=== PATIENT | male | born 1940 | race Caucasian/White ===

== ENCOUNTER 2023-02-26 09:29 | Emergency (ER) | payer MEDICARE, OTHER, SELFPAY ==
[2023-02-26 09:30] VITALS: BP 158/69; PULSE 60; RESP 18; TEMP 36.2; O2SAT 95; BMI 31.5
--- NOTE | 2023-02-26 09:41 | EKG12_ITS ---
Test Reason : RECHECK Blood Pressure : / mmHG Vent. Rate : 079 BPM Atrial Rate : 110 BPM P-R Int : 000 ms QRS Dur : 112 ms QT Int : 432 ms P-R-T Axes : 000 003 099 degrees QTc Int : 495 ms Atrial flutter Incomplete left bundle branch block Nonspecific ST and T wave abnormality Abnormal ECG Confirmed by GA DALTON, JASIEL ([id number]), newspaper editor KIRILL ROMAN ([id number]) on 03/01/2023 9:20:03 AM Referred By: BB Confirmed By:JASIEL KOROMA MD
--- NOTE | 2023-02-26 09:42 | RAD_ITS ---
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 COMPARISON: None. FINDINGS: EKG electrodes are seen. There is elevation of the right hemidiaphragm. Increased markings at both lung bases worse on the left side. Bibasilar infiltrates should be ruled out. Blunting of the left costophrenic angle. There is mild cardiac enlargement. Normal mediastinum and marce. There is prominence of the pulmonary hilar arteries without peripheral pulmonary vascular congestion, suggesting pulmonary hypertension. There is atherosclerotic calcification of the aortic arch with tortuosity. There are diffuse degenerative changes of the visualized thoracic spine. Normal visualized ribs, clavicles, and shoulders. There is no demonstrated abnormality of the visualized soft tissue structures of the upper abdomen. RAD/Chest PA and Lateral IMPRESSION: Increased markings at the lung bases suggest bibasilar infiltrates worse on the left side with blunting of the left costophrenic angle. Electronically Signed: Jay Arroyo MD at 10:13 EDT ,
--- NOTE | 2023-02-26 09:43 | EX.ED.DYSGE1 ---
HPI History of Present Illness Chief Complaint: Shortness of Breath Informant: patient Narrative Narrative: Patient started having a cough 2 days ago. It is nonproductive and without any congestion, earache, sinus pressure, sore throat, fevers, or chills. Yesterday started having coughing fits where he felt a little short of breath only while coughing. He states with walking, he has no dyspnea, even when walking up hills such as on his way into the ER here. He states he went to urgent care this morning, they did an EKG that appeared to show atrial fibrillation which she does not have a history of, so he was referred here to the ER. This is all according to the patient. He states he has had no chest discomfort, palpitations, near-syncope or syncope. He has chronic edema of both legs worse on the right no worse than usual, he has had no recent travel out of the area or contact with anyone else with any illness that he knows of. He has no known cardiac history. [facility] Medical History Hypertension Home Medications amlodipine 10 mg tablet 10 mg PO DAILY 02/26/23 [History Last Taken Unknown] amoxicillin 875 mg-potassium clavulanate 125 mg tablet 875 mg PO Q12H #20 TABLETS 02/26/23 [Rx Last Taken Unknown] apixaban 5 mg tablet (Eliquis) 5 mg PO BID #60 tabs 02/26/23 [Rx Last Taken Unknown] furosemide 40 mg tablet (Lasix) 40 mg PO DAILY #30 tabs 02/26/23 [Rx Last Taken Unknown] lisinopril 40 mg tablet 40 mg PO DAILY 02/26/23 [History Last Taken Unknown] Social History Smoking Status: Never smoker [facility] ED Constitutional Constitutional ED: Denies chills or fever(s) Eyes Eyes: Denies change in vision or diplopia ENT ENT ED: Denies ear pain, rhinorrhea or sore throat Cardiovascular Cardiovascular: Reports as per HPI and leg edema; Denies chest pain, palpitations or racing heartbeat Respiratory/Chest Respiratory/Chest: Reports as per HPI, cough, dry cough and dyspnea; Denies chest congestion, chest tightness, difficulty clearing secretions, dyspnea on exertion, excessive phlegm production or hemoptysis Gastrointestinal Gastrointestinal: Denies abdominal pain, diarrhea, nausea or vomiting Genitourinary Genitourinary ED: Denies dysuria or hematuria Musculoskeletal Musculoskeletal: Denies back pain or neck pain Integumentary Denies abscess or rash Neurologic Neurologic: Denies headache(s), paresthesias or weakness Psychiatric Psychiatric: Denies anxiety or suicidal thoughts EXAM Physical Exam Const Vital Signs: 02/26/23 09:30 02/26/23 09:44 02/26/23 09:45 Temperature 97.2 F L Temperature Source Temporal Pulse Rate 60 66 Respiratory Rate 18 30 H Respiratory Effort Normal Non-Labored Short of Breath Respiratory Pattern Tachypnea Blood Pressure 158/69 H 161/61 H Blood Pressure Mean 98 94 Pulse Ox 95 94 Oxygen Delivery Method Room Air Room Air Room Air 02/26/23 10:56 Temperature Temperature Source Pulse Rate 55 L Respiratory Rate 18 Respiratory Effort Respiratory Pattern Blood Pressure 157/69 H Blood Pressure Mean 98 Pulse Ox 92 Oxygen Delivery Method Room Air Positive well nourished and well developed Constitutional Narrative: well-appearing, speaking in full sentences General Appearance ED: well developed and NAD HEENT Reports moist mucous membranes normocephalic and atraumatic Eyes PERRL and EOMs intact bilaterally Neck full ROM, no lymphadenopathy, supple and no JVD Resp normal respiratory effort and clear to auscultation bilaterally Cardio no murmurs Rate: Negative for bradycardia or tachycardic Rhythm: abnormal rhythm irregularly irregular GI non-tender and non-distended Auscultation: normoactive bowel sounds Palpation: soft Back/Spine no CVA tenderness General Back: other FROM Extremity normal to inspection General Extremety ED: Yes edema; Negative for pulses abnormal or tenderness General Extremity: edema bilateral (no calf tenderness) lower extremity (trace edema LLE, 1+ RLE); Negative for pulses abnormal Neuro oriented x3, CN's II-XII intact bilaterally and no sensory deficits noted Sensorium / Orientation: awake and alert Motor Exam: strength 5/5 throughout Psych mental status grossly normal Skin no rashes or lesions noted and no wounds MDM MDM MDM Narrative Medical decision making narrative: I did review outside records: Urgent care discharge papers and 2 EKGs that they performed, 1 of which appeared to be sinus rhythm and the other of which appeared to be irregular, possibly sinus rhythm with PACs, possibly A-fib, but both limited due to significant baseline artifact. Therefore we repeated an EKG here. It too is difficult to interpret due to baseline artifact/tremor, but I favor A-fib. Labs are reviewed. 2 view chest x-ray shows some chronic changes in the bases on my interpretation, radiology in agreement discussed and the possibility of infiltrates. Therefore I added a BNP it is elevated 815. [id number] score is 3 for age, hypertension. Discussed with cardiology, who agrees given the patient's condition clinically is very well and he is not hypoxic can be discharged home to follow-up as an outpatient. He has not been having any symptoms of angina. Recommends Lasix 40 mg instead of the HCTZ and starting on Eliquis, I am also going to place him on antibiotics given his clinical symptoms, in case the infiltrates represent infection since he does also have a leukocytosis. Lab Data Attestation: I reviewed the patient's lab results. Labs: Laboratory Results - last 24 hr 02/26/23 02/26/23 02/26/23 09:50 09:50 09:50 WBC 14.1 H RBC 5.01 Hgb 14.8 Hct 46.9 MCV 93.6 MCH 29.5 MCHC 31.6 L RDW Std Deviation 43.2 RDW Coeff of Ben 12.7 Plt Count 233 MPV 10.3 Immature Gran % (Auto) 0.300 Neut % (Auto) 82.4 H Lymph % (Auto) 6.8 L [place] % (Auto) 10.2 H Eos % (Auto) 0.1 Baso % (Auto) 0.2 Absolute Neuts (auto) 11.6 H Absolute Lymphs (auto) 0.95 Nucleated RBC % 0 Sodium 136 Potassium 3.6 Chloride 106 Carbon Dioxide 27.0 Anion Gap 3 L BUN 14 Creatinine 0.95 Estim Creat Clear Calc 58.00 Est GFR (MDRD) Af Amer 98 Est GFR (MDRD) Non-Af 81 BUN/Creatinine Ratio 14.8 Glucose 126 H Calcium 9.6 Troponin I High Sens 82 H B-Natriuretic Peptide 814.8 H Radiography Diagnostic Testing: Clinical Impression(s) from Imaging Studies Chest X-Ray 02/26/23 09:42 IMPRESSION: Increased markings at the lung bases suggest bibasilar infiltrates worse on the left side with blunting of the left costophrenic angle. Electronically Signed: Jay Arroyo MD at 10:13 EDT , Rhythm Strip Rhythm Strip: Sinus w/ freq PAC vs Afib Rate: 60 Ectopy: PAC(s) (possibly; see above) EKG Initial EKG: Attestation: I personally reviewed and interpreted this EKG as follows: Interpretation: No Acute Injury Pattern, Atrial Fibrillation and LBBB (Incomplete) Prior: No Prior Management Discussion w/another healthcare provider: Marine Pipefitter Helper (Dr. Avelar) Discharge Plan Triage Chief Complaint: Shortness of Breath ED Provider: Mike Schneider Dx/Rx/DC Orders Clinical Impression: New onset a-fib, Acute cough Instructions: AFib Dc Prescriptions: New furosemide [Lasix] 40 mg tablet 40 mg PO DAILY Qty: 30 0RF amoxicillin-pot clavulanate [amoxicillin-pot clavulanate] 875-125 mg tablet 875 mg PO Q12H Qty: 20 0RF Eliquis 5 mg tablet 5 mg PO BID Qty: 60 0RF Continued amlodipine 10 mg tablet 10 mg PO DAILY Label Comments: TAKE 1 TABLET BY MOUTH EVERY DAY lisinopril 40 mg tablet 40 mg PO DAILY Label Comments: TAKE 1 TABLET BY MOUTH EVERY DAY Discontinued hydrochlorothiazide 25 mg tablet 25 mg PO DAILY Label Comments: TAKE 1 TABLET BY MOUTH EVERY DAY Primary Care Provider: NOT,DEFINED Referrals: Eric Avelar MD [Med Staff - Active Staff] - As soon as possible (call office for appt day/time) NOT,DEFINED [Primary Care Provider] - Activity Restrictions/Additional Instructions: The data is not definitive regarding whether you have early pneumonia, congestive heart failure, or both, in addition to atrial fibrillation but all of this is possible. Therefore we are treating you for all of this, and you need to follow-up with cardiology for more testing and evaluation. If you get significantly worse prior to this, such as significant trouble breathing, then return to the emergency room. Disposition Disposition: Home, Self Care
[2023-02-26 09:44] VITALS: BP 161/61; PULSE 66; RESP 30; O2SAT 94
[2023-02-26 09:45] VITALS: O2SAT 95
[2023-02-26 09:58] LABS: Absolute Lymphocyte Count 0.95 X10^3/uL (0.83-4.51); Absolute Neutrophil Count 11.6 X10^3/uL (2.0-7.7); Basophil# 0.03 X10^3/uL; Basophil% 0.2 % (0-1); Eosinophil# 0.01 X10^3/uL; Eosinophils% 0.1 % (0-5); Hematocrit 46.9 % (40-54); Hemoglobin 14.8 g/dL (13.0-16.5); Lymphocyte # 0.95 X10^3/ul (0.83-4.51); Lymphocyte % 6.8 % (19-41); Mean Corp Hgb Conc 31.6 g/dL (32-36); Mean Corpuscular Hgb 29.5 pg (27.0-32.0); Mean Corpuscular Volume 93.6 fL (80-94); Mean Platelet Vol. 10.3 fl (6.2-12.0); Monocyte# 1.44 X10^3/uL; Monocyte% 10.2 % (0-10); NRBC Flagged by Analyzer 0 % (0-5); Neutrophil # 11.58 X10^3/uL (2.7-7.7); Neutrophil % 82.4 % (47-70); Platelet Count 233 K/mm3 (150-450); RBC Distribution Width CV 12.7 % (11.6-14.6); RBC Distribution Width SD 43.2 fl (35.1-43.9); Red Blood Count 5.01 M/mm3 (4.6-6.2); White Blood Count 14.1 K/mm3 (4.4-11.0)
[2023-02-26 10:13] LABS: Anion Gap 3 (5-15); BUN 14 mg/dL (7-18); BUN/Creat Ratio 14.8 RATIO (10-20); Calcium,Total 9.6 mg/dL (8.5-10.1); Chloride 106 mmol/L (98-107); Creatinine, Serum 0.95 mg/dL (0.70-1.30); EST Glomerular Filtration Rate 81 mL/min (>60); Est Glom Filt Rate - Afr Amer 98 mL/min (>60); Glucose 126 mg/dL (74-106); Potassium 3.6 mmol/L (3.5-5.1); Sodium Level 136 mmol/L (136-145); Troponin-I HS 82 pg/mL (3.0-78.0)
[2023-02-26 10:56] VITALS: BP 157/69; PULSE 55; RESP 18; O2SAT 92
[2023-02-26 11:14] LABS: BNP,B-Type NATRIURETIC PEPTIDE 814.8 pg/mL (0-100)
[2023-02-26 12:38] VITALS: BP 171/71; PULSE 55; RESP 17; O2SAT 97
== END 2023-02-26 12:40 | disposition home or self-care (01) ==
PROVIDERS: Emergency Provider Emergency Medicine; Visit Provider Emergency Medicine
DX: I48.91 Unspecified atrial fibrillation (principal); R05.1 Acute cough; I10 Essential (primary) hypertension; Z79.899 Other long term (current) drug therapy; Z79.01 Long term (current) use of anticoagulants
CPT/HCPCS: 71046; 80048; 83880; 84484; 85025; 87428; 93005; 99284; A4216

== ENCOUNTER → 2023-03-22 | Outpatient (CLI) | payer MEDICARE, OTHER, SELFPAY ==
--- NOTE | 2023-03-22 06:25 | ECHOD_ITS ---
Reason For Study: AFIB Procedure This was a 2D Doppler, Color Flow transthoracic echocardiogram. Exam performed in department. Left Ventricle Normal LV size. Left ventricular systolic function is lower limits of normal. The estimated ejection fraction is 50 %. There is borderline global hypokinesis of the left ventricle. Right Ventricle Normal RV size. Normal systolic function. Atria The left atrium is moderately enlarged. Normal right atrium. Mitral Valve Normal mitral valve. Mild (1+) eccentric mitral valve insufficiency. Tricuspid Valve Normal tricuspid valve. Moderate (2+) tricuspid valve insufficiency. Pulmonary artery systolic pressure is 63 mmHg. Moderate pulmonary hypertension. Aortic Valve Trisinus/trileaflet aortic valve. Mild focal aortic valve calcification. Pulmonic Valve Normal pulmonic valve. Great Vessels Normal aortic root. The pulmonary artery is normal size. Normal inferior vena cava. Pericardium/Pleural No pericardial effusion. MMode/2D Measurements & Calculations LVIDd: 4.6 cm IVSd: 1.1 cm Ao root diam: 4.1 cm LVIDs: 3.7 cm LVPWd: 1.1 cm RVDd: 4.1 cm FS: 18.5 % LAV(MOD-bp): 101.4 ml LVAd ap4: 36.7 cm2 SV(MOD-sp4): 50.3 ml LAV(MOD-bp) Indexed: 48.2 ml/m2 LVLd ap4: 8.7 cm LAV(MOD-sp2): 96.9 ml EDV(MOD-sp4): 123.8 ml LAV(MOD-sp4): 107.8 ml EDV(sp4-el): 131.6 ml LVAs ap4: 25.4 cm2 LVLs ap4: 7.5 cm ESV(MOD-sp4): 73.5 ml ESV(sp4-el): 73.3 ml EF(MOD-sp4): 40.6 % EF(sp4-el): 44.3 % SV(sp4-el): 58.4 ml LA A4 area: 30.6 cm2 LA dimension(2D): 4.5 cm RA A4 area: 16.3 cm2 Time Measurements MV dec time: 0.14 sec Doppler Measurements & Calculations MV E max rodolfo: 117.0 cm/sec MV V2 max: 120.6 cm/sec MV dec slope: 845.6 cm/sec2 MV max P.8 mmHg MV V2 mean: 58.7 cm/sec MV mean P.8 mmHg MV V2 VTI: 30.2 cm Ao V2 max: 155.6 cm/sec LV V1 max: 146.8 cm/sec TR max rodolfo: 384.5 cm/sec Ao max P.8 mmHg LV V1 max P.6 mmHg TR max P.1 mmHg Ao V2 mean: 113.5 cm/sec LV V1 mean P.8 mmHg Ao mean P.8 mmHg LV V1 mean: 103.2 cm/sec Ao V2 VTI: 39.4 cm LV V1 VTI: 31.0 cm AV (velocity ratio): 0.79 ECHO/Echo Complete Interpretation Summary Normal LV size. Left ventricular systolic function is lower limits of normal. The estimated ejection fraction is 50 %. There is borderline global hypokinesis of the left ventricle. Pulmonary artery systolic pressure is 63 mmHg. Moderate pulmonary hypertension. Ordering Physician: Sidra Hardin Referring Physician: Sidra Hardin Performed By: Ariana Clarke RCS
--- NOTE | 2023-03-22 13:59 | STRESSREP ---
Stress Test Report Exercise stress test. 63-year-old lady with a history of supraventricular tachyarrhythmia Stress protocol: Resting EKG demonstrates normal sinus rhythm with a rate of 62 bpm resting blood pressure is 112/78 mmHg. The patient exercised according to the regular Davis protocol for a total duration of 8 minutes attaining a maximum heart rate of 139 bpm which was 88% of maximum predicted heart rate; the maximum workload was 10.1 metabolic equivalents. At rest there were no ST or T wave changes noted to suggest ischemia and at peak exercise upsloping ST changes only were noted which did not meet the criteria for ischemia. No clinical angina was noted the test was terminated due to the target heart rate being achieved/fatigue. The peak blood pressure was 152/84 mmHg. Rate-pressure product was 20,500. No arrhythmias were noted. Conclusion: Exercise stress test with no EKG criteria for ischemia at a high workload and no arrhythmias noted.
--- NOTE | 2023-03-22 14:35 | STRESSREP ---
Stress Test Report Pharmacologic myocardial perfusion stress test. 82-year-old man with a history of atrial fibrillation Resting EKG demonstrates atrial fibrillation with a rate of 65 bpm. Resting blood pressure is 148/78 mmHg. 0.4 mg of regadenoson was infused per usual protocol followed by rapid intravenous saline flush injection. Continuous EKG monitoring was performed. The maximum heart rate was 93 bpm which was 67% of max impacted heart rate the maximum workload was 1 metabolic equivalent. At rest there were no ST or T wave changes noted to suggest ischemia and at peak infusion nonspecific ST changes were noted which did not meet the criteria for ischemia. No clinical angina is noted. The final blood pressure was 150/70 mmHg. Myocardial perfusion protocol. 14.5 mCi of technetium 99m sestamibi was injected at rest. 0.4 mg of regadenoson was infused per usual protocol. At peak infusion 44.6 mCi of technetium 99m sestamibi was injected stress images were obtained stress and rest images were reconstructed and compared in the short axis vertical long and horizontal long axis. Gated images were also obtained. Perfusion SPECT analysis: Review of the stress images demonstrate normal uptake of tracer noted in all areas of the myocardium except for the apex with mild reduction of perfusion. The resting images similar demonstrated normal uptake of tracer noted in all areas of the myocardium with mild apical reduction of perfusion.. No areas of reversibility are noted to suggest ischemia and no previous infarct is noted. Gated SPECT analysis: The gated ejection fraction is 49%. Conclusion: Normal pharmacologic myocardial perfusion stress test. Mildly reduced ejection fraction. Cannot exclude apical infarct
== END | disposition home or self-care (01) ==
LOC: CVS 06:18
PROVIDERS: PCP Nurse Practitioner Primary Care; Referring Provider Physician Assistant Medical; Visit Provider Physician Assistant Medical
DX: R06.09 Other forms of dyspnea (principal); I48.91 Unspecified atrial fibrillation; I10 Essential (primary) hypertension
CPT/HCPCS: 78452; 93017; 93306; A9500; A4216; J2785

== ENCOUNTER → 2023-06-12 | Outpatient (CLI) | payer MEDICARE, OTHER, SELFPAY ==
[2023-06-12 17:20] LABS: ALB/GLOB Ratio 0.8 RATIO (0.9-2.4); AST(SGOT) 17 U/L (15-37); Alanine Aminotransfer ALT/SGPT 19 U/L (16-61); Albumin, Serum 3.4 g/dL (3.2-5.0); Alkaline Phosphatase 107 U/L (45-117); Anion Gap 5 (5-15); BUN 12 mg/dL (7-18); BUN/Creat Ratio 12.2 RATIO (10-20); Calcium,Total 9.6 mg/dL (8.5-10.1); Chloride 108 mmol/L (98-107); Creatinine, Serum 0.98 mg/dL (0.70-1.30); EST Glomerular Filtration Rate 78 mL/min (>60); Est Glom Filt Rate - Afr Amer 94 mL/min (>60); Globulin 4.2 g/dL (2.2-4.2); Glucose 102 mg/dL (74-106); Potassium 3.6 mmol/L (3.5-5.1); Protein, Total 7.6 g/dL (6.4-8.2); Sodium Level 140 mmol/L (136-145)
== END | disposition home or self-care (01) ==
LOC: LAB 16:21
PROVIDERS: PCP Nurse Practitioner Primary Care; Referring Provider Physician Assistant Medical; Visit Provider Physician Assistant Medical
DX: I48.19 Other persistent atrial fibrillation (principal)
CPT/HCPCS: 36415; 80053

== ENCOUNTER → 2023-06-19 | Outpatient (CLI) | payer MEDICARE, OTHER, SELFPAY | END | disposition home or self-care (01) | LOC: PSN 12:23 | PROVIDERS: PCP Nurse Practitioner Primary Care; Referring Provider Physician Assistant Medical; Visit Provider Physician Assistant Medical | DX: I48.91 Unspecified atrial fibrillation (principal); R00.1 Bradycardia, unspecified | CPT/HCPCS: 93225; 93226 ==

== ENCOUNTER → 2023-07-20 | Outpatient (CLI) | payer MEDICARE, OTHER, SELFPAY ==
[2023-07-20 17:49] LABS: Anion Gap 5 (5-15); BUN 11 mg/dL (7-18); BUN/Creat Ratio 11.4 RATIO (10-20); Calcium,Total 9.3 mg/dL (8.5-10.1); Chloride 108 mmol/L (98-107); Creatinine, Serum 0.97 mg/dL (0.70-1.30); EST Glomerular Filtration Rate 79 mL/min (>60); Est Glom Filt Rate - Afr Amer 95 mL/min (>60); Glucose 97 mg/dL (74-106); Potassium 3.5 mmol/L (3.5-5.1); Sodium Level 139 mmol/L (136-145)
[2023-07-20 17:54] LABS: BNP,B-Type NATRIURETIC PEPTIDE 328.1 pg/mL (0-100)
== END | disposition home or self-care (01) ==
LOC: LAB 16:50
PROVIDERS: PCP Nurse Practitioner Primary Care; Referring Provider Physician Assistant Medical; Visit Provider Physician Assistant Medical
DX: R06.09 Other forms of dyspnea (principal); I48.92 Unspecified atrial flutter
CPT/HCPCS: 36415; 80048; 83880

== ENCOUNTER 2023-07-24 10:23 | Day surgery (SDC) | payer MEDICARE, OTHER, SELFPAY ==
[2023-07-23 08:29] VITALS: BMI 31.0
[2023-07-24] MEDS: APIXABAN 5 MG TABLET PO (11:00)
--- NOTE | 2023-07-24 12:41 | PCM.OP.PRO ---
Procedure Report Date of Procedure: 07/24/23 DC cardio version. 82-year-old man with a history of atrial flutter who has been on anticoagulation uninterrupted. The patient has symptoms of fatigue and shortness of breath and was brought to the cardiac catheterization lab in the postabsorptive nonsedated state. The patient was seen by Dr. Lugo of the critical care division. Informed consent was obtained. Anterior-posterior pads were applied. The patient was then administered 40 mg of intravenous propofol. Synchronized DC cardioversion energy biphasic was applied 200 J with prompt reversal to sinus rhythm. Patient was noted to have first-degree AV block. Patient tolerated procedure well. Conclusion: Successful DC cardioversion from atrial flutter to sinus rhythm. We will consider a 24-hour Holter monitor to monitor rhythm further.(This will be to exclude 2-1 heart block)
--- NOTE | 2023-07-24 12:58 | PCM.OP.PRO ---
Procedure Report Date of Procedure: 07/24/23 CONSCIOUS SEDATION REPORT DATE OF SERVICE: July 24, 2023 BRIEF HISTORY OF PRESENT ILLNESS: The patient is an 82-year-old male who presented to [facility] for elective outpatient cardioversion due to underlying atrial fibrillation. The patient denied any prior anesthetic complications. He denied a history of obstructive sleep apnea. He is a lifelong non-smoker. He denied any prior anesthetic complications. His last surface echocardiogram demonstrated an ejection fraction of 50%. The patient is systemically anticoagulated on Eliquis. PHYSICAL EXAMINATION: VITAL SIGNS: Reviewed and were acceptable. GENERAL: The patient is an obese male, in no apparent distress, speaking in full sentences. HEENT: Normocephalic, atraumatic. Mucous membranes are moist and pink. Good mouth opening noted. Trachea is midline. CHEST: S1, S2 irregularly irregular. No murmurs, rubs or gallops were noted. LUNGS: Clear to auscultation bilaterally without appreciable wheezes, rales or rhonchi. ABDOMEN: Soft, nontender, nondistended. Positive bowel sounds. EXTREMITIES: There is no clubbing or cyanosis. Bilateral lower extremity edema is present. ASA Class: II DESCRIPTION OF PROCEDURE: After confirmation of informed consent, the patient's anesthesia plan was reviewed in detail. Propofol was chosen. Risks and benefits were reviewed and the patient agreed to proceed. At 1207, the patient was given 40 mg of propofol. The patient achieved an appropriate level of sedation and was given a 200 joule synchronized cardioversion by Dr. Avelar at the bedside. This was successful in achieving normal sinus rhythm. The patient was monitored until 1220, at which time he reached his baseline mental status and function. The patient tolerated the procedure well. COMPLICATIONS: None ESTIMATED BLOOD LOSS: None RECOMMENDATIONS: Okay to recover in usual fashion. Procedures Pulmonary 9xxxx: [id number] Con Sedation
== END 2023-07-24 13:30 | disposition home or self-care (01) ==
LOC: CLSP 10:27
PROVIDERS: PCP Nurse Practitioner Primary Care; Referring Provider Internal Medicine Cardiovascular Disease; Visit Provider Internal Medicine Cardiovascular Disease
DX: I48.19 Other persistent atrial fibrillation (principal); I48.92 Unspecified atrial flutter; I10 Essential (primary) hypertension; Z79.899 Other long term (current) drug therapy; Z79.01 Long term (current) use of anticoagulants
CPT/HCPCS: 92960; 93005; 93225; 93226; J7040

== ENCOUNTER 2023-09-04 09:30 | Outpatient (RCR) | payer MEDICARE, OTHER, SELFPAY ==
[2023-08-21 10:34] VITALS: BP 163/84; PULSE 94; RESP 20; TEMP 36.6
[2023-08-21 11:03] VITALS: BMI 29.2
--- NOTE | 2023-08-21 12:22 | HP.PCM_ITS ---
History of Present Illness Date of Service: 08/21/23 [facility] Medical History (Updated 07/18/23 @ 16:49 by Sidra ALCARAZ, PA) Adenocarcinoma of prostate Afib Atrial flutter Hypertension Persistent atrial fibrillation Home Medications furosemide 40 mg tablet (Lasix) 40 mg PO DAILY #30 tabs 02/26/23 [Rx Last Taken Unknown] lisinopril 40 mg tablet 40 mg PO DAILY 02/26/23 [History Last Taken Unknown] apixaban 5 mg tablet (Eliquis) 5 mg PO BID #60 tabs 03/26/23 [Rx Last Taken Unknown] amlodipine 10 mg tablet 5 mg PO DAILY 06/12/23 [History Last Taken Unknown] hydralazine 25 mg tablet mg PO 06/12/23 [History Last Taken Unknown] spironolactone 25 mg tablet 25 mg PO DAILY #90 tabs 06/12/23 [Rx Last Taken Unknown] potassium chloride 20 mEq tablet,extended release 20 meq PO DAILY #5 tabs 07/31/23 [Rx Last Taken Unknown] Allergy/AdvReac Type Severity Reaction Status Date / Time No Known Allergies Allergy Verified 07/11/23 10:48 Surgical History Hx of umbilical hernia repair Social History Smoking Status: Never smoker Vital Signs Vital Signs Vital Signs: 08/21/23 10:34 Temperature 98 F Temperature Source Temporal Pulse Rate 94 Respiratory Rate 20 H Blood Pressure 163/84 H Blood Pressure Mean 110 Blood Pressure Source Monitor Blood Pressure Position Sitting Blood Pressure Location Left Arm Oxygen Delivery Method Room Air Weight Weight: 198 lb Body Mass Index (BMI) 29.2 Debridement Note Debridement Note Post-Debridement Measurements and Additional Note: Post-Debridement Measurements/Treatment MILA - Nurse 1 - General Ulcer Assessment Start: 08/21/23 10:30 Freq: Status: Active Protocol: CHANCE Activity Type Activity Date Activity User E-sign Co-sign Detail Recorded Client Recorded Date Recorded By Document 08/21/23 10:34 MT Desktop 08/21/23 10:56 MT Document 08/21/23 11:03 PL Desktop 08/21/23 11:04 PL 08/21/23 08/21/23 10:34 11:03 WC - Today's Visit Information Type of service Follow-up Visit (Physician/COMMERCIAL ENGINEER ) Arrival Mode Ambulatory Accompanied by Patient Identification Verified (Name & Yes ) Safety Precautions Fall Prevention Height and Weight Height 5 ft 9 in Weight 198 lb Weight in Pounds 198.0 lbs Body Mass Index (BMI) 29.2 BMI Classification Overweight BSA - Gabriela 2.06 Vital Signs Temperature (97.8 F-99.1 F) 98 F Temperature Source Temporal Pulse Rate (60-100) 94 Pulse Location Monitor Respiratory Rate (12-18) 20 H Respiratory rate source Observation Oxygen Delivery Method Room Air Blood Pressure (90/60-120/80) 163/84 H Blood Pressure Mean 110 Source Monitor Position Sitting Blood Pressure Location Left Arm History Since Last Visit- (Skip if this is Patient's initial visit) Left Footwear Regular Shoe Right Footwear Regular Shoe Pain Scale: 0-10 Numeric Is Patient Pain Free? Yes Yes WC - Nurse 1 - General Ulcer Measurement Start: 08/21/23 10:30 Freq: Status: Active Protocol: Activity Type Activity Date Activity User E-sign Co-sign Detail Recorded Client Recorded Date Recorded By Document 08/21/23 10:34 MT Desktop 08/21/23 10:56 MT 08/21/23 10:34 Wound Center Nurse 1 #4 Left Ant Calf -Current Size (cm) - Length 3.5 -Current Size (cm) - Width 3.0 -Current Size (cm) - Depth 0.1 -Total Square Cm 10.50 #3 Left Medial Calf -Current Size (cm) - Length 3.2 -Current Size (cm) - Width 3.1 -Current Size (cm) - Depth 0.1 -Total Square Cm 9.92 #2 Post Calf -Current Size (cm) - Length 8.6 -Current Size (cm) - Width 9.5 -Current Size (cm) - Depth 0.1 -Total Square Cm 81.70 #1 Right Ant Calf -Current Size (cm) - Length 4 -Current Size (cm) - Width 4.8 -Current Size (cm) - Depth 0.1 -Total Square Cm 19.2 Right Calf (cm) 42 Left Calf (cm) 46
--- NOTE | 2023-08-21 12:22 | PCM.WC.HP ---
History of Present Illness Date of Service: 08/21/23 Chief Complaint: Bilateral lower extremity swelling, edema, and venous stasis dermatitis with ulcerations History of Wound: This is an 82-year-old male who presented with severe swelling and edema in both lower extremities, and dermatitic changes in his lower extremities bilaterally, which have been present for several months. Patient has undergone a change in his daily habits within the last several months. He has become inactive, spending large portions of each day in an idle sitting position. 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 Furthermore, he sleeps in a recliner. Within the last several months, he has noted the development of swelling and edema in both legs, as well as severe skin changes and the development of blisters and ulcerations. He denies a history of thrombophlebitis. He has been treated with antibiotic ointment topically. He has been diagnosed with cellulitis in his right lower extremity, for which she has been prescribed prescriptions for both doxycycline and cephalexin. He is just now finishing up his most recent prescription for cephalexin 500 mg p.o. twice daily for 10 days. The patient indicates he is a candidate for pacemaker insertion, but resolution of his lower extremity swelling, edema, ulcerations, and cellulitis are a prerequisite to pacemaker placement. [facility] Medical History Adenocarcinoma of prostate Afib Atrial flutter Chronic anticoagulation Debility Dependent edema History of prostate cancer Hypertension Inactivity Persistent atrial fibrillation Venous stasis dermatitis of both lower extremities Venous stasis ulcer Home Medications furosemide 40 mg tablet (Lasix) 40 mg PO DAILY #30 tabs 02/26/23 [Rx Last Taken Unknown] lisinopril 40 mg tablet 40 mg PO DAILY 02/26/23 [History Last Taken Unknown] apixaban 5 mg tablet (Eliquis) 5 mg PO BID #60 tabs 03/26/23 [Rx Last Taken Unknown] amlodipine 10 mg tablet 5 mg PO DAILY 06/12/23 [History Last Taken Unknown] hydralazine 25 mg tablet mg PO 06/12/23 [History Last Taken Unknown] spironolactone 25 mg tablet 25 mg PO DAILY #90 tabs 06/12/23 [Rx Last Taken Unknown] potassium chloride 20 mEq tablet,extended release 20 meq PO DAILY #5 tabs 07/31/23 [Rx Last Taken Unknown] Allergy/AdvReac Type Severity Reaction Status Date / Time No Known Allergies Allergy Verified 07/11/23 10:48 Surgical History History of umbilical hernia repair Hx of umbilical hernia repair Social History Smoking Status: Never smoker Vital Signs Vital Signs Vital Signs: 08/21/23 10:34 Temperature 98 F Temperature Source Temporal Pulse Rate 94 Respiratory Rate 20 H Blood Pressure 163/84 H Blood Pressure Mean 110 Blood Pressure Source Monitor Blood Pressure Position Sitting Blood Pressure Location Left Arm Oxygen Delivery Method Room Air Weight Weight: 198 lb Body Mass Index (BMI) 29.2 Physical Exam Const alert, oriented x3, no apparent distress, average body habitus and well nourished Constitutional Narrative: The patient's BMI is 29.2. General Appearance: cooperative, comfortable and well developed Orientation / Consciousness: awake, oriented to person, oriented to place and oriented to time HEENT normocephalic and head/scalp atraumatic Head and Scalp: normal to inspection, normocephalic and atraumatic External Ear: external ears normal Eyes PERRL and EOMs intact bilaterally General Eye: normal appearance of both eyes Resp normal respiratory effort, normal air movement, no retractions and no use of accessory muscles Effort and Inspection: able to speak in complete sentences Extremity no calf tenderness General Extremity: Negative for clubbing or cyanosis Skin Wound Narrative: Bilateral lower extremity swelling and edema are noted. Superficial excoriations are noted bilaterally, of various sizes. The excoriations are generally pink and healthy in appearance. One large excoriation/ulceration is noted on the right posterior calf, which demonstrates a significant amount of nonviable and necrotic material. Dimensions are documented elsewhere. There is a rather diffuse inflammatory erythema noted in both lower extremities, particularly on the right. Neuro oriented x3, CN's II-XII intact bilaterally, moves all extremities and no focal motor deficits Sensorium / Orientation: awake, alert, oriented to person, oriented to place and oriented to time Psych Appearance: grossly normal and appropriate Attitude: calm Activity / Motor Behavior: appropriate eye contact Speech: normal speech Mood & Affect: euthymic mood Thought Process: normal thought process Thought Content: normal thought content Attention / Concentration: attention grossly intact Debridement Note Debridement Note Wound debrided: Right posterior calf Laterality: Right Type of Debridement: Excisional debridement Anesthesia Used: 5% Lidocaine Gel Depth: Down to and including healthy tissue and in the subcutaneous layer Percentage of wound debrided: 100 Instrument Used: 5mm curette Tissue Removed: Bioburden, necrotic and nonviable tissue Severity: Fat Layer Exposed Amount of bleeding with debridement: Mild Bleeding Controlled with: Compression and gauze Patient tolerated procedure: Patient tolerated procedure well Post-Debridement Measurements and Additional Note: Post-Debridement Measurements/Treatment - Nurse 1 - General Ulcer Assessment Start: 08/21/23 10:30 Freq: Status: Active Protocol: CHANCE Activity Type Activity Date Activity User E-sign Co-sign Detail Recorded Client Recorded Date Recorded By Document 08/21/23 10:34 MT [employer] 08/21/23 10:56 MT Document 08/21/23 11:03 PL Desktop 08/21/23 11:04 PL 08/21/23 08/21/23 10:34 11:03 - Today's Visit Information Type of service Follow-up Visit (Physician/DIRECTOR NICU ) Arrival Mode Ambulatory Accompanied by Patient Identification Verified (Name & Yes ) Safety Precautions Fall Prevention Height and Weight Height 5 ft 9 in Weight 198 lb Weight in Pounds 198.0 lbs Body Mass Index (BMI) 29.2 BMI Classification Overweight BSA - Gabriela 2.06 Vital Signs Temperature (97.8 F-99.1 F) 98 F Temperature Source Temporal Pulse Rate (60-100) 94 Pulse Location Monitor Respiratory Rate (12-18) 20 H Respiratory rate source Observation Oxygen Delivery Method Room Air Blood Pressure (90/60-120/80) 163/84 H Blood Pressure Mean 110 Source Monitor Position Sitting Blood Pressure Location Left Arm History Since Last Visit- (Skip if this is Patient's initial visit) Left Footwear Regular Shoe Right Footwear Regular Shoe Pain Scale: 0-10 Numeric Is Patient Pain Free? Yes Yes - Nurse 1 - General Ulcer Measurement Start: 08/21/23 10:30 Freq: Status: Active Protocol: Activity Type Activity Date Activity User E-sign Co-sign Detail Recorded Client Recorded Date Recorded By Document 08/21/23 10:34 CAD [employer] 08/21/23 10:56 MT 08/21/23 10:34 Wound Center Nurse 1 #4 Left Ant Calf -Current Size (cm) - Length 3.5 -Current Size (cm) - Width 3.0 -Current Size (cm) - Depth 0.1 -Total Square Cm 10.50 #3 Left Medial Calf -Current Size (cm) - Length 3.2 -Current Size (cm) - Width 3.1 -Current Size (cm) - Depth 0.1 -Total Square Cm 9.92 #2 Post Calf -Current Size (cm) - Length 8.6 -Current Size (cm) - Width 9.5 -Current Size (cm) - Depth 0.1 -Total Square Cm 81.70 #1 Right Ant Calf -Current Size (cm) - Length 4 -Current Size (cm) - Width 4.8 -Current Size (cm) - Depth 0.1 -Total Square Cm 19.2 Right Calf (cm) 42 Left Calf (cm) 46 Assessment/Plan Assessment/Plan (1) Venous stasis ulcer: CODE(S): I83.009 - Varicose veins of unspecified lower extremity with ulcer of unspecified site; L97.909 - Non-pressure chronic ulcer of unspecified part of unspecified lower leg with unspecified severity QUALIFIERS: Venous stasis ulcer site: calf Laterality: right (2) Venous stasis dermatitis of both lower extremities: CODE(S): I87.2 - Venous insufficiency (chronic) (peripheral) (3) Dependent edema: CODE(S): R60.9 - Edema, unspecified (4) Inactivity: CODE(S): Z72.3 - Lack of physical exercise (5) Debility: CODE(S): R53.81 - Other malaise (6) Atrial flutter: CODE(S): I48.92 - Unspecified atrial flutter (7) Persistent atrial fibrillation: CODE(S): I48.19 - Other persistent atrial fibrillation (8) Pulmonary HTN: CODE(S): I27.20 - Pulmonary hypertension, unspecified (9) ROSARIO (dyspnea on exertion): CODE(S): R06.09 - Other forms of dyspnea (10) Hypertension: CODE(S): I10 - Essential (primary) hypertension (11) Afib: CODE(S): I48.91 - Unspecified atrial fibrillation (12) History of prostate cancer: CODE(S): Z85.46 - Personal history of malignant neoplasm of prostate (13) History of umbilical hernia repair: CODE(S): Z98.890 - Other specified postprocedural states; Z87.19 - Personal history of other diseases of the digestive system (14) Chronic anticoagulation: CODE(S): Z79.01 - exterminator (current) use of anticoagulants PLAN: Plan This is an 82-year-old male who presents with swelling, edema, and recent cellulitis in his right lower extremity. He has multiple superficial excoriations and ulcerations in his lower extremities, the worst of which is located on the right posterior calf. It appears as though the patient's presenting manifestations are due to recently acquired habits, which include prolonged idle sitting and lower extremity dependency. Within the last several months, the patient has taken to sleeping in a recliner. Additionally, he spends long hours each day in an idle sitting position. He ambulates in very limited amounts. As result of these habits, the patient has noted worsening swelling and edema in his lower extremities, the development of blisters, which have resulted in open excoriations and ulcerations. He has developed cellulitis in his right lower extremity, which has required treatment with courses of antibiotics. We have discussed the conservative treatment measures appropriate to the management of his lower extremity symptoms and manifestations. He has been discouraged from sleeping in a recliner. He has been encouraged to sleep on a flat mattress, with legs elevated to heart level, or higher. If sleeping in a bed proves to be untenable, the alternative would be to sleep in his recliner, but with legs elevated and head down. The patient's legs are to be elevated to heart level, or higher, as much as possible, during both daytime and nighttime hours. Activity has been encouraged, though the patient is not likely to enhance his activity level to any significant degree. Prolonged idle sitting has been discouraged. The patient's weight is relatively optimal. We are to implement compression to the lower extremities by means of Unna boots, which will be applied today, and changed twice weekly. Unna boots will be applied bilaterally. Promogran is to be applied topically to the ulceration on the right posterior calf. Promogran will be reapplied with each change of the Unna boot wraps. The patient is to return in 1 week for reevaluation. Total time: 52 minutes
[2023-08-24 14:13] VITALS: BP 126/64; PULSE 90; RESP 18; TEMP 36.4; BMI 29.2
[2023-08-28 09:36] VITALS: BP 169/96; PULSE 109; RESP 18; TEMP 36; BMI 29.2
--- NOTE | 2023-08-28 13:34 | PCM.WC.HP ---
History of Present Illness Date of Service: 08/28/23 Chief Complaint: Bilateral lower extremity swelling, edema, and venous stasis dermatitis with ulcerations History of Wound: This is an 82-year-old male who presented with severe swelling and edema in both lower extremities, and dermatitic changes in his lower extremities bilaterally, which had been present for several months. The patient had undergone a change in his daily habits within the last several months. He had become inactive, spending large portions of each day in an idle sitting position. 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 Furthermore, he sleeps in a recliner. Within the last several months, he had noted the development of swelling and edema in both legs, as well as severe skin changes and the development of blisters and ulcerations. He denies a history of thrombophlebitis. He had been treated with antibiotic ointment topically. He had been diagnosed with cellulitis in his right lower extremity, for which he had been prescribed prescriptions for both doxycycline and cephalexin. The patient indicated he is a candidate for pacemaker insertion, but resolution of his lower extremity swelling, edema, ulcerations, and cellulitis are a prerequisite to pacemaker placement. [facility] Medical History (Updated 08/28/23 @ 13:[address] Phil Cain MD) Adenocarcinoma of prostate Afib Atrial flutter Chronic anticoagulation Debility Dependent edema History of prostate cancer Hypertension Inactivity Persistent atrial fibrillation Venous stasis dermatitis of both lower extremities Venous stasis ulcer Venous stasis ulcer of left calf Venous stasis ulcer of right calf Home Medications furosemide 40 mg tablet (Lasix) 40 mg PO DAILY #30 tabs 02/26/23 [Rx Last Taken Unknown] lisinopril 40 mg tablet 40 mg PO DAILY 02/26/23 [History Last Taken Unknown] apixaban 5 mg tablet (Eliquis) 5 mg PO BID #60 tabs 03/26/23 [Rx Last Taken Unknown] amlodipine 10 mg tablet 5 mg PO DAILY 06/12/23 [History Last Taken Unknown] hydralazine 25 mg tablet mg PO 06/12/23 [History Last Taken Unknown] spironolactone 25 mg tablet 25 mg PO DAILY #90 tabs 06/12/23 [Rx Last Taken Unknown] potassium chloride 20 mEq tablet,extended release 20 meq PO DAILY #5 tabs 07/31/23 [Rx Last Taken Unknown] Allergy/AdvReac Type Severity Reaction Status Date / Time No Known Allergies Allergy Verified 07/11/23 10:48 Surgical History History of umbilical hernia repair Hx of umbilical hernia repair Social History Smoking Status: Never smoker Vital Signs Vital Signs Vital Signs: 08/28/23 09:36 Temperature 96.8 F L Temperature Source Temporal Pulse Rate 109 H Respiratory Rate 18 Blood Pressure 169/96 H Blood Pressure Mean 120 Blood Pressure Source Monitor Blood Pressure Position Semi-Fowlers Blood Pressure Location Left Arm Weight Weight: 198 lb Body Mass Index (BMI) 29.2 Physical Exam Const alert, oriented x3, no apparent distress, average body habitus and well nourished Constitutional Narrative: The patient's BMI is 29.2. General Appearance: cooperative, comfortable and well developed Orientation / Consciousness: awake, oriented to person, oriented to place and oriented to time HEENT normocephalic and head/scalp atraumatic Head and Scalp: normal to inspection, normocephalic and atraumatic External Ear: external ears normal Eyes PERRL and EOMs intact bilaterally General Eye: normal appearance of both eyes Resp normal respiratory effort, normal air movement, no retractions and no use of accessory muscles Effort and Inspection: able to speak in complete sentences Extremity no calf tenderness General Extremity: Negative for clubbing or cyanosis Skin Wound Narrative: Bilateral lower extremity swelling and edema are noted. Several ulcerations are noted in the lower extremities bilaterally. 3 sets ulcerations are noted on the right. 2 such ulcerations are noted on the left. These are of significant size, and dimensions are documented elsewhere. Each of the ulcerations demonstrates a moderate amount of bioburden and nonviable/necrotic material. There has been deterioration in the status of these ulcerations since the patient's last visit 1 week ago. There is a rather diffuse inflammatory erythema noted in both lower extremities, particularly on the right. Neuro oriented x3, CN's II-XII intact bilaterally, moves all extremities and no focal motor deficits Sensorium / Orientation: awake, alert, oriented to person, oriented to place and oriented to time Psych Appearance: grossly normal and appropriate Attitude: calm Activity / Motor Behavior: appropriate eye contact Speech: normal speech Mood & Affect: euthymic mood Thought Process: normal thought process Thought Content: normal thought content Attention / Concentration: attention grossly intact Debridement Note Debridement Note Wound debrided: Right calf x 3 Laterality: Right Type of Debridement: Excisional debridement Anesthesia Used: 5% Lidocaine Gel Depth: Down to and including healthy tissue and in the subcutaneous layer Percentage of wound debrided: 100 Instrument Used: 5mm curette Tissue Removed: Bioburden, necrotic and nonviable tissue Severity: Fat Layer Exposed Amount of bleeding with debridement: Mild Bleeding Controlled with: Compression and gauze Patient tolerated procedure: Patient tolerated procedure well Post-Debridement Measurements and Additional Note: Post-Debridement Measurements/Treatment - Nurse 1 - General Ulcer Assessment Start: 08/21/23 10:30 Freq: Status: Active Protocol: CHANCE Activity Type Activity Date Activity User E-sign Co-sign Detail Recorded Client Recorded Date Recorded By Document 08/21/23 10:34 MT Desktop 08/21/23 10:56 MT Document 08/21/23 11:03 PL Desktop 08/21/23 11:04 PL Document 08/24/23 14:13 MW Desktop 08/24/23 14:17 MW Document 08/28/23 09:36 RB Desktop 08/28/23 09:49 RB 08/21/23 08/21/23 08/24/23 10:34 11:03 14:13 - Today's Visit Information Type of service Follow-up Visit Nurse-only (Physician/ENTRY PROCESSOR Visit ) Arrival Mode Ambulatory Ambulatory Transfer Assistance None Accompanied by Patient Identification Verified (Name & Yes Yes ) Patient Requires Transmission-Based No Precautions Safety Precautions Fall Prevention NA Height and Weight Height 5 ft 9 in Weight 198 lb Weight in Pounds 198.0 lbs Body Mass Index (BMI) 29.2 29.2 BMI Classification Overweight Overweight BSA - Gabriela 2.06 Vital Signs Temperature (97.8 F-99.1 F) 98 F 97.6 F L Temperature Source Temporal Temporal Pulse Rate (60-100) 94 90 Pulse Location Monitor Monitor Respiratory Rate (12-18) 20 H 18 Respiratory rate source Observation Observation Oxygen Delivery Method Room Air Room Air Blood Pressure (90/60-120/80) 163/84 H 126/64 H Blood Pressure Mean 110 84 Source Monitor Monitor Position Sitting Sitting Blood Pressure Location Left Arm Left Arm History Since Last Visit- (Skip if this is Patient's initial visit) Have you changed medications since your No last visit? Any new allergies or adverse reactions No Had a fall/change in ADL's that may No increase risk of falls Signs or symptoms of abuse and/or No neglect since last visit Have you been in the hospital since your No last visit? Has dressing in place as prescribed Yes Has compression in place as prescribed Yes Has offloadiing in place as prescribed N/A Experienced any changes in pain level or No management Left Footwear Regular Shoe Regular Shoe Right Footwear Regular Shoe Regular Shoe Pain Scale: 0-10 Numeric Is Patient Pain Free? Yes Yes Yes 08/28/23 09:36 WC - Today's Visit Information Type of service Follow-up Visit (Physician/ENTRY PROCESSOR ) Arrival Mode Ambulatory Transfer Assistance None Accompanied by Patient Identification Verified (Name & Yes ) Patient Requires Transmission-Based No Precautions Safety Precautions Height and Weight Height Weight Weight in Pounds Body Mass Index (BMI) 29.2 BMI Classification Overweight [facility] - Gabriela Vital Signs Temperature (97.8 F-99.1 F) 96.8 F L Temperature Source Temporal Pulse Rate (60-100) 109 H Pulse Location Monitor Respiratory Rate (12-18) 18 Respiratory rate source Observation Oxygen Delivery Method Blood Pressure (90/60-120/80) 169/96 H Blood Pressure Mean 120 Source Monitor Position Semi-Fowlers Blood Pressure Location Left Arm History Since Last Visit- (Skip if this is Patient's initial visit) Have you changed medications since your No last visit? Any new allergies or adverse reactions No Had a fall/change in ADL's that may No increase risk of falls Signs or symptoms of abuse and/or No neglect since last visit Have you been in the hospital since your No last visit? Has dressing in place as prescribed Yes Has compression in place as prescribed Yes Has offloadiing in place as prescribed No Experienced any changes in pain level or No management Left Footwear Right Footwear Pain Scale: 0-10 Numeric Is Patient Pain Free? Yes - Nurse 1 - General Ulcer Measurement Start: 08/21/23 10:30 Freq: Status: Active Protocol: Activity Type Activity Date Activity User E-sign Co-sign Detail Recorded Client Recorded Date Recorded By Document 08/21/23 10:34 MT Desktop 08/21/23 10:56 MT Document 08/24/23 14:13 MW Desktop 08/24/23 14:17 MW Document 08/28/23 09:36 RB Desktop 08/28/23 09:49 RB 08/21/23 08/24/23 08/28/23 10:34 14:13 09:36 Wound Center Nurse 1 #4 Left Ant Calf -Combined with other wound No -Current Size (cm) - Length 3.5 2.9 -Current Size (cm) - Width 3.0 1.9 -Current Size (cm) - Depth 0.1 0.1 -Total Square Cm 10.50 5.51 -Tunneling No -Undermining/Tunneling No -Circular Undermining No -Exudate Amt Medium -Exudate Type Serosanguineous -Wound Margin Distinct, Outline Attached -Granulation Amt Medium (34-66%) -Granulation Quality [place] -Slough/Fibrin Yes -Necrosis Amt Medium (34-66%) -Necrotic Tissue Type Adherent Slough -Structure Exposed N/A -Texture (Zaira-wound Skin Appearance) Assessed, Assessed Localized Edema -Moisture (Zaira-wound Skin Appearance) Assessed Assessed -Color (Zaira-wound Skin Appearance) Assessed,Rubor Hemosiderin Staining -Temperature (Zaira-wound Skin No Abnormality Appearance) (Pt Warm) -Tenderness on Palpation (Zaira-wound No Skin Appearance) -Ulcer Cleansing Soap and Water Wound Cleanser -Foul Odor after Cleansing No -Anesthetic Used 5% Lidocaine Gel #3 Left Medial Calf -Combined with other wound No -Current Size (cm) - Length 3.2 2.9 -Current Size (cm) - Width 3.1 2 -Current Size (cm) - Depth 0.1 0.1 -Total Square Cm 9.92 5.8 -Tunneling No -Undermining/Tunneling No -Circular Undermining No -Exudate Amt Medium -Exudate Type Serosanguineous -Wound Margin Distinct, Outline Attached -Granulation Amt Medium (34-66%) -Granulation Quality [place] -Slough/Fibrin Yes -Necrosis Amt Medium (34-66%) -Necrotic Tissue Type Adherent Slough -Structure Exposed N/A -Texture (Zaira-wound Skin Appearance) Assessed, Assessed Localized Edema -Moisture (Zaira-wound Skin Appearance) Assessed Assessed -Color (Zaira-wound Skin Appearance) Assessed,Rubor Assessed -Temperature (Zaira-wound Skin No Abnormality Appearance) (Pt Warm) -Tenderness on Palpation (Zaira-wound No Skin Appearance) -Ulcer Cleansing Soap and Water Wound Cleanser -Foul Odor after Cleansing No -Anesthetic Used 5% Lidocaine Gel #2 Post Calf -Combined with other wound No -Current Size (cm) - Length 8.6 12 -Current Size (cm) - Width 9.5 8 -Current Size (cm) - Depth 0.1 0.1 -Total Square Cm 81.70 96 -Tunneling No -Undermining/Tunneling No -Circular Undermining No -Exudate Amt Medium -Exudate Type Serosanguineous -Wound Margin Distinct, Outline Attached -Granulation Amt Medium (34-66%) -Granulation Quality [place] -Slough/Fibrin Yes -Necrosis Amt Medium (34-66%) -Necrotic Tissue Type Adherent Slough -Structure Exposed N/A -Texture (Zaira-wound Skin Appearance) Assessed, Assessed Localized Edema -Moisture (Zaira-wound Skin Appearance) Assessed Assessed -Color (Zaira-wound Skin Appearance) Assessed,Rubor Assessed -Temperature (Zaira-wound Skin No Abnormality Appearance) (Pt Warm) -Tenderness on Palpation (Zaira-wound No Skin Appearance) -Ulcer Cleansing Soap and Water Wound Cleanser -Foul Odor after Cleansing No -Anesthetic Used 5% Lidocaine Gel #1 Right Ant Calf -Combined with other wound No -Current Size (cm) - Length 4 3.8 -Current Size (cm) - Width 4.8 4 -Current Size (cm) - Depth 0.1 0.1 -Total Square Cm 19.2 15.2 -Tunneling No -Undermining/Tunneling No -Circular Undermining No -Exudate Amt Medium -Exudate Type Serosanguineous -Wound Margin Distinct, Outline Attached -Granulation Amt Medium (34-66%) -Slough/Fibrin Yes -Necrosis Amt Medium (34-66%) -Necrotic Tissue Type Adherent Slough -Structure Exposed N/A -Texture (Zaira-wound Skin Appearance) Assessed, Assessed Scarring -Moisture (Zaira-wound Skin Appearance) Assessed Assessed -Color (Zaira-wound Skin Appearance) Assessed,Rubor Assessed, Hemosiderin Staining -Temperature (Zaira-wound Skin No Abnormality Appearance) (Pt Warm) -Tenderness on Palpation (Zaira-wound No Skin Appearance) -Ulcer Cleansing Soap and Water Wound Cleanser -Foul Odor after Cleansing No -Anesthetic Used 5% Lidocaine Gel Lower Limb Edema Present Yes Yes Right Calf (cm) 42 38.5 39.2 Right Ankle (cm) 26.5 25.2 Left Calf (cm) 46 37.0 36.5 Left Ankle (cm) 24.5 24 WC - Nurse 2 - General Ulcer CM Notes Start: 08/21/23 10:30 Freq: Status: Active Protocol: Activity Type Activity Date Activity User E-sign Co-sign Detail Recorded Client Recorded Date Recorded By Document 08/21/23 13:47 PL [id number] 08/21/23 13:51 PL Document 08/28/23 13:02 PL [id number] 08/28/23 13:07 PL 08/21/23 08/28/23 13:47 13:02 Wound Center Nurse 2 #4 Left Ant Calf -Time 11:01 09:53 -Correct Patient Yes Yes -Correct Side, Site, Position Yes Yes -Correct Procedure Yes Yes -Procedure Performed Yes Yes -Type of Procedure Debridement Debridement -Clinical Debridement Subcutaneous Subcutaneous -Tissue Removed Subcutaneous Subcutaneous -Post Debridement (cm) - Length 3.5 2.9 -Post Debridement (cm) - Width 3.0 1.9 -Post Debridement (cm) - Depth 0.2 0.1 -Total Square (Post) (cm) 10.50 5.51 -Area of Debridement (cm) - Length 3.5 2.9 -Area of Debridement (cm) - Width 3.0 1.9 -Total Square (Area) (cm) 10.50 5.51 -Tunneling No No -Undermining/Tunneling No No -Circular Undermining No No -Wound/Ulcer Outcome Not Healed Not Healed -Ulcer Cleansing Rinsed/ Rinsed/ Irrigated with Irrigated with Saline Saline -Foul Odor after Cleansing No No -Bioengineered Tissue No No -Bleeding Controlled with Pressure Pressure -Treatment Response Procedure Procedure Tolerated Well Tolerated Well -Debridement - Subq, 1st 20sq cm No No #3 Left Medial Calf -Time 11:01 09:53 -Correct Patient Yes Yes -Correct Side, Site, Position Yes Yes -Correct Procedure Yes Yes -Procedure Performed Yes Yes -Type of Procedure Debridement Debridement -Clinical Debridement Subcutaneous Subcutaneous -Tissue Removed Subcutaneous Subcutaneous -Post Debridement (cm) - Length 3.2 2.9 -Post Debridement (cm) - Width 3.1 2.0 -Post Debridement (cm) - Depth 0.2 0.1 -Total Square (Post) (cm) 9.92 5.80 -Area of Debridement (cm) - Length 3.2 2.9 -Area of Debridement (cm) - Width 3.1 2.0 -Total Square (Area) (cm) 9.92 5.80 -Tunneling No No -Undermining/Tunneling No No -Circular Undermining No No -Wound/Ulcer Outcome Not Healed Not Healed -Ulcer Cleansing Rinsed/ Rinsed/ Irrigated with Irrigated with Saline Saline -Foul Odor after Cleansing No No -Bioengineered Tissue No No -Bleeding Controlled with Pressure Pressure -Treatment Response Procedure Procedure Tolerated Well Tolerated Well -Debridement - Subq, 1st 20sq cm No No #2 Post Calf -Time 11: 09:53 -Correct Patient Yes Yes -Correct Side, Site, Position Yes Yes -Correct Procedure Yes Yes -Procedure Performed Yes -Type of Procedure Debridement -Clinical Debridement Subcutaneous Subcutaneous -Tissue Removed Subcutaneous Subcutaneous -Post Debridement (cm) - Length 8.6 12.0 -Post Debridement (cm) - Width 9.5 8.0 -Post Debridement (cm) - Depth 0.1 0.1 -Total Square (Post) (cm) 81.70 96.00 -Area of Debridement (cm) - Length 8.6 12.0 -Area of Debridement (cm) - Width 9.5 8.0 -Total Square (Area) (cm) 81.70 96.00 -Tunneling No No -Undermining/Tunneling No No -Circular Undermining No No -Wound/Ulcer Outcome Not Healed Not Healed -Ulcer Cleansing Rinsed/ Rinsed/ Irrigated with Irrigated with Saline Saline -Foul Odor after Cleansing No No -Bioengineered Tissue No No -Bleeding Controlled with Pressure Pressure -Treatment Response Procedure Procedure Tolerated Well Tolerated Well -Debridement - Subq, 1st 20sq cm No No #1 Right Ant Calf -Time 11: 09:53 -Correct Patient Yes Yes -Correct Side, Site, Position Yes Yes -Correct Procedure Yes Yes -Procedure Performed Yes Yes -Type of Procedure Debridement Debridement -Clinical Debridement Subcutaneous Subcutaneous -Tissue Removed Subcutaneous Subcutaneous -Post Debridement (cm) - Length 4.0 3.8 -Post Debridement (cm) - Width 4.8 4.0 -Post Debridement (cm) - Depth 0.1 0.1 -Total Square (Post) (cm) 19.20 15.20 -Area of Debridement (cm) - Length 4.0 3.8 -Area of Debridement (cm) - Width 4.8 4.0 -Total Square (Area) (cm) 19.20 15.20 -Tunneling No No -Undermining/Tunneling No No -Circular Undermining No No -Wound/Ulcer Outcome Not Healed Not Healed -Ulcer Cleansing Rinsed/ Rinsed/ Irrigated with Irrigated with Saline Saline -Foul Odor after Cleansing No No -Bioengineered Tissue No No -Bleeding Controlled with Pressure Pressure -Treatment Response Procedure Procedure Tolerated Well Tolerated Well -Debridement - Subq, 1st 20sq cm Yes Yes -Debridement, SubQ, ea addt'l 20sq cm 6 6 or part thereof Pain Scale: 0-10 Numeric Is Patient Pain Free? Yes Yes WC - Nurse 3 - General Ulcer D/C NN Start: 08/21/23 10:30 Freq: Status: Active Protocol: Activity Type Activity Date Activity User E-sign Co-sign Detail Recorded Client Recorded Date Recorded By Document 08/21/23 12:21 RB [id number] 08/21/23 12:22 RB Document 08/24/23 14:17 MW Desktop 08/24/23 14:19 MW Document 08/28/23 10:23 MW Desktop 08/28/23 10:26 MW 08/21/23 08/24/23 08/28/23 12:21 14:17 10:23 Wound Care Center Nurse 3 #4 Left Ant Calf -Ulcer Cleansing Soap and Water Rinsed/ Irrigated with Saline -Foul Odor after Cleansing No No -Negative Pressure Wound Therapy N/A N/A -Primary Dressing Applied Promogran Hysept ($) Hysept ($) -Primary Dressing Covered/Secured with Dry Gauze & Dry Gauze & Roll Gauze, Roll Gauze, Secured with Secured with Tape Tape -Promogran 1 #3 Left Medial Calf -Ulcer Cleansing Soap and Water Rinsed/ Irrigated with Saline -Foul Odor after Cleansing No -Negative Pressure Wound Therapy N/A -Primary Dressing Applied Promogran -Other Dressing Carmen Morales -Primary Dressing Covered/Secured with Dry Gauze & Dry Gauze & Roll Gauze, Roll Gauze, Secured with Secured with Tape Tape -Promogran 1 #2 Post Calf -Ulcer Cleansing Soap and Water Rinsed/ Irrigated with Saline -Foul Odor after Cleansing No -Negative Pressure Wound Therapy N/A -Other Dressing promogran Carmen Morales -Primary Dressing Covered/Secured with Dry Gauze & Dry Gauze & Roll Gauze, Roll Gauze, Secured with Secured with Tape Tape #1 Right Ant Calf -Ulcer Cleansing Soap and Water Rinsed/ Irrigated with Saline -Foul Odor after Cleansing No -Negative Pressure Wound Therapy N/A -Other Dressing promogran Carmen Morales -Primary Dressing Covered/Secured with Dry Gauze & Dry Gauze & Roll Gauze, Roll Gauze, Secured with Secured with Tape Tape Right -Lotion applied to leg before No No compression wrap -Tubular Bandage Single Layer Double Layer -Size of Tubigrip Used Size D Size D -Size D ($) 2 2 Left -Lotion applied to leg before No No compression wrap -Tubular Bandage Single Layer Double Layer -Size of Tubigrip Used Size D Size D -Size D ($) 2 2 bilat -Multi-Layered Wrap Application Unna Boot - Bilateral ($) Treatment Response Procedure Procedure Tolerated Well Tolerated Well Pain Scale: 0-10 Numeric Is Patient Pain Free? Yes Yes Yes Teaching: Wound Center Dressing Your Wound -Person Taught Patient,Family -Teaching Method Discussion, Demonstration -Response to teaching Verbalize understanding Control Swelling with Leg Elevation -Person Taught Patient -Teaching Method Discussion -Response to teaching Verbalize understanding WC - Visit Discharge Discharge Condition Stable Stable Stable Ambulatory Status Ambulatory Ambulatory Ambulatory Transportation Private Auto Private Auto Private Auto Accompanied by Medication Reconcilliation completed & No No No provided to patient/care provider Clinical Summary of Care Provided Yes Yes Yes Additional Wound Wound debrided: Left calf x 2 Laterality: Left Type of Debridement: Excisional debridement Anesthesia Used: 5% Lidocaine Gel Depth: Down to and including healthy tissue and in the subcutaneous layer Percentage of wound debrided: 100 Instrument Used: 5mm curette Tissue Removed: Bioburden, necrotic and nonviable tissue Severity: Fat Layer Exposed Amount of bleeding with debridement: Mild Bleeding Controlled with: Compression and gauze Patient tolerated procedure: Patient tolerated procedure well Lab / Micro Data Micro: Microbiology 08/24/23 14:00 Wound - Leg, Right Gram Stain - Final 08/24/23 14:00 Wound - Leg, Right Wound Culture - Final Pseudomonas aeruginosa Enterococcus faecalis Presumptive C albicans 08/24/23 14:00 Wound - Leg, Right Anaerobic Culture - Final No anaerobic bacteria isolated. Assessment/Plan Assessment/Plan (1) Venous stasis ulcer of right calf: CODE(S): I83.012 - Varicose veins of right lower extremity with ulcer of calf; L97.219 - Non-pressure chronic ulcer of right calf with unspecified severity QUALIFIERS: Varicose vein presence: with varicose veins Non-pressure ulcer stage: with fat layer exposed Qualified Code(s): I83.012 - Varicose veins of right lower extremity with ulcer of calf; L97.212 - Non-pressure chronic ulcer of right calf with fat layer exposed (2) Venous stasis ulcer: CODE(S): I83.009 - Varicose veins of unspecified lower extremity with ulcer of unspecified site; L97.909 - Non-pressure chronic ulcer of unspecified part of unspecified lower leg with unspecified severity QUALIFIERS: Venous stasis ulcer site: calf Laterality: right Non-pressure ulcer stage: with fat layer exposed (3) Venous stasis ulcer of left calf: CODE(S): I83.022 - Varicose veins of left lower extremity with ulcer of calf; L97.229 - Non-pressure chronic ulcer of left calf with unspecified severity QUALIFIERS: Varicose vein presence: with varicose veins Non-pressure ulcer stage: with fat layer exposed Qualified Code(s): I83.022 - Varicose veins of left lower extremity with ulcer of calf; L97.222 - Non-pressure chronic ulcer of left calf with fat layer exposed (4) Venous stasis dermatitis of both lower extremities: CODE(S): I87.2 - Venous insufficiency (chronic) (peripheral) (5) Dependent edema: CODE(S): R60.9 - Edema, unspecified (6) Inactivity: CODE(S): Z72.3 - Lack of physical exercise (7) Debility: CODE(S): R53.81 - Other malaise (8) Atrial flutter: CODE(S): I48.92 - Unspecified atrial flutter (9) Persistent atrial fibrillation: CODE(S): I48.19 - Other persistent atrial fibrillation (10) Pulmonary HTN: CODE(S): I27.20 - Pulmonary hypertension, unspecified (11) ROSARIO (dyspnea on exertion): CODE(S): R06.09 - Other forms of dyspnea (12) Hypertension: CODE(S): I10 - Essential (primary) hypertension (13) Afib: CODE(S): I48.91 - Unspecified atrial fibrillation (14) History of prostate cancer: CODE(S): Z85.46 - Personal history of malignant neoplasm of prostate (15) History of umbilical hernia repair: CODE(S): Z98.890 - Other specified postprocedural states; Z87.19 - Personal history of other diseases of the digestive system (16) Chronic anticoagulation: CODE(S): 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 He has multiple ulcerations in his lower extremities, which have deteriorated within the last week. It appears as though the patient's presenting manifestations are due to recently acquired habits, which include prolonged idle sitting and lower extremity dependency. Within the last several months, the patient has taken to sleeping in a recliner. Additionally, he spends long hours each day in an idle sitting position. He ambulates in very limited amounts. As result of these habits, the patient has noted worsening swelling and edema in his lower extremities, and the development of blisters, which have resulted in open excoriations and ulcerations. He has developed cellulitis in his right lower extremity, which has required treatment with courses of antibiotics. We have discussed the conservative treatment measures appropriate to the management of his lower extremity symptoms and manifestations. He has been discouraged from sleeping in a recliner. He has been encouraged to sleep on a flat mattress, with legs elevated to heart level, or higher. If sleeping in a bed proves to be untenable, the alternative would be to sleep in his recliner, but with legs elevated and head down. The patient's legs are to be elevated to heart level, or higher, as much as possible, during both daytime and nighttime hours. Activity has been encouraged, though the patient is not likely to enhance his activity level to any significant degree. Prolonged idle sitting has been discouraged. The patient's weight is relatively optimal. As of the patient's nurse visit 4 days ago, deterioration in the status of his lower extremity ulcerations have been noted, and cultures were obtained. Cultures were positive for Pseudomonas aeruginosa and Enterococcus faecalis. Based upon sensitivity results, the patient had been prescribed Levaquin 750 mg p.o. daily for a total of 10 days. However, it is now noted that an updated culture and sensitivity result has processed, indicating This is a corrected result. A prior result that was reported as final has been changed. This is an amended result. Therefore, we are to reconsider whether the initial prescription for Levaquin 700 mg daily will be adequate for coverage of the isolated organisms. Changes may prove to be in order. We are to implement compression to the lower extremities by means of double Tubigrip's, which will be donned on a daily basis. We are to implement the use of Dakin's-moistened gauze dressings on a daily basis. The patient has been instructed in the appropriate means of application. The patient is to return in 1 week for reevaluation. Total time: 28 minutes
[2023-09-04 09:23] VITALS: BP 132/75; PULSE 98; RESP 18; TEMP 36; BMI 29.2
--- NOTE | 2023-09-04 11:23 | PCM.WC.HP ---
History of Present Illness Date of Service: 09/04/23 Chief Complaint: Bilateral lower extremity swelling, edema, and venous stasis dermatitis with ulcerations History of Wound: This is an 82-year-old male who presented with severe swelling and edema in both lower extremities, and dermatitic changes in his lower extremities bilaterally, which had been present for several months. The patient had undergone a change in his daily habits within the last several months. He had become inactive, spending large portions of each day in an idle sitting position. 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 Furthermore, he sleeps in a recliner. Within the last several months, he had noted the development of swelling and edema in both legs, as well as severe skin changes and the development of blisters and ulcerations. He denies a history of thrombophlebitis. He had been treated with antibiotic ointment topically. He had been diagnosed with cellulitis in his right lower extremity, for which he had been prescribed prescriptions for both doxycycline and cephalexin. The patient indicated he is a candidate for pacemaker insertion, but resolution of his lower extremity swelling, edema, ulcerations, and cellulitis are a prerequisite to pacemaker placement. [facility] Medical History Adenocarcinoma of prostate Afib Atrial flutter Chronic anticoagulation Debility Dependent edema History of prostate cancer Hypertension Inactivity Persistent atrial fibrillation Venous stasis dermatitis of both lower extremities Venous stasis ulcer Venous stasis ulcer of left calf Venous stasis ulcer of right calf Home Medications furosemide 40 mg tablet (Lasix) 40 mg PO DAILY #30 tabs 02/26/23 [Rx Last Taken Unknown] lisinopril 40 mg tablet 40 mg PO DAILY 02/26/23 [History Last Taken Unknown] apixaban 5 mg tablet (Eliquis) 5 mg PO BID #60 tabs 03/26/23 [Rx Last Taken Unknown] amlodipine 10 mg tablet 5 mg PO DAILY 06/12/23 [History Last Taken Unknown] hydralazine 25 mg tablet mg PO 06/12/23 [History Last Taken Unknown] spironolactone 25 mg tablet 25 mg PO DAILY #90 tabs 06/12/23 [Rx Last Taken Unknown] potassium chloride 20 mEq tablet,extended release 20 meq PO DAILY #5 tabs 07/31/23 [Rx Last Taken Unknown] Allergy/AdvReac Type Severity Reaction Status Date / Time No Known Allergies Allergy Verified 07/11/23 10:48 Surgical History History of umbilical hernia repair Hx of umbilical hernia repair Social History Smoking Status: Never smoker Vital Signs Vital Signs Vital Signs: 09/04/23 09:23 Temperature 96.8 F L Temperature Source Temporal Pulse Rate 98 Respiratory Rate 18 Blood Pressure 132/75 H Blood Pressure Mean 94 Blood Pressure Source Monitor Blood Pressure Position Semi-Fowlers Blood Pressure Location Left Arm Weight Weight: 198 lb Body Mass Index (BMI) 29.2 Physical Exam Const alert, oriented x3, no apparent distress, average body habitus and well nourished Constitutional Narrative: The patient's BMI is 29.2. General Appearance: cooperative, comfortable and well developed Orientation / Consciousness: awake, oriented to person, oriented to place and oriented to time HEENT normocephalic and head/scalp atraumatic Head and Scalp: normal to inspection, normocephalic and atraumatic External Ear: external ears normal Eyes PERRL and EOMs intact bilaterally General Eye: normal appearance of both eyes Resp normal respiratory effort, normal air movement, no retractions and no use of accessory muscles Effort and Inspection: able to speak in complete sentences and symmetric chest movement Extremity no calf tenderness General Extremity: Negative for clubbing or cyanosis Skin Wound Narrative: Mild bilateral lower extremity swelling and edema are noted. Several ulcerations are noted in the lower extremities bilaterally. An ulceration is noted on the right lateral calf, and 2 on the right posterior calf. Ulcerations are also noted on the left medial and lateral calf. These are each full-thickness, and of significant size. Dimensions are documented elsewhere. Each of the ulcerations demonstrates a moderate amount of bioburden. However, the ulcerations are generally pink and healthy in appearance, demonstrating significant improvement over the last week. Zaira-ulcer erythema has diminished significantly. Neuro oriented x3, CN's II-XII intact bilaterally, moves all extremities and no focal motor deficits Sensorium / Orientation: awake, alert, oriented to person, oriented to place and oriented to time Psych Appearance: grossly normal and appropriate Attitude: calm Activity / Motor Behavior: appropriate eye contact Speech: normal speech Mood & Affect: euthymic mood Thought Process: normal thought process Thought Content: normal thought content Attention / Concentration: attention grossly intact Debridement Note Debridement Note Wound debrided: Right calf x 3 Laterality: Right Type of Debridement: Excisional debridement Anesthesia Used: 5% Lidocaine Gel Depth: Down to and including healthy tissue and in the subcutaneous layer Percentage of wound debrided: 100 Instrument Used: 5mm curette Tissue Removed: Bioburden, necrotic and nonviable tissue Severity: Fat Layer Exposed Amount of bleeding with debridement: Mild Bleeding Controlled with: Compression and gauze Patient tolerated procedure: Patient tolerated procedure well Post-Debridement Measurements and Additional Note: Post-Debridement Measurements/Treatment - Nurse 1 - General Ulcer Assessment Start: 08/21/23 10:30 Freq: Status: Active Protocol: CHANCE Activity Type Activity Date Activity User E-sign Co-sign Detail Recorded Client Recorded Date Recorded By Document 08/21/23 10:34 MT Desktop 08/21/23 10:56 MT Document 08/21/23 11:03 PL Desktop 08/21/23 11:04 PL Document 08/24/23 14:13 MW Desktop 08/24/23 14:17 MW Document 08/28/23 09:36 RB Desktop 08/28/23 09:49 RB Document 09/04/23 09:23 RB Desktop 09/04/23 09:42 RB 08/21/23 08/21/23 08/24/23 10:34 11:03 14:13 - Today's Visit Information Type of service Follow-up Visit Nurse-only (Physician/ELECTRONICS ASSEMBLER AND TESTER Visit ) Arrival Mode Ambulatory Ambulatory Transfer Assistance None Accompanied by Patient Identification Verified (Name & Yes Yes ) Patient Requires Transmission-Based No Precautions Safety Precautions Fall Prevention NA Height and Weight Height 5 ft 9 in Weight 198 lb Weight in Pounds 198.0 lbs Body Mass Index (BMI) 29.2 29.2 BMI Classification Overweight Overweight BSA - Gabriela 2.06 Vital Signs Temperature (97.8 F-99.1 F) 98 F 97.6 F L Temperature Source Temporal Temporal Pulse Rate (60-100) 94 90 Pulse Location Monitor Monitor Respiratory Rate (12-18) 20 H 18 Respiratory rate source Observation Observation Oxygen Delivery Method Room Air Room Air Blood Pressure (90/60-120/80) 163/84 H 126/64 H Blood Pressure Mean 110 84 Source Monitor Monitor Position Sitting Sitting Blood Pressure Location Left Arm Left Arm History Since Last Visit- (Skip if this is Patient's initial visit) Have you changed medications since your No last visit? Any new allergies or adverse reactions No Had a fall/change in ADL's that may No increase risk of falls Signs or symptoms of abuse and/or No neglect since last visit Have you been in the hospital since your No last visit? Has dressing in place as prescribed Yes Has compression in place as prescribed Yes Has offloadiing in place as prescribed N/A Experienced any changes in pain level or No management Left Footwear Regular Shoe Regular Shoe Right Footwear Regular Shoe Regular Shoe Pain Scale: 0-10 Numeric Is Patient Pain Free? Yes Yes Yes 08/28/23 09/04/23 09:36 09:23 WC - Today's Visit Information Type of service Follow-up Visit Follow-up Visit (Physician/ELECTRONICS ASSEMBLER AND TESTER (Physician/ELECTRONICS ASSEMBLER AND TESTER ) ) Arrival Mode Ambulatory Ambulatory Transfer Assistance None None Accompanied by Patient Identification Verified (Name & Yes Yes ) Patient Requires Transmission-Based No No Precautions Safety Precautions Height and Weight Height Weight Weight in Pounds Body Mass Index (BMI) 29.2 29.2 BMI Classification Overweight Overweight BSA - Gabriela Vital Signs Temperature (97.8 F-99.1 F) 96.8 F L 96.8 F L Temperature Source Temporal Temporal Pulse Rate (60-100) 109 H 98 Pulse Location Monitor Monitor Respiratory Rate (12-18) 18 18 Respiratory rate source Observation Observation Oxygen Delivery Method Blood Pressure (90/60-120/80) 169/96 H 132/75 H Blood Pressure Mean 120 94 Source Monitor Monitor Position Semi-Fowlers Semi-Fowlers Blood Pressure Location Left Arm Left Arm History Since Last Visit- (Skip if this is Patient's initial visit) Have you changed medications since your No No last visit? Any new allergies or adverse reactions No No Had a fall/change in ADL's that may No No increase risk of falls Signs or symptoms of abuse and/or No No neglect since last visit Have you been in the hospital since your No No last visit? Has dressing in place as prescribed Yes Yes Has compression in place as prescribed Yes Yes Has offloadiing in place as prescribed No No Experienced any changes in pain level or No No management Left Footwear Right Footwear Pain Scale: 0-10 Numeric Is Patient Pain Free? Yes Yes WC - Nurse 1 - General Ulcer Measurement Start: 08/21/23 10:30 Freq: Status: Active Protocol: Activity Type Activity Date Activity User E-sign Co-sign Detail Recorded Client Recorded Date Recorded By Document 08/21/23 10:34 MT Desktop 08/21/23 10:56 MT Document 08/24/23 14:13 MW Desktop 08/24/23 14:17 MW Document 08/28/23 09:36 RB Desktop 08/28/23 09:49 RB Document 09/04/23 09:23 RB Desktop 09/04/23 09:42 RB 08/21/23 08/24/23 08/28/23 10:34 14:13 09:36 Wound Center Nurse 1 #4 Left Ant Calf -Combined with other wound No -Current Size (cm) - Length 3.5 2.9 -Current Size (cm) - Width 3.0 1.9 -Current Size (cm) - Depth 0.1 0.1 -Total Square Cm 10.50 5.51 -Tunneling No -Undermining/Tunneling No -Circular Undermining No -Exudate Amt Medium -Exudate Type Serosanguineous -Wound Margin Distinct, Outline Attached -Granulation Amt Medium (34-66%) -Granulation Quality [place] -Slough/Fibrin Yes -Necrosis Amt Medium (34-66%) -Necrotic Tissue Type Adherent Slough -Structure Exposed N/A -Texture (Zaira-wound Skin Appearance) Assessed, Assessed Localized Edema -Moisture (Zaira-wound Skin Appearance) Assessed Assessed -Color (Zaira-wound Skin Appearance) Assessed,Rubor Hemosiderin Staining -Temperature (Zaira-wound Skin No Abnormality Appearance) (Pt Warm) -Tenderness on Palpation (Zaira-wound No Skin Appearance) -Ulcer Cleansing Soap and Water Wound Cleanser -Foul Odor after Cleansing No -Anesthetic Used 5% Lidocaine Gel #3 Left Medial Calf -Combined with other wound No -Current Size (cm) - Length 3.2 2.9 -Current Size (cm) - Width 3.1 2 -Current Size (cm) - Depth 0.1 0.1 -Total Square Cm 9.92 5.8 -Tunneling No -Undermining/Tunneling No -Circular Undermining No -Exudate Amt Medium -Exudate Type Serosanguineous -Wound Margin Distinct, Outline Attached -Granulation Amt Medium (34-66%) -Granulation Quality [place] -Slough/Fibrin Yes -Necrosis Amt Medium (34-66%) -Necrotic Tissue Type Adherent Slough -Structure Exposed N/A -Texture (Zaira-wound Skin Appearance) Assessed, Assessed Localized Edema -Moisture (Zaira-wound Skin Appearance) Assessed Assessed -Color (Zaira-wound Skin Appearance) Assessed,Rubor Assessed -Temperature (Zaira-wound Skin No Abnormality Appearance) (Pt Warm) -Tenderness on Palpation (Zaira-wound No Skin Appearance) -Ulcer Cleansing Soap and Water Wound Cleanser -Foul Odor after Cleansing No -Anesthetic Used 5% Lidocaine Gel #2 R Post Calf -Combined with other wound No -Current Size (cm) - Length 8.6 12 -Current Size (cm) - Width 9.5 8 -Current Size (cm) - Depth 0.1 0.1 -Total Square Cm 81.70 96 -Tunneling No -Undermining/Tunneling No -Circular Undermining No -Exudate Amt Medium -Exudate Type Serosanguineous -Wound Margin Distinct, Outline Attached -Granulation Amt Medium (34-66%) -Granulation Quality [place] -Slough/Fibrin Yes -Necrosis Amt Medium (34-66%) -Necrotic Tissue Type Adherent Slough -Structure Exposed N/A -Texture (Zaira-wound Skin Appearance) Assessed, Assessed Localized Edema -Moisture (Zaira-wound Skin Appearance) Assessed Assessed -Color (Zaira-wound Skin Appearance) Assessed,Rubor Assessed -Temperature (Zaira-wound Skin No Abnormality Appearance) (Pt Warm) -Tenderness on Palpation (Zaira-wound No Skin Appearance) -Ulcer Cleansing Soap and Water Wound Cleanser -Foul Odor after Cleansing No -Anesthetic Used 5% Lidocaine Gel #1 Right Ant Calf -Combined with other wound No -Current Size (cm) - Length 4 3.8 -Current Size (cm) - Width 4.8 4 -Current Size (cm) - Depth 0.1 0.1 -Total Square Cm 19.2 15.2 -Tunneling No -Undermining/Tunneling No -Circular Undermining No -Exudate Amt Medium -Exudate Type Serosanguineous -Wound Margin Distinct, Outline Attached -Granulation Amt Medium (34-66%) -Granulation Quality -Slough/Fibrin Yes -Necrosis Amt Medium (34-66%) -Necrotic Tissue Type Adherent Slough -Structure Exposed N/A -Texture (Zaira-wound Skin Appearance) Assessed, Assessed Scarring -Moisture (Zaira-wound Skin Appearance) Assessed Assessed -Color (Zaira-wound Skin Appearance) Assessed,Rubor Assessed, Hemosiderin Staining -Temperature (Zaira-wound Skin No Abnormality Appearance) (Pt Warm) -Tenderness on Palpation (Zaira-wound No Skin Appearance) -Ulcer Cleansing Soap and Water Wound Cleanser -Foul Odor after Cleansing No -Anesthetic Used 5% Lidocaine Gel Lower Limb Edema Present Yes Yes Right Calf (cm) 42 38.5 39.2 Right Ankle (cm) 26.5 25.2 Left Calf (cm) 46 37.0 36.5 Left Ankle (cm) 24.5 24 09/04/23 09:23 Wound Center Nurse 1 #4 Left Ant Calf -Combined with other wound No -Current Size (cm) - Length 2.3 -Current Size (cm) - Width 1.5 -Current Size (cm) - Depth 0.1 -Total Square Cm 3.45 -Tunneling No -Undermining/Tunneling No -Circular Undermining No -Exudate Amt Medium -Exudate Type Serosanguineous -Wound Margin Distinct, Outline Attached -Granulation Amt Medium (34-66%) -Granulation Quality [place] -Slough/Fibrin Yes -Necrosis Amt Medium (34-66%) -Necrotic Tissue Type Adherent Slough -Structure Exposed N/A -Texture (Zaira-wound Skin Appearance) Assessed -Moisture (Zaira-wound Skin Appearance) Assessed -Color (Zaira-wound Skin Appearance) Assessed -Temperature (Zaira-wound Skin No Abnormality Appearance) (Pt Warm) -Tenderness on Palpation (Zaira-wound No Skin Appearance) -Ulcer Cleansing Wound Cleanser -Foul Odor after Cleansing No -Anesthetic Used 5% Lidocaine Gel #3 Left Medial Calf -Combined with other wound No -Current Size (cm) - Length 2.4 -Current Size (cm) - Width 1.5 -Current Size (cm) - Depth 0.1 -Total Square Cm 3.60 -Tunneling No -Undermining/Tunneling No -Circular Undermining No -Exudate Amt Medium -Exudate Type Serosanguineous -Wound Margin Distinct, Outline Attached -Granulation Amt Medium (34-66%) -Granulation Quality [place] -Slough/Fibrin Yes -Necrosis Amt Medium (34-66%) -Necrotic Tissue Type Adherent Slough -Structure Exposed N/A -Texture (Zaira-wound Skin Appearance) Assessed -Moisture (Zaira-wound Skin Appearance) Assessed -Color (Zaira-wound Skin Appearance) Assessed -Temperature (Zaira-wound Skin No Abnormality Appearance) (Pt Warm) -Tenderness on Palpation (Zaira-wound No Skin Appearance) -Ulcer Cleansing Wound Cleanser -Foul Odor after Cleansing No -Anesthetic Used 5% Lidocaine Gel #2 R Post Calf -Combined with other wound No -Current Size (cm) - Length 11.5 -Current Size (cm) - Width 6 -Current Size (cm) - Depth 0.1 -Total Square Cm 69.0 -Tunneling No -Undermining/Tunneling No -Circular Undermining No -Exudate Amt Medium -Exudate Type Serosanguineous -Wound Margin Distinct, Outline Attached -Granulation Amt Medium (34-66%) -Granulation Quality [place] -Slough/Fibrin Yes -Necrosis Amt Medium (34-66%) -Necrotic Tissue Type Adherent Slough -Structure Exposed N/A -Texture (Zaira-wound Skin Appearance) Assessed -Moisture (Zaira-wound Skin Appearance) -Color (Zaira-wound Skin Appearance) Assessed -Temperature (Zaira-wound Skin No Abnormality Appearance) (Pt Warm) -Tenderness on Palpation (Zaira-wound No Skin Appearance) -Ulcer Cleansing Wound Cleanser -Foul Odor after Cleansing No -Anesthetic Used 5% Lidocaine Gel #1 Right Ant Calf -Combined with other wound No -Current Size (cm) - Length 3.1 -Current Size (cm) - Width 3.2 -Current Size (cm) - Depth 0.1 -Total Square Cm 9.92 -Tunneling No -Undermining/Tunneling No -Circular Undermining No -Exudate Amt Medium -Exudate Type Serosanguineous -Wound Margin Distinct, Outline Attached -Granulation Amt Medium (34-66%) -Granulation Quality [place] -Slough/Fibrin Yes -Necrosis Amt Medium (34-66%) -Necrotic Tissue Type Adherent Slough -Structure Exposed N/A -Texture (Zaira-wound Skin Appearance) Assessed -Moisture (Zaira-wound Skin Appearance) Assessed -Color (Zaira-wound Skin Appearance) Assessed -Temperature (Zaira-wound Skin No Abnormality Appearance) (Pt Warm) -Tenderness on Palpation (Zaira-wound No Skin Appearance) -Ulcer Cleansing Wound Cleanser -Foul Odor after Cleansing No -Anesthetic Used 5% Lidocaine Gel Lower Limb Edema Present Yes Right Calf (cm) 36.5 Right Ankle (cm) 26.5 Left Calf (cm) 35.5 Left Ankle (cm) 23 WC - Nurse 2 - General Ulcer CM Notes Start: 08/21/23 10:30 Freq: Status: Active Protocol: Activity Type Activity Date Activity User E-sign Co-sign Detail Recorded Client Recorded Date Recorded By Document 08/21/23 13:47 PL [id number] 08/21/23 13:51 PL Document 08/28/23 13:02 PL [id number] 08/28/23 13:07 PL 08/21/23 08/28/23 13:47 13:02 Wound Center Nurse 2 #4 Left Ant Calf -Time 11:01 09:53 -Correct Patient Yes Yes -Correct Side, Site, Position Yes Yes -Correct Procedure Yes Yes -Procedure Performed Yes Yes -Type of Procedure Debridement Debridement -Clinical Debridement Subcutaneous Subcutaneous -Tissue Removed Subcutaneous Subcutaneous -Post Debridement (cm) - Length 3.5 2.9 -Post Debridement (cm) - Width 3.0 1.9 -Post Debridement (cm) - Depth 0.2 0.1 -Total Square (Post) (cm) 10.50 5.51 -Area of Debridement (cm) - Length 3.5 2.9 -Area of Debridement (cm) - Width 3.0 1.9 -Total Square (Area) (cm) 10.50 5.51 -Tunneling No No -Undermining/Tunneling No No -Circular Undermining No No -Wound/Ulcer Outcome Not Healed Not Healed -Ulcer Cleansing Rinsed/ Rinsed/ Irrigated with Irrigated with Saline Saline -Foul Odor after Cleansing No No -Bioengineered Tissue No No -Bleeding Controlled with Pressure Pressure -Treatment Response Procedure Procedure Tolerated Well Tolerated Well -Debridement - Subq, 1st 20sq cm No No #3 Left Medial Calf -Time 11:01 09:53 -Correct Patient Yes Yes -Correct Side, Site, Position Yes Yes -Correct Procedure Yes Yes -Procedure Performed Yes Yes -Type of Procedure Debridement Debridement -Clinical Debridement Subcutaneous Subcutaneous -Tissue Removed Subcutaneous Subcutaneous -Post Debridement (cm) - Length 3.2 2.9 -Post Debridement (cm) - Width 3.1 2.0 -Post Debridement (cm) - Depth 0.2 0.1 -Total Square (Post) (cm) 9.92 5.80 -Area of Debridement (cm) - Length 3.2 2.9 -Area of Debridement (cm) - Width 3.1 2.0 -Total Square (Area) (cm) 9.92 5.80 -Tunneling No No -Undermining/Tunneling No No -Circular Undermining No No -Wound/Ulcer Outcome Not Healed Not Healed -Ulcer Cleansing Rinsed/ Rinsed/ Irrigated with Irrigated with Saline Saline -Foul Odor after Cleansing No No -Bioengineered Tissue No No -Bleeding Controlled with Pressure Pressure -Treatment Response Procedure Procedure Tolerated Well Tolerated Well -Debridement - Subq, 1st 20sq cm No No #2 R Post Calf -Time 11: 09:53 -Correct Patient Yes Yes -Correct Side, Site, Position Yes Yes -Correct Procedure Yes Yes -Procedure Performed Yes -Type of Procedure Debridement -Clinical Debridement Subcutaneous Subcutaneous -Tissue Removed Subcutaneous Subcutaneous -Post Debridement (cm) - Length 8.6 12.0 -Post Debridement (cm) - Width 9.5 8.0 -Post Debridement (cm) - Depth 0.1 0.1 -Total Square (Post) (cm) 81.70 96.00 -Area of Debridement (cm) - Length 8.6 12.0 -Area of Debridement (cm) - Width 9.5 8.0 -Total Square (Area) (cm) 81.70 96.00 -Tunneling No No -Undermining/Tunneling No No -Circular Undermining No No -Wound/Ulcer Outcome Not Healed Not Healed -Ulcer Cleansing Rinsed/ Rinsed/ Irrigated with Irrigated with Saline Saline -Foul Odor after Cleansing No No -Bioengineered Tissue No No -Bleeding Controlled with Pressure Pressure -Treatment Response Procedure Procedure Tolerated Well Tolerated Well -Debridement - Subq, 1st 20sq cm No No #1 Right Ant Calf -Time 11:01 09:53 -Correct Patient Yes Yes -Correct Side, Site, Position Yes Yes -Correct Procedure Yes Yes -Procedure Performed Yes Yes -Type of Procedure Debridement Debridement -Clinical Debridement Subcutaneous Subcutaneous -Tissue Removed Subcutaneous Subcutaneous -Post Debridement (cm) - Length 4.0 3.8 -Post Debridement (cm) - Width 4.8 4.0 -Post Debridement (cm) - Depth 0.1 0.1 -Total Square (Post) (cm) 19.20 15.20 -Area of Debridement (cm) - Length 4.0 3.8 -Area of Debridement (cm) - Width 4.8 4.0 -Total Square (Area) (cm) 19.20 15.20 -Tunneling No No -Undermining/Tunneling No No -Circular Undermining No No -Wound/Ulcer Outcome Not Healed Not Healed -Ulcer Cleansing Rinsed/ Rinsed/ Irrigated with Irrigated with Saline Saline -Foul Odor after Cleansing No No -Bioengineered Tissue No No -Bleeding Controlled with Pressure Pressure -Treatment Response Procedure Procedure Tolerated Well Tolerated Well -Debridement - Subq, 1st 20sq cm Yes Yes -Debridement, SubQ, ea addt'l 20sq cm 6 6 or part thereof Pain Scale: 0-10 Numeric Is Patient Pain Free? Yes Yes WC - Nurse 3 - General Ulcer D/C NN Start: 08/21/23 10:30 Freq: Status: Active Protocol: Activity Type Activity Date Activity User E-sign Co-sign Detail Recorded Client Recorded Date Recorded By Document 08/21/23 12:21 RB [id number] 08/21/23 12:22 RB Document 08/24/23 14:17 MW Desktop 08/24/23 14:19 MW Document 08/28/23 10:23 MW Desktop 08/28/23 10:26 MW Document 09/04/23 10:24 BMF Desktop 09/04/23 10:25 BMF 08/21/23 08/24/23 08/28/23 12:21 14:17 10:23 Wound Care Center Nurse 3 #4 Left Ant Calf -Ulcer Cleansing Soap and Water Rinsed/ Irrigated with Saline -Foul Odor after Cleansing No No -Negative Pressure Wound Therapy N/A N/A -Primary Dressing Applied Promogran Hysept ($) Hysept ($) -Other Dressing -Primary Dressing Covered/Secured with Dry Gauze & Dry Gauze & Roll Gauze, Roll Gauze, Secured with Secured with Tape Tape -Promogran 1 #3 Left Medial Calf -Ulcer Cleansing Soap and Water Rinsed/ Irrigated with Saline -Foul Odor after Cleansing No -Negative Pressure Wound Therapy N/A -Primary Dressing Applied Promogran -Other Dressing Carmen Solpatricio Morales -Primary Dressing Covered/Secured with Dry Gauze & Dry Gauze & Roll Gauze, Roll Gauze, Secured with Secured with Tape Tape -Promogran 1 #2 R Post Calf -Ulcer Cleansing Soap and Water Rinsed/ Irrigated with Saline -Foul Odor after Cleansing No -Negative Pressure Wound Therapy N/A -Other Dressing promogran Brennanins Solpatricio Aminins -Primary Dressing Covered/Secured with Dry Gauze & Dry Gauze & Roll Gauze, Roll Gauze, Secured with Secured with Tape Tape -Other Covering #1 Right Ant Calf -Ulcer Cleansing Soap and Water Rinsed/ Irrigated with Saline -Foul Odor after Cleansing No -Negative Pressure Wound Therapy N/A -Other Dressing promogran Carmen Morales -Primary Dressing Covered/Secured with Dry Gauze & Dry Gauze & Roll Gauze, Roll Gauze, Secured with Secured with Tape Tape Right -Lotion applied to leg before No No compression wrap -Tubular Bandage Single Layer Double Layer -Size of Tubigrip Used Size D Size D -Size D ($) 2 2 Left -Lotion applied to leg before No No compression wrap -Tubular Bandage Single Layer Double Layer -Size of Tubigrip Used Size D Size D -Size D ($) 2 2 bilat -Multi-Layered Wrap Application Unna Boot - Bilateral ($) -Tubular Bandage -Size of Tubigrip Used -Size E ($) Treatment Response Procedure Procedure Tolerated Well Tolerated Well Pain Scale: 0-10 Numeric Is Patient Pain Free? Yes Yes Yes Teaching: Wound Center Dressing Your Wound -Person Taught Patient,Family -Teaching Method Discussion, Demonstration -Response to teaching Verbalize understanding Control Swelling with Leg Elevation -Person Taught Patient -Teaching Method Discussion -Response to teaching Verbalize understanding WC - Visit Discharge Discharge Condition Stable Stable Stable Ambulatory Status Ambulatory Ambulatory Ambulatory Transportation Private Auto Private Auto Private Auto Accompanied by Medication Reconcilliation completed & No No No provided to patient/care provider Clinical Summary of Care Provided Yes Yes Yes 09/04/23 10:24 [facility] Nurse 3 #4 Left Ant Calf -Ulcer Cleansing Rinsed/ Irrigated with Saline -Foul Odor after Cleansing No -Negative Pressure Wound Therapy -Primary Dressing Applied C Hydrogel ($) -Other Dressing abd -Primary Dressing Covered/Secured with Dry Gauze & Roll Gauze, Secured with Tape -Promogran #3 Left Medial Calf -Ulcer Cleansing Rinsed/ Irrigated with Saline -Foul Odor after Cleansing No -Negative Pressure Wound Therapy -Primary Dressing Applied -Other Dressing abd, hydrogel -Primary Dressing Covered/Secured with Dry Gauze & Roll Gauze, Secured with Tape -Promogran #2 R Post Calf -Ulcer Cleansing Rinsed/ Irrigated with Saline -Foul Odor after Cleansing No -Negative Pressure Wound Therapy -Other Dressing hydrogel -Primary Dressing Covered/Secured with Dry Gauze & Roll Gauze, Secured with Tape -Other Covering abd #1 Right Ant Calf -Ulcer Cleansing Rinsed/ Irrigated with Saline -Foul Odor after Cleansing No -Negative Pressure Wound Therapy -Other Dressing abd; hydrogel -Primary Dressing Covered/Secured with Dry Gauze & Roll Gauze, Secured with Tape Right -Lotion applied to leg before compression wrap -Tubular Bandage -Size of Tubigrip Used -Size D ($) Left -Lotion applied to leg before compression wrap -Tubular Bandage -Size of Tubigrip Used -Size D ($) bilat -Multi-Layered Wrap Application -Tubular Bandage Double Layer -Size of Tubigrip Used Size E -Size E ($) 2 Treatment Response Procedure Tolerated Well Pain Scale: 0-10 Numeric Is Patient Pain Free? Yes Teaching: Wound Center Dressing Your Wound -Person Taught -Teaching Method -Response to teaching Control Swelling with Leg Elevation -Person Taught -Teaching Method -Response to teaching WC - Visit Discharge Discharge Condition Stable Ambulatory Status Ambulatory Transportation Private Auto Accompanied by Medication Reconcilliation completed & provided to patient/care provider Clinical Summary of Care Provided Additional Wound Wound debrided: Left calf x 2 Laterality: Left Type of Debridement: Excisional debridement Anesthesia Used: 5% Lidocaine Gel Depth: Down to and including healthy tissue and in the subcutaneous layer Percentage of wound debrided: 100 Instrument Used: 5mm curette Tissue Removed: Bioburden, necrotic and nonviable tissue Severity: Fat Layer Exposed Amount of bleeding with debridement: Mild Bleeding Controlled with: Compression and gauze Patient tolerated procedure: Patient tolerated procedure well Assessment/Plan Assessment/Plan (1) Venous stasis ulcer of right calf: CODE(S): I83.012 - Varicose veins of right lower extremity with ulcer of calf; L97.219 - Non-pressure chronic ulcer of right calf with unspecified severity QUALIFIERS: Varicose vein presence: with varicose veins Non-pressure ulcer stage: with fat layer exposed Qualified Code(s): I83.012 - Varicose veins of right lower extremity with ulcer of calf; L97.212 - Non-pressure chronic ulcer of right calf with fat layer exposed (2) Venous stasis ulcer: CODE(S): I83.009 - Varicose veins of unspecified lower extremity with ulcer of unspecified site; L97.909 - Non-pressure chronic ulcer of unspecified part of unspecified lower leg with unspecified severity QUALIFIERS: Venous stasis ulcer site: calf Laterality: right Non-pressure ulcer stage: with fat layer exposed (3) Venous stasis ulcer of left calf: CODE(S): I83.022 - Varicose veins of left lower extremity with ulcer of calf; L97.229 - Non-pressure chronic ulcer of left calf with unspecified severity QUALIFIERS: Varicose vein presence: with varicose veins Non-pressure ulcer stage: with fat layer exposed Qualified Code(s): I83.022 - Varicose veins of left lower extremity with ulcer of calf; L97.222 - Non-pressure chronic ulcer of left calf with fat layer exposed (4) Venous stasis dermatitis of both lower extremities: CODE(S): I87.2 - Venous insufficiency (chronic) (peripheral) (5) Dependent edema: CODE(S): R60.9 - Edema, unspecified (6) Inactivity: CODE(S): Z72.3 - Lack of physical exercise (7) Debility: CODE(S): R53.81 - Other malaise (8) Atrial flutter: CODE(S): I48.92 - Unspecified atrial flutter (9) Persistent atrial fibrillation: CODE(S): I48.19 - Other persistent atrial fibrillation (10) Pulmonary HTN: CODE(S): I27.20 - Pulmonary hypertension, unspecified (11) ROSARIO (dyspnea on exertion): CODE(S): R06.09 - Other forms of dyspnea (12) Hypertension: CODE(S): I10 - Essential (primary) hypertension (13) Afib: CODE(S): I48.91 - Unspecified atrial fibrillation (14) History of prostate cancer: CODE(S): Z85.46 - Personal history of malignant neoplasm of prostate (15) History of umbilical hernia repair: CODE(S): Z98.890 - Other specified postprocedural states; Z87.19 - Personal history of other diseases of the digestive system (16) Chronic anticoagulation: CODE(S): Z79.01 - [facility] (current) use of anticoagulants PLAN: Plan This is an 82-year-old male who presented with swelling, edema, and recent cellulitis in his right lower extremity. He has multiple ulcerations in his lower extremities. It appears as though the patient's presenting manifestations were due to recently acquired habits, which include prolonged idle sitting and lower extremity dependency. Within the last several months, the patient had taken to sleeping in a recliner. Additionally, he spends long hours each day in an idle sitting position. He ambulates in very limited amounts. As result of these habits, the patient had noted worsening swelling and edema in his lower extremities, and the development of blisters, which resulted in open excoriations and ulcerations. He developed cellulitis in his right lower extremity, which required treatment with courses of antibiotics. We have discussed the conservative treatment measures appropriate to the management of his lower extremity symptoms and manifestations. He has been discouraged from sleeping in a recliner. He has been encouraged to sleep on a flat mattress, with legs elevated to heart level, or higher. If sleeping in a bed proves to be untenable, the alternative would be to sleep in his recliner, but with legs elevated and head down. The patient's legs are to be elevated to heart level, or higher, as much as possible, during both daytime and nighttime hours. Activity has been encouraged, though the patient is not likely to enhance his activity level to any significant degree. Prolonged idle sitting has been discouraged. The patient's weight is relatively optimal. Recent cultures were positive for Pseudomonas aeruginosa and Enterococcus faecalis. Based upon sensitivity results, the patient was prescribed Levaquin 750 mg p.o. daily for a total of 10 days. He remains on Levaquin for several more days. We are to continue compression to the lower extremities by means of double Tubigrip's, which will be donned on a daily basis. We are to transition to the use of collagen hydrogel topically to each of the ulcerations, which will be applied on a daily basis. The patient has been instructed in the appropriate means of application. There has been improvement in recent weeks. The patient is to return in 1 week for reevaluation. Total time: 26 minutes
== END 2023-09-04 23:59 | disposition home or self-care (01) ==
LOC: WC 09:30
PROVIDERS: PCP Nurse Practitioner Primary Care; Referring Provider Nurse Practitioner Primary Care; Visit Provider Surgery
DX: I83.012 Varicose veins of right lower extremity with ulcer of calf (principal); L97.212 Non-pressure chronic ulcer of right calf with fat layer exposed; L97.222 Non-pressure chronic ulcer of left calf with fat layer exposed; I83.022 Varicose veins of left lower extremity with ulcer of calf; I27.20 Pulmonary hypertension, unspecified; I48.92 Unspecified atrial flutter; I48.19 Other persistent atrial fibrillation; R53.81 Other malaise; Z79.01 Long term (current) use of anticoagulants; I10 Essential (primary) hypertension; Z95.0 Presence of cardiac pacemaker; Z79.899 Other long term (current) drug therapy; Z72.3 Lack of physical exercise
CPT/HCPCS: 11042; 11045; 29580; 87070; 87075; 87077; 87186; 87205; 99211; 99213; G0463

== ENCOUNTER 2023-10-02 09:00 | Outpatient (RCR) | payer MEDICARE, OTHER, SELFPAY ==
[2023-09-05 00:53] VITALS: BP 132/75; PULSE 98; RESP 18; TEMP 36; BMI 29.2
[2023-09-11 11:26] VITALS: BP 126/68; PULSE 91; RESP 18; TEMP 35.9; BMI 29.2
--- NOTE | 2023-09-11 15:00 | PCM.WC.HP ---
History of Present Illness Date of Service: 09/11/23 Chief Complaint: Bilateral lower extremity swelling, edema, and venous stasis dermatitis with ulcerations History of Wound: This is an 82-year-old male who presented with severe swelling and edema in both lower extremities, and dermatitic changes in his lower extremities bilaterally, which had been present for several months. The patient had undergone a change in his daily habits within the last several months. He had become inactive, spending large portions of each day in an idle sitting position. 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 Furthermore, he sleeps in a recliner. Within the last several months, he had noted the development of swelling and edema in both legs, as well as severe skin changes and the development of blisters and ulcerations. He denies a history of thrombophlebitis. He had been treated with antibiotic ointment topically. He had been diagnosed with cellulitis in his right lower extremity, for which he had been prescribed prescriptions for both doxycycline and cephalexin. The patient indicated he is a candidate for pacemaker insertion, but resolution of his lower extremity swelling, edema, ulcerations, and cellulitis are a prerequisite to pacemaker placement. [facility] Medical History Adenocarcinoma of prostate Afib Atrial flutter Chronic anticoagulation Debility Dependent edema History of prostate cancer Hypertension Inactivity Persistent atrial fibrillation Venous stasis dermatitis of both lower extremities Venous stasis ulcer Venous stasis ulcer of left calf Venous stasis ulcer of right calf Home Medications furosemide 40 mg tablet (Lasix) 40 mg PO DAILY #30 tabs 02/26/23 [Rx Last Taken Unknown] lisinopril 40 mg tablet 40 mg PO DAILY 02/26/23 [History Last Taken Unknown] apixaban 5 mg tablet (Eliquis) 5 mg PO BID #60 tabs 03/26/23 [Rx Last Taken Unknown] amlodipine 10 mg tablet 5 mg PO DAILY 06/12/23 [History Last Taken Unknown] hydralazine 25 mg tablet mg PO 06/12/23 [History Last Taken Unknown] spironolactone 25 mg tablet 25 mg PO DAILY #90 tabs 06/12/23 [Rx Last Taken Unknown] potassium chloride 20 mEq tablet,extended release 20 meq PO DAILY #5 tabs 07/31/23 [Rx Last Taken Unknown] Allergy/AdvReac Type Severity Reaction Status Date / Time No Known Allergies Allergy Verified 07/11/23 10:48 Surgical History History of umbilical hernia repair Hx of umbilical hernia repair Social History Smoking Status: Never smoker Vital Signs Vital Signs Vital Signs: 09/11/23 11:26 Temperature 96.7 F L Temperature Source Temporal Pulse Rate 91 Respiratory Rate 18 Blood Pressure 126/68 H Blood Pressure Mean 87 Blood Pressure Source Monitor Blood Pressure Position Semi-Fowlers Blood Pressure Location Left Arm Weight Weight: 198 lb Body Mass Index (BMI) 29.2 Physical Exam Const alert, oriented x3, no apparent distress, average body habitus and well nourished Constitutional Narrative: The patient's BMI is 29.2. General Appearance: cooperative, comfortable and well developed Orientation / Consciousness: awake, oriented to person, oriented to place and oriented to time HEENT normocephalic and head/scalp atraumatic Head and Scalp: normal to inspection, normocephalic and atraumatic External Ear: external ears normal Eyes PERRL and EOMs intact bilaterally General Eye: normal appearance of both eyes Resp normal respiratory effort, normal air movement, no retractions and no use of accessory muscles Effort and Inspection: able to speak in complete sentences and symmetric chest movement Extremity no calf tenderness General Extremity: Negative for clubbing or cyanosis Skin Wound Narrative: Mild bilateral lower extremity swelling and edema are noted. Several ulcerations are noted in the lower extremities bilaterally. An ulceration is noted on the right lateral calf, and 2 on the right posterior calf. Ulcerations are also noted on the left medial and lateral calf. These are each full-thickness, and of significant size. Dimensions are documented elsewhere. Each of the ulcerations demonstrates a moderate amount of bioburden. However, the ulcerations are generally pink and healthy in appearance, demonstrating significant improvement over the last week. Zaira-ulcer erythema has diminished significantly. Neuro oriented x3, CN's II-XII intact bilaterally, moves all extremities and no focal motor deficits Sensorium / Orientation: awake, alert, oriented to person, oriented to place and oriented to time Psych Appearance: grossly normal and appropriate Attitude: calm Activity / Motor Behavior: appropriate eye contact Speech: normal speech Mood & Affect: euthymic mood Thought Process: normal thought process Thought Content: normal thought content Attention / Concentration: attention grossly intact Debridement Note Debridement Note Wound debrided: Right calf x 3 Laterality: Right Type of Debridement: Excisional debridement Anesthesia Used: 5% Lidocaine Gel Depth: Down to and including healthy tissue and in the subcutaneous layer Percentage of wound debrided: 100 Instrument Used: 5mm curette Tissue Removed: Bioburden, necrotic and nonviable tissue Severity: Fat Layer Exposed Amount of bleeding with debridement: Mild Bleeding Controlled with: Compression and gauze Patient tolerated procedure: Patient tolerated procedure well Post-Debridement Measurements and Additional Note: Post-Debridement Measurements/Treatment - Nurse 1 - General Ulcer Assessment Start: 09/11/23 11:26 Freq: Status: Active Protocol: CHANCE Activity Type Activity Date Activity User E-sign Co-sign Detail Recorded Client Recorded Date Recorded By Document 09/11/23 11:26 RB Desktop 09/11/23 11:40 RB 09/11/23 11:26 WC - Today's Visit Information Type of service Follow-up Visit (Physician/OPHTHALMIC MEDICAL TECHNOLOGIST ) Arrival Mode Ambulatory Transfer Assistance None Patient Identification Verified (Name & Yes ) Patient Requires Transmission-Based No Precautions Height and Weight Body Mass Index (BMI) 29.2 BMI Classification Overweight Vital Signs Temperature (97.8 F-99.1 F) 96.7 F L Temperature Source Temporal Pulse Rate (60-100) 91 Pulse Location Monitor Respiratory Rate (12-18) 18 Respiratory rate source Observation Blood Pressure (90/60-120/80) 126/68 H Blood Pressure Mean 87 Source Monitor Position Semi-Fowlers Blood Pressure Location Left Arm History Since Last Visit- (Skip if this is Patient's initial visit) Have you changed medications since your No last visit? Any new allergies or adverse reactions No Had a fall/change in ADL's that may No increase risk of falls Signs or symptoms of abuse and/or No neglect since last visit Have you been in the hospital since your No last visit? Has dressing in place as prescribed Yes Has compression in place as prescribed Yes Has offloadiing in place as prescribed No Experienced any changes in pain level or No management Pain Scale: 0-10 Numeric Is Patient Pain Free? Yes - Nurse 1 - General Ulcer Measurement Start: 09/11/23 11:26 Freq: Status: Active Protocol: Activity Type Activity Date Activity User E-sign Co-sign Detail Recorded Client Recorded Date Recorded By Document 09/11/23 11:26 RB Desktop 09/11/23 11:40 RB 09/11/23 11:26 Wound Center Nurse 1 #4 Left lateral Calf -Combined with other wound No -Current Size (cm) - Length 1.5 -Current Size (cm) - Width 1.2 -Current Size (cm) - Depth 0.1 -Total Square Cm 1.80 -Tunneling No -Undermining/Tunneling No -Circular Undermining No -Exudate Amt Medium -Exudate Type Serosanguineous -Wound Margin Distinct, Outline Attached -Granulation Amt Medium (34-66%) -Granulation Quality Wolsey -Slough/Fibrin Yes -Necrosis Amt Medium (34-66%) -Necrotic Tissue Type Adherent Slough -Structure Exposed N/A -Texture (Zaira-wound Skin Appearance) Assessed, Friable -Moisture (Zaira-wound Skin Appearance) Assessed -Color (Zaira-wound Skin Appearance) Assessed -Temperature (Zaira-wound Skin No Abnormality Appearance) (Pt Warm) -Tenderness on Palpation (Zaira-wound No Skin Appearance) -Ulcer Cleansing Wound Cleanser -Foul Odor after Cleansing No -Anesthetic Used 4% Lidocaine Solution #3 Left Medial Calf -Combined with other wound No -Current Size (cm) - Length 1.7 -Current Size (cm) - Width 1.5 -Current Size (cm) - Depth 0.1 -Total Square Cm 2.55 -Tunneling No -Undermining/Tunneling No -Circular Undermining No -Exudate Amt Medium -Exudate Type Serosanguineous -Wound Margin Distinct, Outline Attached -Granulation Amt Medium (34-66%) -Granulation Quality Wolsey -Slough/Fibrin Yes -Necrosis Amt Medium (34-66%) -Necrotic Tissue Type Adherent Slough -Structure Exposed N/A -Texture (Zaira-wound Skin Appearance) Assessed -Moisture (Zaira-wound Skin Appearance) Assessed -Color (Zaira-wound Skin Appearance) Assessed -Temperature (Zaira-wound Skin No Abnormality Appearance) (Pt Warm) -Tenderness on Palpation (Zaira-wound No Skin Appearance) -Ulcer Cleansing Wound Cleanser -Foul Odor after Cleansing No -Anesthetic Used 4% Lidocaine Solution #2 R Post Calf -Combined with other wound No -Current Size (cm) - Length 11.5 -Current Size (cm) - Width 5.5 -Current Size (cm) - Depth 0.1 -Total Square Cm 63.25 -Tunneling No -Undermining/Tunneling No -Circular Undermining No -Exudate Amt Medium -Exudate Type Serosanguineous -Wound Margin Distinct, Outline Attached -Granulation Amt Medium (34-66%) -Granulation Quality Wolsey -Slough/Fibrin Yes -Necrosis Amt Medium (34-66%) -Necrotic Tissue Type Adherent Slough -Structure Exposed N/A -Texture (Zaira-wound Skin Appearance) Assessed -Moisture (Zaira-wound Skin Appearance) Assessed -Color (Zaira-wound Skin Appearance) Assessed -Temperature (Zaira-wound Skin No Abnormality Appearance) (Pt Warm) -Tenderness on Palpation (Zaira-wound No Skin Appearance) -Ulcer Cleansing Wound Cleanser -Foul Odor after Cleansing No -Anesthetic Used 4% Lidocaine Solution #1 Right Ant Calf -Combined with other wound No -Current Size (cm) - Length 8.5 -Current Size (cm) - Width 8 -Current Size (cm) - Depth 0.1 -Total Square Cm 68.0 -Tunneling No -Undermining/Tunneling No -Circular Undermining No -Exudate Amt Medium -Exudate Type Serosanguineous -Wound Margin Distinct, Outline Attached -Granulation Amt Medium (34-66%) -Granulation Quality Wolsey -Slough/Fibrin Yes -Necrosis Amt Medium (34-66%) -Necrotic Tissue Type Adherent Slough -Structure Exposed N/A -Texture (Zaira-wound Skin Appearance) Assessed -Moisture (Zaira-wound Skin Appearance) Assessed -Color (Zaira-wound Skin Appearance) Assessed -Temperature (Zaira-wound Skin No Abnormality Appearance) (Pt Warm) -Tenderness on Palpation (Zaira-wound No Skin Appearance) -Ulcer Cleansing Wound Cleanser -Foul Odor after Cleansing No -Anesthetic Used 4% Lidocaine Solution Lower Limb Edema Present Yes Right Calf (cm) 38.5 Right Ankle (cm) 27 Left Calf (cm) 37 Left Ankle (cm) 27.3 WC - Nurse 2 - General Ulcer CM Notes Start: 09/11/23 11:26 Freq: Status: Active Protocol: Activity Type Activity Date Activity User E-sign Co-sign Detail Recorded Client Recorded Date Recorded By Document 09/11/23 13:48 PL [id number] 09/11/23 13:52 PL 09/11/23 13:48 Wound Center Nurse 2 #4 Left lateral Calf -Time 11:46 -Correct Patient Yes -Correct Side, Site, Position Yes -Correct Procedure Yes -Procedure Performed Yes -Type of Procedure Debridement -Clinical Debridement Subcutaneous -Tissue Removed Subcutaneous -Post Debridement (cm) - Length 1.5 -Post Debridement (cm) - Width 1.2 -Post Debridement (cm) - Depth 0.1 -Total Square (Post) (cm) 1.80 -Area of Debridement (cm) - Length 1.5 -Area of Debridement (cm) - Width 1.2 -Total Square (Area) (cm) 1.80 -Tunneling No -Undermining/Tunneling No -Circular Undermining No -Wound/Ulcer Outcome Not Healed -Ulcer Cleansing Rinsed/ Irrigated with Saline -Foul Odor after Cleansing No -Bioengineered Tissue No -Bleeding Controlled with Pressure -Treatment Response Procedure Tolerated Well -Debridement - Subq, 1st 20sq cm No #3 Left Medial Calf -Time 11:46 -Correct Patient Yes -Correct Side, Site, Position Yes -Correct Procedure Yes -Procedure Performed Yes -Type of Procedure Debridement -Clinical Debridement Subcutaneous -Tissue Removed Subcutaneous -Post Debridement (cm) - Length 1.7 -Post Debridement (cm) - Width 1.5 -Post Debridement (cm) - Depth 0.1 -Total Square (Post) (cm) 2.55 -Area of Debridement (cm) - Length 1.7 -Area of Debridement (cm) - Width 1.5 -Total Square (Area) (cm) 2.55 -Tunneling No -Undermining/Tunneling No -Circular Undermining No -Wound/Ulcer Outcome Not Healed -Ulcer Cleansing Rinsed/ Irrigated with Saline -Foul Odor after Cleansing No -Bioengineered Tissue No -Bleeding Controlled with Pressure -Treatment Response Procedure Tolerated Well -Debridement - Subq, 1st 20sq cm No #2 R Post Calf -Time 11:46 -Correct Patient Yes -Correct Side, Site, Position Yes -Correct Procedure Yes -Procedure Performed Yes -Type of Procedure Debridement -Clinical Debridement Subcutaneous -Tissue Removed Subcutaneous -Post Debridement (cm) - Length 11.5 -Post Debridement (cm) - Width 5.5 -Post Debridement (cm) - Depth 0.1 -Total Square (Post) (cm) 63.25 -Area of Debridement (cm) - Length 11.5 -Area of Debridement (cm) - Width 5.5 -Total Square (Area) (cm) 63.25 -Tunneling No -Undermining/Tunneling No -Circular Undermining No -Wound/Ulcer Outcome Not Healed -Ulcer Cleansing Rinsed/ Irrigated with Saline -Foul Odor after Cleansing No -Bioengineered Tissue No -Bleeding Controlled with Pressure -Treatment Response Procedure Tolerated Well -Debridement - Subq, 1st 20sq cm No #1 Right Ant Calf -Time 11:46 -Correct Patient Yes -Correct Side, Site, Position Yes -Correct Procedure Yes -Procedure Performed Yes -Type of Procedure Debridement -Clinical Debridement Subcutaneous -Tissue Removed Subcutaneous -Post Debridement (cm) - Length 8.5 -Post Debridement (cm) - Width 8.0 -Post Debridement (cm) - Depth 0.1 -Total Square (Post) (cm) 68.00 -Area of Debridement (cm) - Length 8.5 -Area of Debridement (cm) - Width 8.0 -Total Square (Area) (cm) 68.00 -Tunneling No -Undermining/Tunneling No -Circular Undermining No -Wound/Ulcer Outcome Not Healed -Ulcer Cleansing Rinsed/ Irrigated with Saline -Foul Odor after Cleansing No -Bioengineered Tissue No -Bleeding Controlled with Pressure -Treatment Response Procedure Tolerated Well -Debridement - Subq, 1st 20sq cm Yes -Debridement, SubQ, ea addt'l 20sq cm 6 or part thereof Pain Scale: 0-10 Numeric Is Patient Pain Free? Yes - Nurse 3 - General Ulcer D/C NN Start: 09/11/23 11:26 Freq: Status: Active Protocol: Activity Type Activity Date Activity User E-sign Co-sign Detail Recorded Client Recorded Date Recorded By Document 09/11/23 11:58 Desktop 09/11/23 12:11 09/11/23 11:58 Wound Care Center Nurse 3 #4 Left lateral Calf -Ulcer Cleansing Not Cleansed -Foul Odor after Cleansing No -Primary Dressing Applied Promogran -Primary Dressing Covered/Secured with Dry Gauze & Roll Gauze -Promogran 1 #3 Left Medial Calf -Ulcer Cleansing Not Cleansed -Negative Pressure Wound Therapy N/A -Primary Dressing Applied Promogran -Primary Dressing Covered/Secured with Dry Gauze -Promogran 1 #2 R Post Calf -Ulcer Cleansing Not Cleansed -Negative Pressure Wound Therapy N/A -Primary Dressing Applied Promogran -Primary Dressing Covered/Secured with Dry Gauze -Promogran 1 #1 Right Ant Calf -Ulcer Cleansing Not Cleansed -Foul Odor after Cleansing No -Primary Dressing Applied Promogran -Primary Dressing Covered/Secured with Dry Gauze & Roll Gauze, Secured with Tape -Promogran 1 Pain Scale: 0-10 Numeric Is Patient Pain Free? Yes Teaching: Wound Center Dressing Your Wound -Person Taught Patient,Family -Teaching Method Discussion, Demonstration -Response to teaching Verbalize understanding Control Swelling with Leg Elevation -Person Taught Patient,Family -Teaching Method Discussion -Response to teaching Verbalize understanding WC - Visit Discharge Discharge Condition Stable Ambulatory Status Ambulatory Transportation Private Auto Medication Reconcilliation completed & Yes provided to patient/care provider Clinical Summary of Care Provided Yes Additional Wound Wound debrided: Left calf x 2 Laterality: Left Type of Debridement: Excisional debridement Anesthesia Used: 5% Lidocaine Gel Depth: Down to and including healthy tissue and in the subcutaneous layer Percentage of wound debrided: 100 Instrument Used: 5mm curette Tissue Removed: Bioburden, necrotic and nonviable tissue Severity: Fat Layer Exposed Amount of bleeding with debridement: Mild Bleeding Controlled with: Compression and gauze Patient tolerated procedure: Patient tolerated procedure well Assessment/Plan Assessment/Plan (1) Venous stasis ulcer of right calf: CODE(S): I83.012 - Varicose veins of right lower extremity with ulcer of calf; L97.219 - Non-pressure chronic ulcer of right calf with unspecified severity QUALIFIERS: Varicose vein presence: with varicose veins Non-pressure ulcer stage: with fat layer exposed Qualified Code(s): I83.012 - Varicose veins of right lower extremity with ulcer of calf; L97.212 - Non-pressure chronic ulcer of right calf with fat layer exposed (2) Venous stasis ulcer: CODE(S): I83.009 - Varicose veins of unspecified lower extremity with ulcer of unspecified site; L97.909 - Non-pressure chronic ulcer of unspecified part of unspecified lower leg with unspecified severity QUALIFIERS: Venous stasis ulcer site: calf Laterality: right Non-pressure ulcer stage: with fat layer exposed Varicose vein presence: with varicose veins Qualified Code(s): I83.012 - Varicose veins of right lower extremity with ulcer of calf; L97.212 - Non-pressure chronic ulcer of right calf with fat layer exposed (3) Venous stasis ulcer of left calf: CODE(S): I83.022 - Varicose veins of left lower extremity with ulcer of calf; L97.229 - Non-pressure chronic ulcer of left calf with unspecified severity QUALIFIERS: Varicose vein presence: with varicose veins Non-pressure ulcer stage: with fat layer exposed Qualified Code(s): I83.022 - Varicose veins of left lower extremity with ulcer of calf; L97.222 - Non-pressure chronic ulcer of left calf with fat layer exposed (4) Venous stasis dermatitis of both lower extremities: CODE(S): I87.2 - Venous insufficiency (chronic) (peripheral) (5) Dependent edema: CODE(S): R60.9 - Edema, unspecified (6) Inactivity: CODE(S): Z72.3 - Lack of physical exercise (7) Debility: CODE(S): R53.81 - Other malaise (8) Atrial flutter: CODE(S): I48.92 - Unspecified atrial flutter (9) Persistent atrial fibrillation: CODE(S): I48.19 - Other persistent atrial fibrillation (10) Pulmonary HTN: CODE(S): I27.20 - Pulmonary hypertension, unspecified (11) ROSARIO (dyspnea on exertion): CODE(S): R06.09 - Other forms of dyspnea (12) Hypertension: CODE(S): I10 - Essential (primary) hypertension (13) Afib: CODE(S): I48.91 - Unspecified atrial fibrillation (14) History of prostate cancer: CODE(S): Z85.46 - Personal history of malignant neoplasm of prostate (15) History of umbilical hernia repair: CODE(S): Z98.890 - Other specified postprocedural states; Z87.19 - Personal history of other diseases of the digestive system (16) Chronic anticoagulation: CODE(S): 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 He has multiple ulcerations in his lower extremities. It appears as though the patient's presenting manifestations were due to recently acquired habits, which include prolonged idle sitting and lower extremity dependency. Within the last several months, the patient had taken to sleeping in a recliner. Additionally, he spends long hours each day in an idle sitting position. He ambulates in very limited amounts. As result of these habits, the patient had noted worsening swelling and edema in his lower extremities, and the development of blisters, which resulted in open excoriations and ulcerations. He developed cellulitis in his right lower extremity, which required treatment with courses of antibiotics. We have discussed the conservative treatment measures appropriate to the management of his lower extremity symptoms and manifestations. He has been discouraged from sleeping in a recliner. He has been encouraged to sleep on a flat mattress, with legs elevated to heart level, or higher. If sleeping in a bed proves to be untenable, the alternative would be to sleep in his recliner, but with legs elevated and head down. The patient's legs are to be elevated to heart level, or higher, as much as possible, during both daytime and nighttime hours. Activity has been encouraged, though the patient is not likely to enhance his activity level to any significant degree. Prolonged idle sitting has been discouraged. The patient's weight is relatively optimal. Recent cultures were positive for Pseudomonas aeruginosa and Enterococcus faecalis. Based upon sensitivity results, the patient was prescribed Levaquin 750 mg p.o. daily for a total of 10 days. The course of antibiotics has now been completed. We are to continue compression to the lower extremities by means of double Tubigrip's, which will be donned on a daily basis. We are to transition to the use of Promogran topically to each of the ulcerations, which will be applied on a daily basis. The patient has been instructed in the appropriate means of application. There has been slight improvement in recent weeks. The patient is to return in 1 week for reevaluation. Total time: 25 minutes
[2023-09-18 09:05] VITALS: BP 148/73; PULSE 92; RESP 18; TEMP 36; BMI 29.2
--- NOTE | 2023-09-18 10:20 | PCM.WC.HP ---
History of Present Illness Date of Service: 09/18/23 Chief Complaint: Bilateral lower extremity swelling, edema, and venous stasis dermatitis with ulcerations History of Wound: This is an 82-year-old male who presented with severe swelling and edema in both lower extremities, and dermatitic changes in his lower extremities bilaterally, which had been present for several months. The patient had undergone a change in his daily habits within the last several months. He had become inactive, spending large portions of each day in an idle sitting position. 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 Furthermore, he sleeps in a recliner. Within the last several months, he had noted the development of swelling and edema in both legs, as well as severe skin changes and the development of blisters and ulcerations. He denies a history of thrombophlebitis. He had been treated with antibiotic ointment topically. He had been diagnosed with cellulitis in his right lower extremity, for which he had been prescribed prescriptions for both doxycycline and cephalexin. The patient indicated he is a candidate for pacemaker insertion, but resolution of his lower extremity swelling, edema, ulcerations, and cellulitis are a prerequisite to pacemaker placement. [facility] Medical History Adenocarcinoma of prostate Afib Atrial flutter Chronic anticoagulation Debility Dependent edema History of prostate cancer Hypertension Inactivity Persistent atrial fibrillation Venous stasis dermatitis of both lower extremities Venous stasis ulcer Venous stasis ulcer of left calf Venous stasis ulcer of right calf Home Medications furosemide 40 mg tablet (Lasix) 40 mg PO DAILY #30 tabs 02/26/23 [Rx Last Taken Unknown] lisinopril 40 mg tablet 40 mg PO DAILY 02/26/23 [History Last Taken Unknown] apixaban 5 mg tablet (Eliquis) 5 mg PO BID #60 tabs 03/26/23 [Rx Last Taken Unknown] amlodipine 10 mg tablet 5 mg PO DAILY 06/12/23 [History Last Taken Unknown] hydralazine 25 mg tablet mg PO 06/12/23 [History Last Taken Unknown] spironolactone 25 mg tablet 25 mg PO DAILY #90 tabs 06/12/23 [Rx Last Taken Unknown] potassium chloride 20 mEq tablet,extended release 20 meq PO DAILY #5 tabs 07/31/23 [Rx Last Taken Unknown] Allergy/AdvReac Type Severity Reaction Status Date / Time No Known Allergies Allergy Verified 07/11/23 10:48 Surgical History History of umbilical hernia repair Hx of umbilical hernia repair Social History Smoking Status: Never smoker Vital Signs Vital Signs Vital Signs: 09/18/23 09:05 Temperature 96.8 F L Temperature Source Temporal Pulse Rate 92 Respiratory Rate 18 Blood Pressure 148/73 H Blood Pressure Mean 98 Blood Pressure Source Monitor Blood Pressure Position Sitting Blood Pressure Location Right Arm Weight Weight: 198 lb Body Mass Index (BMI) 29.2 Physical Exam Const alert, oriented x3, no apparent distress, average body habitus and well nourished Constitutional Narrative: The patient's BMI is 29.2. General Appearance: cooperative, comfortable and well developed Orientation / Consciousness: awake, oriented to person, oriented to place and oriented to time HEENT normocephalic and head/scalp atraumatic Head and Scalp: normal to inspection, normocephalic and atraumatic External Ear: external ears normal Eyes PERRL and EOMs intact bilaterally General Eye: normal appearance of both eyes Resp normal respiratory effort, normal air movement, no retractions and no use of accessory muscles Effort and Inspection: able to speak in complete sentences and symmetric chest movement Extremity no calf tenderness General Extremity: Negative for clubbing or cyanosis Skin Wound Narrative: Mild bilateral lower extremity swelling and edema are noted. Rather diffuse inflammatory erythema is noted bilaterally. Several ulcerations are noted in the lower extremities bilaterally. An ulceration is noted on the right lateral calf, and 2 on the right posterior calf. Ulcerations are also noted on the left medial and lateral calf. These are each full-thickness, and of significant size. Dimensions are documented elsewhere. Each of the ulcerations demonstrates a moderate amount of bioburden. However, the ulcerations are generally pink and healthy in appearance, demonstrating significant improvement in recent weeks. Zaira-ulcer erythema has diminished significantly. The erythema does not appear to represent cellulitis. Neuro oriented x3, CN's II-XII intact bilaterally, moves all extremities and no focal motor deficits Sensorium / Orientation: awake, alert, oriented to person, oriented to place and oriented to time Psych Appearance: grossly normal and appropriate Attitude: calm Activity / Motor Behavior: appropriate eye contact Speech: normal speech Mood & Affect: euthymic mood Thought Process: normal thought process Thought Content: normal thought content Attention / Concentration: attention grossly intact Debridement Note Debridement Note Wound debrided: Right calf x 3 Laterality: Right Type of Debridement: Excisional debridement Anesthesia Used: 5% Lidocaine Gel Depth: Down to and including healthy tissue and in the subcutaneous layer Percentage of wound debrided: 100 Instrument Used: 5mm curette Tissue Removed: Bioburden, necrotic and nonviable tissue Severity: Fat Layer Exposed Amount of bleeding with debridement: Mild Bleeding Controlled with: Compression and gauze Patient tolerated procedure: Patient tolerated procedure well Debridement Free Text: With respect to the largest of the wounds on the patient's right posterior calf following a routine excisional debridement, which was well-tolerated, a 2 cm x 2 cm EpiFix allograft was placed. The allograft was removed from its packaging, and placed in the appropriate orientation topically. Adaptic Touch was then placed, over which gauze was applied. The entire dressing was then anchored in place using Steri-Strips. The patient tolerated the procedure well. The allograft is to remain in place, undisturbed, until the patient's return visit in 1 week. This represents the first such application of an allograft. Post-Debridement Measurements and Additional Note: Post-Debridement Measurements/Treatment WC - Nurse 1 - General Ulcer Assessment Start: 09/11/23 11:26 Freq: Status: Active Protocol: WC.LOWEXT Activity Type Activity Date Activity User E-sign Co-sign Detail Recorded Client Recorded Date Recorded By Document 09/11/23 11:26 RB Desktop 09/11/23 11:40 RB Document 09/18/23 09:05 NR Desktop 09/18/23 09:22 NR 09/11/23 09/18/23 11:26 09:05 - Today's Visit Information Type of service Follow-up Visit Follow-up Visit (Physician/BURGLAR ALARM MECHANIC (Physician/BURGLAR ALARM MECHANIC ) ) Arrival Mode Ambulatory Ambulatory Transfer Assistance None Patient Identification Verified (Name & Yes Yes ) Patient Requires Transmission-Based No Precautions Height and Weight Body Mass Index (BMI) 29.2 29.2 BMI Classification Overweight Overweight Vital Signs Temperature (97.8 F-99.1 F) 96.7 F L 96.8 F L Temperature Source Temporal Temporal Pulse Rate (60-100) 91 92 Pulse Location Monitor Monitor Respiratory Rate (12-18) 18 18 Respiratory rate source Observation Observation Blood Pressure (90/60-120/80) 126/68 H 148/73 H Blood Pressure Mean 87 98 Source Monitor Monitor Position Semi-Fowlers Sitting Blood Pressure Location Left Arm Right Arm History Since Last Visit- (Skip if this is Patient's initial visit) Have you changed medications since your No No last visit? Any new allergies or adverse reactions No No Had a fall/change in ADL's that may No No increase risk of falls Signs or symptoms of abuse and/or No No neglect since last visit Have you been in the hospital since your No No last visit? Has dressing in place as prescribed Yes Yes Has compression in place as prescribed Yes Yes Has offloadiing in place as prescribed No N/A Experienced any changes in pain level or No No management Left Footwear Regular Shoe Right Footwear Regular Shoe Pain Scale: 0-10 Numeric Is Patient Pain Free? Yes Yes WC - Nurse 1 - General Ulcer Measurement Start: 09/11/23 11:26 Freq: Status: Active Protocol: Activity Type Activity Date Activity User E-sign Co-sign Detail Recorded Client Recorded Date Recorded By Document 09/11/23 11:26 RB Desktop 09/11/23 11:40 RB Document 09/18/23 09:05 NRL Desktop 09/18/23 09:22 NRL 09/11/23 09/18/23 11:26 09:05 Wound Center Nurse 1 #4 Left lateral Calf -Combined with other wound No No -Current Size (cm) - Length 1.5 0.3 -Current Size (cm) - Width 1.2 0.3 -Current Size (cm) - Depth 0.1 0.1 -Total Square Cm 1.80 0.09 -Epithelialization Small 1-33% -Tunneling No -Undermining/Tunneling No No -Circular Undermining No No -Exudate Amt Medium Medium -Exudate Type Serosanguineous Serosanguineous -Wound Margin Distinct, Distinct, Outline Outline Attached Attached -Granulation Amt Medium (34-66%) Small (1-33%) -Granulation Quality [place] -Slough/Fibrin Yes Yes -Necrosis Amt Medium (34-66%) Medium (34-66%) -Necrotic Tissue Type Adherent Slough Adherent Slough -Structure Exposed N/A N/A -Texture (Zaira-wound Skin Appearance) Assessed, Assessed, Friable Excoriation -Moisture (Zaira-wound Skin Appearance) Assessed Assessed -Color (Zaira-wound Skin Appearance) Assessed Assessed -Temperature (Zaira-wound Skin No Abnormality No Abnormality Appearance) (Pt Warm) (Pt Warm) -Tenderness on Palpation (Zaira-wound No No Skin Appearance) -Ulcer Cleansing Wound Cleanser Wound Cleanser -Foul Odor after Cleansing No No -Anesthetic Used 4% Lidocaine 5% Lidocaine Solution Gel #3 Left Medial Calf -Combined with other wound No No -Current Size (cm) - Length 1.7 1.5 -Current Size (cm) - Width 1.5 0.9 -Current Size (cm) - Depth 0.1 0.1 -Total Square Cm 2.55 1.35 -Epithelialization Small 1-33% -Tunneling No No -Undermining/Tunneling No No -Circular Undermining No No -Exudate Amt Medium Small -Exudate Type Serosanguineous Serosanguineous -Wound Margin Distinct, Distinct, Outline Outline Attached Attached -Granulation Amt Medium (34-66%) Small (1-33%) -Granulation Quality [place] -Slough/Fibrin Yes Yes -Necrosis Amt Medium (34-66%) Medium (34-66%) -Necrotic Tissue Type Adherent Slough Adherent Slough -Structure Exposed N/A -Texture (Zaira-wound Skin Appearance) Assessed Assessed -Moisture (Zaira-wound Skin Appearance) Assessed Assessed -Color (Zaira-wound Skin Appearance) Assessed Assessed -Temperature (Zaira-wound Skin No Abnormality No Abnormality Appearance) (Pt Warm) (Pt Warm) -Tenderness on Palpation (Zaira-wound No Skin Appearance) -Ulcer Cleansing Wound Cleanser Wound Cleanser -Foul Odor after Cleansing No No -Anesthetic Used 4% Lidocaine 5% Lidocaine Solution Gel #2 R Post Calf -Combined with other wound No No -Current Size (cm) - Length 11.5 11 -Current Size (cm) - Width 5.5 6.0 -Current Size (cm) - Depth 0.1 0.1 -Total Square Cm 63.25 66.0 -Epithelialization Small 1-33% -Tunneling No No -Undermining/Tunneling No No -Circular Undermining No No -Exudate Amt Medium -Exudate Type Serosanguineous Serosanguineous -Wound Margin Distinct, Distinct, Outline Outline Attached Attached -Granulation Amt Medium (34-66%) Small (1-33%) -Granulation Quality [place] -Slough/Fibrin Yes Yes -Necrosis Amt Medium (34-66%) Small (1-33%) -Necrotic Tissue Type Adherent Slough Adherent Slough -Structure Exposed N/A Fat Layer Exposed -Texture (Zaira-wound Skin Appearance) Assessed Assessed, Excoriation -Moisture (Zaira-wound Skin Appearance) Assessed Assessed -Color (Zaira-wound Skin Appearance) Assessed Assessed -Temperature (Zaira-wound Skin No Abnormality No Abnormality Appearance) (Pt Warm) (Pt Warm) -Tenderness on Palpation (Zaira-wound No No Skin Appearance) -Ulcer Cleansing Wound Cleanser Wound Cleanser -Foul Odor after Cleansing No No -Anesthetic Used 4% Lidocaine 5% Lidocaine Solution Gel #1 Right Ant Calf -Combined with other wound No No -Current Size (cm) - Length 8.5 2.3 -Current Size (cm) - Width 8 2.4 -Current Size (cm) - Depth 0.1 0.1 -Total Square Cm 68.0 5.52 -Epithelialization Small 1-33% -Tunneling No No -Undermining/Tunneling No No -Circular Undermining No -Exudate Amt Medium Medium -Exudate Type Serosanguineous Serosanguineous -Wound Margin Distinct, Distinct, Outline Outline Attached Attached -Granulation Amt Medium (34-66%) Small (1-33%) -Granulation Quality [place] -Slough/Fibrin Yes Yes -Necrosis Amt Medium (34-66%) -Necrotic Tissue Type Adherent Slough Adherent Slough -Structure Exposed N/A N/A -Texture (Zaira-wound Skin Appearance) Assessed Assessed, Excoriation -Moisture (Zaira-wound Skin Appearance) Assessed Assessed -Color (Zaira-wound Skin Appearance) Assessed Assessed -Temperature (Zaira-wound Skin No Abnormality No Abnormality Appearance) (Pt Warm) (Pt Warm) -Tenderness on Palpation (Zaira-wound No No Skin Appearance) -Ulcer Cleansing Wound Cleanser Wound Cleanser -Foul Odor after Cleansing No No -Anesthetic Used 4% Lidocaine 5% Lidocaine Solution Gel Lower Limb Edema Present Yes Yes Right Calf (cm) 38.5 39.3 Right Ankle (cm) 27 26.2 Left Calf (cm) 37 36.5 Left Ankle (cm) 27.3 25.0 WC - Nurse 2 - General Ulcer CM Notes Start: 09/11/23 11:26 Freq: Status: Active Protocol: Activity Type Activity Date Activity User E-sign Co-sign Detail Recorded Client Recorded Date Recorded By Document 09/11/23 13:48 PL [id number] 09/11/23 13:52 PL 09/11/23 13:48 Wound Center Nurse 2 #4 Left lateral Calf -Time 11:46 -Correct Patient Yes -Correct Side, Site, Position Yes -Correct Procedure Yes -Procedure Performed Yes -Type of Procedure Debridement -Clinical Debridement Subcutaneous -Tissue Removed Subcutaneous -Post Debridement (cm) - Length 1.5 -Post Debridement (cm) - Width 1.2 -Post Debridement (cm) - Depth 0.1 -Total Square (Post) (cm) 1.80 -Area of Debridement (cm) - Length 1.5 -Area of Debridement (cm) - Width 1.2 -Total Square (Area) (cm) 1.80 -Tunneling No -Undermining/Tunneling No -Circular Undermining No -Wound/Ulcer Outcome Not Healed -Ulcer Cleansing Rinsed/ Irrigated with Saline -Foul Odor after Cleansing No -Bioengineered Tissue No -Bleeding Controlled with Pressure -Treatment Response Procedure Tolerated Well -Debridement - Subq, 1st 20sq cm No #3 Left Medial Calf -Time 11:46 -Correct Patient Yes -Correct Side, Site, Position Yes -Correct Procedure Yes -Procedure Performed Yes -Type of Procedure Debridement -Clinical Debridement Subcutaneous -Tissue Removed Subcutaneous -Post Debridement (cm) - Length 1.7 -Post Debridement (cm) - Width 1.5 -Post Debridement (cm) - Depth 0.1 -Total Square (Post) (cm) 2.55 -Area of Debridement (cm) - Length 1.7 -Area of Debridement (cm) - Width 1.5 -Total Square (Area) (cm) 2.55 -Tunneling No -Undermining/Tunneling No -Circular Undermining No -Wound/Ulcer Outcome Not Healed -Ulcer Cleansing Rinsed/ Irrigated with Saline -Foul Odor after Cleansing No -Bioengineered Tissue No -Bleeding Controlled with Pressure -Treatment Response Procedure Tolerated Well -Debridement - Subq, 1st 20sq cm No #2 R Post Calf -Time 11:46 -Correct Patient Yes -Correct Side, Site, Position Yes -Correct Procedure Yes -Procedure Performed Yes -Type of Procedure Debridement -Clinical Debridement Subcutaneous -Tissue Removed Subcutaneous -Post Debridement (cm) - Length 11.5 -Post Debridement (cm) - Width 5.5 -Post Debridement (cm) - Depth 0.1 -Total Square (Post) (cm) 63.25 -Area of Debridement (cm) - Length 11.5 -Area of Debridement (cm) - Width 5.5 -Total Square (Area) (cm) 63.25 -Tunneling No -Undermining/Tunneling No -Circular Undermining No -Wound/Ulcer Outcome Not Healed -Ulcer Cleansing Rinsed/ Irrigated with Saline -Foul Odor after Cleansing No -Bioengineered Tissue No -Bleeding Controlled with Pressure -Treatment Response Procedure Tolerated Well -Debridement - Subq, 1st 20sq cm No #1 Right Ant Calf -Time 11:46 -Correct Patient Yes -Correct Side, Site, Position Yes -Correct Procedure Yes -Procedure Performed Yes -Type of Procedure Debridement -Clinical Debridement Subcutaneous -Tissue Removed Subcutaneous -Post Debridement (cm) - Length 8.5 -Post Debridement (cm) - Width 8.0 -Post Debridement (cm) - Depth 0.1 -Total Square (Post) (cm) 68.00 -Area of Debridement (cm) - Length 8.5 -Area of Debridement (cm) - Width 8.0 -Total Square (Area) (cm) 68.00 -Tunneling No -Undermining/Tunneling No -Circular Undermining No -Wound/Ulcer Outcome Not Healed -Ulcer Cleansing Rinsed/ Irrigated with Saline -Foul Odor after Cleansing No -Bioengineered Tissue No -Bleeding Controlled with Pressure -Treatment Response Procedure Tolerated Well -Debridement - Subq, 1st 20sq cm Yes -Debridement, SubQ, ea addt'l 20sq cm 6 or part thereof Pain Scale: 0-10 Numeric Is Patient Pain Free? Yes WC - Nurse 3 - General Ulcer D/C NN Start: 09/11/23 11:26 Freq: Status: Active Protocol: Activity Type Activity Date Activity User E-sign Co-sign Detail Recorded Client Recorded Date Recorded By Document 09/11/23 11:58 Desktop 09/11/23 12:11 Document 09/18/23 09:55 NR Desktop 09/18/23 10:03 NR 09/11/23 09/18/23 11:58 09:55 Wound Care Center Nurse 3 #4 Left lateral Calf -Ulcer Cleansing Not Cleansed Rinsed/ Irrigated with Saline -Foul Odor after Cleansing No No -Primary Dressing Applied Promogran Promogran -Other Dressing ABD and Kerlix -Primary Dressing Covered/Secured with Dry Gauze & Roll Gauze -Promogran 1 2 #3 Left Medial Calf -Ulcer Cleansing Not Cleansed Rinsed/ Irrigated with Saline -Negative Pressure Wound Therapy N/A -Primary Dressing Applied Promogran Other -Other Dressing ABD and kerlix promogran -Primary Dressing Covered/Secured with Dry Gauze -Promogran 1 #2 R Post Calf -Ulcer Cleansing Not Cleansed Rinsed/ Irrigated with Saline -Negative Pressure Wound Therapy N/A -Primary Dressing Applied Promogran Mepilex Border -Primary Dressing Covered/Secured with Dry Gauze Dry Gauze & Roll Gauze -Mepilex Border 1 -Promogran 1 #1 Right Ant Calf -Ulcer Cleansing Not Cleansed Rinsed/ Irrigated with Saline -Foul Odor after Cleansing No -Primary Dressing Applied Promogran -Other Dressing Promogran -Primary Dressing Covered/Secured with Dry Gauze & Dry Gauze & Roll Gauze, Roll Gauze Secured with Tape -Promogran 1 Right leg -Tubular Bandage Double Layer -Size of Tubigrip Used Size D -Size D ($) 2 Left leg -Tubular Bandage Double Layer -Size of Tubigrip Used Size D -Size D ($) 2 Pain Scale: 0-10 Numeric Is Patient Pain Free? Yes Yes Teaching: Wound Center Dressing Your Wound -Person Taught Patient,Family -Teaching Method Discussion, Demonstration -Response to teaching Verbalize understanding Control Swelling with Leg Elevation -Person Taught Patient,Family -Teaching Method Discussion -Response to teaching Verbalize understanding WC - Visit Discharge Discharge Condition Stable Stable Ambulatory Status Ambulatory Ambulatory Transportation Private Auto Private Auto Accompanied by Self Medication Reconcilliation completed & Yes No provided to patient/care provider Clinical Summary of Care Provided Yes Yes Additional Wound Wound debrided: Left calf x 2 Laterality: Left Type of Debridement: Excisional debridement Anesthesia Used: 5% Lidocaine Gel Depth: Down to and including healthy tissue and in the subcutaneous layer Percentage of wound debrided: 100 Instrument Used: 5mm curette Tissue Removed: Bioburden, necrotic and nonviable tissue Severity: Fat Layer Exposed Amount of bleeding with debridement: Mild Bleeding Controlled with: Compression and gauze Patient tolerated procedure: Patient tolerated procedure well Additional Wound Tissue Removed: Bioburden Assessment/Plan Assessment/Plan (1) Venous stasis ulcer of right calf: CODE(S): I83.012 - Varicose veins of right lower extremity with ulcer of calf; L97.219 - Non-pressure chronic ulcer of right calf with unspecified severity QUALIFIERS: Varicose vein presence: with varicose veins Non-pressure ulcer stage: with fat layer exposed Qualified Code(s): I83.012 - Varicose veins of right lower extremity with ulcer of calf; L97.212 - Non-pressure chronic ulcer of right calf with fat layer exposed (2) Venous stasis ulcer: CODE(S): I83.009 - Varicose veins of unspecified lower extremity with ulcer of unspecified site; L97.909 - Non-pressure chronic ulcer of unspecified part of unspecified lower leg with unspecified severity QUALIFIERS: Venous stasis ulcer site: calf Varicose vein presence: with varicose veins Laterality: right Non-pressure ulcer stage: with fat layer exposed Qualified Code(s): I83.012 - Varicose veins of right lower extremity with ulcer of calf; L97.212 - Non-pressure chronic ulcer of right calf with fat layer exposed (3) Venous stasis ulcer of left calf: CODE(S): I83.022 - Varicose veins of left lower extremity with ulcer of calf; L97.229 - Non-pressure chronic ulcer of left calf with unspecified severity QUALIFIERS: Varicose vein presence: with varicose veins Non-pressure ulcer stage: with fat layer exposed Qualified Code(s): I83.022 - Varicose veins of left lower extremity with ulcer of calf; L97.222 - Non-pressure chronic ulcer of left calf with fat layer exposed (4) Venous stasis dermatitis of both lower extremities: CODE(S): I87.2 - Venous insufficiency (chronic) (peripheral) (5) Dependent edema: CODE(S): R60.9 - Edema, unspecified (6) Inactivity: CODE(S): Z72.3 - Lack of physical exercise (7) Debility: CODE(S): R53.81 - Other malaise (8) Atrial flutter: CODE(S): I48.92 - Unspecified atrial flutter (9) Persistent atrial fibrillation: CODE(S): I48.19 - Other persistent atrial fibrillation (10) Pulmonary HTN: CODE(S): I27.20 - Pulmonary hypertension, unspecified (11) ROSARIO (dyspnea on exertion): CODE(S): R06.09 - Other forms of dyspnea (12) Hypertension: CODE(S): I10 - Essential (primary) hypertension (13) Afib: CODE(S): I48.91 - Unspecified atrial fibrillation (14) History of prostate cancer: CODE(S): Z85.46 - Personal history of malignant neoplasm of prostate (15) History of umbilical hernia repair: CODE(S): Z98.890 - Other specified postprocedural states; Z87.19 - Personal history of other diseases of the digestive system (16) Chronic anticoagulation: CODE(S): Z79.01 - [facility] (current) use of anticoagulants PLAN: Plan This is an 82-year-old male who presented with swelling, edema, and recent cellulitis in his right lower extremity. He has multiple ulcerations in his lower extremities. It appears as though the patient's presenting manifestations were due to recently acquired habits, which include prolonged idle sitting and lower extremity dependency. Within the last several months, the patient had taken to sleeping in a recliner. Additionally, he spends long hours each day in an idle sitting position. He ambulates in very limited amounts. As result of these habits, the patient had noted worsening swelling and edema in his lower extremities, and the development of blisters, which resulted in open excoriations and ulcerations. He developed cellulitis in his right lower extremity, which required treatment with courses of antibiotics. We have discussed the conservative treatment measures appropriate to the management of his lower extremity symptoms and manifestations. He has been discouraged from sleeping in a recliner. He has been encouraged to sleep on a flat mattress, with legs elevated to heart level, or higher. If sleeping in a bed proves to be untenable, the alternative would be to sleep in his recliner, but with legs elevated and head down. The patient's legs are to be elevated to heart level, or higher, as much as possible, during both daytime and nighttime hours. Activity has been encouraged, though the patient is not likely to enhance his activity level to any significant degree. Prolonged idle sitting has been discouraged. The patient's weight is relatively optimal. Recent cultures were positive for Pseudomonas aeruginosa and Enterococcus faecalis. Based upon sensitivity results, the patient was prescribed Levaquin 750 mg p.o. daily for a total of 10 days. The course of antibiotics has now been completed. We are to continue compression to the lower extremities by means of double Tubigrip's, which will be donned on a daily basis. We are to continue the use of Promogran topically to each of the ulcerations, which will be applied on a daily basis. The EpiFix allograft which was placed topically on the right posterior calf is to remain in place, undisturbed, and to the patient's follow-up visit in 1 week. The patient has been instructed in the appropriate means of care. There has been slight improvement in recent weeks. The patient is to return in 1 week for reevaluation. Total time: 26 minutes
[2023-09-25 09:18] VITALS: BP 145/76; PULSE 98; RESP 18; TEMP 35.8; BMI 29.2
--- NOTE | 2023-09-25 13:44 | PCM.WC.HP ---
History of Present Illness Date of Service: 09/25/23 Chief Complaint: Bilateral lower extremity swelling, edema, and venous stasis dermatitis with ulcerations History of Wound: This is an 82-year-old male who presented with severe swelling and edema in both lower extremities, and dermatitic changes in his lower extremities bilaterally, which had been present for several months. The patient had undergone a change in his daily habits within the last several months. He had become inactive, spending large portions of each day in an idle sitting position. 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 Furthermore, he sleeps in a recliner. Within the last several months, he had noted the development of swelling and edema in both legs, as well as severe skin changes and the development of blisters and ulcerations. He denies a history of thrombophlebitis. He had been treated with antibiotic ointment topically. He had been diagnosed with cellulitis in his right lower extremity, for which he had been prescribed prescriptions for both doxycycline and cephalexin. The patient indicated he is a candidate for pacemaker insertion, but resolution of his lower extremity swelling, edema, ulcerations, and cellulitis are a prerequisite to pacemaker placement. [facility] Medical History Adenocarcinoma of prostate Afib Atrial flutter Chronic anticoagulation Debility Dependent edema History of prostate cancer Hypertension Inactivity Persistent atrial fibrillation Venous stasis dermatitis of both lower extremities Venous stasis ulcer Venous stasis ulcer of left calf Venous stasis ulcer of right calf Home Medications furosemide 40 mg tablet (Lasix) 40 mg PO DAILY #30 tabs 02/26/23 [Rx Last Taken Unknown] lisinopril 40 mg tablet 40 mg PO DAILY 02/26/23 [History Last Taken Unknown] apixaban 5 mg tablet (Eliquis) 5 mg PO BID #60 tabs 03/26/23 [Rx Last Taken Unknown] amlodipine 10 mg tablet 5 mg PO DAILY 06/12/23 [History Last Taken Unknown] hydralazine 25 mg tablet mg PO 06/12/23 [History Last Taken Unknown] spironolactone 25 mg tablet 25 mg PO DAILY #90 tabs 06/12/23 [Rx Last Taken Unknown] potassium chloride 20 mEq tablet,extended release 20 meq PO DAILY #5 tabs 07/31/23 [Rx Last Taken Unknown] Allergy/AdvReac Type Severity Reaction Status Date / Time No Known Allergies Allergy Verified 07/11/23 10:48 Surgical History History of umbilical hernia repair Hx of umbilical hernia repair Social History Smoking Status: Never smoker Vital Signs Vital Signs Vital Signs: 09/25/23 09:18 Temperature 96.4 F L Temperature Source Temporal Pulse Rate 98 Respiratory Rate 18 Blood Pressure 145/76 H Blood Pressure Mean 99 Blood Pressure Source Monitor Blood Pressure Position Semi-Fowlers Blood Pressure Location Left Arm Weight Weight: 198 lb Body Mass Index (BMI) 29.2 Physical Exam Const alert, oriented x3, no apparent distress, average body habitus and well nourished Constitutional Narrative: The patient's BMI is 29.2. General Appearance: cooperative, comfortable and well developed Orientation / Consciousness: awake, oriented to person, oriented to place and oriented to time HEENT normocephalic and head/scalp atraumatic Head and Scalp: normal to inspection, normocephalic and atraumatic External Ear: external ears normal Eyes PERRL and EOMs intact bilaterally General Eye: normal appearance of both eyes Resp normal respiratory effort, normal air movement, no retractions and no use of accessory muscles Effort and Inspection: able to speak in complete sentences and symmetric chest movement Extremity no calf tenderness General Extremity: Negative for clubbing or cyanosis Skin Wound Narrative: Mild bilateral lower extremity swelling and edema are noted. Rather diffuse inflammatory erythema is noted bilaterally. Several ulcerations are noted in the lower extremities bilaterally. An ulceration is noted on the right lateral calf, and 2 on the right posterior calf. An ulceration is also noted on the left medial calf. These are each full-thickness, and of significant size, though decrease in size of these ulcerations has been recently noted. Dimensions are documented elsewhere. Each of the ulcerations demonstrates a moderate amount of bioburden. However, the ulcerations are generally pink and healthy in appearance, demonstrating significant improvement in recent weeks. Zaira-ulcer erythema has abated. Neuro oriented x3, CN's II-XII intact bilaterally, moves all extremities and no focal motor deficits Sensorium / Orientation: awake, alert, oriented to person, oriented to place and oriented to time Psych Appearance: grossly normal and appropriate Attitude: calm Activity / Motor Behavior: appropriate eye contact Speech: normal speech Mood & Affect: euthymic mood Thought Process: normal thought process Thought Content: normal thought content Attention / Concentration: attention grossly intact Debridement Note Debridement Note Wound debrided: Right calf x 3 Laterality: Right Type of Debridement: Excisional debridement Anesthesia Used: 5% Lidocaine Gel Depth: Down to and including healthy tissue and in the subcutaneous layer Percentage of wound debrided: 100 Instrument Used: 5mm curette Tissue Removed: Bioburden, necrotic and nonviable tissue Severity: Fat Layer Exposed Amount of bleeding with debridement: Mild Bleeding Controlled with: Compression and gauze Patient tolerated procedure: Patient tolerated procedure well Debridement Free Text: With respect to the largest of the wounds on the patient's right posterior calf following a routine excisional debridement, which was well-tolerated, a 2 cm x 2 cm EpiFix allograft was placed. The allograft was removed from its packaging, and placed in the appropriate orientation topically. Adaptic Touch was then placed, over which gauze was applied. The entire dressing was then anchored in place using Steri-Strips. The patient tolerated the procedure well. The allograft is to remain in place, undisturbed, until the patient's return visit in 1 week. This represents the 2nd such application of an allograft. Post-Debridement Measurements and Additional Note: Post-Debridement Measurements/Treatment - Nurse 1 - General Ulcer Assessment Start: 09/11/23 11:26 Freq: Status: Active Protocol: WC.LOWEXT Activity Type Activity Date Activity User E-sign Co-sign Detail Recorded Client Recorded Date Recorded By Document 09/11/23 11:26 RB Desktop 09/11/23 11:40 RB Document 09/18/23 09:05 NRL Desktop 09/18/23 09:22 NRL Document 09/25/23 09:18 RB Desktop 09/25/23 09:33 RB 09/11/23 09/18/23 09/25/23 11:26 09:05 09:18 - Today's Visit Information Type of service Follow-up Visit Follow-up Visit Follow-up Visit (Physician/CRIMINAL PSYCHOLOGIST (Physician/CRIMINAL PSYCHOLOGIST (Physician/CRIMINAL PSYCHOLOGIST ) ) ) Arrival Mode Ambulatory Ambulatory Ambulatory Transfer Assistance None None Patient Identification Verified (Name & Yes Yes Yes ) Patient Requires Transmission-Based No No Precautions Height and Weight Body Mass Index (BMI) 29.2 29.2 29.2 BMI Classification Overweight Overweight Overweight Vital Signs Temperature (97.8 F-99.1 F) 96.7 F L 96.8 F L 96.4 F L Temperature Source Temporal Temporal Temporal Pulse Rate (60-100) 91 92 98 Pulse Location Monitor Monitor Monitor Respiratory Rate (12-18) 18 18 18 Respiratory rate source Observation Observation Observation Blood Pressure (90/60-120/80) 126/68 H 148/73 H 145/76 H Blood Pressure Mean 87 98 99 Source Monitor Monitor Monitor Position Semi-Fowlers Sitting Semi-Fowlers Blood Pressure Location Left Arm Right Arm Left Arm History Since Last Visit- (Skip if this is Patient's initial visit) Have you changed medications since your No No No last visit? Any new allergies or adverse reactions No No No Had a fall/change in ADL's that may No No No increase risk of falls Signs or symptoms of abuse and/or No No No neglect since last visit Have you been in the hospital since your No No No last visit? Has dressing in place as prescribed Yes Yes Yes Has compression in place as prescribed Yes Yes Yes Has offloadiing in place as prescribed No N/A No Experienced any changes in pain level or No No No management Left Footwear Regular Shoe Right Footwear Regular Shoe Pain Scale: 0-10 Numeric Is Patient Pain Free? Yes Yes Yes WC - Nurse 1 - General Ulcer Measurement Start: 09/11/23 11:26 Freq: Status: Active Protocol: Activity Type Activity Date Activity User E-sign Co-sign Detail Recorded Client Recorded Date Recorded By Document 09/11/23 11:26 RB Desktop 09/11/23 11:40 RB Document 09/18/23 09:05 NRL Desktop 09/18/23 09:22 NRL Document 09/25/23 09:18 RB Desktop 09/25/23 09:33 RB 09/11/23 09/18/23 09/25/23 11:26 09:05 09:18 Wound Center Nurse 1 #4 Left lateral Calf -Combined with other wound No No -Current Size (cm) - Length 1.5 0.3 0.1 -Current Size (cm) - Width 1.2 0.3 0.1 -Current Size (cm) - Depth 0.1 0.1 0.1 -Total Square Cm 1.80 0.09 0.01 -Photo Taken Yes -Epithelialization Small 1-33% -Tunneling No -Undermining/Tunneling No No No -Circular Undermining No No No -Exudate Amt Medium Medium Medium -Exudate Type Serosanguineous Serosanguineous Serosanguineous -Wound Margin Distinct, Distinct, Distinct, Outline Outline Outline Attached Attached Attached -Granulation Amt Medium (34-66%) Small (1-33%) Medium (34-66%) -Granulation Quality [place] Alt[place] -Slough/Fibrin Yes Yes Yes -Necrosis Amt Medium (34-66%) Medium (34-66%) Medium (34-66%) -Necrotic Tissue Type Adherent Slough Adherent Slough Adherent Slough -Structure Exposed N/A N/A N/A -Texture (Zaira-wound Skin Appearance) Assessed, Assessed, Assessed Friable Excoriation -Moisture (Zaira-wound Skin Appearance) Assessed Assessed Assessed,Dry/ Scaly -Color (Zaira-wound Skin Appearance) Assessed Assessed Assessed -Temperature (Zaira-wound Skin No Abnormality No Abnormality No Abnormality Appearance) (Pt Warm) (Pt Warm) (Pt Warm) -Tenderness on Palpation (Zaira-wound No No No Skin Appearance) -Ulcer Cleansing Wound Cleanser Wound Cleanser Wound Cleanser -Foul Odor after Cleansing No No No -Anesthetic Used 4% Lidocaine 5% Lidocaine 4% Lidocaine Solution Gel Solution #3 Left Medial Calf -Combined with other wound No No No -Current Size (cm) - Length 1.7 1.5 2 -Current Size (cm) - Width 1.5 0.9 0.9 -Current Size (cm) - Depth 0.1 0.1 0.1 -Total Square Cm 2.55 1.35 1.8 -Photo Taken Yes -Epithelialization Small 1-33% -Tunneling No No No -Undermining/Tunneling No No No -Circular Undermining No No No -Exudate Amt Medium Small Medium -Exudate Type Serosanguineous Serosanguineous Serosanguineous -Wound Margin Distinct, Distinct, Distinct, Outline Outline Outline Attached Attached Attached -Granulation Amt Medium (34-66%) Small (1-33%) Medium (34-66%) -Granulation Quality [place] -Slough/Fibrin Yes Yes Yes -Necrosis Amt Medium (34-66%) Medium (34-66%) Medium (34-66%) -Necrotic Tissue Type Adherent Slough Adherent Slough Adherent Slough -Structure Exposed N/A N/A -Texture (Zaira-wound Skin Appearance) Assessed Assessed Not Assessed -Moisture (Zaira-wound Skin Appearance) Assessed Assessed Assessed,Dry/ Scaly -Color (Zaira-wound Skin Appearance) Assessed Assessed Assessed -Temperature (Zaira-wound Skin No Abnormality No Abnormality No Abnormality Appearance) (Pt Warm) (Pt Warm) (Pt Warm) -Tenderness on Palpation (Zaira-wound No Yes Skin Appearance) -Ulcer Cleansing Wound Cleanser Wound Cleanser Wound Cleanser -Foul Odor after Cleansing No No -Anesthetic Used 4% Lidocaine 5% Lidocaine 4% Lidocaine Solution Gel Solution #2 R Post Calf -Combined with other wound No No No -Current Size (cm) - Length 11.5 11 11.5 -Current Size (cm) - Width 5.5 6.0 6.5 -Current Size (cm) - Depth 0.1 0.1 0.1 -Total Square Cm 63.25 66.0 74.75 -Photo Taken Yes -Epithelialization Small 1-33% -Tunneling No No No -Undermining/Tunneling No No No -Circular Undermining No No No -Exudate Amt Medium Medium -Exudate Type Serosanguineous Serosanguineous Serosanguineous -Wound Margin Distinct, Distinct, Distinct, Outline Outline Outline Attached Attached Attached -Granulation Amt Medium (34-66%) Small (1-33%) Medium (34-66%) -Granulation Quality [place] -Slough/Fibrin Yes Yes Yes -Necrosis Amt Medium (34-66%) Small (1-33%) None Present (0 %) -Necrotic Tissue Type Adherent Slough Adherent Slough Adherent Slough -Structure Exposed N/A Fat Layer N/A Exposed -Texture (Zaira-wound Skin Appearance) Assessed Assessed, Assessed Excoriation -Moisture (Zaira-wound Skin Appearance) Assessed Assessed Dry/Scaly -Color (Zaira-wound Skin Appearance) Assessed Assessed Assessed -Temperature (Zaira-wound Skin No Abnormality No Abnormality No Abnormality Appearance) (Pt Warm) (Pt Warm) (Pt Warm) -Tenderness on Palpation (Zaira-wound No No No Skin Appearance) -Ulcer Cleansing Wound Cleanser Wound Cleanser Wound Cleanser -Foul Odor after Cleansing No No No -Anesthetic Used 4% Lidocaine 5% Lidocaine Solution Gel #1 Right Ant Calf -Combined with other wound No No No -Current Size (cm) - Length 8.5 2.3 2.4 -Current Size (cm) - Width 8 2.4 2.7 -Current Size (cm) - Depth 0.1 0.1 0.1 -Total Square Cm 68.0 5.52 6.48 -Photo Taken Yes -Epithelialization Small 1-33% -Tunneling No No No -Undermining/Tunneling No No No -Circular Undermining No No -Exudate Amt Medium Medium Medium -Exudate Type Serosanguineous Serosanguineous Serosanguineous -Wound Margin Distinct, Distinct, Distinct, Outline Outline Outline Attached Attached Attached -Granulation Amt Medium (34-66%) Small (1-33%) Medium (34-66%) -Granulation Quality [place] -Slough/Fibrin Yes Yes Yes -Necrosis Amt Medium (34-66%) Medium (34-66%) -Necrotic Tissue Type Adherent Slough Adherent Slough Adherent Slough -Structure Exposed N/A N/A N/A -Texture (Zaira-wound Skin Appearance) Assessed Assessed, Assessed Excoriation -Moisture (Zaira-wound Skin Appearance) Assessed Assessed Assessed,Dry/ Scaly -Color (Zaira-wound Skin Appearance) Assessed Assessed Assessed -Temperature (Zaira-wound Skin No Abnormality No Abnormality No Abnormality Appearance) (Pt Warm) (Pt Warm) (Pt Warm) -Tenderness on Palpation (Zaira-wound No No No Skin Appearance) -Ulcer Cleansing Wound Cleanser Wound Cleanser Wound Cleanser -Foul Odor after Cleansing No No No -Anesthetic Used 4% Lidocaine 5% Lidocaine 4% Lidocaine Solution Gel Solution Lower Limb Edema Present Yes Yes Right Calf (cm) 38.5 39.3 39.2 Right Ankle (cm) 27 26.2 25.5 Left Calf (cm) 37 36.5 39.3 Left Ankle (cm) 27.3 25.0 25.5 WC - Nurse 2 - General Ulcer CM Notes Start: 09/11/23 11:26 Freq: Status: Active Protocol: Activity Type Activity Date Activity User E-sign Co-sign Detail Recorded Client Recorded Date Recorded By Document 09/11/23 13:48 PL [id number] 09/11/23 13:52 PL Document 09/18/23 11:57 PL [id number] 09/18/23 12:04 PL Document 09/25/23 11:51 PL [id number] 09/25/23 11:56 PL 09/11/23 09/18/23 09/25/23 13:48 11:57 11:51 Wound Center Nurse 2 #4 Left lateral Calf -Time 11:46 09:28 09:40 -Correct Patient Yes Yes Yes -Correct Side, Site, Position Yes Yes Yes -Correct Procedure Yes Yes Yes -Procedure Performed Yes Yes Yes -Type of Procedure Debridement Debridement Debridement -Clinical Debridement Subcutaneous Subcutaneous Subcutaneous -Tissue Removed Subcutaneous Subcutaneous Subcutaneous -Post Debridement (cm) - Length 1.5 0.3 0.1 -Post Debridement (cm) - Width 1.2 0.3 0.1 -Post Debridement (cm) - Depth 0.1 0.1 0.1 -Total Square (Post) (cm) 1.80 0.09 0.01 -Area of Debridement (cm) - Length 1.5 0.3 0.1 -Area of Debridement (cm) - Width 1.2 0.3 0.1 -Total Square (Area) (cm) 1.80 0.09 0.01 -Tunneling No No No -Undermining/Tunneling No No No -Circular Undermining No No No -Wound/Ulcer Outcome Not Healed Not Healed Not Healed -Ulcer Cleansing Rinsed/ Rinsed/ Rinsed/ Irrigated with Irrigated with Irrigated with Saline Saline Saline -Foul Odor after Cleansing No No No -Bioengineered Tissue No No No -Bleeding Controlled with Pressure Pressure Pressure -Treatment Response Procedure Procedure Procedure Tolerated Well Tolerated Well Tolerated Well -Debridement - Subq, 1st 20sq cm No Yes Yes #3 Left Medial Calf -Time 11:46 09:28 09:40 -Correct Patient Yes Yes Yes -Correct Side, Site, Position Yes Yes Yes -Correct Procedure Yes Yes Yes -Procedure Performed Yes Yes Yes -Type of Procedure Debridement Debridement Debridement -Clinical Debridement Subcutaneous Subcutaneous Subcutaneous -Tissue Removed Subcutaneous Subcutaneous Subcutaneous -Post Debridement (cm) - Length 1.7 1.5 2.0 -Post Debridement (cm) - Width 1.5 0.9 0.9 -Post Debridement (cm) - Depth 0.1 0.1 0.1 -Total Square (Post) (cm) 2.55 1.35 1.80 -Area of Debridement (cm) - Length 1.7 1.5 2.0 -Area of Debridement (cm) - Width 1.5 0.9 0.9 -Total Square (Area) (cm) 2.55 1.35 1.80 -Tunneling No No No -Undermining/Tunneling No No No -Circular Undermining No No No -Wound/Ulcer Outcome Not Healed Not Healed Not Healed -Ulcer Cleansing Rinsed/ Rinsed/ Rinsed/ Irrigated with Irrigated with Irrigated with Saline Saline Saline -Foul Odor after Cleansing No No No -Bioengineered Tissue No No No -Bleeding Controlled with Pressure Pressure Pressure -Treatment Response Procedure Procedure Procedure Tolerated Well Tolerated Well Tolerated Well -Debridement - Subq, 1st 20sq cm No No No #2 R Post Calf -Time 11:46 09:28 09:40 -Correct Patient Yes Yes Yes -Correct Side, Site, Position Yes Yes Yes -Correct Procedure Yes Yes Yes -Procedure Performed Yes Yes Yes -Type of Procedure Debridement Debridement Debridement -Clinical Debridement Subcutaneous Subcutaneous Subcutaneous -Tissue Removed Subcutaneous Subcutaneous Subcutaneous -Post Debridement (cm) - Length 11.5 11.0 11.5 -Post Debridement (cm) - Width 5.5 6.0 6.5 -Post Debridement (cm) - Depth 0.1 0.1 0.1 -Total Square (Post) (cm) 63.25 66.00 74.75 -Area of Debridement (cm) - Length 11.5 11.0 11.5 -Area of Debridement (cm) - Width 5.5 6.0 6.5 -Total Square (Area) (cm) 63.25 66.00 74.75 -Tunneling No No No -Undermining/Tunneling No No No -Circular Undermining No No No -Wound/Ulcer Outcome Not Healed Not Healed Not Healed -Ulcer Cleansing Rinsed/ Rinsed/ Rinsed/ Irrigated with Irrigated with Irrigated with Saline Saline Saline -Foul Odor after Cleansing No No No -Bioengineered Tissue No Yes Yes -Type of Bioengineered Tissue Epifix Epifix -Expiration Date 05/05/28 05/05/28 -Product Lot Number [id number] -Percent Used 100 100 -Bleeding Controlled with Pressure Pressure Pressure -Treatment Response Procedure Procedure Procedure Tolerated Well Tolerated Well Tolerated Well -Debridement - Subq, 1st 20sq cm No No No -Apply Skin Sub - 1st 25 sq cm - Legs 1 1 -Epifix (per sq cm) 4 4 #1 Right Ant Calf -Time 11:46 09:28 09:40 -Correct Patient Yes Yes Yes -Correct Side, Site, Position Yes Yes Yes -Correct Procedure Yes Yes Yes -Procedure Performed Yes Yes Yes -Type of Procedure Debridement Debridement Debridement -Clinical Debridement Subcutaneous Subcutaneous Subcutaneous -Tissue Removed Subcutaneous Subcutaneous Subcutaneous -Post Debridement (cm) - Length 8.5 2.3 2.4 -Post Debridement (cm) - Width 8.0 2.1 2.7 -Post Debridement (cm) - Depth 0.1 0.1 0.1 -Total Square (Post) (cm) 68.00 4.83 6.48 -Area of Debridement (cm) - Length 8.5 2.3 2.4 -Area of Debridement (cm) - Width 8.0 2.1 2.7 -Total Square (Area) (cm) 68.00 4.83 6.48 -Tunneling No No No -Undermining/Tunneling No No No -Circular Undermining No No No -Wound/Ulcer Outcome Not Healed Not Healed Not Healed -Ulcer Cleansing Rinsed/ Rinsed/ Rinsed/ Irrigated with Irrigated with Irrigated with Saline Saline Saline -Foul Odor after Cleansing No No No -Bioengineered Tissue No No No -Bleeding Controlled with Pressure Pressure Pressure -Treatment Response Procedure Procedure Procedure Tolerated Well Tolerated Well Tolerated Well -Debridement - Subq, 1st 20sq cm Yes No No -Debridement, SubQ, ea addt'l 20sq cm 6 or part thereof Pain Scale: 0-10 Numeric Is Patient Pain Free? Yes Yes Yes - Nurse 3 - General Ulcer D/C NN Start: 09/11/23 11:26 Freq: Status: Active Protocol: Activity Type Activity Date Activity User E-sign Co-sign Detail Recorded Client Recorded Date Recorded By Document 09/11/23 11:58 Desktop 09/11/23 12:11 Document 09/18/23 09:55 NR Desktop 09/18/23 10:03 NR Document 09/25/23 10:10 NR Desktop 09/25/23 10:14 NR 09/11/23 09/18/23 09/25/23 11:58 09:55 10:10 Wound Care Center Nurse 3 #4 Left lateral Calf -Ulcer Cleansing Not Cleansed Rinsed/ Rinsed/ Irrigated with Irrigated with Saline Saline -Foul Odor after Cleansing No No -Primary Dressing Applied Promogran Promogran Promogran -Other Dressing ABD and Kerlix ABD and kerlix -Primary Dressing Covered/Secured with Dry Gauze & Dry Gauze & Roll Gauze Roll Gauze -Promogran 1 2 1 #3 Left Medial Calf -Ulcer Cleansing Not Cleansed Rinsed/ Wound Cleanser Irrigated with Saline -Negative Pressure Wound Therapy N/A -Primary Dressing Applied Promogran Other -Other Dressing ABD and kerlix Promogran, ABD, promogran Kerlix -Primary Dressing Covered/Secured with Dry Gauze Dry Gauze & Roll Gauze -Promogran 1 #2 R Post Calf -Ulcer Cleansing Not Cleansed Rinsed/ Rinsed/ Irrigated with Irrigated with Saline Saline -Negative Pressure Wound Therapy N/A -Primary Dressing Applied Promogran Mepilex Border -Other Dressing Promogran ABD Kerlix -Primary Dressing Covered/Secured with Dry Gauze Dry Gauze & Dry Gauze & Roll Gauze Roll Gauze -Mepilex Border 1 -Promogran 1 #1 Right Ant Calf -Ulcer Cleansing Not Cleansed Rinsed/ Rinsed/ Irrigated with Irrigated with Saline Saline -Foul Odor after Cleansing No -Primary Dressing Applied Promogran -Other Dressing Promogran -Primary Dressing Covered/Secured with Dry Gauze & Dry Gauze & Dry Gauze & Roll Gauze, Roll Gauze Roll Gauze Secured with Tape -Promogran 1 Right leg -Tubular Bandage Double Layer Double Layer -Size of Tubigrip Used Size D Size D -Size D ($) 2 2 Left leg -Tubular Bandage Double Layer Double Layer -Size of Tubigrip Used Size D Size D -Size D ($) 2 2 Pain Scale: 0-10 Numeric Is Patient Pain Free? Yes Yes Yes Teaching: Wound Center Dressing Your Wound -Person Taught Patient,Family -Teaching Method Discussion, Demonstration -Response to teaching Verbalize understanding Control Swelling with Leg Elevation -Person Taught Patient,Family -Teaching Method Discussion -Response to teaching Verbalize understanding WC - Visit Discharge Discharge Condition Stable Stable Stable Ambulatory Status Ambulatory Ambulatory Ambulatory Transportation Private Auto Private Auto Private Auto Accompanied by Self Medication Reconcilliation completed & Yes No Yes provided to patient/care provider Clinical Summary of Care Provided Yes Yes Yes Additional Wound Wound debrided: Left calf ulceration Laterality: Left Type of Debridement: Excisional debridement Anesthesia Used: 5% Lidocaine Gel Depth: Down to and including healthy tissue and in the subcutaneous layer Percentage of wound debrided: 100 Instrument Used: 5mm curette Tissue Removed: Bioburden, necrotic and nonviable tissue Severity: Fat Layer Exposed Amount of bleeding with debridement: Mild Bleeding Controlled with: Compression and gauze Patient tolerated procedure: Patient tolerated procedure well Additional Wound Tissue Removed: Bioburden Assessment/Plan Assessment/Plan (1) Venous stasis ulcer of right calf: CODE(S): I83.012 - Varicose veins of right lower extremity with ulcer of calf; L97.219 - Non-pressure chronic ulcer of right calf with unspecified severity QUALIFIERS: Varicose vein presence: with varicose veins Non-pressure ulcer stage: with fat layer exposed Qualified Code(s): I83.012 - Varicose veins of right lower extremity with ulcer of calf; L97.212 - Non-pressure chronic ulcer of right calf with fat layer exposed (2) Venous stasis ulcer: CODE(S): I83.009 - Varicose veins of unspecified lower extremity with ulcer of unspecified site; L97.909 - Non-pressure chronic ulcer of unspecified part of unspecified lower leg with unspecified severity QUALIFIERS: Venous stasis ulcer site: calf Varicose vein presence: with varicose veins Laterality: right Non-pressure ulcer stage: with fat layer exposed Qualified Code(s): I83.012 - Varicose veins of right lower extremity with ulcer of calf; L97.212 - Non-pressure chronic ulcer of right calf with fat layer exposed (3) Venous stasis ulcer of left calf: CODE(S): I83.022 - Varicose veins of left lower extremity with ulcer of calf; L97.229 - Non-pressure chronic ulcer of left calf with unspecified severity QUALIFIERS: Varicose vein presence: with varicose veins Non-pressure ulcer stage: with fat layer exposed Qualified Code(s): I83.022 - Varicose veins of left lower extremity with ulcer of calf; L97.222 - Non-pressure chronic ulcer of left calf with fat layer exposed (4) Venous stasis dermatitis of both lower extremities: CODE(S): I87.2 - Venous insufficiency (chronic) (peripheral) (5) Dependent edema: CODE(S): R60.9 - Edema, unspecified (6) Inactivity: CODE(S): Z72.3 - Lack of physical exercise (7) Debility: CODE(S): R53.81 - Other malaise (8) Atrial flutter: CODE(S): I48.92 - Unspecified atrial flutter (9) Persistent atrial fibrillation: CODE(S): I48.19 - Other persistent atrial fibrillation (10) Pulmonary HTN: CODE(S): I27.20 - Pulmonary hypertension, unspecified (11) ROSARIO (dyspnea on exertion): CODE(S): R06.09 - Other forms of dyspnea (12) Hypertension: CODE(S): I10 - Essential (primary) hypertension (13) Afib: CODE(S): I48.91 - Unspecified atrial fibrillation (14) History of prostate cancer: CODE(S): Z85.46 - Personal history of malignant neoplasm of prostate (15) History of umbilical hernia repair: CODE(S): Z98.890 - Other specified postprocedural states; Z87.19 - Personal history of other diseases of the digestive system (16) Chronic anticoagulation: CODE(S): Z79.01 - 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 He had multiple ulcerations in his lower extremities. It appears as though the patient's presenting manifestations were due to recently acquired habits, which include prolonged idle sitting and lower extremity dependency. Within the last several months, the patient had taken to sleeping in a recliner. Additionally, he spends long hours each day in an idle sitting position. He ambulates in very limited amounts. As result of these habits, the patient had noted worsening swelling and edema in his lower extremities, and the development of blisters, which resulted in open excoriations and ulcerations. He developed cellulitis in his right lower extremity, which required treatment with courses of antibiotics. We have discussed the conservative treatment measures appropriate to the management of his lower extremity symptoms and manifestations. He has been discouraged from sleeping in a recliner. He has been encouraged to sleep on a flat mattress, with legs elevated to heart level, or higher. If sleeping in a bed proves to be untenable, the alternative would be to sleep in his recliner, but with legs elevated and head down. The patient's legs are to be elevated to heart level, or higher, as much as possible, during both daytime and nighttime hours. Activity has been encouraged, though the patient is not likely to enhance his activity level to any significant degree. Prolonged idle sitting has been discouraged. The patient's weight is relatively optimal. Recent cultures were positive for Pseudomonas aeruginosa and Enterococcus faecalis. Based upon sensitivity results, the patient was prescribed Levaquin 750 mg p.o. daily for a total of 10 days. The course of antibiotics has now been completed. We are to continue compression to the lower extremities by means of double Tubigrip's, which will be donned on a daily basis. We are to continue the use of Promogran topically to each of the ulcerations, which will be applied on a daily basis. The EpiFix allograft which was placed topically on the right posterior calf, is to remain in place, undisturbed, until the patient's follow-up visit in 1 week. This represents the second such allograft application at the site. The patient has been instructed in the appropriate means of care. There has been slight improvement in recent weeks. The patient is to return in 1 week for reevaluation. Total time: 25 minutes
[2023-10-02 09:20] VITALS: BP 156/65; PULSE 69; RESP 18; TEMP 36.1; BMI 29.2
--- NOTE | 2023-10-02 12:18 | HP.PCM_ITS ---
History of Present Illness Date of Service: 10/02/23 Chief Complaint: Bilateral lower extremity swelling, edema, and venous stasis dermatitis with ulcerations History of Wound: This is an 82-year-old male who presented with severe swelling and edema in both lower extremities, and dermatitic changes in his lower extremities bilaterally, which had been present for several months. The patient had undergone a change in his daily habits within the last several months. He had become inactive, spending large portions of each day in an idle sitting position. 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 Furthermore, he sleeps in a recliner. Within the last several months, he had noted the development of swelling and edema in both legs, as well as severe skin changes and the development of blisters and ulcerations. He denies a history of thrombophlebitis. He had been treated with antibiotic ointment topically. He had been diagnosed with cellulitis in his right lower extremity, for which he had been prescribed prescriptions for both doxycycline and cephalexin. The patient indicated he is a candidate for pacemaker insertion, but resolution of his lower extremity swelling, edema, ulcerations, and cellulitis are a prerequisite to pacemaker placement. [facility] Medical History Adenocarcinoma of prostate Afib Atrial flutter Chronic anticoagulation Debility Dependent edema History of prostate cancer Hypertension Inactivity Persistent atrial fibrillation Venous stasis dermatitis of both lower extremities Venous stasis ulcer Venous stasis ulcer of left calf Venous stasis ulcer of right calf Home Medications furosemide 40 mg tablet (Lasix) 40 mg PO DAILY #30 tabs 02/26/23 [Rx Last Taken Unknown] lisinopril 40 mg tablet 40 mg PO DAILY 02/26/23 [History Last Taken Unknown] apixaban 5 mg tablet (Eliquis) 5 mg PO BID #60 tabs 03/26/23 [Rx Last Taken Unknown] amlodipine 10 mg tablet 5 mg PO DAILY 06/12/23 [History Last Taken Unknown] hydralazine 25 mg tablet mg PO 06/12/23 [History Last Taken Unknown] spironolactone 25 mg tablet 25 mg PO DAILY #90 tabs 06/12/23 [Rx Last Taken Unknown] potassium chloride 20 mEq tablet,extended release 20 meq PO DAILY #5 tabs 07/31/23 [Rx Last Taken Unknown] Allergy/AdvReac Type Severity Reaction Status Date / Time No Known Allergies Allergy Verified 07/11/23 10:48 Surgical History History of umbilical hernia repair Hx of umbilical hernia repair Social History Smoking Status: Never smoker Vital Signs Vital Signs Vital Signs: 10/02/23 09:20 Temperature 97 F L Temperature Source Temporal Pulse Rate 69 Respiratory Rate 18 Blood Pressure 156/65 H Blood Pressure Mean 95 Blood Pressure Source Monitor Blood Pressure Position Sitting Blood Pressure Location Left Arm Oxygen Delivery Method Room Air Weight Weight: 198 lb Body Mass Index (BMI) 29.2 Physical Exam Const alert, oriented x3, no apparent distress, average body habitus and well nourished Constitutional Narrative: The patient's BMI is 29.2. General Appearance: cooperative, comfortable and well developed Orientation / Consciousness: awake, oriented to person, oriented to place and oriented to time HEENT normocephalic and head/scalp atraumatic Head and Scalp: normal to inspection, normocephalic and atraumatic External Ear: external ears normal Eyes PERRL and EOMs intact bilaterally General Eye: normal appearance of both eyes Resp normal respiratory effort, normal air movement, no retractions and no use of accessory muscles Effort and Inspection: able to speak in complete sentences and symmetric chest movement Extremity no calf tenderness General Extremity: Negative for clubbing or cyanosis Skin Wound Narrative: Minimal bilateral lower extremity swelling and edema are noted. Rather diffuse erythema is noted bilaterally. Several ulcerations are noted in the lower ex tremities bilaterally. An ulceration is noted on the right lateral calf, and 2 on the right posterior calf. An ulceration is also noted on the left medial calf. These are each full-thickness. Dimensions are documented elsewhere. They appear to be slightly smaller in size than previously noted. Each of the ulcerations demonstrates a moderate amount of bioburden. The ulcerations are generally pink and healthy in appearance. There is also a new intact blister on the right posterior calf, just proximal to the ankle. Neuro oriented x3, CN's II-XII intact bilaterally, moves all extremities and no focal motor deficits Sensorium / Orientation: awake, alert, oriented to person, oriented to place and oriented to time Psych Appearance: grossly normal and appropriate Attitude: calm Activity / Motor Behavior: appropriate eye contact Speech: normal speech Mood & Affect: euthymic mood Thought Process: normal thought process Thought Content: normal thought content Attention / Concentration: attention grossly intact Debridement Note Debridement Note Wound debrided: Right calf x 3 Laterality: Right Type of Debridement: Excisional debridement Anesthesia Used: 5% Lidocaine Gel Depth: Down to and including healthy tissue and in the subcutaneous layer Percentage of wound debrided: 100 Instrument Used: 5mm curette Tissue Removed: Bioburden, necrotic and nonviable tissue Severity: Fat Layer Exposed Amount of bleeding with debridement: Mild Bleeding Controlled with: Compression and gauze Patient tolerated procedure: Patient tolerated procedure well Debridement Free Text: Post-Debridement Measurements and Additional Note: Post-Debridement Measurements/Treatment - Nurse 1 - General Ulcer Assessment Start: 09/11/23 11:26 Freq: Status: Active Protocol: MILA.YURI Activity Type Activity Date Activity User E-sign Co-sign Detail Recorded Client Recorded Date Recorded By Document 09/11/23 11:26 RB Desktop 09/11/23 11:40 RB Document 09/18/23 09:05 NRL Desktop 09/18/23 09:22 NRL Document 09/25/23 09:18 RB Desktop 09/25/23 09:33 RB Document 10/02/23 09:20 MT Desktop 10/02/23 09:25 MT 09/11/23 09/18/23 09/25/23 11:26 09:05 09:18 - Today's Visit Information Type of service Follow-up Visit Follow-up Visit Follow-up Visit (Physician/DIFFERENTIAL SPECIALIST (Physician/DIFFERENTIAL SPECIALIST (Physician/DIFFERENTIAL SPECIALIST ) ) ) Arrival Mode Ambulatory Ambulatory Ambulatory Transfer Assistance None None Accompanied by Patient Identification Verified (Name & Yes Yes Yes ) Patient Requires Transmission-Based No No Precautions Safety Precautions Height and Weight Body Mass Index (BMI) 29.2 29.2 29.2 BMI Classification Overweight Overweight Overweight Vital Signs Temperature (97.8 F-99.1 F) 96.7 F L 96.8 F L 96.4 F L Temperature Source Temporal Temporal Temporal Pulse Rate (60-100) 91 92 98 Pulse Location Monitor Monitor Monitor Respiratory Rate (12-18) 18 18 18 Respiratory rate source Observation Observation Observation Oxygen Delivery Method Blood Pressure (90/60-120/80) 126/68 H 148/73 H 145/76 H Blood Pressure Mean 87 98 99 Source Monitor Monitor Monitor Position Semi-Fowlers Sitting Semi-Fowlers Blood Pressure Location Left Arm Right Arm Left Arm History Since Last Visit- (Skip if this is Patient's initial visit) Have you changed medications since your No No No last visit? Any new allergies or adverse reactions No No No Had a fall/change in ADL's that may No No No increase risk of falls Signs or symptoms of abuse and/or No No No neglect since last visit Have you been in the hospital since your No No No last visit? Has dressing in place as prescribed Yes Yes Yes Has compression in place as prescribed Yes Yes Yes Has offloadiing in place as prescribed No N/A No Experienced any changes in pain level or No No No management Left Footwear Regular Shoe Right Footwear Regular Shoe Pain Scale: 0-10 Numeric Is Patient Pain Free? Yes Yes Yes 10/02/23 09:20 WC - Today's Visit Information Type of service Arrival Mode Ambulatory Transfer Assistance Accompanied by Patient Identification Verified (Name & Yes ) Patient Requires Transmission-Based Precautions Safety Precautions Fall Prevention Height and Weight Body Mass Index (BMI) 29.2 BMI Classification Overweight Vital Signs Temperature (97.8 F-99.1 F) 97 F L Temperature Source Temporal Pulse Rate (60-100) 69 Pulse Location Monitor Respiratory Rate (12-18) 18 Respiratory rate source Observation Oxygen Delivery Method Room Air Blood Pressure (90/60-120/80) 156/65 H Blood Pressure Mean 95 Source Monitor Position Sitting Blood Pressure Location Left Arm History Since Last Visit- (Skip if this is Patient's initial visit) Have you changed medications since your last visit? Any new allergies or adverse reactions Had a fall/change in ADL's that may increase risk of falls Signs or symptoms of abuse and/or neglect since last visit Have you been in the hospital since your last visit? Has dressing in place as prescribed Yes Has compression in place as prescribed Yes Has offloadiing in place as prescribed N/A Experienced any changes in pain level or No management Left Footwear Regular Shoe Right Footwear Regular Shoe Pain Scale: 0-10 Numeric Is Patient Pain Free? Yes - Nurse 1 - General Ulcer Measurement Start: 09/11/23 11:26 Freq: Status: Active Protocol: Activity Type Activity Date Activity User E-sign Co-sign Detail Recorded Client Recorded Date Recorded By Document 09/11/23 11:26 RB Desktop 09/11/23 11:40 RB Document 09/18/23 09:05 NRL Desktop 09/18/23 09:22 NRL Document 09/25/23 09:18 RB Desktop 09/25/23 09:33 RB Document 10/02/23 09:20 MO Desktop 10/02/23 09:25 MO 09/11/23 09/18/23 09/25/23 11:26 09:05 09:18 Wound Center Nurse 1 #4 Left lateral Calf -Combined with other wound No No -Current Size (cm) - Length 1.5 0.3 0.1 -Current Size (cm) - Width 1.2 0.3 0.1 -Current Size (cm) - Depth 0.1 0.1 0.1 -Total Square Cm 1.80 0.09 0.01 -Photo Taken Yes -Epithelialization Small 1-33% -Tunneling No -Undermining/Tunneling No No No -Circular Undermining No No No -Exudate Amt Medium Medium Medium -Exudate Type Serosanguineous Serosanguineous Serosanguineous -Wound Margin Distinct, Distinct, Distinct, Outline Outline Outline Attached Attached Attached -Granulation Amt Medium (34-66%) Small (1-33%) Medium (34-66%) -Granulation Quality [place] -Slough/Fibrin Yes Yes Yes -Necrosis Amt Medium (34-66%) Medium (34-66%) Medium (34-66%) -Necrotic Tissue Type Adherent Slough Adherent Slough Adherent Slough -Structure Exposed N/A N/A N/A -Texture (Zaira-wound Skin Appearance) Assessed, Assessed, Assessed Friable Excoriation -Moisture (Zaira-wound Skin Appearance) Assessed Assessed Assessed,Dry/ Scaly -Color (Zaira-wound Skin Appearance) Assessed Assessed Assessed -Temperature (Zaira-wound Skin No Abnormality No Abnormality No Abnormality Appearance) (Pt Warm) (Pt Warm) (Pt Warm) -Tenderness on Palpation (Zaira-wound No No No Skin Appearance) -Ulcer Cleansing Wound Cleanser Wound Cleanser Wound Cleanser -Foul Odor after Cleansing No No No -Anesthetic Used 4% Lidocaine 5% Lidocaine 4% Lidocaine Solution Gel Solution #3 Left Medial Calf -Combined with other wound No No No -Current Size (cm) - Length 1.7 1.5 2 -Current Size (cm) - Width 1.5 0.9 0.9 -Current Size (cm) - Depth 0.1 0.1 0.1 -Total Square Cm 2.55 1.35 1.8 -Photo Taken Yes -Epithelialization Small 1-33% -Tunneling No No No -Undermining/Tunneling No No No -Circular Undermining No No No -Exudate Amt Medium Small Medium -Exudate Type Serosanguineous Serosanguineous Serosanguineous -Wound Margin Distinct, Distinct, Distinct, Outline Outline Outline Attached Attached Attached -Granulation Amt Medium (34-66%) Small (1-33%) Medium (34-66%) -Granulation Quality [place] -Slough/Fibrin Yes Yes Yes -Necrosis Amt Medium (34-66%) Medium (34-66%) Medium (34-66%) -Necrotic Tissue Type Adherent Slough Adherent Slough Adherent Slough -Structure Exposed N/A N/A -Texture (Zaira-wound Skin Appearance) Assessed Assessed Not Assessed -Moisture (Zaira-wound Skin Appearance) Assessed Assessed Assessed,Dry/ Scaly -Color (Zaira-wound Skin Appearance) Assessed Assessed Assessed -Temperature (Zaira-wound Skin No Abnormality No Abnormality No Abnormality Appearance) (Pt Warm) (Pt Warm) (Pt Warm) -Tenderness on Palpation (Zaira-wound No Yes Skin Appearance) -Ulcer Cleansing Wound Cleanser Wound Cleanser Wound Cleanser -Foul Odor after Cleansing No No -Anesthetic Used 4% Lidocaine 5% Lidocaine 4% Lidocaine Solution Gel Solution #2 R Post Calf -Combined with other wound No No No -Current Size (cm) - Length 11.5 11 11.5 -Current Size (cm) - Width 5.5 6.0 6.5 -Current Size (cm) - Depth 0.1 0.1 0.1 -Total Square Cm 63.25 66.0 74.75 -Photo Taken Yes -Epithelialization Small 1-33% -Tunneling No No No -Undermining/Tunneling No No No -Circular Undermining No No No -Exudate Amt Medium Medium -Exudate Type Serosanguineous Serosanguineous Serosanguineous -Wound Margin Distinct, Distinct, Distinct, Outline Outline Outline Attached Attached Attached -Granulation Amt Medium (34-66%) Small (1-33%) Medium (34-66%) -Granulation Quality [place] -Slough/Fibrin Yes Yes Yes -Necrosis Amt Medium (34-66%) Small (1-33%) None Present (0 %) -Necrotic Tissue Type Adherent Slough Adherent Slough Adherent Slough -Structure Exposed N/A Fat Layer N/A Exposed -Texture (Zaira-wound Skin Appearance) Assessed Assessed, Assessed Excoriation -Moisture (Zaira-wound Skin Appearance) Assessed Assessed Dry/Scaly -Color (Zaira-wound Skin Appearance) Assessed Assessed Assessed -Temperature (Zaira-wound Skin No Abnormality No Abnormality No Abnormality Appearance) (Pt Warm) (Pt Warm) (Pt Warm) -Tenderness on Palpation (Zaira-wound No No No Skin Appearance) -Ulcer Cleansing Wound Cleanser Wound Cleanser Wound Cleanser -Foul Odor after Cleansing No No No -Anesthetic Used 4% Lidocaine 5% Lidocaine Solution Gel #1 Right Ant Calf -Combined with other wound No No No -Current Size (cm) - Length 8.5 2.3 2.4 -Current Size (cm) - Width 8 2.4 2.7 -Current Size (cm) - Depth 0.1 0.1 0.1 -Total Square Cm 68.0 5.52 6.48 -Photo Taken Yes -Epithelialization Small 1-33% -Tunneling No No No -Undermining/Tunneling No No No -Circular Undermining No No -Exudate Amt Medium Medium Medium -Exudate Type Serosanguineous Serosanguineous Serosanguineous -Wound Margin Distinct, Distinct, Distinct, Outline Outline Outline Attached Attached Attached -Granulation Amt Medium (34-66%) Small (1-33%) Medium (34-66%) -Granulation Quality [place] -Slough/Fibrin Yes Yes Yes -Necrosis Amt Medium (34-66%) Medium (34-66%) -Necrotic Tissue Type Adherent Slough Adherent Slough Adherent Slough -Structure Exposed N/A N/A N/A -Texture (Zaira-wound Skin Appearance) Assessed Assessed, Assessed Excoriation -Moisture (Zaira-wound Skin Appearance) Assessed Assessed Assessed,Dry/ Scaly -Color (Zaira-wound Skin Appearance) Assessed Assessed Assessed -Temperature (Zaira-wound Skin No Abnormality No Abnormality No Abnormality Appearance) (Pt Warm) (Pt Warm) (Pt Warm) -Tenderness on Palpation (Zaira-wound No No No Skin Appearance) -Ulcer Cleansing Wound Cleanser Wound Cleanser Wound Cleanser -Foul Odor after Cleansing No No No -Anesthetic Used 4% Lidocaine 5% Lidocaine 4% Lidocaine Solution Gel Solution Lower Limb Edema Present Yes Yes Right Calf (cm) 38.5 39.3 39.2 Right Ankle (cm) 27 26.2 25.5 Left Calf (cm) 37 36.5 39.3 Left Ankle (cm) 27.3 25.0 25.5 10/02/23 09:20 Wound Center Nurse 1 #4 Left lateral Calf -Combined with other wound -Current Size (cm) - Length -Current Size (cm) - Width -Current Size (cm) - Depth -Total Square Cm -Photo Taken -Epithelialization -Tunneling -Undermining/Tunneling -Circular Undermining -Exudate Amt -Exudate Type -Wound Margin -Granulation Amt -Granulation Quality -Slough/Fibrin -Necrosis Amt -Necrotic Tissue Type -Structure Exposed -Texture (Zaira-wound Skin Appearance) -Moisture (Zaira-wound Skin Appearance) -Color (Zaira-wound Skin Appearance) -Temperature (Zaira-wound Skin Appearance) -Tenderness on Palpation (Zaira-wound Skin Appearance) -Ulcer Cleansing Soap and Water -Foul Odor after Cleansing -Anesthetic Used #3 Left Medial Calf -Combined with other wound -Current Size (cm) - Length -Current Size (cm) - Width -Current Size (cm) - Depth -Total Square Cm -Photo Taken -Epithelialization -Tunneling -Undermining/Tunneling -Circular Undermining -Exudate Amt -Exudate Type -Wound Margin -Granulation Amt -Granulation Quality -Slough/Fibrin -Necrosis Amt -Necrotic Tissue Type -Structure Exposed -Texture (Zaira-wound Skin Appearance) -Moisture (Zaira-wound Skin Appearance) -Color (Zaira-wound Skin Appearance) -Temperature (Zaira-wound Skin Appearance) -Tenderness on Palpation (Zaira-wound Skin Appearance) -Ulcer Cleansing Soap and Water -Foul Odor after Cleansing -Anesthetic Used #2 R Post Calf -Combined with other wound -Current Size (cm) - Length -Current Size (cm) - Width -Current Size (cm) - Depth -Total Square Cm -Photo Taken -Epithelialization -Tunneling -Undermining/Tunneling -Circular Undermining -Exudate Amt -Exudate Type -Wound Margin -Granulation Amt -Granulation Quality -Slough/Fibrin -Necrosis Amt -Necrotic Tissue Type -Structure Exposed -Texture (Zaira-wound Skin Appearance) -Moisture (Zaira-wound Skin Appearance) -Color (Zaira-wound Skin Appearance) -Temperature (Zaira-wound Skin Appearance) -Tenderness on Palpation (Zaira-wound Skin Appearance) -Ulcer Cleansing -Foul Odor after Cleansing -Anesthetic Used #1 Right Ant Calf -Combined with other wound -Current Size (cm) - Length -Current Size (cm) - Width -Current Size (cm) - Depth -Total Square Cm -Photo Taken -Epithelialization -Tunneling -Undermining/Tunneling -Circular Undermining -Exudate Amt -Exudate Type -Wound Margin -Granulation Amt -Granulation Quality -Slough/Fibrin -Necrosis Amt -Necrotic Tissue Type -Structure Exposed -Texture (Zaira-wound Skin Appearance) -Moisture (Zaira-wound Skin Appearance) -Color (Zaira-wound Skin Appearance) -Temperature (Zaira-wound Skin Appearance) -Tenderness on Palpation (Zaira-wound Skin Appearance) -Ulcer Cleansing -Foul Odor after Cleansing -Anesthetic Used Lower Limb Edema Present Right Calf (cm) Right Ankle (cm) Left Calf (cm) Left Ankle (cm) WC - Nurse 2 - General Ulcer CM Notes Start: 09/11/23 11:26 Freq: Status: Active Protocol: Activity Type Activity Date Activity User E-sign Co-sign Detail Recorded Client Recorded Date Recorded By Document 09/11/23 13:48 PL [id number] 09/11/23 13:52 PL Document 09/18/23 11:57 PL [id number] 09/18/23 12:04 PL Document 09/25/23 11:51 PL [id number] 09/25/23 11:56 PL 09/11/23 09/18/23 09/25/23 13:48 11:57 11:51 Wound Center Nurse 2 #4 Left lateral Calf -Time 11:46 09:28 09:40 -Correct Patient Yes Yes Yes -Correct Side, Site, Position Yes Yes Yes -Correct Procedure Yes Yes Yes -Procedure Performed Yes Yes Yes -Type of Procedure Debridement Debridement Debridement -Clinical Debridement Subcutaneous Subcutaneous Subcutaneous -Tissue Removed Subcutaneous Subcutaneous Subcutaneous -Post Debridement (cm) - Length 1.5 0.3 0.1 -Post Debridement (cm) - Width 1.2 0.3 0.1 -Post Debridement (cm) - Depth 0.1 0.1 0.1 -Total Square (Post) (cm) 1.80 0.09 0.01 -Area of Debridement (cm) - Length 1.5 0.3 0.1 -Area of Debridement (cm) - Width 1.2 0.3 0.1 -Total Square (Area) (cm) 1.80 0.09 0.01 -Tunneling No No No -Undermining/Tunneling No No No -Circular Undermining No No No -Wound/Ulcer Outcome Not Healed Not Healed Not Healed -Ulcer Cleansing Rinsed/ Rinsed/ Rinsed/ Irrigated with Irrigated with Irrigated with Saline Saline Saline -Foul Odor after Cleansing No No No -Bioengineered Tissue No No No -Bleeding Controlled with Pressure Pressure Pressure -Treatment Response Procedure Procedure Procedure Tolerated Well Tolerated Well Tolerated Well -Debridement - Subq, 1st 20sq cm No Yes Yes #3 Left Medial Calf -Time 11:46 09:28 09:40 -Correct Patient Yes Yes Yes -Correct Side, Site, Position Yes Yes Yes -Correct Procedure Yes Yes Yes -Procedure Performed Yes Yes Yes -Type of Procedure Debridement Debridement Debridement -Clinical Debridement Subcutaneous Subcutaneous Subcutaneous -Tissue Removed Subcutaneous Subcutaneous Subcutaneous -Post Debridement (cm) - Length 1.7 1.5 2.0 -Post Debridement (cm) - Width 1.5 0.9 0.9 -Post Debridement (cm) - Depth 0.1 0.1 0.1 -Total Square (Post) (cm) 2.55 1.35 1.80 -Area of Debridement (cm) - Length 1.7 1.5 2.0 -Area of Debridement (cm) - Width 1.5 0.9 0.9 -Total Square (Area) (cm) 2.55 1.35 1.80 -Tunneling No No No -Undermining/Tunneling No No No -Circular Undermining No No No -Wound/Ulcer Outcome Not Healed Not Healed Not Healed -Ulcer Cleansing Rinsed/ Rinsed/ Rinsed/ Irrigated with Irrigated with Irrigated with Saline Saline Saline -Foul Odor after Cleansing No No No -Bioengineered Tissue No No No -Bleeding Controlled with Pressure Pressure Pressure -Treatment Response Procedure Procedure Procedure Tolerated Well Tolerated Well Tolerated Well -Debridement - Subq, 1st 20sq cm No No No #2 R Post Calf -Time 11:46 09:28 09:40 -Correct Patient Yes Yes Yes -Correct Side, Site, Position Yes Yes Yes -Correct Procedure Yes Yes Yes -Procedure Performed Yes Yes Yes -Type of Procedure Debridement Debridement Debridement -Clinical Debridement Subcutaneous Subcutaneous Subcutaneous -Tissue Removed Subcutaneous Subcutaneous Subcutaneous -Post Debridement (cm) - Length 11.5 11.0 11.5 -Post Debridement (cm) - Width 5.5 6.0 6.5 -Post Debridement (cm) - Depth 0.1 0.1 0.1 -Total Square (Post) (cm) 63.25 66.00 74.75 -Area of Debridement (cm) - Length 11.5 11.0 11.5 -Area of Debridement (cm) - Width 5.5 6.0 6.5 -Total Square (Area) (cm) 63.25 66.00 74.75 -Tunneling No No No -Undermining/Tunneling No No No -Circular Undermining No No No -Wound/Ulcer Outcome Not Healed Not Healed Not Healed -Ulcer Cleansing Rinsed/ Rinsed/ Rinsed/ Irrigated with Irrigated with Irrigated with Saline Saline Saline -Foul Odor after Cleansing No No No -Bioengineered Tissue No Yes Yes -Type of Bioengineered Tissue Epifix Epifix -Expiration Date 05/05/28 05/05/28 -Product Lot Number [id number] -Percent Used 100 100 -Bleeding Controlled with Pressure Pressure Pressure -Treatment Response Procedure Procedure Procedure Tolerated Well Tolerated Well Tolerated Well -Debridement - Subq, 1st 20sq cm No No No -Apply Skin Sub - 1st 25 sq cm - Legs 1 1 -Epifix (per sq cm) 4 4 #1 Right Ant Calf -Time 11:46 09:28 09:40 -Correct Patient Yes Yes Yes -Correct Side, Site, Position Yes Yes Yes -Correct Procedure Yes Yes Yes -Procedure Performed Yes Yes Yes -Type of Procedure Debridement Debridement Debridement -Clinical Debridement Subcutaneous Subcutaneous Subcutaneous -Tissue Removed Subcutaneous Subcutaneous Subcutaneous -Post Debridement (cm) - Length 8.5 2.3 2.4 -Post Debridement (cm) - Width 8.0 2.1 2.7 -Post Debridement (cm) - Depth 0.1 0.1 0.1 -Total Square (Post) (cm) 68.00 4.83 6.48 -Area of Debridement (cm) - Length 8.5 2.3 2.4 -Area of Debridement (cm) - Width 8.0 2.1 2.7 -Total Square (Area) (cm) 68.00 4.83 6.48 -Tunneling No No No -Undermining/Tunneling No No No -Circular Undermining No No No -Wound/Ulcer Outcome Not Healed Not Healed Not Healed -Ulcer Cleansing Rinsed/ Rinsed/ Rinsed/ Irrigated with Irrigated with Irrigated with Saline Saline Saline -Foul Odor after Cleansing No No No -Bioengineered Tissue No No No -Bleeding Controlled with Pressure Pressure Pressure -Treatment Response Procedure Procedure Procedure Tolerated Well Tolerated Well Tolerated Well -Debridement - Subq, 1st 20sq cm Yes No No -Debridement, SubQ, ea addt'l 20sq cm 6 or part thereof Pain Scale: 0-10 Numeric Is Patient Pain Free? Yes Yes Yes - Nurse 3 - General Ulcer D/C NN Start: 09/11/23 11:26 Freq: Status: Active Protocol: Activity Type Activity Date Activity User E-sign Co-sign Detail Recorded Client Recorded Date Recorded By Document 09/11/23 11:58 Desktop 09/11/23 12:11 Document 09/18/23 09:55 [facility] Desktop 09/18/23 10:03 NR Document 09/25/23 10:10 NR Desktop 09/25/23 10:14 NR Document 10/02/23 09:58 MO Desktop 10/02/23 09:59 MO 09/11/23 09/18/23 09/25/23 11:58 09:55 10:10 Wound Care Center Nurse 3 #4 Left lateral Calf -Ulcer Cleansing Not Cleansed Rinsed/ Rinsed/ Irrigated with Irrigated with Saline Saline -Foul Odor after Cleansing No No -Primary Dressing Applied Promogran Promogran Promogran -Other Dressing ABD and Kerlix ABD and kerlix -Primary Dressing Covered/Secured with Dry Gauze & Dry Gauze & Roll Gauze Roll Gauze -Promogran 1 2 1 #3 Left Medial Calf -Ulcer Cleansing Not Cleansed Rinsed/ Wound Cleanser Irrigated with Saline -Negative Pressure Wound Therapy N/A -Primary Dressing Applied Promogran Other -Other Dressing ABD and kerlix Promogran, ABD, promogran Kerlix -Primary Dressing Covered/Secured with Dry Gauze Dry Gauze & Roll Gauze -Promogran 1 #2 R Post Calf -Ulcer Cleansing Not Cleansed Rinsed/ Rinsed/ Irrigated with Irrigated with Saline Saline -Negative Pressure Wound Therapy N/A -Primary Dressing Applied Promogran Mepilex Border -Other Dressing Promogran ABD Kerlix -Primary Dressing Covered/Secured with Dry Gauze Dry Gauze & Dry Gauze & Roll Gauze Roll Gauze -Mepilex Border 1 -Promogran 1 #1 Right Ant Calf -Ulcer Cleansing Not Cleansed Rinsed/ Rinsed/ Irrigated with Irrigated with Saline Saline -Foul Odor after Cleansing No -Primary Dressing Applied Promogran -Other Dressing Promogran -Primary Dressing Covered/Secured with Dry Gauze & Dry Gauze & Dry Gauze & Roll Gauze, Roll Gauze Roll Gauze Secured with Tape -Promogran 1 Right leg -Tubular Bandage Double Layer Double Layer -Size of Tubigrip Used Size D Size D -Size D ($) 2 2 Left leg -Tubular Bandage Double Layer Double Layer -Size of Tubigrip Used Size D Size D -Size D ($) 2 2 Pain Scale: 0-10 Numeric Is Patient Pain Free? Yes Yes Yes Teaching: Wound Center Dressing Your Wound -Person Taught Patient,Family -Teaching Method Discussion, Demonstration -Response to teaching Verbalize understanding Control Swelling with Leg Elevation -Person Taught Patient,Family -Teaching Method Discussion -Response to teaching Verbalize understanding WC - Visit Discharge Discharge Condition Stable Stable Stable Ambulatory Status Ambulatory Ambulatory Ambulatory Transportation Private Auto Private Auto Private Auto Accompanied by Self Medication Reconcilliation completed & Yes No Yes provided to patient/care provider Clinical Summary of Care Provided Yes Yes Yes Notes: 10/02/23 09:58 Wound Care Center Nurse 3 #4 Left lateral Calf -Ulcer Cleansing Rinsed/ Irrigated with Saline -Foul Odor after Cleansing -Primary Dressing Applied C Hydrogel ($) -Other Dressing -Primary Dressing Covered/Secured with Dry Gauze & Roll Gauze, Secured with Tape -Promogran #3 Left Medial Calf -Ulcer Cleansing -Negative Pressure Wound Therapy -Primary Dressing Applied -Other Dressing -Primary Dressing Covered/Secured with -Promogran #2 R Post Calf -Ulcer Cleansing -Negative Pressure Wound Therapy -Primary Dressing Applied -Other Dressing -Primary Dressing Covered/Secured with -Mepilex Border -Promogran #1 Right Ant Calf -Ulcer Cleansing -Foul Odor after Cleansing -Primary Dressing Applied -Other Dressing -Primary Dressing Covered/Secured with -Promogran Right leg -Tubular Bandage Double Layer -Size of Tubigrip Used Size D -Size D ($) 2 Left leg -Tubular Bandage Double Layer -Size of Tubigrip Used Size D -Size D ($) 2 Pain Scale: 0-10 Numeric Is Patient Pain Free? Yes Teaching: Wound Center Dressing Your Wound -Person Taught -Teaching Method -Response to teaching Control Swelling with Leg Elevation -Person Taught -Teaching Method -Response to teaching WC - Visit Discharge Discharge Condition Stable Ambulatory Status Ambulatory Transportation Private Auto Accompanied by Medication Reconcilliation completed & No provided to patient/care provider Clinical Summary of Care Provided Yes Notes: explained new medication to pt and . verbalized understanding. Additional Wound Wound debrided: Left calf ulceration Laterality: Left Type of Debridement: Excisional debridement Anesthesia Used: 5% Lidocaine Gel Depth: Down to and including healthy tissue and in the subcutaneous layer Percentage of wound debrided: 100 Instrument Used: 5mm curette Tissue Removed: Bioburden, necrotic and nonviable tissue Severity: Fat Layer Exposed Amount of bleeding with debridement: Mild Bleeding Controlled with: Compression and gauze Patient tolerated procedure: Patient tolerated procedure well Additional Wound Tissue Removed: Bioburden Assessment/Plan Assessment/Plan (1) Venous stasis ulcer of right calf: CODE(S): I83.012 - Varicose veins of right lower extremity with ulcer of calf; L97.219 - Non-pressure chronic ulcer of right calf with unspecified severity QUALIFIERS: Varicose vein presence: with varicose veins Non- pressure ulcer stage: with fat layer exposed Qualified Code(s): I83.012 - Varicose veins of right lower extremity with ulcer of calf; L97.212 - Non- pressure chronic ulcer of right calf with fat layer exposed (2) Venous stasis ulcer: CODE(S): I83.009 - Varicose veins of unspecified lower extremity with ulcer of unspecified site; L97.909 - Non-pressure chronic ulcer of unspecified part of unspecified lower leg with unspecified severity QUALIFIERS: Venous stasis ulcer site: calf Varicose vein presence: with varicose veins Laterality: right Non-pressure ulcer stage: with fat layer exposed Qualified Code(s): I83.012 - Varicose veins of right lower extremity with ulcer of calf; L97.212 - Non-pressure chronic ulcer of right calf with fat layer exposed (3) Venous stasis ulcer of left calf: CODE(S): I83.022 - Varicose veins of left lower extremity with ulcer of calf; L97.229 - Non-pressure chronic ulcer of left calf with unspecified severity QUALIFIERS: Varicose vein presence: with varicose veins Non- pressure ulcer stage: with fat layer exposed Qualified Code(s): I83.022 - Varicose veins of left lower extremity with ulcer of calf; L97.222 - Non- pressure chronic ulcer of left calf with fat layer exposed (4) Venous stasis dermatitis of both lower extremities: CODE(S): I87.2 - Venous insufficiency (chronic) (peripheral) (5) Dependent edema: CODE(S): R60.9 - Edema, unspecified (6) Inactivity: CODE(S): Z72.3 - Lack of physical exercise (7) Debility: CODE(S): R53.81 - Other malaise (8) Atrial flutter: CODE(S): I48.92 - Unspecified atrial flutter (9) Persistent atrial fibrillation: CODE(S): I48.19 - Other persistent atrial fibrillation (10) Pulmonary HTN: CODE(S): I27.20 - Pulmonary hypertension, unspecified (11) ROSARIO (dyspnea on exertion): CODE(S): R06.09 - Other forms of dyspnea (12) Hypertension: CODE(S): I10 - Essential (primary) hypertension (13) Afib: CODE(S): I48.91 - Unspecified atrial fibrillation (14) History of prostate cancer: CODE(S): Z85.46 - Personal history of malignant neoplasm of prostate (15) History of umbilical hernia repair: CODE(S): Z98.890 - Other specified postprocedural states; Z87.19 - Personal history of other diseases of the digestive system (16) Chronic anticoagulation: CODE(S): 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 He had multiple ulcerations in his lower extremities. It appears as though the patient's presenting manifestations were due to recently acquired habits, which include prolonged idle sitting and lower extremity dependency. Within the last several months, the patient had taken to sleeping in a recliner. Additionally, he spends long hours each day in an idle sitting position. He ambulates in very limited amounts. As result of these habits, the patient had noted worsening swelling and edema in his lower extremities, and the development of blisters, which resulted in open excoriations and ulcerations. He developed cellulitis in his right lower extremity, which required treatment with courses of antibiotics. We have discussed the conservative treatment measures appropriate to the management of his lower extremity symptoms and manifestations. He has been discouraged from sleeping in a recliner. He has been encouraged to sleep on a flat mattress, with legs elevated to heart level, or higher. If sleeping in a bed proves to be untenable, the alternative would be to sleep in his recliner, but with legs elevated and head down. The patient's legs are to be elevated to heart level, or higher, as much as possible, during both daytime and nighttime hours. Activity has been encouraged, though the patient is not likely to enhance his activity level to any significant degree. Prolonged idle sitting has been discouraged. The patient's weight is relatively optimal. Recent cultures were positive for Pseudomonas aeruginosa and Enterococcus faecalis. Based upon sensitivity results, the patient was prescribed Levaquin 750 mg p.o. daily for a total of 10 days. The course of antibiotics has now been completed. We are to continue compression to the lower extremities by means of double Tubigrip's, which will be donned on a daily basis. We are to transition to the use of collagen hydrogel which will be applied topically on a daily basis to each of the ulcerations in the lower extremities. With respect to the persisting cutaneous erythema, which is suspected to be fungal in nature, a prescription has been provided for Lotrisone topical cream 1%/0.05%, which is to be applied twice daily to the intact erythematous skin. The patient is to return in 1 week for reevaluation. Total time: 26 minutes
== END 2023-10-04 23:59 | disposition home or self-care (01) ==
LOC: WC 09:00
PROVIDERS: PCP Nurse Practitioner Primary Care; Referring Provider Nurse Practitioner Primary Care; Visit Provider Surgery
DX: I83.012 Varicose veins of right lower extremity with ulcer of calf (principal); L97.212 Non-pressure chronic ulcer of right calf with fat layer exposed; L97.222 Non-pressure chronic ulcer of left calf with fat layer exposed; I83.022 Varicose veins of left lower extremity with ulcer of calf; I27.20 Pulmonary hypertension, unspecified; I48.92 Unspecified atrial flutter; I48.19 Other persistent atrial fibrillation; R53.81 Other malaise; Z79.01 Long term (current) use of anticoagulants; I10 Essential (primary) hypertension; Z79.899 Other long term (current) drug therapy
CPT/HCPCS: 11042; 11045; 15271; Q4186

== ENCOUNTER 2023-10-30 09:15 | Outpatient (RCR) | payer MEDICARE, OTHER, SELFPAY ==
[2023-10-05 00:22] VITALS: BP 156/65; PULSE 69; RESP 18; TEMP 36.1; BMI 29.2
[2023-10-09 09:54] VITALS: BP 173/62; PULSE 64; RESP 18; TEMP 36.1; BMI 29.2
--- NOTE | 2023-10-09 14:07 | HP.PCM_ITS ---
History of Present Illness Date of Service: 10/09/23 Chief Complaint: Bilateral lower extremity swelling, edema, and venous stasis dermatitis with ulcerations History of Wound: This is an 82-year-old male who presented with severe swelling and edema in both lower extremities, and dermatitic changes in his lower extremities bilaterally, which had been present for several months. The patient had undergone a change in his daily habits within the last several months. He had become inactive, spending large portions of each day in an idle sitting position. 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 Furthermore, he sleeps in a recliner. Within the last several months, he had noted the development of swelling and edema in both legs, as well as severe skin changes and the development of blisters and ulcerations. He denies a history of thrombophlebitis. He had been treated with antibiotic ointment topically. He had been diagnosed with cellulitis in his right lower extremity, for which he had been prescribed prescriptions for both doxycycline and cephalexin. The patient indicated he is a candidate for pacemaker insertion, but resolution of his lower extremity swelling, edema, ulcerations, and cellulitis are a prerequisite to pacemaker placement. FORMERLY [facility], [facility] Medical History Adenocarcinoma of prostate Afib Atrial flutter Chronic anticoagulation Debility Dependent edema History of prostate cancer Hypertension Inactivity Persistent atrial fibrillation Venous stasis dermatitis of both lower extremities Venous stasis ulcer Venous stasis ulcer of left calf Venous stasis ulcer of right calf Home Medications furosemide 40 mg tablet (Lasix) 40 mg PO DAILY #30 tabs 02/26/23 [Rx Last Taken Unknown] lisinopril 40 mg tablet 40 mg PO DAILY 02/26/23 [History Last Taken Unknown] apixaban 5 mg tablet (Eliquis) 5 mg PO BID #60 tabs 03/26/23 [Rx Last Taken Unknown] amlodipine 10 mg tablet 5 mg PO DAILY 06/12/23 [History Last Taken Unknown] hydralazine 25 mg tablet mg PO 06/12/23 [History Last Taken Unknown] spironolactone 25 mg tablet 25 mg PO DAILY #90 tabs 06/12/23 [Rx Last Taken Unknown] potassium chloride 20 mEq tablet,extended release 20 meq PO DAILY #5 tabs 07/31/23 [Rx Last Taken Unknown] Allergy/AdvReac Type Severity Reaction Status Date / Time No Known Allergies Allergy Verified 07/11/23 10:48 Surgical History History of umbilical hernia repair Hx of umbilical hernia repair Social History Smoking Status: Never smoker Vital Signs Vital Signs Vital Signs: 10/09/23 09:54 Temperature 97 F L Temperature Source Temporal Pulse Rate 64 Respiratory Rate 18 Blood Pressure 173/62 H Blood Pressure Mean 99 Blood Pressure Source Monitor Blood Pressure Position Sitting Blood Pressure Location Left Arm Weight Weight: 198 lb Body Mass Index (BMI) 29.2 Physical Exam Const alert, oriented x3, no apparent distress, average body habitus and well nourished Constitutional Narrative: The patient's BMI is 29.2. General Appearance: cooperative, comfortable and well developed Orientation / Consciousness: awake, oriented to person, oriented to place and oriented to time HEENT normocephalic and head/scalp atraumatic Head and Scalp: normal to inspection, normocephalic and atraumatic External Ear: external ears normal Eyes PERRL and EOMs intact bilaterally General Eye: normal appearance of both eyes Resp normal respiratory effort, normal air movement, no retractions and no use of accessory muscles Effort and Inspection: able to speak in complete sentences and symmetric chest movement Extremity no calf tenderness General Extremity: Negative for clubbing or cyanosis Skin Wound Narrative: Minimal bilateral lower extremity swelling and edema are noted. Rather diffuse erythema is noted bilaterally. Multiple clustered, superficial excoriations are noted in the lower extremities bilaterally. Dimensions are documented elsewhere. They appear to be slightly smaller in size than previously noted. The excoriations are generally pink and healthy in appearance. Neuro oriented x3, CN's II-XII intact bilaterally, moves all extremities and no focal motor deficits Sensorium / Orientation: awake, alert, oriented to person, oriented to place and oriented to time Psych Appearance: grossly normal and appropriate Attitude: calm Activity / Motor Behavior: appropriate eye contact Speech: normal speech Mood & Affect: euthymic mood Thought Process: normal thought process Thought Content: normal thought content Attention / Concentration: attention grossly intact Debridement Note Debridement Note No debridement was completed: No debridement was completed today Post-Debridement Measurements and Additional Note: Post-Debridement Measurements/Treatment WC - Nurse 1 - General Ulcer Assessment Start: 10/09/23 09:54 Freq: Status: Active Protocol: CHANCE Activity Type Activity Date Activity User E-sign Co-sign Detail Recorded Client Recorded Date Recorded By Document 10/09/23 09:54 RB Desktop 10/09/23 10:08 RB 10/09/23 09:54 WC - Today's Visit Information Type of service 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 ) Arrival Mode Ambulatory Transfer Assistance None Patient Identification Verified (Name & Yes ) Patient Requires Transmission-Based No Precautions Height and Weight Body Mass Index (BMI) 29.2 BMI Classification Overweight Vital Signs Temperature (97.8 F-99.1 F) 97 F L Temperature Source Temporal Pulse Rate (60-100) 64 Pulse Location Monitor Respiratory Rate (12-18) 18 Respiratory rate source Observation Blood Pressure (90/60-120/80) 173/62 H Blood Pressure Mean 99 Source Monitor Position Sitting Blood Pressure Location Left Arm History Since Last Visit- (Skip if this is Patient's initial visit) Have you changed medications since your No last visit? Any new allergies or adverse reactions No Had a fall/change in ADL's that may No increase risk of falls Signs or symptoms of abuse and/or No neglect since last visit Have you been in the hospital since your No last visit? Has dressing in place as prescribed Yes Has compression in place as prescribed Yes Has offloadiing in place as prescribed No Experienced any changes in pain level or No management Pain Scale: 0-10 Numeric Is Patient Pain Free? Yes - Nurse 1 - General Ulcer Measurement Start: 10/09/23 09:54 Freq: Status: Active Protocol: Activity Type Activity Date Activity User E-sign Co-sign Detail Recorded Client Recorded Date Recorded By Document 10/09/23 09:54 RB Desktop 10/09/23 10:08 RB 10/09/23 09:54 Wound Center Nurse 1 5. L charles -Combined with other wound No -Current Size (cm) - Length 0.5 -Current Size (cm) - Width 1 -Current Size (cm) - Depth 0.1 -Total Square Cm 0.5 -Tunneling No -Undermining/Tunneling No -Circular Undermining No -Exudate Amt Medium -Exudate Type Serosanguineous -Wound Margin Distinct, Outline Attached -Granulation Amt Medium (34-66%) -Granulation Quality Iona -Slough/Fibrin Yes -Necrosis Amt Medium (34-66%) -Necrotic Tissue Type Adherent Slough -Structure Exposed N/A -Texture (Zaira-wound Skin Appearance) Assessed -Moisture (Zaira-wound Skin Appearance) Assessed -Color (Zaira-wound Skin Appearance) Assessed -Temperature (Zaira-wound Skin No Abnormality Appearance) (Pt Warm) -Tenderness on Palpation (Zaira-wound No Skin Appearance) -Ulcer Cleansing Wound Cleanser -Foul Odor after Cleansing No -Anesthetic Used 5% Lidocaine Gel #3 Left Medial Calf -Combined with other wound No -Current Size (cm) - Length 0.4 -Current Size (cm) - Width 0.3 -Current Size (cm) - Depth 0.1 -Total Square Cm 0.12 -Tunneling No -Undermining/Tunneling No -Circular Undermining No -Exudate Amt Medium -Exudate Type Serosanguineous -Wound Margin Distinct, Outline Attached -Granulation Amt Medium (34-66%) -Granulation Quality Iona -Slough/Fibrin Yes -Necrosis Amt Medium (34-66%) -Necrotic Tissue Type Adherent Slough -Structure Exposed N/A -Texture (Zaira-wound Skin Appearance) Assessed -Moisture (Zaira-wound Skin Appearance) Assessed -Color (Zaira-wound Skin Appearance) Assessed -Temperature (Zaira-wound Skin No Abnormality Appearance) (Pt Warm) -Tenderness on Palpation (Zaira-wound No Skin Appearance) -Foul Odor after Cleansing No -Anesthetic Used 5% Lidocaine Gel #2 R Post Calf -Combined with other wound No -Current Size (cm) - Length 4 -Current Size (cm) - Width 11 -Current Size (cm) - Depth 0.1 -Total Square Cm 44 -Tunneling No -Undermining/Tunneling No -Circular Undermining No -Exudate Amt Medium -Exudate Type Serosanguineous -Wound Margin Distinct, Outline Attached -Granulation Amt Medium (34-66%) -Granulation Quality Iona -Slough/Fibrin Yes -Necrosis Amt Medium (34-66%) -Necrotic Tissue Type Adherent Slough -Structure Exposed N/A -Texture (Zaira-wound Skin Appearance) Assessed -Moisture (Zaira-wound Skin Appearance) Assessed -Color (Zaira-wound Skin Appearance) Assessed -Temperature (Zaira-wound Skin No Abnormality Appearance) (Pt Warm) -Tenderness on Palpation (Zaira-wound No Skin Appearance) -Ulcer Cleansing Wound Cleanser -Foul Odor after Cleansing No -Anesthetic Used 5% Lidocaine Gel #1 Right Ant Calf -Combined with other wound No -Current Size (cm) - Length 1.5 -Current Size (cm) - Width 0.5 -Current Size (cm) - Depth 0.1 -Total Square Cm 0.75 -Tunneling No -Undermining/Tunneling No -Circular Undermining No -Exudate Amt Medium -Exudate Type Serosanguineous -Wound Margin Distinct, Outline Attached -Granulation Amt Medium (34-66%) -Granulation Quality Iona -Slough/Fibrin Yes -Necrosis Amt Medium (34-66%) -Necrotic Tissue Type Adherent Slough -Structure Exposed N/A -Texture (Zaira-wound Skin Appearance) Assessed -Moisture (Zaira-wound Skin Appearance) Assessed -Color (Zaira-wound Skin Appearance) Assessed -Temperature (Zaira-wound Skin No Abnormality Appearance) (Pt Warm) -Tenderness on Palpation (Zaira-wound No Skin Appearance) -Ulcer Cleansing Wound Cleanser -Foul Odor after Cleansing No -Anesthetic Used 5% Lidocaine Gel Lower Limb Edema Present Yes Right Calf (cm) 36.7 Right Ankle (cm) 26.5 Left Calf (cm) 36.2 Left Ankle (cm) 26 WC - Nurse 3 - General Ulcer D/C NN Start: 10/09/23 09:54 Freq: Status: Active Protocol: Activity Type Activity Date Activity User E-sign Co-sign Detail Recorded Client Recorded Date Recorded By Document 10/09/23 10:53 Desktop 10/09/23 10:54 RB 10/09/23 10:53 Wound Care Center Nurse 3 5. L charles -Primary Dressing Applied C Hydrogel ($) -Primary Dressing Covered/Secured with Dry Gauze & Roll Gauze, Secured with Tape #3 Left Medial Calf -Other Dressing hydrogel -Primary Dressing Covered/Secured with Dry Gauze & Roll Gauze, Secured with Tape #2 R Post Calf -Other Dressing hydrogel -Primary Dressing Covered/Secured with Dry Gauze,Dry Gauze & Roll Gauze,Secured with Tape #1 Right Ant Calf -Other Dressing hydrogel -Primary Dressing Covered/Secured with Dry Gauze & Roll Gauze, Secured with Tape Right -Tubular Bandage Double Layer -Size of Tubigrip Used Size D -Size D ($) 2 Left -Tubular Bandage Double Layer -Size of Tubigrip Used Size D -Size D ($) 2 Treatment Response Procedure Tolerated Well Pain Scale: 0-10 Numeric Is Patient Pain Free? Yes Teaching: Wound Center Dressing Your Wound -Person Taught Patient,Family -Teaching Method Discussion, Demonstration -Response to teaching Verbalize understanding WC - Visit Discharge Discharge Condition Stable Ambulatory Status Ambulatory Transportation Private Auto Medication Reconcilliation completed & No provided to patient/care provider Clinical Summary of Care Provided Yes Assessment/Plan Assessment/Plan (1) Venous stasis ulcer of right calf: CODE(S): I83.012 - Varicose veins of right lower extremity with ulcer of calf; L97.219 - Non-pressure chronic ulcer of right calf with unspecified severity QUALIFIERS: Varicose vein presence: with varicose veins Non- pressure ulcer stage: with fat layer exposed Qualified Code(s): I83.012 - Varicose veins of right lower extremity with ulcer of calf; L97.212 - Non- pressure chronic ulcer of right calf with fat layer exposed (2) Venous stasis ulcer: CODE(S): I83.009 - Varicose veins of unspecified lower extremity with ulcer of unspecified site; L97.909 - Non-pressure chronic ulcer of unspecified part of unspecified lower leg with unspecified severity QUALIFIERS: Venous stasis ulcer site: calf Varicose vein presence: with varicose veins Laterality: right Non-pressure ulcer stage: with fat layer exposed Qualified Code(s): I83.012 - Varicose veins of right lower extremity with ulcer of calf; L97.212 - Non-pressure chronic ulcer of right calf with fat layer exposed (3) Venous stasis ulcer of left calf: CODE(S): I83.022 - Varicose veins of left lower extremity with ulcer of calf; L97.229 - Non-pressure chronic ulcer of left calf with unspecified severity QUALIFIERS: Varicose vein presence: with varicose veins Non- pressure ulcer stage: with fat layer exposed Qualified Code(s): I83.022 - Varicose veins of left lower extremity with ulcer of calf; L97.222 - Non- pressure chronic ulcer of left calf with fat layer exposed (4) Venous stasis dermatitis of both lower extremities: CODE(S): I87.2 - Venous insufficiency (chronic) (peripheral) (5) Dependent edema: CODE(S): R60.9 - Edema, unspecified (6) Inactivity: CODE(S): Z72.3 - Lack of physical exercise (7) Debility: CODE(S): R53.81 - Other malaise (8) Atrial flutter: CODE(S): I48.92 - Unspecified atrial flutter (9) Persistent atrial fibrillation: CODE(S): I48.19 - Other persistent atrial fibrillation (10) Pulmonary HTN: CODE(S): I27.20 - Pulmonary hypertension, unspecified (11) ROSARIO (dyspnea on exertion): CODE(S): R06.09 - Other forms of dyspnea (12) Hypertension: CODE(S): I10 - Essential (primary) hypertension (13) Afib: CODE(S): I48.91 - Unspecified atrial fibrillation (14) History of prostate cancer: CODE(S): Z85.46 - Personal history of malignant neoplasm of prostate (15) History of umbilical hernia repair: CODE(S): Z98.890 - Other specified postprocedural states; Z87.19 - Personal history of other diseases of the digestive system (16) Chronic anticoagulation: CODE(S): 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 He had multiple ulcerations in his lower extremities. It appears as though the patient's presenting manifestations were due to recently acquired habits, which include prolonged idle sitting and lower extremity dependency. Within the last several months, the patient had taken to sleeping in a recliner. Additionally, he spends long hours each day in an idle sitting position. He ambulates in very limited amounts. As result of these habits, the patient had noted worsening swelling and edema in his lower extremities, and the development of blisters, which resulted in open excoriations and ulcerations. He developed cellulitis in his right lower extremity, which required treatment with courses of antibiotics. We have discussed the conservative treatment measures appropriate to the management of his lower extremity symptoms and manifestations. He has been discouraged from sleeping in a recliner. He has been encouraged to sleep on a flat mattress, with legs elevated to heart level, or higher. If sleeping in a bed proves to be untenable, the alternative would be to sleep in his recliner, but with legs elevated and head down. The patient's legs are to be elevated to heart level, or higher, as much as possible, during both daytime and nighttime hours. Activity has been encouraged, though the patient is not likely to enhance his activity level to any significant degree. Prolonged idle sitting has been discouraged. The patient's weight is relatively optimal. Recent cultures were positive for Pseudomonas aeruginosa and Enterococcus faecalis. Based upon sensitivity results, the patient was prescribed Levaquin 750 mg p.o. daily for a total of 10 days. The course of antibiotics has now been completed. We are to continue compression to the lower extremities by means of double Tubigrip's, which will be donned on a daily basis. We are to transition to the use of collagen hydrogel which will be applied topically on a daily basis to each of the excoriations in the lower extremities. With respect to the persisting cutaneous erythema, which is suspected to be fungal in nature, a prescription has been provided for Lotrisone topical cream 1%/0.05%, which is to be applied twice daily to the intact erythematous skin. Despite that the prescription was issued last week, the product has not yet been obtained by the patient due to difficulties experienced with his local pharmacy. The patient is to obtain, and implement as soon as possible. The patient is to return in 1 week for reevaluation. Total time: 24 minutes
[2023-10-16 09:02] VITALS: BP 146/65; PULSE 65; RESP 16; TEMP 36.3; BMI 29.2
--- NOTE | 2023-10-16 09:27 | PCM.WC.HP ---
History of Present Illness Date of Service: 10/16/23 Chief Complaint: Bilateral lower extremity swelling, edema, and venous stasis dermatitis with ulcerations History of Wound: This is an 82-year-old male who presented with severe swelling and edema in both lower extremities, and dermatitic changes in his lower extremities bilaterally, which had been present for several months. The patient had undergone a change in his daily habits within the last several months. He had become inactive, spending large portions of each day in an idle sitting position. 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 Furthermore, he sleeps in a recliner. Within the last several months, he had noted the development of swelling and edema in both legs, as well as severe skin changes and the development of blisters and ulcerations. He denies a history of thrombophlebitis. He had been treated with antibiotic ointment topically. He had been diagnosed with cellulitis in his right lower extremity, for which he had been prescribed prescriptions for both doxycycline and cephalexin. The patient indicated he is a candidate for pacemaker insertion, but resolution of his lower extremity swelling, edema, ulcerations, and cellulitis are a prerequisite to pacemaker placement. [facility] Medical History Adenocarcinoma of prostate Afib Atrial flutter Chronic anticoagulation Debility Dependent edema History of prostate cancer Hypertension Inactivity Persistent atrial fibrillation Venous stasis dermatitis of both lower extremities Venous stasis ulcer Venous stasis ulcer of left calf Venous stasis ulcer of right calf Home Medications furosemide 40 mg tablet (Lasix) 40 mg PO DAILY #30 tabs 02/26/23 [Rx Last Taken Unknown] lisinopril 40 mg tablet 40 mg PO DAILY 02/26/23 [History Last Taken Unknown] apixaban 5 mg tablet (Eliquis) 5 mg PO BID #60 tabs 03/26/23 [Rx Last Taken Unknown] amlodipine 10 mg tablet 5 mg PO DAILY 06/12/23 [History Last Taken Unknown] hydralazine 25 mg tablet mg PO 06/12/23 [History Last Taken Unknown] spironolactone 25 mg tablet 25 mg PO DAILY #90 tabs 06/12/23 [Rx Last Taken Unknown] potassium chloride 20 mEq tablet,extended release 20 meq PO DAILY #5 tabs 07/31/23 [Rx Last Taken Unknown] Allergy/AdvReac Type Severity Reaction Status Date / Time No Known Allergies Allergy Verified 07/11/23 10:48 Surgical History History of umbilical hernia repair Hx of umbilical hernia repair Social History Smoking Status: Never smoker Vital Signs Vital Signs Vital Signs: 10/16/23 09:02 Temperature 97.3 F L Temperature Source Temporal Pulse Rate 65 Respiratory Rate 16 Blood Pressure 146/65 H Blood Pressure Mean 92 Blood Pressure Source Monitor Blood Pressure Position Sitting Blood Pressure Location Left Arm Oxygen Delivery Method Room Air Weight Weight: 198 lb Body Mass Index (BMI) 29.2 Physical Exam Const alert, oriented x3, no apparent distress, average body habitus and well nourished Constitutional Narrative: The patient's BMI is 29.2. General Appearance: cooperative, comfortable and well developed Orientation / Consciousness: awake, oriented to person, oriented to place and oriented to time HEENT normocephalic and head/scalp atraumatic Head and Scalp: normal to inspection, normocephalic and atraumatic External Ear: external ears normal Eyes PERRL and EOMs intact bilaterally General Eye: normal appearance of both eyes Resp normal respiratory effort, normal air movement, no retractions and no use of accessory muscles Effort and Inspection: able to speak in complete sentences and symmetric chest movement Extremity no calf tenderness General Extremity: Negative for clubbing or cyanosis Skin Wound Narrative: Minimal bilateral lower extremity swelling and edema are noted. Diffuse erythema which was noted 1 week ago has now diminished significantly. The multiple clustered excoriations have largely healed. Only 1 large ulceration persists on the patient's right posterior calf. It is smaller than noted 1 week ago. There is a moderate amount of bioburden. It is generally pink and healthy in appearance. Dimensions are documented elsewhere. Neuro oriented x3, CN's II-XII intact bilaterally, moves all extremities and no focal motor deficits Sensorium / Orientation: awake, alert, oriented to person, oriented to place and oriented to time Psych Appearance: grossly normal and appropriate Attitude: calm Activity / Motor Behavior: appropriate eye contact Speech: normal speech Mood & Affect: euthymic mood Thought Process: normal thought process Thought Content: normal thought content Attention / Concentration: attention grossly intact Debridement Note Debridement Note Wound debrided: Right posterior calf ulceration Laterality: Right Type of Debridement: Excisional debridement Anesthesia Used: 5% Lidocaine Gel Percentage of wound debrided: 100 Instrument Used: 5mm curette Severity: Fat Layer Exposed Amount of bleeding with debridement: Mild Bleeding Controlled with: Compression and gauze Patient tolerated procedure: Patient tolerated procedure well Post-Debridement Measurements and Additional Note: Post-Debridement Measurements/Treatment - Nurse 1 - General Ulcer Assessment Start: 10/09/23 09:54 Freq: Status: Active Protocol: CHANCE Activity Type Activity Date Activity User E-sign Co-sign Detail Recorded Client Recorded Date Recorded By Document 10/09/23 09:54 RB Desktop 10/09/23 10:08 RB Document 10/16/23 09:02 MT Desktop 10/16/23 09:15 MT 10/09/23 10/16/23 09:54 09:02 - Today's Visit Information Type of service Follow-up Visit Follow-up Visit (Physician/ARCHEOLOGIST CLASSICAL (Physician/ARCHEOLOGIST CLASSICAL ) ) Arrival Mode Ambulatory Ambulatory Transfer Assistance None Accompanied by Patient Identification Verified (Name & Yes Yes ) Patient Requires Transmission-Based No Precautions Safety Precautions Fall Prevention Height and Weight Body Mass Index (BMI) 29.2 29.2 BMI Classification Overweight Overweight Vital Signs Temperature (97.8 F-99.1 F) 97 F L 97.3 F L Temperature Source Temporal Temporal Pulse Rate (60-100) 64 65 Pulse Location Monitor Monitor Respiratory Rate (12-18) 18 16 Respiratory rate source Observation Observation Oxygen Delivery Method Room Air Blood Pressure (90/60-120/80) 173/62 H 146/65 H Blood Pressure Mean 99 92 Source Monitor Monitor Position Sitting Sitting Blood Pressure Location Left Arm Left Arm History Since Last Visit- (Skip if this is Patient's initial visit) Have you changed medications since your No last visit? Any new allergies or adverse reactions No Had a fall/change in ADL's that may No increase risk of falls Signs or symptoms of abuse and/or No neglect since last visit Have you been in the hospital since your No last visit? Has dressing in place as prescribed Yes Yes Has compression in place as prescribed Yes Yes Has offloadiing in place as prescribed No N/A Experienced any changes in pain level or No No management Left Footwear Regular Shoe Right Footwear Regular Shoe Pain Scale: 0-10 Numeric Is Patient Pain Free? Yes Yes WC - Nurse 1 - General Ulcer Measurement Start: 10/09/23 09:54 Freq: Status: Active Protocol: Activity Type Activity Date Activity User E-sign Co-sign Detail Recorded Client Recorded Date Recorded By Document 10/09/23 09:54 RB Desktop 10/09/23 10:08 RB Document 10/16/23 09:02 FL Desktop 10/16/23 09:15 FL 10/09/23 10/16/23 09:54 09:02 Wound Center Nurse 1 5. L charles -Combined with other wound No -Current Size (cm) - Length 0.5 1.0 -Current Size (cm) - Width 1 0.6 -Current Size (cm) - Depth 0.1 0.1 -Total Square Cm 0.5 0.60 -Tunneling No -Undermining/Tunneling No -Circular Undermining No -Exudate Amt Medium -Exudate Type Serosanguineous -Wound Margin Distinct, Flat & Intact Outline Attached -Granulation Amt Medium (34-66%) Large (67-100%) -Granulation Quality [place] Pale,[place] -Slough/Fibrin Yes -Necrosis Amt Medium (34-66%) -Necrotic Tissue Type Adherent Slough -Structure Exposed N/A -Texture (Zaira-wound Skin Appearance) Assessed Assessed -Moisture (Zaira-wound Skin Appearance) Assessed Assessed -Color (Zaira-wound Skin Appearance) Assessed Assessed -Temperature (Zaira-wound Skin No Abnormality No Abnormality Appearance) (Pt Warm) (Pt Warm) -Tenderness on Palpation (Zaira-wound No No Skin Appearance) -Ulcer Cleansing Wound Cleanser Soap and Water -Foul Odor after Cleansing No -Anesthetic Used 5% Lidocaine 4% Lidocaine Gel Solution #3 Left Medial Calf -Combined with other wound No -Current Size (cm) - Length 0.4 0.1 -Current Size (cm) - Width 0.3 0.1 -Current Size (cm) - Depth 0.1 0.1 -Total Square Cm 0.12 0.01 -Tunneling No -Undermining/Tunneling No -Circular Undermining No -Exudate Amt Medium -Exudate Type Serosanguineous -Wound Margin Distinct, Outline Attached -Granulation Amt Medium (34-66%) -Granulation Quality [place] -Slough/Fibrin Yes -Necrosis Amt Medium (34-66%) -Necrotic Tissue Type Adherent Slough -Structure Exposed N/A -Texture (Zaira-wound Skin Appearance) Assessed -Moisture (Zaira-wound Skin Appearance) Assessed -Color (Zaira-wound Skin Appearance) Assessed -Temperature (Zaira-wound Skin No Abnormality Appearance) (Pt Warm) -Tenderness on Palpation (Zaira-wound No Skin Appearance) -Foul Odor after Cleansing No -Anesthetic Used 5% Lidocaine Gel #2 R Post Calf -Combined with other wound No -Current Size (cm) - Length 4 2.9 -Current Size (cm) - Width 11 7.5 -Current Size (cm) - Depth 0.1 0.1 -Total Square Cm 44 21.75 -Tunneling No -Undermining/Tunneling No -Circular Undermining No -Exudate Amt Medium -Exudate Type Serosanguineous -Wound Margin Distinct, Outline Attached -Granulation Amt Medium (34-66%) -Granulation Quality [place] -Slough/Fibrin Yes -Necrosis Amt Medium (34-66%) -Necrotic Tissue Type Adherent Slough -Structure Exposed N/A -Texture (Zaira-wound Skin Appearance) Assessed -Moisture (Zaira-wound Skin Appearance) Assessed -Color (Zaira-wound Skin Appearance) Assessed -Temperature (Zaira-wound Skin No Abnormality Appearance) (Pt Warm) -Tenderness on Palpation (Zaira-wound No Skin Appearance) -Ulcer Cleansing Wound Cleanser -Foul Odor after Cleansing No -Anesthetic Used 5% Lidocaine Gel #1 Right Ant Calf -Combined with other wound No -Current Size (cm) - Length 1.5 0.1 -Current Size (cm) - Width 0.5 0.1 -Current Size (cm) - Depth 0.1 0.1 -Total Square Cm 0.75 0.01 -Photo Taken No -Tunneling No No -Undermining/Tunneling No No -Circular Undermining No No -Exudate Amt Medium None Present -Exudate Type Serosanguineous -Wound Margin Distinct, Flat & Intact Outline Attached -Granulation Amt Medium (34-66%) Large (67-100%) -Granulation Quality [place] Pale,[place] -Slough/Fibrin Yes -Necrosis Amt Medium (34-66%) -Necrotic Tissue Type Adherent Slough -Structure Exposed N/A -Texture (Zaira-wound Skin Appearance) Assessed Assessed -Moisture (Zaira-wound Skin Appearance) Assessed Assessed -Color (Zaira-wound Skin Appearance) Assessed Assessed -Temperature (Zaira-wound Skin No Abnormality No Abnormality Appearance) (Pt Warm) (Pt Warm) -Tenderness on Palpation (Zaira-wound No No Skin Appearance) -Ulcer Cleansing Wound Cleanser Soap and Water -Foul Odor after Cleansing No -Anesthetic Used 5% Lidocaine 4% Lidocaine Gel Solution Lower Limb Edema Present Yes Right Calf (cm) 36.7 Right Ankle (cm) 26.5 Left Calf (cm) 36.2 Left Ankle (cm) 26 - Nurse 3 - General Ulcer D/C NN Start: 10/09/23 09:54 Freq: Status: Active Protocol: Activity Type Activity Date Activity User E-sign Co-sign Detail Recorded Client Recorded Date Recorded By Document 10/09/23 10:53 Desktop 10/09/23 10:54 10/09/23 10:53 Wound Care Center Nurse 3 5. L charles -Primary Dressing Applied C Hydrogel ($) -Primary Dressing Covered/Secured with Dry Gauze & Roll Gauze, Secured with Tape #3 Left Medial Calf -Other Dressing hydrogel -Primary Dressing Covered/Secured with Dry Gauze & Roll Gauze, Secured with Tape #2 R Post Calf -Other Dressing hydrogel -Primary Dressing Covered/Secured with Dry Gauze,Dry Gauze & Roll Gauze,Secured with Tape #1 Right Ant Calf -Other Dressing hydrogel -Primary Dressing Covered/Secured with Dry Gauze & Roll Gauze, Secured with Tape Right -Tubular Bandage Double Layer -Size of Tubigrip Used Size D -Size D ($) 2 Left -Tubular Bandage Double Layer -Size of Tubigrip Used Size D -Size D ($) 2 Treatment Response Procedure Tolerated Well Pain Scale: 0-10 Numeric Is Patient Pain Free? Yes Teaching: Wound Center Dressing Your Wound -Person Taught Patient,Family -Teaching Method Discussion, Demonstration -Response to teaching Verbalize understanding WC - Visit Discharge Discharge Condition Stable Ambulatory Status Ambulatory Transportation Private Auto Medication Reconcilliation completed & No provided to patient/care provider Clinical Summary of Care Provided Yes Assessment/Plan Assessment/Plan (1) Venous stasis ulcer of right calf: CODE(S): I83.012 - Varicose veins of right lower extremity with ulcer of calf; L97.219 - Non-pressure chronic ulcer of right calf with unspecified severity QUALIFIERS: Varicose vein presence: with varicose veins Non-pressure ulcer stage: with fat layer exposed Qualified Code(s): I83.012 - Varicose veins of right lower extremity with ulcer of calf; L97.212 - Non-pressure chronic ulcer of right calf with fat layer exposed (2) Venous stasis ulcer: CODE(S): I83.009 - Varicose veins of unspecified lower extremity with ulcer of unspecified site; L97.909 - Non-pressure chronic ulcer of unspecified part of unspecified lower leg with unspecified severity QUALIFIERS: Venous stasis ulcer site: calf Varicose vein presence: with varicose veins Laterality: right Non-pressure ulcer stage: with fat layer exposed Qualified Code(s): I83.012 - Varicose veins of right lower extremity with ulcer of calf; L97.212 - Non-pressure chronic ulcer of right calf with fat layer exposed (3) Venous stasis ulcer of left calf: CODE(S): I83.022 - Varicose veins of left lower extremity with ulcer of calf; L97.229 - Non-pressure chronic ulcer of left calf with unspecified severity QUALIFIERS: Varicose vein presence: with varicose veins Non-pressure ulcer stage: with fat layer exposed Qualified Code(s): I83.022 - Varicose veins of left lower extremity with ulcer of calf; L97.222 - Non-pressure chronic ulcer of left calf with fat layer exposed (4) Venous stasis dermatitis of both lower extremities: CODE(S): I87.2 - Venous insufficiency (chronic) (peripheral) (5) Dependent edema: CODE(S): R60.9 - Edema, unspecified (6) Inactivity: CODE(S): Z72.3 - Lack of physical exercise (7) Debility: CODE(S): R53.81 - Other malaise (8) Atrial flutter: CODE(S): I48.92 - Unspecified atrial flutter (9) Persistent atrial fibrillation: CODE(S): I48.19 - Other persistent atrial fibrillation (10) Pulmonary HTN: CODE(S): I27.20 - Pulmonary hypertension, unspecified (11) ROSARIO (dyspnea on exertion): CODE(S): R06.09 - Other forms of dyspnea (12) Hypertension: CODE(S): I10 - Essential (primary) hypertension (13) Afib: CODE(S): I48.91 - Unspecified atrial fibrillation (14) History of prostate cancer: CODE(S): Z85.46 - Personal history of malignant neoplasm of prostate (15) History of umbilical hernia repair: CODE(S): Z98.890 - Other specified postprocedural states; Z87.19 - Personal history of other diseases of the digestive system (16) Chronic anticoagulation: CODE(S): 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 He had multiple ulcerations in his lower extremities. It appears as though the patient's presenting manifestations were due to recently acquired habits, which include prolonged idle sitting and lower extremity dependency. Within the last several months, the patient had taken to sleeping in a recliner. Additionally, he spends long hours each day in an idle sitting position. He ambulates in very limited amounts. As result of these habits, the patient had noted worsening swelling and edema in his lower extremities, and the development of blisters, which resulted in open excoriations and ulcerations. He developed cellulitis in his right lower extremity, which required treatment with courses of antibiotics. We have discussed the conservative treatment measures appropriate to the management of his lower extremity symptoms and manifestations. He has been discouraged from sleeping in a recliner. He has been encouraged to sleep on a flat mattress, with legs elevated to heart level, or higher. If sleeping in a bed proves to be untenable, the alternative would be to sleep in his recliner, but with legs elevated and head down. The patient's legs are to be elevated to heart level, or higher, as much as possible, during both daytime and nighttime hours. Activity has been encouraged, though the patient is not likely to enhance his activity level to any significant degree. Prolonged idle sitting has been discouraged. The patient's weight is relatively optimal. Recent cultures were positive for Pseudomonas aeruginosa and Enterococcus faecalis. Based upon sensitivity results, the patient was prescribed Levaquin 750 mg p.o. daily for a total of 10 days. The course of antibiotics has now been completed. We are to continue compression to the lower extremities by means of Tubigrip's, which will be donned on a daily basis. We are to continue the use of collagen hydrogel which will be applied topically on a daily basis to the ulceration on the right posterior calf. With respect to the persisting cutaneous erythema, which is suspected to be fungal in nature, a prescription has been provided for Lotrisone topical cream 1%/0.05%, which is to be applied twice daily to the intact erythematous skin. There has been improvement with regard to the cutaneous erythema within the last week with the use of this preparation. The patient is to return in 1 week for reevaluation. We may consider resumption of the EpiFix allograft applications at the patient's return visit. Total time: 26 minutes
[2023-10-23 09:16] VITALS: BP 167/52; PULSE 51; RESP 18; TEMP 35.5; BMI 29.2
--- NOTE | 2023-10-23 11:19 | PCM.WC.HP ---
History of Present Illness Date of Service: 10/23/23 Chief Complaint: Bilateral lower extremity swelling, edema, and venous stasis dermatitis with ulcerations History of Wound: This is an 82-year-old male who presented with severe swelling and edema in both lower extremities, and dermatitic changes in his lower extremities bilaterally, which had been present for several months. The patient had undergone a change in his daily habits within the last several months. He had become inactive, spending large portions of each day in an idle sitting position. 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 Furthermore, he sleeps in a recliner. Within the last several months, he had noted the development of swelling and edema in both legs, as well as severe skin changes and the development of blisters and ulcerations. He denies a history of thrombophlebitis. He had been treated with antibiotic ointment topically. He had been diagnosed with cellulitis in his right lower extremity, for which he had been prescribed prescriptions for both doxycycline and cephalexin. The patient indicated he is a candidate for pacemaker insertion, but resolution of his lower extremity swelling, edema, ulcerations, and cellulitis are a prerequisite to pacemaker placement. [facility] Medical History Adenocarcinoma of prostate Afib Atrial flutter Chronic anticoagulation Debility Dependent edema History of prostate cancer Hypertension Inactivity Persistent atrial fibrillation Venous stasis dermatitis of both lower extremities Venous stasis ulcer Venous stasis ulcer of left calf Venous stasis ulcer of right calf Home Medications furosemide 40 mg tablet (Lasix) 40 mg PO DAILY #30 tabs 02/26/23 [Rx Last Taken Unknown] lisinopril 40 mg tablet 40 mg PO DAILY 02/26/23 [History Last Taken Unknown] apixaban 5 mg tablet (Eliquis) 5 mg PO BID #60 tabs 03/26/23 [Rx Last Taken Unknown] amlodipine 10 mg tablet 5 mg PO DAILY 06/12/23 [History Last Taken Unknown] hydralazine 25 mg tablet mg PO 06/12/23 [History Last Taken Unknown] spironolactone 25 mg tablet 25 mg PO DAILY #90 tabs 06/12/23 [Rx Last Taken Unknown] potassium chloride 20 mEq tablet,extended release 20 meq PO DAILY #5 tabs 07/31/23 [Rx Last Taken Unknown] Allergy/AdvReac Type Severity Reaction Status Date / Time No Known Allergies Allergy Verified 07/11/23 10:48 Surgical History History of umbilical hernia repair Hx of umbilical hernia repair Social History Smoking Status: Never smoker Vital Signs Vital Signs Vital Signs: 10/23/23 09:16 Temperature 96 F L Temperature Source Temporal Pulse Rate 51 L Respiratory Rate 18 Blood Pressure 167/52 H Blood Pressure Mean 90 Blood Pressure Source Monitor Blood Pressure Position Semi-Fowlers Blood Pressure Location Left Arm Weight Weight: 198 lb Body Mass Index (BMI) 29.2 Physical Exam Const alert, oriented x3, no apparent distress, average body habitus and well nourished Constitutional Narrative: The patient's BMI is 29.2. General Appearance: cooperative, comfortable and well developed Orientation / Consciousness: awake, oriented to person, oriented to place and oriented to time HEENT normocephalic and head/scalp atraumatic Head and Scalp: normal to inspection, normocephalic and atraumatic External Ear: external ears normal Eyes PERRL and EOMs intact bilaterally General Eye: normal appearance of both eyes Resp normal respiratory effort, normal air movement, no retractions and no use of accessory muscles Effort and Inspection: able to speak in complete sentences and symmetric chest movement Extremity no calf tenderness General Extremity: Negative for clubbing or cyanosis Skin Wound Narrative: Minimal bilateral lower extremity swelling and edema are noted. Diffuse erythema which was noted 1 week ago has now diminished significantly. The multiple clustered excoriations continue to heal and show improvement. Two large ulcerations persist on the patient's right posterior calf. They are smaller than noted 1 week ago. There is a small amount of bioburden. They are generally pink and healthy in appearance. Dimensions are documented elsewhere. Neuro oriented x3, CN's II-XII intact bilaterally, moves all extremities and no focal motor deficits Sensorium / Orientation: awake, alert, oriented to person, oriented to place and oriented to time Psych Appearance: grossly normal and appropriate Attitude: calm Activity / Motor Behavior: appropriate eye contact Speech: normal speech Mood & Affect: euthymic mood Thought Process: normal thought process Thought Content: normal thought content Attention / Concentration: attention grossly intact Debridement Note Debridement Note Wound debrided: Right posterior calf ulcerations Laterality: Right Type of Debridement: Excisional debridement Anesthesia Used: 5% Lidocaine Gel Percentage of wound debrided: 100 Instrument Used: 5mm curette Severity: Fat Layer Exposed Amount of bleeding with debridement: Mild Bleeding Controlled with: Compression and gauze Patient tolerated procedure: Patient tolerated procedure well Debridement Free Text: The primary ulceration on the right posterior calf has previously been treated with 2 EpiFix allograft applications. The third such EpiFix allograft application was performed today. Following the routine excisional debridement, which was well-tolerated by the patient, a 2 cm x 2 cm EpiFix allograft was selected for topical placement. The EpiFix allograft was removed from its sterile packaging. It was placed in the appropriate orientation on the surface of the ulceration. Adaptic Touch was then placed, and anchored in place using Steri-Strips. The procedure was well-tolerated by the patient. Post-Debridement Measurements and Additional Note: Post-Debridement Measurements/Treatment - Nurse 1 - General Ulcer Assessment Start: 10/09/23 09:54 Freq: Status: Active Protocol: CHANCE Activity Type Activity Date Activity User E-sign Co-sign Detail Recorded Client Recorded Date Recorded By Document 10/09/23 09:54 RB Desktop 10/09/23 10:08 RB Document 10/16/23 09:02 SC Desktop 10/16/23 09:15 MT Document 10/23/23 09:16 Desktop 10/23/23 09:34 RB 10/09/23 10/16/23 10/23/23 09:54 09:02 09:16 - Today's Visit Information Type of service Follow-up Visit Follow-up Visit Follow-up Visit (Physician/ELECTRIC UTILITY LINEWORKER (Physician/ELECTRIC UTILITY LINEWORKER (Physician/ELECTRIC UTILITY LINEWORKER ) ) ) Arrival Mode Ambulatory Ambulatory Ambulatory Transfer Assistance None None Accompanied by Patient Identification Verified (Name & Yes Yes Yes ) Patient Requires Transmission-Based No No Precautions Safety Precautions Fall Prevention Height and Weight Body Mass Index (BMI) 29.2 29.2 29.2 BMI Classification Overweight Overweight Overweight Vital Signs Temperature (97.8 F-99.1 F) 97 F L 97.3 F L 96 F L Temperature Source Temporal Temporal Temporal Pulse Rate (60-100) 64 65 51 L Pulse Location Monitor Monitor Monitor Respiratory Rate (12-18) 18 16 18 Respiratory rate source Observation Observation Observation Oxygen Delivery Method Room Air Blood Pressure (90/60-120/80) 173/62 H 146/65 H 167/52 H Blood Pressure Mean 99 92 90 Source Monitor Monitor Monitor Position Sitting Sitting Semi-Fowlers Blood Pressure Location Left Arm Left Arm Left Arm History Since Last Visit- (Skip if this is Patient's initial visit) Have you changed medications since your No No last visit? Any new allergies or adverse reactions No No Had a fall/change in ADL's that may No No increase risk of falls Signs or symptoms of abuse and/or No No neglect since last visit Have you been in the hospital since your No No last visit? Has dressing in place as prescribed Yes Yes Yes Has compression in place as prescribed Yes Yes Yes Has offloadiing in place as prescribed No N/A No Experienced any changes in pain level or No No No management Left Footwear Regular Shoe Right Footwear Regular Shoe Pain Scale: 0-10 Numeric Is Patient Pain Free? Yes Yes Yes WC - Nurse 1 - General Ulcer Measurement Start: 10/09/23 09:54 Freq: Status: Active Protocol: Activity Type Activity Date Activity User E-sign Co-sign Detail Recorded Client Recorded Date Recorded By Document 10/09/23 09:54 RB Desktop 10/09/23 10:08 RB Document 10/16/23 09:02 MT Desktop 10/16/23 09:15 MT Document 10/16/23 09:39 MT Desktop 10/16/23 09:40 MT Document 10/23/23 09:16 RB Desktop 10/23/23 09:34 RB 10/09/23 10/16/23 10/16/23 09:54 09:02 09:39 Wound Center Nurse 1 5. L charles -Combined with other wound No -Current Size (cm) - Length 0.5 1.0 -Current Size (cm) - Width 1 0.6 -Current Size (cm) - Depth 0.1 0.1 -Total Square Cm 0.5 0.60 -Tunneling No -Undermining/Tunneling No -Circular Undermining No -Exudate Amt Medium -Exudate Type Serosanguineous -Wound Margin Distinct, Flat & Intact Outline Attached -Granulation Amt Medium (34-66%) Large (67-100%) -Granulation Quality [place] Pale,[place] -Slough/Fibrin Yes -Necrosis Amt Medium (34-66%) -Necrotic Tissue Type Adherent Slough -Structure Exposed N/A -Texture (Zaira-wound Skin Appearance) Assessed Assessed -Moisture (Zaira-wound Skin Appearance) Assessed Assessed -Color (Zaira-wound Skin Appearance) Assessed Assessed -Temperature (Zaira-wound Skin No Abnormality No Abnormality Appearance) (Pt Warm) (Pt Warm) -Tenderness on Palpation (Zaira-wound No No Skin Appearance) -Ulcer Cleansing Wound Cleanser Soap and Water -Foul Odor after Cleansing No -Anesthetic Used 5% Lidocaine 4% Lidocaine Gel Solution #3 Left Medial Calf -Combined with other wound No -Current Size (cm) - Length 0.4 0.1 -Current Size (cm) - Width 0.3 0.1 -Current Size (cm) - Depth 0.1 0.1 -Total Square Cm 0.12 0.01 -Tunneling No -Undermining/Tunneling No -Circular Undermining No -Exudate Amt Medium -Exudate Type Serosanguineous -Wound Margin Distinct, Outline Attached -Granulation Amt Medium (34-66%) -Granulation Quality [place] -Slough/Fibrin Yes -Necrosis Amt Medium (34-66%) -Necrotic Tissue Type Adherent Slough -Structure Exposed N/A -Texture (Zaira-wound Skin Appearance) Assessed -Moisture (Zaira-wound Skin Appearance) Assessed -Color (Zaira-wound Skin Appearance) Assessed -Temperature (Zaira-wound Skin No Abnormality Appearance) (Pt Warm) -Tenderness on Palpation (Zaira-wound No Skin Appearance) -Ulcer Cleansing -Foul Odor after Cleansing No -Anesthetic Used 5% Lidocaine Gel #2 R Post Calf -Combined with other wound No -Current Size (cm) - Length 4 2.9 -Current Size (cm) - Width 11 7.5 -Current Size (cm) - Depth 0.1 0.1 -Total Square Cm 44 21.75 -Tunneling No -Undermining/Tunneling No -Circular Undermining No -Exudate Amt Medium -Exudate Type Serosanguineous -Wound Margin Distinct, Outline Attached -Granulation Amt Medium (34-66%) -Granulation Quality [place] -Slough/Fibrin Yes -Necrosis Amt Medium (34-66%) -Necrotic Tissue Type Adherent Slough -Structure Exposed N/A -Texture (Zaira-wound Skin Appearance) Assessed -Moisture (Zaira-wound Skin Appearance) Assessed -Color (Zaira-wound Skin Appearance) Assessed -Temperature (Zaira-wound Skin No Abnormality Appearance) (Pt Warm) -Tenderness on Palpation (Zaira-wound No Skin Appearance) -Ulcer Cleansing Wound Cleanser -Foul Odor after Cleansing No -Anesthetic Used 5% Lidocaine Gel #1 Right Ant Calf -Combined with other wound No -Current Size (cm) - Length 1.5 0.1 -Current Size (cm) - Width 0.5 0.1 -Current Size (cm) - Depth 0.1 0.1 -Total Square Cm 0.75 0.01 -Photo Taken No -Tunneling No No -Undermining/Tunneling No No -Circular Undermining No No -Exudate Amt Medium None Present -Exudate Type Serosanguineous -Wound Margin Distinct, Flat & Intact Outline Attached -Granulation Amt Medium (34-66%) Large (67-100%) -Granulation Quality [place] Pale,[place] -Slough/Fibrin Yes -Necrosis Amt Medium (34-66%) -Necrotic Tissue Type Adherent Slough -Structure Exposed N/A -Texture (Zaira-wound Skin Appearance) Assessed Assessed -Moisture (Zaira-wound Skin Appearance) Assessed Assessed -Color (Zaira-wound Skin Appearance) Assessed Assessed -Temperature (Zaira-wound Skin No Abnormality No Abnormality Appearance) (Pt Warm) (Pt Warm) -Tenderness on Palpation (Zaira-wound No No Skin Appearance) -Ulcer Cleansing Wound Cleanser Soap and Water -Foul Odor after Cleansing No -Anesthetic Used 5% Lidocaine 4% Lidocaine Gel Solution Lower Limb Edema Present Yes Right Calf (cm) 36.7 36 Right Ankle (cm) 26.5 Left Calf (cm) 36.2 33 Left Ankle (cm) 26 10/23/23 09:16 Wound Center Nurse 1 5. L charles -Combined with other wound No -Current Size (cm) - Length 5 -Current Size (cm) - Width 6.5 -Current Size (cm) - Depth 0.1 -Total Square Cm 32.5 -Tunneling No -Undermining/Tunneling No -Circular Undermining No -Exudate Amt Large -Exudate Type Serosanguineous -Wound Margin Distinct, Outline Attached -Granulation Amt Medium (34-66%) -Granulation Quality [place] -Slough/Fibrin Yes -Necrosis Amt Medium (34-66%) -Necrotic Tissue Type Adherent Slough -Structure Exposed N/A -Texture (Zaira-wound Skin Appearance) Assessed, Excoriation -Moisture (Zaira-wound Skin Appearance) Assessed -Color (Zaira-wound Skin Appearance) Assessed -Temperature (Zaira-wound Skin No Abnormality Appearance) (Pt Warm) -Tenderness on Palpation (Zaira-wound No Skin Appearance) -Ulcer Cleansing Wound Cleanser -Foul Odor after Cleansing No -Anesthetic Used 4% Lidocaine Solution #3 Left Medial Calf -Combined with other wound No -Current Size (cm) - Length 0.1 -Current Size (cm) - Width 0.1 -Current Size (cm) - Depth 0.1 -Total Square Cm 0.01 -Tunneling No -Undermining/Tunneling No -Circular Undermining No -Exudate Amt Small -Exudate Type Serosanguineous -Wound Margin Distinct, Outline Attached -Granulation Amt Medium (34-66%) -Granulation Quality [place] -Slough/Fibrin Yes -Necrosis Amt Medium (34-66%) -Necrotic Tissue Type Adherent Slough -Structure Exposed N/A -Texture (Zaira-wound Skin Appearance) Assessed -Moisture (Zaira-wound Skin Appearance) Assessed -Color (Zaira-wound Skin Appearance) Assessed -Temperature (Zaira-wound Skin No Abnormality Appearance) (Pt Warm) -Tenderness on Palpation (Zaira-wound No Skin Appearance) -Ulcer Cleansing Wound Cleanser -Foul Odor after Cleansing No -Anesthetic Used 4% Lidocaine Solution #2 R Post Calf -Combined with other wound No -Current Size (cm) - Length 12 -Current Size (cm) - Width 12 -Current Size (cm) - Depth 0.1 -Total Square Cm 144 -Tunneling No -Undermining/Tunneling No -Circular Undermining No -Exudate Amt Large -Exudate Type Serosanguineous -Wound Margin Distinct, Outline Attached -Granulation Amt Medium (34-66%) -Granulation Quality [place] -Slough/Fibrin Yes -Necrosis Amt Medium (34-66%) -Necrotic Tissue Type Adherent Slough -Structure Exposed N/A -Texture (Zaira-wound Skin Appearance) Assessed, Excoriation -Moisture (Zaira-wound Skin Appearance) Assessed -Color (Zaira-wound Skin Appearance) Assessed -Temperature (Zaira-wound Skin No Abnormality Appearance) (Pt Warm) -Tenderness on Palpation (Zaira-wound No Skin Appearance) -Ulcer Cleansing Wound Cleanser -Foul Odor after Cleansing -Anesthetic Used 4% Lidocaine Solution, Cetacaine #1 Right Ant Calf -Combined with other wound No -Current Size (cm) - Length 0.1 -Current Size (cm) - Width 0.1 -Current Size (cm) - Depth 0.1 -Total Square Cm 0.01 -Photo Taken -Tunneling No -Undermining/Tunneling No -Circular Undermining No -Exudate Amt Small -Exudate Type Serosanguineous -Wound Margin Distinct, Outline Attached -Granulation Amt Medium (34-66%) -Granulation Quality [place] -Slough/Fibrin Yes -Necrosis Amt Small (1-33%) -Necrotic Tissue Type Adherent Slough -Structure Exposed N/A -Texture (Zaira-wound Skin Appearance) Assessed, Excoriation -Moisture (Zaira-wound Skin Appearance) Assessed -Color (Zaira-wound Skin Appearance) Assessed -Temperature (Zaira-wound Skin No Abnormality Appearance) (Pt Warm) -Tenderness on Palpation (Zaira-wound No Skin Appearance) -Ulcer Cleansing Wound Cleanser -Foul Odor after Cleansing Yes, Due to Product Use -Anesthetic Used 4% Lidocaine Solution Lower Limb Edema Present Yes Right Calf (cm) 37.2 Right Ankle (cm) 25.5 Left Calf (cm) 36 Left Ankle (cm) 24.5 WC - Nurse 3 - General Ulcer D/C NN Start: 10/09/23 09:54 Freq: Status: Active Protocol: Activity Type Activity Date Activity User E-sign Co-sign Detail Recorded Client Recorded Date Recorded By Document 10/09/23 10:53 RB Desktop 10/09/23 10:54 RB Document 10/16/23 09:38 MT Desktop 10/16/23 09:39 MT Document 10/23/23 10:09 DL Desktop 10/23/23 10:12 DL 10/09/23 10/16/23 10/23/23 10:53 09:38 10:09 Wound Care Center Nurse 3 5. L charles -Ulcer Cleansing Rinsed/ Irrigated with Saline -Foul Odor after Cleansing No -Primary Dressing Applied C Hydrogel ($) C Hydrogel ($) -Other Dressing hydrogel -Primary Dressing Covered/Secured with Dry Gauze & Dry Gauze & Roll Gauze, Roll Gauze, Secured with Secured with Tape Tape #3 Left Medial Calf -Ulcer Cleansing Rinsed/ Irrigated with Saline -Foul Odor after Cleansing No -Other Dressing hydrogel hydrogel -Primary Dressing Covered/Secured with Dry Gauze & Dry Gauze & Roll Gauze, Roll Gauze, Secured with Secured with Tape Tape #2 R Post Calf -Primary Dressing Applied C Hydrogel ($) Mepilex Border -Other Dressing hydrogel epifix/hydrogel -Primary Dressing Covered/Secured with Dry Gauze,Dry Dry Gauze & Dry Gauze & Gauze & Roll Roll Gauze, Roll Gauze, Gauze,Secured Secured with Secured with with Tape Tape Tape -Mepilex Border 1 #1 Right Ant Calf -Ulcer Cleansing Rinsed/ Irrigated with Saline -Foul Odor after Cleansing No -Other Dressing hydrogel hydrogel -Primary Dressing Covered/Secured with Dry Gauze & Dry Gauze & Roll Gauze, Roll Gauze, Secured with Secured with Tape Tape marianela -Tubular Bandage Single Layer -Size of Tubigrip Used Size D -Size D ($) 1 Right -Tubular Bandage Double Layer -Size of Tubigrip Used Size D Size D -Size D ($) 2 -Other size 36, marked for pt Left -Tubular Bandage Double Layer -Size of Tubigrip Used Size D Size C -Size D ($) 2 -Other size 33, marked for pt Treatment Response Procedure Procedure Tolerated Well Tolerated Well Pain Scale: 0-10 Numeric Is Patient Pain Free? Yes Yes Yes Teaching: Wound Center Dressing Your Wound -Person Taught Patient,Family -Teaching Method Discussion, Demonstration -Response to teaching Verbalize understanding WC - Visit Discharge Discharge Condition Stable Stable Stable Ambulatory Status Ambulatory Ambulatory Ambulatory Transportation Private Auto Private Auto Private Auto Medication Reconcilliation completed & No No provided to patient/care provider Clinical Summary of Care Provided Yes Yes Notes: tubigrip and dressing hydrogel applied per Rosemary Damon, RN today in clinic . Assessment/Plan Assessment/Plan (1) Venous stasis ulcer of right calf: CODE(S): I83.012 - Varicose veins of right lower extremity with ulcer of calf; L97.219 - Non-pressure chronic ulcer of right calf with unspecified severity QUALIFIERS: Varicose vein presence: with varicose veins Non-pressure ulcer stage: with fat layer exposed Qualified Code(s): I83.012 - Varicose veins of right lower extremity with ulcer of calf; L97.212 - Non-pressure chronic ulcer of right calf with fat layer exposed (2) Venous stasis ulcer: CODE(S): I83.009 - Varicose veins of unspecified lower extremity with ulcer of unspecified site; L97.909 - Non-pressure chronic ulcer of unspecified part of unspecified lower leg with unspecified severity QUALIFIERS: Venous stasis ulcer site: calf Varicose vein presence: with varicose veins Laterality: right Non-pressure ulcer stage: with fat layer exposed Qualified Code(s): I83.012 - Varicose veins of right lower extremity with ulcer of calf; L97.212 - Non-pressure chronic ulcer of right calf with fat layer exposed (3) Venous stasis ulcer of left calf: CODE(S): I83.022 - Varicose veins of left lower extremity with ulcer of calf; L97.229 - Non-pressure chronic ulcer of left calf with unspecified severity QUALIFIERS: Varicose vein presence: with varicose veins Non-pressure ulcer stage: with fat layer exposed Qualified Code(s): I83.022 - Varicose veins of left lower extremity with ulcer of calf; L97.222 - Non-pressure chronic ulcer of left calf with fat layer exposed (4) Venous stasis dermatitis of both lower extremities: CODE(S): I87.2 - Venous insufficiency (chronic) (peripheral) (5) Dependent edema: CODE(S): R60.9 - Edema, unspecified (6) Inactivity: CODE(S): Z72.3 - Lack of physical exercise (7) Debility: CODE(S): R53.81 - Other malaise (8) Atrial flutter: CODE(S): I48.92 - Unspecified atrial flutter (9) Persistent atrial fibrillation: CODE(S): I48.19 - Other persistent atrial fibrillation (10) Pulmonary HTN: CODE(S): I27.20 - Pulmonary hypertension, unspecified (11) ROSARIO (dyspnea on exertion): CODE(S): R06.09 - Other forms of dyspnea (12) Hypertension: CODE(S): I10 - Essential (primary) hypertension (13) Afib: CODE(S): I48.91 - Unspecified atrial fibrillation (14) History of prostate cancer: CODE(S): Z85.46 - Personal history of malignant neoplasm of prostate (15) History of umbilical hernia repair: CODE(S): Z98.890 - Other specified postprocedural states; Z87.19 - Personal history of other diseases of the digestive system (16) Chronic anticoagulation: CODE(S): Z79.01 - 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 He had multiple ulcerations in his lower extremities. It appears as though the patient's presenting manifestations were due to recently acquired habits, which include prolonged idle sitting and lower extremity dependency. Within the last several months, the patient had taken to sleeping in a recliner. Additionally, he spends long hours each day in an idle sitting position. He ambulates in very limited amounts. As result of these habits, the patient had noted worsening swelling and edema in his lower extremities, and the development of blisters, which resulted in open excoriations and ulcerations. He developed cellulitis in his right lower extremity, which required treatment with courses of antibiotics. We have discussed the conservative treatment measures appropriate to the management of his lower extremity symptoms and manifestations. He has been discouraged from sleeping in a recliner. He has been encouraged to sleep on a flat mattress, with legs elevated to heart level, or higher. If sleeping in a bed proves to be untenable, the alternative would be to sleep in his recliner, but with legs elevated and head down. The patient's legs are to be elevated to heart level, or higher, as much as possible, during both daytime and nighttime hours. Activity has been encouraged, though the patient is not likely to enhance his activity level to any significant degree. Prolonged idle sitting has been discouraged. The patient's weight is relatively optimal. Recent cultures were positive for Pseudomonas aeruginosa and Enterococcus faecalis. Based upon sensitivity results, the patient was prescribed Levaquin 750 mg p.o. daily for a total of 10 days. The course of antibiotics has now been completed. We are to continue compression to the lower extremities by means of Tubigrip's, which will be donned on a daily basis. We are to continue the use of collagen hydrogel topically to the superficial excoriations in both lower extremities. The patient has been instructed in the appropriate means of application. With respect to the persisting cutaneous erythema, which is suspected to be fungal in nature, a prescription has been provided for Lotrisone topical cream 1%/0.05%, which is to be applied twice daily to the intact erythematous skin. There has been improvement with regard to the cutaneous erythema within the last several weeks with the use of this preparation. The EpiFix allograft placed on the ulceration on the right posterior calf is to remain in place, undisturbed, until the patient returns in 1 week for reevaluation. Total time: 26 minutes
[2023-10-30 09:27] VITALS: BP 155/59; PULSE 52; RESP 18; TEMP 36; BMI 29.2
--- NOTE | 2023-10-30 11:34 | HP.PCM_ITS ---
History of Present Illness Date of Service: 10/30/23 Chief Complaint: Bilateral lower extremity swelling, edema, and venous stasis dermatitis with ulcerations History of Wound: This is an 82-year-old male who presented with severe swelling and edema in both lower extremities, and dermatitic changes in his lower extremities bilaterally, which had been present for several months. The patient had undergone a change in his daily habits within the last several months. He had become inactive, spending large portions of each day in an idle sitting position. 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 Furthermore, he sleeps in a recliner. Within the last several months, he had noted the development of swelling and edema in both legs, as well as severe skin changes and the development of blisters and ulcerations. He denies a history of thrombophlebitis. He had been treated with antibiotic ointment topically. He had been diagnosed with cellulitis in his right lower extremity, for which he had been prescribed prescriptions for both doxycycline and cephalexin. The patient indicated he is a candidate for pacemaker insertion, but resolution of his lower extremity swelling, edema, ulcerations, and cellulitis are a prerequisite to pacemaker placement. [facility] Medical History Adenocarcinoma of prostate Afib Atrial flutter Chronic anticoagulation Debility Dependent edema History of prostate cancer Hypertension Inactivity Persistent atrial fibrillation Venous stasis dermatitis of both lower extremities Venous stasis ulcer Venous stasis ulcer of left calf Venous stasis ulcer of right calf Home Medications furosemide 40 mg tablet (Lasix) 40 mg PO DAILY #30 tabs 02/26/23 [Rx Last Taken Unknown] lisinopril 40 mg tablet 40 mg PO DAILY 02/26/23 [History Last Taken Unknown] apixaban 5 mg tablet (Eliquis) 5 mg PO BID #60 tabs 03/26/23 [Rx Last Taken Unknown] amlodipine 10 mg tablet 5 mg PO DAILY 06/12/23 [History Last Taken Unknown] hydralazine 25 mg tablet mg PO 06/12/23 [History Last Taken Unknown] spironolactone 25 mg tablet 25 mg PO DAILY #90 tabs 06/12/23 [Rx Last Taken Unknown] potassium chloride 20 mEq tablet,extended release 20 meq PO DAILY #5 tabs 07/31/23 [Rx Last Taken Unknown] Allergy/AdvReac Type Severity Reaction Status Date / Time No Known Allergies Allergy Verified 07/11/23 10:48 Surgical History History of umbilical hernia repair Hx of umbilical hernia repair Social History Smoking Status: Never smoker Vital Signs Vital Signs Vital Signs: 10/30/23 09:27 Temperature 96.8 F L Temperature Source Temporal Pulse Rate 52 L Respiratory Rate 18 Blood Pressure 155/59 H Blood Pressure Mean 91 Blood Pressure Source Monitor Blood Pressure Position Sitting Blood Pressure Location Left Arm Oxygen Delivery Method Room Air Weight Weight: 198 lb Body Mass Index (BMI) 29.2 Physical Exam Const alert, oriented x3, no apparent distress, average body habitus and well nourished Constitutional Narrative: The patient's BMI is 29.2. General Appearance: cooperative, comfortable and well developed Orientation / Consciousness: awake, oriented to person, oriented to place and oriented to time HEENT normocephalic and head/scalp atraumatic Head and Scalp: normal to inspection, normocephalic and atraumatic External Ear: external ears normal Eyes PERRL and EOMs intact bilaterally General Eye: normal appearance of both eyes Resp normal respiratory effort, normal air movement, no retractions and no use of accessory muscles Effort and Inspection: able to speak in complete sentences and symmetric chest movement Extremity no calf tenderness General Extremity: Negative for clubbing or cyanosis Skin Wound Narrative: Mild bilateral lower extremity swelling and edema are noted. The cutaneous erythema continues to improve. The multiple clustered excoriations continue to heal and show improvement. Two large ulcerations persist on the patient's right posterior calf. A small excoriation is noted on the right medial calf. A small excoriation is also noted on the left pretibial surface. The excoriations continue to diminish in size. There is a small amount of bioburden associated with the ulcerations on the right posterior calf. They are generally pink and healthy in appearance. Dimensions are documented elsewhere. Neuro oriented x3, CN's II-XII intact bilaterally, moves all extremities and no focal motor deficits Sensorium / Orientation: awake, alert, oriented to person, oriented to place and oriented to time Psych Appearance: grossly normal and appropriate Attitude: calm Activity / Motor Behavior: appropriate eye contact Speech: normal speech Mood & Affect: euthymic mood Thought Process: normal thought process Thought Content: normal thought content Attention / Concentration: attention grossly intact Debridement Note Debridement Note Wound debrided: Right posterior calf ulcerations Laterality: Right Type of Debridement: Excisional debridement Anesthesia Used: 5% Lidocaine Gel Percentage of wound debrided: 100 Instrument Used: 5mm curette Severity: Fat Layer Exposed Amount of bleeding with debridement: Mild Bleeding Controlled with: Compression and gauze Patient tolerated procedure: Patient tolerated procedure well Debridement Free Text: The primary ulceration on the right posterior calf has previously been treated with 3 EpiFix allograft applications. The fourth such EpiFix allograft application was performed today. Following the routine excisional debridement, which was well-tolerated by the patient, a 2 cm x 2 cm EpiFix allograft was selected for topical placement. The EpiFix allograft was removed from its sterile packaging. It was placed in the appropriate orientation on the surface of the ulceration. Adaptic Touch was then placed, and anchored in place using Steri-Strips. The procedure was well-tolerated by the patient. Post-Debridement Measurements and Additional Note: Post-Debridement Measurements/Treatment - Nurse 1 - General Ulcer Assessment Start: 10/09/23 09:54 Freq: Status: Active Protocol: CHANCE Activity Type Activity Date Activity User E-sign Co-sign Detail Recorded Client Recorded Date Recorded By Document 10/09/23 09:54 RB Desktop 10/09/23 10:08 RB Document 10/16/23 09:02 MT Desktop 10/16/23 09:15 MT Document 10/23/23 09:16 RB Desktop 10/23/23 09:34 RB Document 10/30/23 09:27 KW Desktop 10/30/23 09:42 KW 10/09/23 10/16/23 10/23/23 09:54 09:02 09:16 - Today's Visit Information Type of service Follow-up Visit Follow-up Visit Follow-up Visit (Physician/INSTALLATION TECH (Physician/INSTALLATION TECH (Physician/INSTALLATION TECH ) ) ) Arrival Mode Ambulatory Ambulatory Ambulatory Transfer Assistance None None Accompanied by Patient Identification Verified (Name & Yes Yes Yes ) Patient Requires Transmission-Based No No Precautions Safety Precautions Fall Prevention Height and Weight Body Mass Index (BMI) 29.2 29.2 29.2 BMI Classification Overweight Overweight Overweight Vital Signs Temperature (97.8 F-99.1 F) 97 F L 97.3 F L 96 F L Temperature Source Temporal Temporal Temporal Pulse Rate (60-100) 64 65 51 L Pulse Location Monitor Monitor Monitor Respiratory Rate (12-18) 18 16 18 Respiratory rate source Observation Observation Observation Oxygen Delivery Method Room Air Blood Pressure (90/60-120/80) 173/62 H 146/65 H 167/52 H Blood Pressure Mean 99 92 90 Source Monitor Monitor Monitor Position Sitting Sitting Semi-Fowlers Blood Pressure Location Left Arm Left Arm Left Arm History Since Last Visit- (Skip if this is Patient's initial visit) Have you changed medications since your No No last visit? Any new allergies or adverse reactions No No Had a fall/change in ADL's that may No No increase risk of falls Signs or symptoms of abuse and/or No No neglect since last visit Have you been in the hospital since your No No last visit? Has dressing in place as prescribed Yes Yes Yes Has compression in place as prescribed Yes Yes Yes Has offloadiing in place as prescribed No N/A No Experienced any changes in pain level or No No No management Left Footwear Regular Shoe Right Footwear Regular Shoe Pain Scale: 0-10 Numeric Is Patient Pain Free? Yes Yes Yes 10/30/23 09:27 WC - Today's Visit Information Type of service Follow-up Visit (Physician/INSTALLATION TECH ) Arrival Mode Ambulatory Transfer Assistance Accompanied by Patient Identification Verified (Name & Yes ) Patient Requires Transmission-Based Precautions Safety Precautions Height and Weight Body Mass Index (BMI) 29.2 BMI Classification Overweight Vital Signs Temperature (97.8 F-99.1 F) 96.8 F L Temperature Source Temporal Pulse Rate (60-100) 52 L Pulse Location Monitor Respiratory Rate (12-18) 18 Respiratory rate source Observation Oxygen Delivery Method Room Air Blood Pressure (90/60-120/80) 155/59 H Blood Pressure Mean 91 Source Monitor Position Sitting Blood Pressure Location Left Arm History Since Last Visit- (Skip if this is Patient's initial visit) Have you changed medications since your No last visit? Any new allergies or adverse reactions No Had a fall/change in ADL's that may No increase risk of falls Signs or symptoms of abuse and/or No neglect since last visit Have you been in the hospital since your No last visit? Has dressing in place as prescribed Yes Has compression in place as prescribed Yes Has offloadiing in place as prescribed No Experienced any changes in pain level or No management Left Footwear Regular Shoe Right Footwear Regular Shoe Pain Scale: 0-10 Numeric Is Patient Pain Free? Yes WC - Nurse 1 - General Ulcer Measurement Start: 10/09/23 09:54 Freq: Status: Active Protocol: Activity Type Activity Date Activity User E-sign Co-sign Detail Recorded Client Recorded Date Recorded By Document 10/09/23 09:54 RB Desktop 10/09/23 10:08 RB Document 10/16/23 09:02 MT Desktop 10/16/23 09:15 MT Document 10/16/23 09:39 MT Desktop 10/16/23 09:40 MT Document 10/23/23 09:16 RB Desktop 10/23/23 09:34 RB Document 10/30/23 09:27 KW Desktop 10/30/23 09:42 KW 10/09/23 10/16/23 10/16/23 09:54 09:02 09:39 Wound Center Nurse 1 #3 Left Medial Calf -Combined with other wound No -Current Size (cm) - Length 0.4 0.1 -Current Size (cm) - Width 0.3 0.1 -Current Size (cm) - Depth 0.1 0.1 -Total Square Cm 0.12 0.01 -Tunneling No -Undermining/Tunneling No -Circular Undermining No -Exudate Amt Medium -Exudate Type Serosanguineous -Wound Margin Distinct, Outline Attached -Granulation Amt Medium (34-66%) -Granulation Quality [place] -Slough/Fibrin Yes -Necrosis Amt Medium (34-66%) -Necrotic Tissue Type Adherent Slough -Structure Exposed N/A -Texture (Zaira-wound Skin Appearance) Assessed -Moisture (Zaira-wound Skin Appearance) Assessed -Color (Zaira-wound Skin Appearance) Assessed -Temperature (Zaira-wound Skin No Abnormality Appearance) (Pt Warm) -Tenderness on Palpation (Zaira-wound No Skin Appearance) -Ulcer Cleansing -Foul Odor after Cleansing No -Anesthetic Used 5% Lidocaine Gel #1 Right Ant Calf -Combined with other wound No -Current Size (cm) - Length 1.5 0.1 -Current Size (cm) - Width 0.5 0.1 -Current Size (cm) - Depth 0.1 0.1 -Total Square Cm 0.75 0.01 -Photo Taken No -Tunneling No No -Undermining/Tunneling No No -Circular Undermining No No -Exudate Amt Medium None Present -Exudate Type Serosanguineous -Wound Margin Distinct, Flat & Intact Outline Attached -Granulation Amt Medium (34-66%) Large (67-100%) -Granulation Quality [place] Pale,[place] -Slough/Fibrin Yes -Necrosis Amt Medium (34-66%) -Necrotic Tissue Type Adherent Slough -Structure Exposed N/A -Texture (Zaira-wound Skin Appearance) Assessed Assessed -Moisture (Zaira-wound Skin Appearance) Assessed Assessed -Color (Zaira-wound Skin Appearance) Assessed Assessed -Temperature (Zaira-wound Skin No Abnormality No Abnormality Appearance) (Pt Warm) (Pt Warm) -Tenderness on Palpation (Zaira-wound No No Skin Appearance) -Ulcer Cleansing Wound Cleanser Soap and Water -Foul Odor after Cleansing No -Anesthetic Used 5% Lidocaine 4% Lidocaine Gel Solution #6 RT MEDIAL LE -Current Size (cm) - Length -Current Size (cm) - Width -Current Size (cm) - Depth -Total Square Cm -Exudate Amt -Exudate Type -Wound Margin -Granulation Amt -Granulation Quality -Texture (Zaira-wound Skin Appearance) -Moisture (Zaira-wound Skin Appearance) -Color (Zaira-wound Skin Appearance) -Temperature (Zaira-wound Skin Appearance) -Ulcer Cleansing -Foul Odor after Cleansing -Anesthetic Used 5. L charles -Combined with other wound No -Current Size (cm) - Length 0.5 1.0 -Current Size (cm) - Width 1 0.6 -Current Size (cm) - Depth 0.1 0.1 -Total Square Cm 0.5 0.60 -Tunneling No -Undermining/Tunneling No -Circular Undermining No -Exudate Amt Medium -Exudate Type Serosanguineous -Wound Margin Distinct, Flat & Intact Outline Attached -Granulation Amt Medium (34-66%) Large (67-100%) -Granulation Quality [place] Pale,[place] -Slough/Fibrin Yes -Necrosis Amt Medium (34-66%) -Necrotic Tissue Type Adherent Slough -Structure Exposed N/A -Texture (Zaira-wound Skin Appearance) Assessed Assessed -Moisture (Zaira-wound Skin Appearance) Assessed Assessed -Color (Zaira-wound Skin Appearance) Assessed Assessed -Temperature (Zaira-wound Skin No Abnormality No Abnormality Appearance) (Pt Warm) (Pt Warm) -Tenderness on Palpation (Zaira-wound No No Skin Appearance) -Ulcer Cleansing Wound Cleanser Soap and Water -Foul Odor after Cleansing No -Anesthetic Used 5% Lidocaine 4% Lidocaine Gel Solution #2 R Post Calf -Combined with other wound No -Current Size (cm) - Length 4 2.9 -Current Size (cm) - Width 11 7.5 -Current Size (cm) - Depth 0.1 0.1 -Total Square Cm 44 21.75 -Tunneling No -Undermining/Tunneling No -Circular Undermining No -Exudate Amt Medium -Exudate Type Serosanguineous -Wound Margin Distinct, Outline Attached -Granulation Amt Medium (34-66%) -Granulation Quality [place] -Slough/Fibrin Yes -Necrosis Amt Medium (34-66%) -Necrotic Tissue Type Adherent Slough -Structure Exposed N/A -Texture (Zaira-wound Skin Appearance) Assessed -Moisture (Zaira-wound Skin Appearance) Assessed -Color (Zaira-wound Skin Appearance) Assessed -Temperature (Zaira-wound Skin No Abnormality Appearance) (Pt Warm) -Tenderness on Palpation (Zaira-wound No Skin Appearance) -Ulcer Cleansing Wound Cleanser -Foul Odor after Cleansing No -Anesthetic Used 5% Lidocaine Gel Lower Limb Edema Present Yes Right Calf (cm) 36.7 36 Right Ankle (cm) 26.5 Left Calf (cm) 36.2 33 Left Ankle (cm) 26 10/23/23 10/30/23 09:16 09:27 Wound Center Nurse 1 #3 Left Medial Calf -Combined with other wound No -Current Size (cm) - Length 0.1 -Current Size (cm) - Width 0.1 -Current Size (cm) - Depth 0.1 -Total Square Cm 0.01 -Tunneling No -Undermining/Tunneling No -Circular Undermining No -Exudate Amt Small -Exudate Type Serosanguineous -Wound Margin Distinct, Outline Attached -Granulation Amt Medium (34-66%) -Granulation Quality [place] -Slough/Fibrin Yes -Necrosis Amt Medium (34-66%) -Necrotic Tissue Type Adherent Slough -Structure Exposed N/A -Texture (Zaira-wound Skin Appearance) Assessed -Moisture (Zaira-wound Skin Appearance) Assessed -Color (Zaira-wound Skin Appearance) Assessed -Temperature (Zaira-wound Skin No Abnormality Appearance) (Pt Warm) -Tenderness on Palpation (Zaira-wound No Skin Appearance) -Ulcer Cleansing Wound Cleanser -Foul Odor after Cleansing No -Anesthetic Used 4% Lidocaine Solution #1 Right Ant Calf -Combined with other wound No -Current Size (cm) - Length 0.1 -Current Size (cm) - Width 0.1 -Current Size (cm) - Depth 0.1 -Total Square Cm 0.01 -Photo Taken -Tunneling No -Undermining/Tunneling No -Circular Undermining No -Exudate Amt Small -Exudate Type Serosanguineous -Wound Margin Distinct, Outline Attached -Granulation Amt Medium (34-66%) -Granulation Quality [place] -Slough/Fibrin Yes -Necrosis Amt Small (1-33%) -Necrotic Tissue Type Adherent Slough -Structure Exposed N/A -Texture (Zaira-wound Skin Appearance) Assessed, Excoriation -Moisture (Zaira-wound Skin Appearance) Assessed -Color (Zaira-wound Skin Appearance) Assessed -Temperature (Zaira-wound Skin No Abnormality Appearance) (Pt Warm) -Tenderness on Palpation (Zaira-wound No Skin Appearance) -Ulcer Cleansing Wound Cleanser -Foul Odor after Cleansing Yes, Due to Product Use -Anesthetic Used 4% Lidocaine Solution #6 RT MEDIAL LE -Current Size (cm) - Length 1.8 -Current Size (cm) - Width 1.5 -Current Size (cm) - Depth 0.1 -Total Square Cm 2.70 -Exudate Amt Medium -Exudate Type Serosanguineous -Wound Margin Distinct, Outline Attached -Granulation Amt Large (67-100%) -Granulation Quality Red -Texture (Zaira-wound Skin Appearance) Assessed -Moisture (Zaira-wound Skin Appearance) Assessed -Color (Zaira-wound Skin Appearance) Erythema -Temperature (Zaira-wound Skin No Abnormality Appearance) (Pt Warm) -Ulcer Cleansing Soap and Water -Foul Odor after Cleansing No -Anesthetic Used 5% Lidocaine Gel 5. L charles -Combined with other wound No -Current Size (cm) - Length 5 1 -Current Size (cm) - Width 6.5 1 -Current Size (cm) - Depth 0.1 0.1 -Total Square Cm 32.5 1 -Tunneling No -Undermining/Tunneling No -Circular Undermining No -Exudate Amt Large Medium -Exudate Type Serosanguineous Serosanguineous -Wound Margin Distinct, Distinct, Outline Outline Attached Attached -Granulation Amt Medium (34-66%) Large (67-100%) -Granulation Quality [place] Red -Slough/Fibrin Yes -Necrosis Amt Medium (34-66%) -Necrotic Tissue Type Adherent Slough -Structure Exposed N/A -Texture (Zaira-wound Skin Appearance) Assessed, Assessed Excoriation -Moisture (Zaira-wound Skin Appearance) Assessed Assessed -Color (Zaira-wound Skin Appearance) Assessed Assessed -Temperature (Zaira-wound Skin No Abnormality No Abnormality Appearance) (Pt Warm) (Pt Warm) -Tenderness on Palpation (Zaira-wound No Skin Appearance) -Ulcer Cleansing Wound Cleanser Soap and Water -Foul Odor after Cleansing No -Anesthetic Used 4% Lidocaine 5% Lidocaine Solution Gel #2 R Post Calf -Combined with other wound No -Current Size (cm) - Length 12 6 -Current Size (cm) - Width 12 5.5 -Current Size (cm) - Depth 0.1 0.1 -Total Square Cm 144 33.0 -Tunneling No -Undermining/Tunneling No -Circular Undermining No -Exudate Amt Large Medium -Exudate Type Serosanguineous Serosanguineous -Wound Margin Distinct, Distinct, Outline Outline Attached Attached -Granulation Amt Medium (34-66%) Large (67-100%) -Granulation Quality [place] Red -Slough/Fibrin Yes -Necrosis Amt Medium (34-66%) -Necrotic Tissue Type Adherent Slough -Structure Exposed N/A -Texture (Zaira-wound Skin Appearance) Assessed, Assessed Excoriation -Moisture (Zaira-wound Skin Appearance) Assessed Assessed -Color (Zaira-wound Skin Appearance) Assessed Assessed, Erythema -Temperature (Zaira-wound Skin No Abnormality No Abnormality Appearance) (Pt Warm) (Pt Warm) -Tenderness on Palpation (Zaira-wound No Skin Appearance) -Ulcer Cleansing Wound Cleanser Soap and Water -Foul Odor after Cleansing -Anesthetic Used 4% Lidocaine 5% Lidocaine Solution, Gel Cetacaine Lower Limb Edema Present Yes Right Calf (cm) 37.2 38.5 Right Ankle (cm) 25.5 25 Left Calf (cm) 36 35 Left Ankle (cm) 24.5 22.5 WC - Nurse 2 - General Ulcer CM Notes Start: 10/09/23 09:54 Freq: Status: Active Protocol: Activity Type Activity Date Activity User E-sign Co-sign Detail Recorded Client Recorded Date Recorded By Document 10/23/23 11:24 PL [id number] 10/23/23 11:28 PL 10/23/23 11:24 Wound Center Nurse 2 #3 Left Medial Calf -Procedure Performed No -Wound/Ulcer Outcome Healed- Epithelialized #1 Right Ant Calf -Procedure Performed No -Wound/Ulcer Outcome Healed- Epithelialized 5. L charles -Time 09:43 -Correct Patient Yes -Correct Side, Site, Position Yes -Correct Procedure Yes -Procedure Performed Yes -Type of Procedure Debridement -Clinical Debridement Subcutaneous -Tissue Removed Subcutaneous -Post Debridement (cm) - Length 5.0 -Post Debridement (cm) - Width 6.5 -Post Debridement (cm) - Depth 0.1 -Total Square (Post) (cm) 32.50 -Area of Debridement (cm) - Length 5.0 -Area of Debridement (cm) - Width 6.5 -Total Square (Area) (cm) 32.50 -Tunneling No -Undermining/Tunneling No -Circular Undermining No -Wound/Ulcer Outcome Not Healed -Ulcer Cleansing Rinsed/ Irrigated with Saline -Foul Odor after Cleansing No -Bioengineered Tissue No -Bleeding Controlled with Pressure -Treatment Response Procedure Tolerated Well -Debridement - Subq, 1st 20sq cm Yes -Debridement, SubQ, ea addt'l 20sq cm 1 or part thereof #2 R Post Calf -Time 09:43 -Correct Patient Yes -Correct Side, Site, Position Yes -Correct Procedure Yes -Procedure Performed Yes -Type of Procedure Debridement -Clinical Debridement Subcutaneous -Tissue Removed Subcutaneous -Post Debridement (cm) - Length 12.0 -Post Debridement (cm) - Width 12.0 -Post Debridement (cm) - Depth 0.1 -Total Square (Post) (cm) 144.00 -Area of Debridement (cm) - Length 12.0 -Area of Debridement (cm) - Width 12.0 -Total Square (Area) (cm) 144.00 -Tunneling No -Undermining/Tunneling No -Circular Undermining No -Wound/Ulcer Outcome Not Healed -Ulcer Cleansing Rinsed/ Irrigated with Saline -Foul Odor after Cleansing No -Bioengineered Tissue Yes -Type of Bioengineered Tissue Epifix -Expiration Date 07/06/28 -Product Lot Number [id number] -Percent Used 100 -Bleeding Controlled with Pressure -Treatment Response Procedure Tolerated Well -Debridement - Subq, 1st 20sq cm No -Apply Skin Sub - 1st 25 sq cm - Legs 1 -Epifix (per sq cm) 4 Pain Scale: 0-10 Numeric Is Patient Pain Free? Yes WC - Nurse 3 - General Ulcer D/C NN Start: 10/09/23 09:54 Freq: Status: Active Protocol: Activity Type Activity Date Activity User E-sign Co-sign Detail Recorded Client Recorded Date Recorded By Document 10/09/23 10:53 RB Desktop 10/09/23 10:54 RB Document 10/16/23 09:38 MT Desktop 10/16/23 09:39 MT Document 10/23/23 10:09 DL Desktop 10/23/23 10:12 DL Document 10/30/23 10:32 KW Desktop 10/30/23 10:33 KW 10/09/23 10/16/23 10/23/23 10:53 09:38 10:09 Wound Care Center Nurse 3 #3 Left Medial Calf -Ulcer Cleansing Rinsed/ Irrigated with Saline -Foul Odor after Cleansing No -Other Dressing hydrogel hydrogel -Primary Dressing Covered/Secured with Dry Gauze & Dry Gauze & Roll Gauze, Roll Gauze, Secured with Secured with Tape Tape #1 Right Ant Calf -Ulcer Cleansing Rinsed/ Irrigated with Saline -Foul Odor after Cleansing No -Other Dressing hydrogel hydrogel -Primary Dressing Covered/Secured with Dry Gauze & Dry Gauze & Roll Gauze, Roll Gauze, Secured with Secured with Tape Tape #6 RT MEDIAL LE -Primary Dressing Covered/Secured with 5. L charles -Ulcer Cleansing Rinsed/ Irrigated with Saline -Foul Odor after Cleansing No -Primary Dressing Applied C Hydrogel ($) C Hydrogel ($) -Other Dressing hydrogel -Primary Dressing Covered/Secured with Dry Gauze & Dry Gauze & Roll Gauze, Roll Gauze, Secured with Secured with Tape Tape #2 R Post Calf -Primary Dressing Applied C Hydrogel ($) Mepilex Border -Other Dressing hydrogel epifix/hydrogel -Primary Dressing Covered/Secured with Dry Gauze,Dry Dry Gauze & Dry Gauze & Gauze & Roll Roll Gauze, Roll Gauze, Gauze,Secured Secured with Secured with with Tape Tape Tape -Mepilex Border 1 marianela -Tubular Bandage Single Layer -Size of Tubigrip Used Size D -Size D ($) 1 Right -Tubular Bandage Double Layer -Size of Tubigrip Used Size D Size D -Size D ($) 2 -Other size 36, marked for pt Left -Tubular Bandage Double Layer -Size of Tubigrip Used Size D Size C -Size D ($) 2 -Other size 33, marked for pt Treatment Response Procedure Procedure Tolerated Well Tolerated Well Pain Scale: 0-10 Numeric Is Patient Pain Free? Yes Yes Yes Teaching: Wound Center Dressing Your Wound -Person Taught Patient,Family -Teaching Method Discussion, Demonstration -Response to teaching Verbalize understanding WC - Visit Discharge Discharge Condition Stable Stable Stable Ambulatory Status Ambulatory Ambulatory Ambulatory Transportation Private Auto Private Auto Private Auto Medication Reconcilliation completed & No No provided to patient/care provider Clinical Summary of Care Provided Yes Yes Notes: tubigrip and dressing hydrogel applied per R. les Damon, RN today in clinic . 10/30/23 10:32 Wound Care Center Nurse 3 #3 Left Medial Calf -Ulcer Cleansing -Foul Odor after Cleansing -Other Dressing -Primary Dressing Covered/Secured with #1 Right Ant Calf -Ulcer Cleansing -Foul Odor after Cleansing -Other Dressing -Primary Dressing Covered/Secured with #6 RT MEDIAL LE -Primary Dressing Covered/Secured with Dry Gauze & Roll Gauze, Secured with Tape 5. L charles -Ulcer Cleansing -Foul Odor after Cleansing -Primary Dressing Applied -Other Dressing -Primary Dressing Covered/Secured with Dry Gauze & Roll Gauze, Secured with Tape #2 R Post Calf -Primary Dressing Applied -Other Dressing -Primary Dressing Covered/Secured with Dry Gauze & Roll Gauze, Secured with Tape -Mepilex Border marianela -Tubular Bandage -Size of Tubigrip Used -Size D ($) Right -Tubular Bandage -Size of Tubigrip Used -Size D ($) -Other Left -Tubular Bandage -Size of Tubigrip Used -Size D ($) -Other Treatment Response Pain Scale: 0-10 Numeric Is Patient Pain Free? Yes Teaching: Wound Center Dressing Your Wound -Person Taught -Teaching Method -Response to teaching WC - Visit Discharge Discharge Condition Stable Ambulatory Status Ambulatory Transportation Private Auto Medication Reconcilliation completed & No provided to patient/care provider Clinical Summary of Care Provided Yes Notes: Assessment/Plan Assessment/Plan (1) Venous stasis ulcer of right calf: CODE(S): I83.012 - Varicose veins of right lower extremity with ulcer of calf; L97.219 - Non-pressure chronic ulcer of right calf with unspecified severity QUALIFIERS: Varicose vein presence: with varicose veins Non- pressure ulcer stage: with fat layer exposed Qualified Code(s): I83.012 - Varicose veins of right lower extremity with ulcer of calf; L97.212 - Non- pressure chronic ulcer of right calf with fat layer exposed (2) Venous stasis ulcer: CODE(S): I83.009 - Varicose veins of unspecified lower extremity with ulcer of unspecified site; L97.909 - Non-pressure chronic ulcer of unspecified part of unspecified lower leg with unspecified severity QUALIFIERS: Venous stasis ulcer site: calf Varicose vein presence: with varicose veins Laterality: right Non-pressure ulcer stage: with fat layer exposed Qualified Code(s): I83.012 - Varicose veins of right lower extremity with ulcer of calf; L97.212 - Non-pressure chronic ulcer of right calf with fat layer exposed (3) Venous stasis ulcer of left calf: CODE(S): I83.022 - Varicose veins of left lower extremity with ulcer of calf; L97.229 - Non-pressure chronic ulcer of left calf with unspecified severity QUALIFIERS: Varicose vein presence: with varicose veins Non- pressure ulcer stage: with fat layer exposed Qualified Code(s): I83.022 - Varicose veins of left lower extremity with ulcer of calf; L97.222 - Non- pressure chronic ulcer of left calf with fat layer exposed (4) Venous stasis dermatitis of both lower extremities: CODE(S): I87.2 - Venous insufficiency (chronic) (peripheral) (5) Dependent edema: CODE(S): R60.9 - Edema, unspecified (6) Inactivity: CODE(S): Z72.3 - Lack of physical exercise (7) Debility: CODE(S): R53.81 - Other malaise (8) Atrial flutter: CODE(S): I48.92 - Unspecified atrial flutter (9) Persistent atrial fibrillation: CODE(S): I48.19 - Other persistent atrial fibrillation (10) Pulmonary HTN: CODE(S): I27.20 - Pulmonary hypertension, unspecified (11) ROSARIO (dyspnea on exertion): CODE(S): R06.09 - Other forms of dyspnea (12) Hypertension: CODE(S): I10 - Essential (primary) hypertension (13) Afib: CODE(S): I48.91 - Unspecified atrial fibrillation (14) History of prostate cancer: CODE(S): Z85.46 - Personal history of malignant neoplasm of prostate (15) History of umbilical hernia repair: CODE(S): Z98.890 - Other specified postprocedural states; Z87.19 - Personal history of other diseases of the digestive system (16) Chronic anticoagulation: CODE(S): Z79.01 - [facility] (current) use of anticoagulants PLAN: Plan This is an 82-year-old male who presented with swelling, edema, and recent cellulitis in his right lower extremity. He had multiple ulcerations in his lower extremities. It appears as though the patient's presenting manifestations were due to recently acquired habits, which include prolonged idle sitting and lower extremity dependency. Within the last several months, the patient had taken to sleeping in a recliner. Additionally, he spends long hours each day in an idle sitting position. He ambulates in very limited amounts. As result of these habits, the patient had noted worsening swelling and edema in his lower extremities, and the development of blisters, which resulted in open excoriations and ulcerations. He developed cellulitis in his right lower extremity, which required treatment with courses of antibiotics. We have discussed the conservative treatment measures appropriate to the management of his lower extremity symptoms and manifestations. He has been discouraged from sleeping in a recliner. He has been encouraged to sleep on a flat mattress, with legs elevated to heart level, or higher. If sleeping in a bed proves to be untenable, the alternative would be to sleep in his recliner, but with legs elevated and head down. The patient's legs are to be elevated to heart level, or higher, as much as possible, during both daytime and nighttime hours. Activity has been encouraged, though the patient is not likely to enhance his activity level to any significant degree. Prolonged idle sitting has been discouraged. The patient's weight is relatively optimal. Recent cultures were positive for Pseudomonas aeruginosa and Enterococcus faecalis. Based upon sensitivity results, the patient was prescribed Levaquin 750 mg p.o. daily for a total of 10 days. The course of antibiotics has now been completed. We are to continue compression to the lower extremities by means of Tubigrip's, which will be donned on a daily basis. We are to continue the use of collagen hydrogel topically to the superficial excoriations in both lower extremities. The patient has been instructed in the appropriate means of application. With respect to the persisting cutaneous erythema, which is suspected to be fungal in nature, a prescription has been provided for Lotrisone topical cream 1%/0.05%, which is to be applied twice daily to the intact erythematous skin. There has been improvement with regard to the cutaneous erythema within the last several weeks with the use of this preparation. The EpiFix allograft placed on the ulceration on the right posterior calf is to remain in place, undisturbed, until the patient returns in 1 week for reevaluation. The EpiFix allograft represents the fourth such application. Total time: 25 minutes
== END 2023-11-04 23:59 | disposition home or self-care (01) ==
LOC: WC 09:15
PROVIDERS: PCP Nurse Practitioner Primary Care; Referring Provider Nurse Practitioner Primary Care; Visit Provider Surgery
DX: I83.012 Varicose veins of right lower extremity with ulcer of calf (principal); L97.212 Non-pressure chronic ulcer of right calf with fat layer exposed; L97.222 Non-pressure chronic ulcer of left calf with fat layer exposed; I83.022 Varicose veins of left lower extremity with ulcer of calf; I27.20 Pulmonary hypertension, unspecified; I48.92 Unspecified atrial flutter; I48.19 Other persistent atrial fibrillation; Z79.01 Long term (current) use of anticoagulants; I10 Essential (primary) hypertension; Z79.899 Other long term (current) drug therapy
CPT/HCPCS: 11042; 11045; 15271; 99213; Q4186; G0463

== ENCOUNTER 2023-12-04 10:45 | Outpatient (RCR) | payer MEDICARE, OTHER, SELFPAY ==
[2023-11-05 00:37] VITALS: BP 155/59; PULSE 52; RESP 18; TEMP 36; BMI 29.2
[2023-11-06 09:51] VITALS: BP 170/44; PULSE 55; RESP 18; TEMP 35.2; BMI 29.2
--- NOTE | 2023-11-06 11:00 | HP.PCM_ITS ---
History of Present Illness Date of Service: 11/06/23 Chief Complaint: Bilateral lower extremity swelling, edema, and venous stasis dermatitis with ulcerations History of Wound: This is an 82-year-old male who presented with severe swelling and edema in both lower extremities, and dermatitic changes in his lower extremities bilaterally, which had been present for several months. The patient had undergone a change in his daily habits within the last several months. He had become inactive, spending large portions of each day in an idle sitting position. 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 Furthermore, he sleeps in a recliner. Within the last several months, he had noted the development of swelling and edema in both legs, as well as severe skin changes and the development of blisters and ulcerations. He denies a history of thrombophlebitis. He had been treated with antibiotic ointment topically. He had been diagnosed with cellulitis in his right lower extremity, for which he had been prescribed prescriptions for both doxycycline and cephalexin. The patient indicated he is a candidate for pacemaker insertion, but resolution of his lower extremity swelling, edema, ulcerations, and cellulitis are a prerequisite to pacemaker placement. [facility] Medical History Adenocarcinoma of prostate Afib Atrial flutter Chronic anticoagulation Debility Dependent edema History of prostate cancer Hypertension Inactivity Persistent atrial fibrillation Venous stasis dermatitis of both lower extremities Venous stasis ulcer Venous stasis ulcer of left calf Venous stasis ulcer of right calf Home Medications apixaban 5 mg tablet (Eliquis) 5 mg PO BID #60 tabs 03/26/23 [Rx Last Taken Unknown] amlodipine 5 mg tablet 5 mg PO DAILY #90 tabs 10/31/23 [Rx Last Taken Unknown] furosemide 40 mg tablet (Lasix) 40 mg PO DAILY #90 tabs 10/31/23 [Rx Last Taken Unknown] lisinopril 40 mg tablet 40 mg PO DAILY #90 tabs 10/31/23 [Rx Last Taken Unknown] spironolactone 25 mg tablet 25 mg PO DAILY #90 tabs 10/31/23 [Rx Last Taken Unknown] Allergy/AdvReac Type Severity Reaction Status Date / Time No Known Allergies Allergy Verified 10/31/23 14:27 Surgical History History of umbilical hernia repair Hx of umbilical hernia repair Social History Smoking Status: Never smoker alcohol intake: never substance use type: does not use caffeine: Yes Type: coffee Number of servings: 1 Vital Signs Vital Signs Vital Signs: 11/06/23 09:51 Temperature 95.3 F L Temperature Source Temporal Pulse Rate 55 L Respiratory Rate 18 Blood Pressure 170/44 H Blood Pressure Mean 86 Blood Pressure Source Monitor Blood Pressure Position Semi-Fowlers Blood Pressure Location Left Arm Oxygen Delivery Method Room Air Weight Weight: 198 lb Body Mass Index (BMI) 29.2 Physical Exam Const alert, oriented x3, no apparent distress, average body habitus and well nourished Constitutional Narrative: The patient's BMI is 29.2. General Appearance: cooperative, comfortable and well developed Orientation / Consciousness: awake, oriented to person, oriented to place and oriented to time HEENT normocephalic and head/scalp atraumatic Head and Scalp: normal to inspection, normocephalic and atraumatic External Ear: external ears normal Eyes PERRL and EOMs intact bilaterally General Eye: normal appearance of both eyes Resp normal respiratory effort, normal air movement, no retractions and no use of accessory muscles Effort and Inspection: able to speak in complete sentences and symmetric chest movement Extremity no calf tenderness General Extremity: Negative for clubbing or cyanosis Skin Wound Narrative: Mild bilateral lower extremity swelling and edema are noted. The cutaneous erythema continues to improve. The multiple clustered excoriations continue to heal and show improvement. Two large ulcerations persist on the patient's right posterior calf. A small excoriation is noted on the right medial calf. A small excoriation is also noted on the left pretibial surface. The excoriations continue to diminish in size. There is a small amount of bioburden associated with the ulcerations on the right posterior calf. They are generally pink and healthy in appearance. Dimensions are documented elsewhere. Neuro oriented x3, CN's II-XII intact bilaterally, moves all extremities and no focal motor deficits Sensorium / Orientation: awake, alert, oriented to person, oriented to place and oriented to time Psych Appearance: grossly normal and appropriate Attitude: calm Activity / Motor Behavior: appropriate eye contact Speech: normal speech Mood & Affect: euthymic mood Thought Process: normal thought process Thought Content: normal thought content Attention / Concentration: attention grossly intact Debridement Note Debridement Note Wound debrided: Right posterior calf ulcerations Laterality: Right Type of Debridement: Excisional debridement Anesthesia Used: 5% Lidocaine Gel Percentage of wound debrided: 100 Instrument Used: 5mm curette Severity: Fat Layer Exposed Amount of bleeding with debridement: Mild Bleeding Controlled with: Compression and gauze Patient tolerated procedure: Patient tolerated procedure well Debridement Free Text: The primary ulceration on the right posterior calf has previously been treated with 4 EpiFix allograft applications. The fifth such EpiFix allograft application was performed today. Following the routine excisional debridement, which was well-tolerated by the patient, a 2 cm x 2 cm EpiFix allograft was selected for topical placement. The EpiFix allograft was removed from its sterile packaging. It was placed in the appropriate orientation on the surface of the ulceration. Adaptic Touch was then placed, and anchored in place using Steri-Strips. The procedure was well-tolerated by the patient. Post-Debridement Measurements and Additional Note: Post-Debridement Measurements/Treatment - Nurse 1 - General Ulcer Assessment Start: 11/06/23 09:51 Freq: Status: Active Protocol: WC.LOWEXT Activity Type Activity Date Activity User E-sign Co-sign Detail Recorded Client Recorded Date Recorded By Document 11/06/23 09:51 KW Desktop 11/06/23 10:03 KW 11/06/23 09:51 - Today's Visit Information Type of service Nurse-only Visit Arrival Mode Ambulatory Accompanied by Patient Identification Verified (Name & Yes ) Height and Weight Body Mass Index (BMI) 29.2 BMI Classification Overweight Vital Signs Temperature (97.8 F-99.1 F) 95.3 F L Temperature Source Temporal Pulse Rate (60-100) 55 L Pulse Location Monitor Respiratory Rate (12-18) 18 Respiratory rate source Observation Oxygen Delivery Method Room Air Blood Pressure (90/60-120/80) 170/44 H Blood Pressure Mean 86 Source Monitor Position Semi-Fowlers Blood Pressure Location Left Arm History Since Last Visit- (Skip if this is Patient's initial visit) Have you changed medications since your No last visit? Any new allergies or adverse reactions No Had a fall/change in ADL's that may No increase risk of falls Signs or symptoms of abuse and/or No neglect since last visit Have you been in the hospital since your No last visit? Has dressing in place as prescribed Yes Has compression in place as prescribed Yes Has offloadiing in place as prescribed No Experienced any changes in pain level or No management Left Footwear Regular Shoe Right Footwear Regular Shoe Pain Scale: 0-10 Numeric Is Patient Pain Free? Yes WC - Nurse 1 - General Ulcer Measurement Start: 11/06/23 09:51 Freq: Status: Active Protocol: Activity Type Activity Date Activity User E-sign Co-sign Detail Recorded Client Recorded Date Recorded By Document 11/06/23 09:51 KW Desktop 11/06/23 10:03 KW 11/06/23 09:51 Wound Center Nurse 1 #6 RT MEDIAL LE -Current Size (cm) - Length 0.9 -Current Size (cm) - Width 1.0 -Current Size (cm) - Depth 0.1 -Total Square Cm 0.90 -Exudate Amt Small -Wound Margin Distinct, Outline Attached -Granulation Amt Large (67-100%) -Granulation Quality Red -Texture (Zaira-wound Skin Appearance) Assessed -Moisture (Zaira-wound Skin Appearance) Assessed -Color (Zaira-wound Skin Appearance) Assessed, Erythema -Temperature (Zaira-wound Skin No Abnormality Appearance) (Pt Warm) -Ulcer Cleansing Soap and Water -Anesthetic Used 5% Lidocaine Gel 5. L charles -Current Size (cm) - Length 0.3 -Current Size (cm) - Width 0.3 -Current Size (cm) - Depth 0.1 -Total Square Cm 0.09 -Exudate Amt Small -Exudate Type Serous -Wound Margin Distinct, Outline Attached -Granulation Amt Large (67-100%) -Granulation Quality Red -Texture (Zaira-wound Skin Appearance) Assessed -Moisture (Zaira-wound Skin Appearance) Assessed -Color (Zaira-wound Skin Appearance) Assessed -Temperature (Zaira-wound Skin No Abnormality Appearance) (Pt Warm) -Ulcer Cleansing Soap and Water -Anesthetic Used 5% Lidocaine Gel #2 R Post Calf -Current Size (cm) - Length 7.1 -Current Size (cm) - Width 4 -Current Size (cm) - Depth 0.1 -Total Square Cm 28.4 -Exudate Amt Small -Exudate Type Serosanguineous -Wound Margin Distinct, Outline Attached -Granulation Amt Large (67-100%) -Granulation Quality Red -Texture (Zaira-wound Skin Appearance) Assessed -Moisture (Zaira-wound Skin Appearance) Assessed -Color (Zaira-wound Skin Appearance) Assessed -Temperature (Zaira-wound Skin No Abnormality Appearance) (Pt Warm) -Ulcer Cleansing Soap and Water -Anesthetic Used 5% Lidocaine Gel Right Calf (cm) 38 Right Ankle (cm) 25.5 Left Calf (cm) 34.6 Left Ankle (cm) 23.5 Assessment/Plan Assessment/Plan (1) Venous stasis ulcer of right calf: CODE(S): I83.012 - Varicose veins of right lower extremity with ulcer of calf; L97.219 - Non-pressure chronic ulcer of right calf with unspecified severity QUALIFIERS: Varicose vein presence: with varicose veins Non- pressure ulcer stage: with fat layer exposed Qualified Code(s): I83.012 - Varicose veins of right lower extremity with ulcer of calf; L97.212 - Non- pressure chronic ulcer of right calf with fat layer exposed (2) Venous stasis ulcer: CODE(S): I83.009 - Varicose veins of unspecified lower extremity with ulcer of unspecified site; L97.909 - Non-pressure chronic ulcer of unspecified part of unspecified lower leg with unspecified severity QUALIFIERS: Venous stasis ulcer site: calf Varicose vein presence: with varicose veins Laterality: right Non-pressure ulcer stage: with fat layer exposed Qualified Code(s): I83.012 - Varicose veins of right lower extremity with ulcer of calf; L97.212 - Non-pressure chronic ulcer of right calf with fat layer exposed (3) Venous stasis ulcer of left calf: CODE(S): I83.022 - Varicose veins of left lower extremity with ulcer of calf; L97.229 - Non-pressure chronic ulcer of left calf with unspecified severity QUALIFIERS: Varicose vein presence: with varicose veins Non- pressure ulcer stage: with fat layer exposed Qualified Code(s): I83.022 - Varicose veins of left lower extremity with ulcer of calf; L97.222 - Non- pressure chronic ulcer of left calf with fat layer exposed (4) Venous stasis dermatitis of both lower extremities: CODE(S): I87.2 - Venous insufficiency (chronic) (peripheral) (5) Dependent edema: CODE(S): R60.9 - Edema, unspecified (6) Inactivity: CODE(S): Z72.3 - Lack of physical exercise (7) Debility: CODE(S): R53.81 - Other malaise (8) Atrial flutter: CODE(S): I48.92 - Unspecified atrial flutter (9) Persistent atrial fibrillation: CODE(S): I48.19 - Other persistent atrial fibrillation (10) Pulmonary HTN: CODE(S): I27.20 - Pulmonary hypertension, unspecified (11) ROSARIO (dyspnea on exertion): CODE(S): R06.09 - Other forms of dyspnea (12) Hypertension: CODE(S): I10 - Essential (primary) hypertension QUALIFIERS: Hypertension type: primary hypertension Qualified Code(s): I10 - Essential (primary) hypertension (13) Afib: CODE(S): I48.91 - Unspecified atrial fibrillation (14) History of prostate cancer: CODE(S): Z85.46 - Personal history of malignant neoplasm of prostate (15) History of umbilical hernia repair: CODE(S): Z98.890 - Other specified postprocedural states; Z87.19 - Personal history of other diseases of the digestive system (16) Chronic anticoagulation: CODE(S): Z79.01 - [facility] (current) use of anticoagulants PLAN: Plan This is an 82-year-old male who presented with swelling, edema, and recent cellulitis in his right lower extremity. He had multiple ulcerations in his lower extremities. It appears as though the patient's presenting manifestations were due to recently acquired habits, which include prolonged idle sitting and lower extremity dependency. Within the last several months, the patient had taken to sleeping in a recliner. Additionally, he spends long hours each day in an idle sitting position. He ambulates in very limited amounts. As result of these habits, the patient had noted worsening swelling and edema in his lower extremities, and the development of blisters, which resulted in open excoriations and ulcerations. He developed cellulitis in his right lower extremity, which required treatment with courses of antibiotics. We have discussed the conservative treatment measures appropriate to the management of his lower extremity symptoms and manifestations. He has been discouraged from sleeping in a recliner. He has been encouraged to sleep on a flat mattress, with legs elevated to heart level, or higher. If sleeping in a bed proves to be untenable, the alternative would be to sleep in his recliner, but with legs elevated and head down. The patient's legs are to be elevated to heart level, or higher, as much as possible, during both daytime and nighttime hours. Activity has been encouraged, though the patient is not likely to enhance his activity level to any significant degree. Prolonged idle sitting has been discouraged. The patient's weight is relatively optimal. Recent cultures were positive for Pseudomonas aeruginosa and Enterococcus faecalis. Based upon sensitivity results, the patient was prescribed Levaquin 750 mg p.o. daily for a total of 10 days. The course of antibiotics has now been completed. We are to continue compression to the lower extremities by means of Tubigrip's, which will be donned on a daily basis. We are to continue the use of collagen hydrogel top ically to the superficial excoriations in both lower extremities. The patient has been instructed in the appropriate means of application. With respect to the persisting cutaneous erythema, which is suspected to be fungal in nature, a prescription has been provided for Lotrisone topical cream 1%/0.05%, which is to be applied twice daily to the intact erythematous skin. There has been improvement with regard to the cutaneous erythema within the last several weeks with the use of this preparation. The EpiFix allograft placed on the ulceration on the right posterior calf is to remain in place, undisturbed, until the patient returns in 1 week for reevaluation. The EpiFix allograft represents the fifth such application. Total time: 24 minutes
[2023-11-13 09:46] VITALS: BP 162/63; PULSE 54; RESP 18; TEMP 36.2; BMI 29.2
--- NOTE | 2023-11-13 10:16 | HP.PCM_ITS ---
History of Present Illness Date of Service: 11/13/23 Chief Complaint: Bilateral lower extremity swelling, edema, and venous stasis dermatitis with ulcerations History of Wound: This is an 82-year-old male who presented with severe swelling and edema in both lower extremities, and dermatitic changes in his lower extremities bilaterally, which had been present for several months. The patient had undergone a change in his daily habits within the last several months. He had become inactive, spending large portions of each day in an idle sitting position. 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 Furthermore, he sleeps in a recliner. Within the last several months, he had noted the development of swelling and edema in both legs, as well as severe skin changes and the development of blisters and ulcerations. He denies a history of thrombophlebitis. He had been treated with antibiotic ointment topically. He had been diagnosed with cellulitis in his right lower extremity, for which he had been prescribed prescriptions for both doxycycline and cephalexin. The patient indicated he is a candidate for pacemaker insertion, but resolution of his lower extremity swelling, edema, ulcerations, and cellulitis are a prerequisite to pacemaker placement. [facility] Medical History Adenocarcinoma of prostate Afib Atrial flutter Chronic anticoagulation Debility Dependent edema History of prostate cancer Hypertension Inactivity Persistent atrial fibrillation Venous stasis dermatitis of both lower extremities Venous stasis ulcer Venous stasis ulcer of left calf Venous stasis ulcer of right calf Home Medications apixaban 5 mg tablet (Eliquis) 5 mg PO BID #60 tabs 03/26/23 [Rx Last Taken Unknown] amlodipine 5 mg tablet 5 mg PO DAILY #90 tabs 10/31/23 [Rx Last Taken Unknown] furosemide 40 mg tablet (Lasix) 40 mg PO DAILY #90 tabs 10/31/23 [Rx Last Taken Unknown] lisinopril 40 mg tablet 40 mg PO DAILY #90 tabs 10/31/23 [Rx Last Taken Unknown] spironolactone 25 mg tablet 25 mg PO DAILY #90 tabs 10/31/23 [Rx Last Taken Unknown] Allergy/AdvReac Type Severity Reaction Status Date / Time No Known Allergies Allergy Verified 10/31/23 14:27 Surgical History History of umbilical hernia repair Hx of umbilical hernia repair Social History Smoking Status: Never smoker alcohol intake: never substance use type: does not use caffeine: Yes Type: coffee Number of servings: 1 Vital Signs Vital Signs Vital Signs: 11/13/23 09:46 Temperature 97.2 F L Temperature Source Temporal Pulse Rate 54 L Respiratory Rate 18 Blood Pressure 162/63 H Blood Pressure Mean 96 Blood Pressure Source Monitor Blood Pressure Position Semi-Fowlers Blood Pressure Location Left Arm Weight Weight: 198 lb Body Mass Index (BMI) 29.2 Physical Exam Const alert, oriented x3, no apparent distress, average body habitus and well nourished Constitutional Narrative: The patient's BMI is 29.2. General Appearance: cooperative, comfortable and well developed Orientation / Consciousness: awake, oriented to person, oriented to place and oriented to time HEENT normocephalic and head/scalp atraumatic Head and Scalp: normal to inspection, normocephalic and atraumatic External Ear: external ears normal Eyes PERRL and EOMs intact bilaterally General Eye: normal appearance of both eyes Resp normal respiratory effort, normal air movement, no retractions and no use of accessory muscles Effort and Inspection: able to speak in complete sentences and symmetric chest movement Extremity no calf tenderness General Extremity: Negative for clubbing or cyanosis Skin Wound Narrative: Mild bilateral lower extremity swelling and edema are noted. The cutaneous erythema continues to improve. The multiple clustered excoriations continue to heal and show improvement. Several small ulcerations persist on the patient's right posterior calf. A small excoriation is noted on the right medial calf. A small excoriation is also noted on the left pretibial surface. The excoriations continue to diminish in size. There is a small amount of bioburden associated with the ulcerations on the right posterior calf. They are generally pink and healthy in appearance. Dimensions are documented elsewhere. There is no evidence of infection or cellulitis. Neuro oriented x3, CN's II-XII intact bilaterally, moves all extremities and no focal motor deficits Sensorium / Orientation: awake, alert, oriented to person, oriented to place and oriented to time Psych Appearance: grossly normal and appropriate Attitude: calm Activity / Motor Behavior: appropriate eye contact Speech: normal speech Mood & Affect: euthymic mood Thought Process: normal thought process Thought Content: normal thought content Attention / Concentration: attention grossly intact Debridement Note Debridement Note Wound debrided: Right posterior calf ulcerations Laterality: Right Type of Debridement: Excisional debridement Anesthesia Used: 5% Lidocaine Gel Percentage of wound debrided: 100 Instrument Used: 5mm curette Severity: Fat Layer Exposed Amount of bleeding with debridement: Mild Bleeding Controlled with: Compression and gauze Patient tolerated procedure: Patient tolerated procedure well Debridement Free Text: The ulcerations on the right posterior calf have previously been treated with 5 EpiFix allograft applications. The sixth such EpiFix allograft application was performed today. Following the routine excisional debridement, which was well-tolerated by the patient, a 2 cm x 2 cm EpiFix allograft was selected for topical placement. The EpiFix allograft was removed from its sterile packaging. It was cut into 3 separate pieces, and applied topically on each of the 3 clustered ulcerations on the right posterior calf. The allograft was placed in the appropriate orientation. Adaptic Touch was then placed over each,, and anchored in place using Steri-Strips. A large foam dressing was placed over the entire site. The procedure was well-tolerated by the patient. Several other superficial ulcerations, one on the right medial calf, and 1 on the left pretibial area, were debrided using a 3 mm curette, performing an excisional debridement. All procedures were well-tolerated by the patient today. 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 ) Arrival Mode Ambulatory Ambulatory Transfer Assistance None Accompanied by Patient Identification Verified (Name & Yes Yes ) Patient Requires Transmission-Based No Precautions Height and Weight Body Mass Index (BMI) 29.2 29.2 BMI Classification Overweight Overweight Vital Signs Temperature (97.8 F-99.1 F) 95.3 F L 97.2 F L Temperature Source Temporal Temporal Pulse Rate (60-100) 55 L 54 L Pulse Location Monitor Monitor Respiratory Rate (12-18) 18 18 Respiratory rate source Observation Observation Oxygen Delivery Method Room Air Blood Pressure (90/60-120/80) 170/44 H 162/63 H Blood Pressure Mean 86 96 Source Monitor Monitor Position Semi-Fowlers Semi-Fowlers Blood Pressure Location Left Arm Left Arm History Since Last Visit- (Skip if this is Patient's initial visit) Have you changed medications since your No No last visit? Any new allergies or adverse reactions No No Had a fall/change in ADL's that may No No increase risk of falls Signs or symptoms of abuse and/or No No neglect since last visit Have you been in the hospital since your No No last visit? Has dressing in place as prescribed Yes Yes Has compression in place as prescribed Yes Yes Has offloadiing in place as prescribed No No Experienced any changes in pain level or No No management Left Footwear Regular Shoe Right Footwear Regular Shoe Pain Scale: 0-10 Numeric Is Patient Pain Free? Yes Yes WC - Nurse 1 - General Ulcer Measurement Start: 11/06/23 09:51 Freq: Status: Active Protocol: Activity Type Activity Date Activity User E-sign Co-sign Detail Recorded Client Recorded Date Recorded By Document 11/06/23 09:51 KW Desktop 11/06/23 10:03 KW Document 11/13/23 09:46 RB Desktop 11/13/23 09:56 RB 11/06/23 11/13/23 09:51 09:46 Wound Center Nurse 1 #6 RT MEDIAL LE -Combined with other wound No -Current Size (cm) - Length 0.9 0.3 -Current Size (cm) - Width 1.0 1.1 -Current Size (cm) - Depth 0.1 0.1 -Total Square Cm 0.90 0.33 -Tunneling No -Undermining/Tunneling No -Circular Undermining No -Exudate Amt Small Large -Exudate Type Serosanguineous -Wound Margin Distinct, Distinct, Outline Outline Attached Attached -Granulation Amt Large (67-100%) Medium (34-66%) -Granulation Quality Red [place] -Slough/Fibrin Yes -Necrosis Amt Medium (34-66%) -Necrotic Tissue Type Adherent Slough -Structure Exposed N/A -Texture (Zaira-wound Skin Appearance) Assessed Assessed, Fluctuance -Moisture (Zaira-wound Skin Appearance) Assessed Assessed -Color (Zaira-wound Skin Appearance) Assessed, Assessed Erythema -Temperature (Zaira-wound Skin No Abnormality No Abnormality Appearance) (Pt Warm) (Pt Warm) -Tenderness on Palpation (Zaira-wound No Skin Appearance) -Ulcer Cleansing Soap and Water Wound Cleanser -Foul Odor after Cleansing No -Anesthetic Used 5% Lidocaine 5% Lidocaine Gel Gel 5. L charles -Combined with other wound No -Current Size (cm) - Length 0.3 0.4 -Current Size (cm) - Width 0.3 0.3 -Current Size (cm) - Depth 0.1 0.1 -Total Square Cm 0.09 0.12 -Tunneling No -Undermining/Tunneling No -Circular Undermining No -Exudate Amt Small Medium -Exudate Type Serous Serosanguineous -Wound Margin Distinct, Distinct, Outline Outline Attached Attached -Granulation Amt Large (67-100%) Medium (34-66%) -Granulation Quality [place] -Slough/Fibrin Yes -Necrosis Amt Medium (34-66%) -Necrotic Tissue Type Adherent Slough -Structure Exposed N/A -Texture (Zaira-wound Skin Appearance) Assessed Assessed -Moisture (Zaira-wound Skin Appearance) Assessed Assessed -Color (Zaira-wound Skin Appearance) Assessed Assessed, Erythema -Temperature (Zaira-wound Skin No Abnormality No Abnormality Appearance) (Pt Warm) (Pt Warm) -Tenderness on Palpation (Zaira-wound No Skin Appearance) -Ulcer Cleansing Soap and Water Wound Cleanser -Foul Odor after Cleansing No -Anesthetic Used 5% Lidocaine 5% Lidocaine Gel Gel #2 R Post Calf -Combined with other wound No -Current Size (cm) - Length 7.1 2.6 -Current Size (cm) - Width 4 1.9 -Current Size (cm) - Depth 0.1 0.1 -Total Square Cm 28.4 4.94 -Tunneling No -Undermining/Tunneling No -Circular Undermining No -Exudate Amt Small Medium -Exudate Type Serosanguineous Serosanguineous -Wound Margin Distinct, Distinct, Outline Outline Attached Attached -Granulation Amt Large (67-100%) Medium (34-66%) -Granulation Quality [place] -Slough/Fibrin Yes -Necrosis Amt Medium (34-66%) -Necrotic Tissue Type Adherent Slough -Structure Exposed N/A -Texture (Zaira-wound Skin Appearance) Assessed Excoriation -Moisture (Ziara-wound Skin Appearance) Assessed Assessed -Color (Zaira-wound Skin Appearance) Assessed Assessed -Temperature (Zaira-wound Skin No Abnormality No Abnormality Appearance) (Pt Warm) (Pt Warm) -Tenderness on Palpation (Zaira-wound No Skin Appearance) -Ulcer Cleansing Soap and Water Wound Cleanser -Foul Odor after Cleansing No -Anesthetic Used 5% Lidocaine 5% Lidocaine Gel Gel Lower Limb Edema Present Yes Right Calf (cm) 38 38 Right Ankle (cm) 25.5 24.6 Left Calf (cm) 34.6 35 Left Ankle (cm) 23.5 24.6 WC - Nurse 2 - General Ulcer CM Notes Start: 11/06/23 09:51 Freq: Status: Active Protocol: Activity Type Activity Date Activity User E-sign Co-sign Detail Recorded Client Recorded Date Recorded By Document 11/06/23 11:26 PL [id number] 11/06/23 11:30 PL 11/06/23 11:26 Wound Center Nurse 2 #6 RT MEDIAL LE -Time 10:16 -Correct Patient Yes -Correct Side, Site, Position Yes -Correct Procedure Yes -Procedure Performed Yes -Type of Procedure Debridement -Clinical Debridement Subcutaneous -Tissue Removed Subcutaneous -Post Debridement (cm) - Length 0.9 -Post Debridement (cm) - Width 1.0 -Post Debridement (cm) - Depth 0.1 -Total Square (Post) (cm) 0.90 -Area of Debridement (cm) - Length 0.9 -Area of Debridement (cm) - Width 1.0 -Total Square (Area) (cm) 0.90 -Tunneling No -Undermining/Tunneling No -Circular Undermining No -Wound/Ulcer Outcome Not Healed -Ulcer Cleansing Rinsed/ Irrigated with Saline -Foul Odor after Cleansing No -Bioengineered Tissue No -Bleeding Controlled with Pressure -Treatment Response Procedure Tolerated Well -Debridement - Subq, 1st 20sq cm No 5. L charles -Time 10:16 -Correct Patient Yes -Correct Side, Site, Position Yes -Correct Procedure Yes -Procedure Performed Yes -Type of Procedure Debridement -Clinical Debridement Subcutaneous -Tissue Removed Subcutaneous -Post Debridement (cm) - Length 0.3 -Post Debridement (cm) - Width 0.3 -Post Debridement (cm) - Depth 0.1 -Total Square (Post) (cm) 0.09 -Area of Debridement (cm) - Length 0.3 -Area of Debridement (cm) - Width 0.3 -Total Square (Area) (cm) 0.09 -Tunneling No -Undermining/Tunneling No -Circular Undermining No -Wound/Ulcer Outcome Not Healed -Ulcer Cleansing Rinsed/ Irrigated with Saline -Foul Odor after Cleansing No -Bioengineered Tissue No -Bleeding Controlled with Pressure -Treatment Response Procedure Tolerated Well -Debridement - Subq, 1st 20sq cm Yes #2 R Post Calf -Time 10:16 -Correct Patient Yes -Correct Side, Site, Position Yes -Correct Procedure Yes -Procedure Performed Yes -Type of Procedure Debridement -Clinical Debridement Subcutaneous -Tissue Removed Subcutaneous -Post Debridement (cm) - Length 7.1 -Post Debridement (cm) - Width 4.0 -Post Debridement (cm) - Depth 0.1 -Total Square (Post) (cm) 28.40 -Area of Debridement (cm) - Length 7.1 -Area of Debridement (cm) - Width 4.0 -Total Square (Area) (cm) 28.40 -Tunneling No -Undermining/Tunneling No -Circular Undermining No -Wound/Ulcer Outcome Not Healed -Ulcer Cleansing Rinsed/ Irrigated with Saline -Foul Odor after Cleansing No -Bioengineered Tissue Yes -Type of Bioengineered Tissue Epifix -Expiration Date 07/06/28 -Product Lot Number [id number] -Percent Used 100 -Bleeding Controlled with Pressure -Treatment Response Procedure Tolerated Well -Debridement - Subq, 1st 20sq cm No -Apply Skin Sub - 1st 25 sq cm - Legs 1 -Epifix (per sq cm) 4 Pain Scale: 0-10 Numeric Is Patient Pain Free? Yes WC - Nurse 3 - General Ulcer D/C NN Start: 11/06/23 09:51 Freq: Status: Active Protocol: Activity Type Activity Date Activity User E-sign Co-sign Detail Recorded Client Recorded Date Recorded By Document 11/06/23 10:02 [email or web address] [id number] 11/13/23 10:05 RB 11/06/23 10:02 Wound Care Center Nurse 3 #6 RT MEDIAL LE -Other Dressing hydrogel to open areas as ordered -Primary Dressing Covered/Secured with Dry Gauze,Dry Gauze & Roll Gauze,Secured with Tape 5. L charles -Primary Dressing Covered/Secured with Dry Gauze,Dry Gauze & Roll Gauze,Secured with Tape #2 R Post Calf -Primary Dressing Covered/Secured with Dry Gauze,Dry Gauze & Roll Gauze,Secured with Tape Right -Other tubigrip bilat Left -Other tubigrip bilat Treatment Response Procedure Tolerated Well Pain Scale: 0-10 Numeric Is Patient Pain Free? Yes WC - Visit Discharge Discharge Condition Stable Ambulatory Status Ambulatory Transportation Private Auto Medication Reconcilliation completed & No provided to patient/care provider Clinical Summary of Care Provided Yes Assessment/Plan Assessment/Plan (1) Venous stasis ulcer of right calf: CODE(S): I83.012 - Varicose veins of right lower extremity with ulcer of calf; L97.219 - Non-pressure chronic ulcer of right calf with unspecified severity QUALIFIERS: Varicose vein presence: with varicose veins Non- pressure ulcer stage: with fat layer exposed Qualified Code(s): I83.012 - Varicose veins of right lower extremity with ulcer of calf; L97.212 - Non- pressure chronic ulcer of right calf with fat layer exposed (2) Venous stasis ulcer: CODE(S): I83.009 - Varicose veins of unspecified lower extremity with ulcer of unspecified site; L97.909 - Non-pressure chronic ulcer of unspecified part of unspecified lower leg with unspecified severity QUALIFIERS: Venous stasis ulcer site: calf Varicose vein presence: with varicose veins Laterality: right Non-pressure ulcer stage: with fat layer exposed Qualified Code(s): I83.012 - Varicose veins of right lower extremity with ulcer of calf; L97.212 - Non-pressure chronic ulcer of right calf with fat layer exposed (3) Venous stasis ulcer of left calf: CODE(S): I83.022 - Varicose veins of left lower extremity with ulcer of calf; L97.229 - Non-pressure chronic ulcer of left calf with unspecified severity QUALIFIERS: Varicose vein presence: with varicose veins Non-pre ssure ulcer stage: with fat layer exposed Qualified Code(s): I83.022 - Varicose veins of left lower extremity with ulcer of calf; L97.222 - Non-pressure chronic ulcer of left calf with fat layer exposed (4) Venous stasis dermatitis of both lower extremities: CODE(S): I87.2 - Venous insufficiency (chronic) (peripheral) (5) Dependent edema: CODE(S): R60.9 - Edema, unspecified (6) Inactivity: CODE(S): Z72.3 - Lack of physical exercise (7) Debility: CODE(S): R53.81 - Other malaise (8) Atrial flutter: CODE(S): I48.92 - Unspecified atrial flutter (9) Persistent atrial fibrillation: CODE(S): I48.19 - Other persistent atrial fibrillation (10) Pulmonary HTN: CODE(S): I27.20 - Pulmonary hypertension, unspecified (11) ROSARIO (dyspnea on exertion): CODE(S): R06.09 - Other forms of dyspnea (12) Hypertension: CODE(S): I10 - Essential (primary) hypertension QUALIFIERS: Hypertension type: primary hypertension Qualified Code(s): I10 - Essential (primary) hypertension (13) Afib: CODE(S): I48.91 - Unspecified atrial fibrillation (14) History of prostate cancer: CODE(S): Z85.46 - Personal history of malignant neoplasm of prostate (15) History of umbilical hernia repair: CODE(S): Z98.890 - Other specified postprocedural states; Z87.19 - Personal history of other diseases of the digestive system (16) Chronic anticoagulation: CODE(S): Z79.01 - MCFP (current) use of anticoagulants PLAN: Plan This is an 82-year-old male who presented with swelling, edema, and recent cellulitis in his right lower extremity. He had multiple ulcerations in his lower extremities. It appears as though the patient's presenting manifestations were due to recently acquired habits, which include prolonged idle sitting and lower extremity dependency. Within the last several months, the patient had taken to sleeping in a recliner. Additionally, he spends long hours each day in an idle sitting position. He ambulates in very limited amounts. As result of these habits, the patient had noted worsening swelling and edema in his lower extremities, and the development of blisters, which resulted in open excoriations and ulcerations. He developed cellulitis in his right lower extremity, which required treatment with courses of antibiotics. We have discussed the conservative treatment measures appropriate to the management of his lower extremity symptoms and manifestations. He has been discouraged from sleeping in a recliner. He has been encouraged to sleep on a flat mattress, with legs elevated to heart level, or higher. If sleeping in a bed proves to be untenable, the alternative would be to sleep in his recliner, but with legs elevated and head down. The patient's legs are to be elevated to heart level, or higher, as much as possible, during both daytime and nighttime hours. Activi ty has been encouraged, though the patient is not likely to enhance his activity level to any significant degree. Prolonged idle sitting has been discouraged. The patient's weight is relatively optimal. Recent cultures were positive for Pseudomonas aeruginosa and Enterococcus faecalis. Based upon sensitivity results, the patient was prescribed Levaquin 750 mg p.o. daily for a total of 10 days. The course of antibiotics has now been completed. We are to continue compression to the lower extremities by means of Tubigrip's, which will be donned on a daily basis. We are to continue the use of collagen hydrogel topically to the superficial excoriations in both lower extremities. The patient has been instructed in the appropriate means of application. With respect to the persisting cutaneous erythema, which is suspected to be fungal in nature, a prescription has been provided for Lotrisone topical cream 1%/0.05%, which is to be applied twice daily to the intact erythematous skin. There has been improvement with regard to the cutaneous erythema within the last several weeks with the use of this preparation. The EpiFix allografts placed on the ulcerations on the right posterior calf are to remain in place, undisturbed, until the patient returns in 1 week for reevaluation. The EpiFix allograft represents the sixth such application. Total time: 25 minutes
[2023-11-20 10:28] VITALS: BP 171/75; PULSE 52; RESP 18; TEMP 36.3; BMI 29.2
--- NOTE | 2023-11-20 10:50 | HP.PCM_ITS ---
History of Present Illness Date of Service: 11/20/23 Chief Complaint: Bilateral lower extremity swelling, edema, and venous stasis dermatitis with ulcerations History of Wound: This is an 82-year-old male who presented with severe swelling and edema in both lower extremities, and dermatitic changes in his lower extremities bilaterally, which had been present for several months. The patient had undergone a change in his daily habits within the last several months. He had become inactive, spending large portions of each day in an idle sitting position. 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 Furthermore, he sleeps in a recliner. Within the last several months, he had noted the development of swelling and edema in both legs, as well as severe skin changes and the development of blisters and ulcerations. He denies a history of thrombophlebitis. He had been treated with antibiotic ointment topically. He had been diagnosed with cellulitis in his right lower extremity, for which he had been prescribed prescriptions for both doxycycline and cephalexin. The patient indicated he is a candidate for pacemaker insertion, but resolution of his lower extremity swelling, edema, ulcerations, and cellulitis are a prerequisite to pacemaker placement. [facility] Medical History Adenocarcinoma of prostate Afib Atrial flutter Chronic anticoagulation Debility Dependent edema History of prostate cancer Hypertension Inactivity Persistent atrial fibrillation Venous stasis dermatitis of both lower extremities Venous stasis ulcer Venous stasis ulcer of left calf Venous stasis ulcer of right calf Home Medications apixaban 5 mg tablet (Eliquis) 5 mg PO BID #60 tabs 03/26/23 [Rx Last Taken Unknown] amlodipine 5 mg tablet 5 mg PO DAILY #90 tabs 10/31/23 [Rx Last Taken Unknown] furosemide 40 mg tablet (Lasix) 40 mg PO DAILY #90 tabs 10/31/23 [Rx Last Taken Unknown] lisinopril 40 mg tablet 40 mg PO DAILY #90 tabs 10/31/23 [Rx Last Taken Unknown] spironolactone 25 mg tablet 25 mg PO DAILY #90 tabs 10/31/23 [Rx Last Taken Unknown] Allergy/AdvReac Type Severity Reaction Status Date / Time No Known Allergies Allergy Verified 10/31/23 14:27 Surgical History History of umbilical hernia repair Hx of umbilical hernia repair Social History Smoking Status: Never smoker alcohol intake: never substance use type: does not use caffeine: Yes Type: coffee Number of servings: 1 Vital Signs Vital Signs Vital Signs: 11/20/23 10:28 Temperature 97.4 F L Temperature Source Temporal Pulse Rate 52 L Respiratory Rate 18 Blood Pressure 171/75 H Blood Pressure Mean 107 Blood Pressure Source Monitor Blood Pressure Position Semi-Fowlers Blood Pressure Location Left Arm Oxygen Delivery Method Room Air Weight Weight: 198 lb Body Mass Index (BMI) 29.2 Physical Exam Const alert, oriented x3, no apparent distress, average body habitus and well nourished Constitutional Narrative: The patient's BMI is 29.2. General Appearance: cooperative, comfortable and well developed Orientation / Consciousness: awake, oriented to person, oriented to place and oriented to time HEENT normocephalic and head/scalp atraumatic Head and Scalp: normal to inspection, normocephalic and atraumatic External Ear: external ears normal Eyes PERRL and EOMs intact bilaterally General Eye: normal appearance of both eyes Resp normal respiratory effort, normal air movement, no retractions and no use of accessory muscles Effort and Inspection: able to speak in complete sentences and symmetric chest movement Extremity no calf tenderness General Extremity: Negative for clubbing or cyanosis Skin Wound Narrative: Mild bilateral lower extremity swelling and edema are noted. The cutaneous erythema is essentially resolved. The multiple clustered excoriations are now healed and epithelialized. There is no evidence of infection or cellulitis. Neuro oriented x3, CN's II-XII intact bilaterally, moves all extremities and no focal motor deficits Sensorium / Orientation: awake, alert, oriented to person, oriented to place and oriented to time Psych Appearance: grossly normal and appropriate Attitude: calm Activity / Motor Behavior: appropriate eye contact Speech: normal speech Mood & Affect: euthymic mood Thought Process: normal thought process Thought Content: normal thought content Attention / Concentration: attention grossly intact Debridement Note Debridement Note No debridement was completed: No debridement was completed today Post-Debridement Measurements and Additional Note: Post-Debridement Measurements/Treatment WC - Nurse 1 - General Ulcer Assessment Start: 11/06/23 09:51 Freq: Status: Active Protocol: MILA.LOWEXT Activity Type Activity Date Activity User E-sign Co-sign Detail Recorded Client Recorded Date Recorded By Document 11/06/23 09:51 KW Desktop 11/06/23 10:03 KW Document 11/13/23 09:46 RB Desktop 11/13/23 09:56 RB Document 11/20/23 10:28 KW Desktop 11/20/23 10:35 KW 11/06/23 11/13/23 11/20/23 09:51 09:46 10:28 - Today's Visit Information Type of service Nurse-only Follow-up Visit Follow-up Visit Visit (Physician/KIT PLANNER (Physician/KIT PLANNER ) ) Arrival Mode Ambulatory Ambulatory Ambulatory Transfer Assistance None Accompanied by Patient Identification Verified (Name & Yes Yes Yes ) Patient Requires Transmission-Based No Precautions Height and Weight Body Mass Index (BMI) 29.2 29.2 29.2 BMI Classification Overweight Overweight Overweight Vital Signs Temperature (97.8 F-99.1 F) 95.3 F L 97.2 F L 97.4 F L Temperature Source Temporal Temporal Temporal Pulse Rate (60-100) 55 L 54 L 52 L Pulse Location Monitor Monitor Respiratory Rate (12-18) 18 18 18 Respiratory rate source Observation Observation Observation Oxygen Delivery Method Room Air Room Air Blood Pressure (90/60-120/80) 170/44 H 162/63 H 171/75 H Blood Pressure Mean 86 96 107 Source Monitor Monitor Monitor Position Semi-Fowlers Semi-Fowlers Semi-Fowlers Blood Pressure Location Left Arm Left Arm Left Arm History Since Last Visit- (Skip if this is Patient's initial visit) Have you changed medications since your No No No last visit? Any new allergies or adverse reactions No No No Had a fall/change in ADL's that may No No No increase risk of falls Signs or symptoms of abuse and/or No No No neglect since last visit Have you been in the hospital since your No No No last visit? Has dressing in place as prescribed Yes Yes Yes Has compression in place as prescribed Yes Yes Yes Has offloadiing in place as prescribed No No No Experienced any changes in pain level or No No No management Left Footwear Regular Shoe Regular Shoe Right Footwear Regular Shoe Regular Shoe Pain Scale: 0-10 Numeric Is Patient Pain Free? Yes Yes Yes - Nurse 1 - General Ulcer Measurement Start: 11/06/23 09:51 Freq: Status: Active Protocol: Activity Type Activity Date Activity User E-sign Co-sign Detail Recorded Client Recorded Date Recorded By Document 11/06/23 09:51 KW Desktop 11/06/23 10:03 KW Document 11/13/23 09:46 RB Desktop 11/13/23 09:56 RB Document 11/20/23 10:28 KW Desktop 11/20/23 10:35 KW 11/06/23 11/13/23 11/20/23 09:51 09:46 10:28 Wound Center Nurse 1 #6 RT MEDIAL LE -Combined with other wound No -Current Size (cm) - Length 0.9 0.3 0.1 -Current Size (cm) - Width 1.0 1.1 0.1 -Current Size (cm) - Depth 0.1 0.1 0.1 -Total Square Cm 0.90 0.33 0.01 -Tunneling No -Undermining/Tunneling No -Circular Undermining No -Exudate Amt Small Large Small -Exudate Type Serosanguineous Serosanguineous -Wound Margin Distinct, Distinct, Distinct, Outline Outline Outline Attached Attached Attached -Granulation Amt Large (67-100%) Medium (34-66%) Medium (34-66%) -Granulation Quality Red [place] -Slough/Fibrin Yes -Necrosis Amt Medium (34-66%) -Necrotic Tissue Type Adherent Slough -Structure Exposed N/A -Texture (Zaira-wound Skin Appearance) Assessed Assessed, Assessed Fluctuance -Moisture (Zaira-wound Skin Appearance) Assessed Assessed Assessed -Color (Zaira-wound Skin Appearance) Assessed, Assessed Assessed Erythema -Temperature (Zaira-wound Skin No Abnormality No Abnormality No Abnormality Appearance) (Pt Warm) (Pt Warm) (Pt Warm) -Tenderness on Palpation (Zaira-wound No Skin Appearance) -Ulcer Cleansing Soap and Water Wound Cleanser Soap and Water -Foul Odor after Cleansing No -Anesthetic Used 5% Lidocaine 5% Lidocaine 5% Lidocaine Gel Gel Gel 5. L charles -Combined with other wound No -Current Size (cm) - Length 0.3 0.4 0.1 -Current Size (cm) - Width 0.3 0.3 0.1 -Current Size (cm) - Depth 0.1 0.1 0.1 -Total Square Cm 0.09 0.12 0.01 -Tunneling No -Undermining/Tunneling No -Circular Undermining No -Exudate Amt Small Medium Small -Exudate Type Serous Serosanguineous Serosanguineous -Wound Margin Distinct, Distinct, Distinct, Outline Outline Outline Attached Attached Attached -Granulation Amt Large (67-100%) Medium (34-66%) Medium (34-66%) -Granulation Quality Red [place] Red -Slough/Fibrin Yes -Necrosis Amt Medium (34-66%) -Necrotic Tissue Type Adherent Slough -Structure Exposed N/A -Texture (Zaira-wound Skin Appearance) Assessed Assessed Assessed -Moisture (Zaira-wound Skin Appearance) Assessed Assessed Assessed -Color (Zaira-wound Skin Appearance) Assessed Assessed, Assessed Erythema -Temperature (Zaira-wound Skin No Abnormality No Abnormality No Abnormality Appearance) (Pt Warm) (Pt Warm) (Pt Warm) -Tenderness on Palpation (Zaira-wound No Skin Appearance) -Ulcer Cleansing Soap and Water Wound Cleanser Soap and Water -Foul Odor after Cleansing No -Anesthetic Used 5% Lidocaine 5% Lidocaine 5% Lidocaine Gel Gel Gel #2 R Post Calf -Combined with other wound No -Current Size (cm) - Length 7.1 2.6 0.1 -Current Size (cm) - Width 4 1.9 0.1 -Current Size (cm) - Depth 0.1 0.1 0.1 -Total Square Cm 28.4 4.94 0.01 -Tunneling No -Undermining/Tunneling No -Circular Undermining No -Exudate Amt Small Medium Small -Exudate Type Serosanguineous Serosanguineous Serosanguineous -Wound Margin Distinct, Distinct, Distinct, Outline Outline Outline Attached Attached Attached -Granulation Amt Large (67-100%) Medium (34-66%) Small (1-33%) -Granulation Quality Red [place] Clearfield -Slough/Fibrin Yes -Necrosis Amt Medium (34-66%) -Necrotic Tissue Type Adherent Slough -Structure Exposed N/A -Texture (Zaira-wound Skin Appearance) Assessed Excoriation Assessed -Moisture (Zaira-wound Skin Appearance) Assessed Assessed Assessed -Color (Zaira-wound Skin Appearance) Assessed Assessed Assessed -Temperature (Zaira-wound Skin No Abnormality No Abnormality No Abnormality Appearance) (Pt Warm) (Pt Warm) (Pt Warm) -Tenderness on Palpation (Zaira-wound No Skin Appearance) -Ulcer Cleansing Soap and Water Wound Cleanser Soap and Water -Foul Odor after Cleansing No -Anesthetic Used 5% Lidocaine 5% Lidocaine 5% Lidocaine Gel Gel Gel Lower Limb Edema Present Yes Right Calf (cm) 38 38 37.5 Right Ankle (cm) 25.5 24.6 26 Left Calf (cm) 34.6 35 34 Left Ankle (cm) 23.5 24.6 23 WC - Nurse 2 - General Ulcer CM Notes Start: 11/06/23 09:51 Freq: Status: Active Protocol: Activity Type Activity Date Activity User E-sign Co-sign Detail Recorded Client Recorded Date Recorded By Document 11/06/23 11:26 PL [id number] 11/06/23 11:30 PL Document 11/13/23 10:59 PL [id number] 11/13/23 11:18 PL 11/06/23 11/13/23 11:26 10:59 Wound Center Nurse 2 #6 RT MEDIAL LE -Time 10:16 09:57 -Correct Patient Yes Yes -Correct Side, Site, Position Yes Yes -Correct Procedure Yes Yes -Procedure Performed Yes Yes -Type of Procedure Debridement Debridement -Clinical Debridement Subcutaneous Subcutaneous -Tissue Removed Subcutaneous Subcutaneous -Post Debridement (cm) - Length 0.9 0.3 -Post Debridement (cm) - Width 1.0 1.1 -Post Debridement (cm) - Depth 0.1 0.1 -Total Square (Post) (cm) 0.90 0.33 -Area of Debridement (cm) - Length 0.9 0.3 -Area of Debridement (cm) - Width 1.0 1.1 -Total Square (Area) (cm) 0.90 0.33 -Tunneling No No -Undermining/Tunneling No No -Circular Undermining No No -Wound/Ulcer Outcome Not Healed Not Healed -Ulcer Cleansing Rinsed/ Rinsed/ Irrigated with Irrigated with Saline Saline -Foul Odor after Cleansing No No -Bioengineered Tissue No No -Bleeding Controlled with Pressure Pressure -Treatment Response Procedure Procedure Tolerated Well Tolerated Well -Debridement - Subq, 1st 20sq cm No No 5. L charles -Time 10:16 09:57 -Correct Patient Yes Yes -Correct Side, Site, Position Yes Yes -Correct Procedure Yes Yes -Procedure Performed Yes Yes -Type of Procedure Debridement Debridement -Clinical Debridement Subcutaneous Subcutaneous -Tissue Removed Subcutaneous Subcutaneous -Post Debridement (cm) - Length 0.3 0.4 -Post Debridement (cm) - Width 0.3 0.3 -Post Debridement (cm) - Depth 0.1 0.1 -Total Square (Post) (cm) 0.09 0.12 -Area of Debridement (cm) - Length 0.3 0.4 -Area of Debridement (cm) - Width 0.3 0.3 -Total Square (Area) (cm) 0.09 0.12 -Tunneling No No -Undermining/Tunneling No No -Circular Undermining No No -Wound/Ulcer Outcome Not Healed Not Healed -Ulcer Cleansing Rinsed/ Rinsed/ Irrigated with Irrigated with Saline Saline -Foul Odor after Cleansing No No -Bioengineered Tissue No No -Bleeding Controlled with Pressure Pressure -Treatment Response Procedure Procedure Tolerated Well Tolerated Well -Debridement - Subq, 1st 20sq cm Yes Yes #2 R Post Calf -Time 10:16 09:57 -Correct Patient Yes Yes -Correct Side, Site, Position Yes Yes -Correct Procedure Yes Yes -Procedure Performed Yes Yes -Type of Procedure Debridement Debridement -Clinical Debridement Subcutaneous Subcutaneous -Tissue Removed Subcutaneous Subcutaneous -Post Debridement (cm) - Length 7.1 2.6 -Post Debridement (cm) - Width 4.0 1.9 -Post Debridement (cm) - Depth 0.1 0.1 -Total Square (Post) (cm) 28.40 4.94 -Area of Debridement (cm) - Length 7.1 2.6 -Area of Debridement (cm) - Width 4.0 1.9 -Total Square (Area) (cm) 28.40 4.94 -Tunneling No No -Undermining/Tunneling No No -Circular Undermining No No -Wound/Ulcer Outcome Not Healed Not Healed -Ulcer Cleansing Rinsed/ Rinsed/ Irrigated with Irrigated with Saline Saline -Foul Odor after Cleansing No No -Bioengineered Tissue Yes Yes -Type of Bioengineered Tissue Epifix Epifix -Expiration Date 07/06/28 07/06/28 -Product Lot Number [id number] -Percent Used 100 100 -Bleeding Controlled with Pressure Pressure -Treatment Response Procedure Procedure Tolerated Well Tolerated Well -Debridement - Subq, 1st 20sq cm No No -Apply Skin Sub - 1st 25 sq cm - Legs 1 1 -Epifix (per sq cm) 4 4 Pain Scale: 0-10 Numeric Is Patient Pain Free? Yes Yes - Nurse 3 - General Ulcer D/C NN Start: 11/06/23 09:51 Freq: Status: Active Protocol: Activity Type Activity Date Activity User E-sign Co-sign Detail Recorded Client Recorded Date Recorded By Document 11/06/23 10:02 RB [id number] 11/13/23 10:05 RB Document 11/13/23 10:16 KW Desktop 11/13/23 10:17 KW 11/06/23 11/13/23 10:02 10:16 Wound Care Center Nurse 3 #6 RT MEDIAL LE -Primary Dressing Applied C Hydrogel ($) -Other Dressing hydrogel to open areas as ordered -Primary Dressing Covered/Secured with Dry Gauze,Dry Dry Gauze & Gauze & Roll Roll Gauze, Gauze,Secured Secured with with Tape Tape 5. L charles -Primary Dressing Covered/Secured with Dry Gauze,Dry Dry Gauze & Gauze & Roll Roll Gauze, Gauze,Secured Secured with with Tape Tape #2 R Post Calf -Primary Dressing Applied Mepilex Border -Primary Dressing Covered/Secured with Dry Gauze,Dry Gauze & Roll Gauze,Secured with Tape -Mepilex Border 1 Right -Tubular Bandage Single Layer -Size of Tubigrip Used Size D -Size D ($) 1 -Other tubigrip bilat Left -Tubular Bandage Single Layer -Size of Tubigrip Used Size D -Size D ($) 1 -Other tubigrip bilat Treatment Response Procedure Tolerated Well Pain Scale: 0-10 Numeric Is Patient Pain Free? Yes Yes - Visit Discharge Discharge Condition Stable Stable Ambulatory Status Ambulatory Ambulatory Transportation Private Auto Private Auto Medication Reconcilliation completed & No No provided to patient/care provider Clinical Summary of Care Provided Yes Yes Assessment/Plan Assessment/Plan (1) Venous stasis ulcer of right calf: CODE(S): I83.012 - Varicose veins of right lower extremity with ulcer of c leda; L97.219 - Non-pressure chronic ulcer of right calf with unspecified severity QUALIFIERS: Varicose vein presence: with varicose veins Non- pressure ulcer stage: with fat layer exposed Qualified Code(s): I83.012 - Varicose veins of right lower extremity with ulcer of calf; L97.212 - Non- pressure chronic ulcer of right calf with fat layer exposed (2) Venous stasis ulcer: CODE(S): I83.009 - Varicose veins of unspecified lower extremity with ulcer of unspecified site; L97.909 - Non-pressure chronic ulcer of unspecified part of unspecified lower leg with unspecified severity QUALIFIERS: Venous stasis ulcer site: calf Varicose vein presence: with varicose veins Laterality: right Non-pressure ulcer stage: with fat layer exposed Qualified Code(s): I83.012 - Varicose veins of right lower extremity with ulcer of calf; L97.212 - Non-pressure chronic ulcer of right calf with fat layer exposed (3) Venous stasis ulcer of left calf: CODE(S): I83.022 - Varicose veins of left lower extremity with ulcer of calf; L97.229 - Non-pressure chronic ulcer of left calf with unspecified severity QUALIFIERS: Varicose vein presence: with varicose veins Non- pressure ulcer stage: with fat layer exposed Qualified Code(s): I83.022 - Varicose veins of left lower extremity with ulcer of calf; L97.222 - Non- pressure chronic ulcer of left calf with fat layer exposed (4) Venous stasis dermatitis of both lower extremities: CODE(S): I87.2 - Venous insufficiency (chronic) (peripheral) (5) Dependent edema: CODE(S): R60.9 - Edema, unspecified (6) Inactivity: CODE(S): Z72.3 - Lack of physical exercise (7) Debility: CODE(S): R53.81 - Other malaise (8) Atrial flutter: CODE(S): I48.92 - Unspecified atrial flutter (9) Persistent atrial fibrillation: CODE(S): I48.19 - Other persistent atrial fibrillation (10) Pulmonary HTN: CODE(S): I27.20 - Pulmonary hypertension, unspecified (11) ROSARIO (dyspnea on exertion): CODE(S): R06.09 - Other forms of dyspnea (12) Hypertension: CODE(S): I10 - Essential (primary) hypertension QUALIFIERS: Hypertension type: primary hypertension Qualified Code(s): I10 - Essential (primary) hypertension (13) Afib: CODE(S): I48.91 - Unspecified atrial fibrillation (14) History of prostate cancer: CODE(S): Z85.46 - Personal history of malignant neoplasm of prostate (15) History of umbilical hernia repair: CODE(S): Z98.890 - Other specified postprocedural states; Z87.19 - Personal history of other diseases of the digestive system (16) Chronic anticoagulation: CODE(S): Z79.01 - [facility] (current) use of anticoagulants PLAN: Plan This is an 82-year-old male who presented with swelling, edema, and recent cellulitis in his right lower extremity. He had multiple ulcerations in his lower extremities. It appears as though the patient's presenting manifestations were due to recently acquired habits, which include prolonged idle sitting and lower extremity dependency. Within the last several months, the patient had taken to sleeping in a recliner. Additionally, he spends long hours each day in an idle sitting position. He ambulates in very limited amounts. As result of these habits, the patient had noted worsening swelling and edema in his lower extremities, and the development of blisters, which resulted in open excoriations and ulcerations. He developed cellulitis in his right lower extremity, which required treatment with courses of antibiotics. We have di scussed the conservative treatment measures appropriate to the management of his lower extremity symptoms and manifestations. He has been discouraged from sleeping in a recliner. He has been encouraged to sleep on a flat mattress, with legs elevated to heart level, or higher. If sleeping in a bed proves to be untenable, the alternative would be to sleep in his recliner, but with legs elevated and head down. The patient's legs are to be elevated to heart level, or higher, as much as possible, during both daytime and nighttime hours. Activity has been encouraged, though the patient is not likely to enhance his activity level to any significant degree. Prolonged idle sitting has been discouraged. The patient's weight is relatively optimal. Recent cultures were positive for Pseudomonas aeruginosa and Enterococcus faecalis. Based upon sensitivity results, the patient was prescribed Levaquin 750 mg p.o. daily for a total of 10 days. The course of antibiotics has been completed. The ulcerations on the patient's lower extremities are healed and epithelialized. Therefore, the patient is to be discharged. He is to continue using Tubigrip on a daily basis, upon arising each morning. Arrangements are for the patient to obtain CircAid Velcro compression garments which are to be worn on a daily basis long-term. He is to use the Tubigrip's until the CircAid garments are obtained. Once obtained, the patient will return to the wound center for a nurse visit, so the patient and his can be instructed in the appropriate means of donning and doffing each day. Total time: 24 minutes
[2023-12-04 10:44] VITALS: BP 170/86; PULSE 55; RESP 18; TEMP 36.1; BMI 29.2
--- NOTE | 2023-12-04 11:28 | PCM.WC.HP ---
History of Present Illness Date of Service: 12/04/23 Chief Complaint: Bilateral lower extremity swelling, edema, and venous stasis dermatitis with ulcerations History of Wound: This is an 83-year-old male who presented with severe swelling and edema in both lower extremities, and dermatitic changes in his lower extremities bilaterally, which had been present for several months. The patient had undergone a change in his daily habits within the last several months. He had become inactive, spending large portions of each day in an idle sitting position. 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 Furthermore, he sleeps in a recliner. Within the last several months, he had noted the development of swelling and edema in both legs, as well as severe skin changes and the development of blisters and ulcerations. He denies a history of thrombophlebitis. He had been treated with antibiotic ointment topically. He had been diagnosed with cellulitis in his right lower extremity, for which he had been prescribed prescriptions for both doxycycline and cephalexin. The patient indicated he is a candidate for pacemaker insertion, but resolution of his lower extremity swelling, edema, ulcerations, and cellulitis are a prerequisite to pacemaker placement. REPLACED BY [facility] Medical History Adenocarcinoma of prostate Afib Atrial flutter Chronic anticoagulation Debility Dependent edema History of prostate cancer Hypertension Inactivity Persistent atrial fibrillation Venous stasis dermatitis of both lower extremities Venous stasis ulcer Venous stasis ulcer of left calf Venous stasis ulcer of right calf Home Medications apixaban 5 mg tablet (Eliquis) 5 mg PO BID #60 tabs 03/26/23 [Rx Last Taken Unknown] amlodipine 5 mg tablet 5 mg PO DAILY #90 tabs 10/31/23 [Rx Last Taken Unknown] furosemide 40 mg tablet (Lasix) 40 mg PO DAILY #90 tabs 10/31/23 [Rx Last Taken Unknown] lisinopril 40 mg tablet 40 mg PO DAILY #90 tabs 10/31/23 [Rx Last Taken Unknown] spironolactone 25 mg tablet 25 mg PO DAILY #90 tabs 10/31/23 [Rx Last Taken Unknown] Allergy/AdvReac Type Severity Reaction Status Date / Time No Known Allergies Allergy Verified 10/31/23 14:27 Surgical History History of umbilical hernia repair Hx of umbilical hernia repair Social History Smoking Status: Never smoker alcohol intake: never substance use type: does not use caffeine: Yes Type: coffee Number of servings: 1 Vital Signs Vital Signs Vital Signs: 12/04/23 10:44 Temperature 96.9 F L Temperature Source Temporal Pulse Rate 55 L Respiratory Rate 18 Blood Pressure 170/86 H Blood Pressure Mean 114 Blood Pressure Source Monitor Blood Pressure Position Sitting Blood Pressure Location Right Arm Oxygen Delivery Method Room Air Weight Weight: 198 lb Body Mass Index (BMI) 29.2 Physical Exam Const alert, oriented x3, no apparent distress, average body habitus and well nourished Constitutional Narrative: The patient's BMI is 29.2. General Appearance: cooperative, comfortable and well developed Orientation / Consciousness: awake, oriented to person, oriented to place and oriented to time HEENT normocephalic and head/scalp atraumatic Head and Scalp: normal to inspection, normocephalic and atraumatic External Ear: external ears normal Eyes PERRL and EOMs intact bilaterally General Eye: normal appearance of both eyes Resp normal respiratory effort, normal air movement, no retractions and no use of accessory muscles Effort and Inspection: able to speak in complete sentences and symmetric chest movement Extremity no calf tenderness General Extremity: Negative for clubbing or cyanosis Skin Wound Narrative: Mild bilateral lower extremity swelling and edema are noted. The cutaneous erythema is essentially resolved. A small ulceration is noted on the right lateral calf, and on the left pretibial surface. Dimensions are documented elsewhere. There is no sign of infection or cellulitis. There is a small amount of bioburden at each site. Neuro oriented x3, CN's II-XII intact bilaterally, moves all extremities and no focal motor deficits Sensorium / Orientation: awake, alert, oriented to person, oriented to place and oriented to time Psych Appearance: grossly normal and appropriate Attitude: calm Activity / Motor Behavior: appropriate eye contact Speech: normal speech Mood & Affect: euthymic mood Thought Process: normal thought process Thought Content: normal thought content Attention / Concentration: attention grossly intact Debridement Note Debridement Note Wound debrided: Right lateral calf Laterality: Right Type of Debridement: Excisional debridement Anesthesia Used: 5% Lidocaine Gel Depth: Down to and including healthy tissue and in the subcutaneous layer Percentage of wound debrided: 100 Instrument Used: 3mm curette Tissue Removed: Bioburden Severity: Fat Layer Exposed Amount of bleeding with debridement: Mild Bleeding Controlled with: Compression and gauze Patient tolerated procedure: Patient tolerated procedure well Post-Debridement Measurements and Additional Note: Post-Debridement Measurements/Treatment WC - Nurse 1 - General Ulcer Assessment Start: 11/06/23 09:51 Freq: Status: Active Protocol: CHANCE Activity Type Activity Date Activity User E-sign Co-sign Detail Recorded Client Recorded Date Recorded By Document 11/06/23 09:51 KW Desktop 11/06/23 10:03 KW Document 11/13/23 09:46 RB Desktop 11/13/23 09:56 RB Document 11/20/23 10:28 KW Desktop 11/20/23 10:35 KW Document 12/04/23 10:44 KW Desktop 12/04/23 10:59 KW 11/06/23 11/13/23 11/20/23 09:51 09:46 10:28 - Today's Visit Information Type of service Nurse-only Follow-up Visit Follow-up Visit Visit (Physician/BREAKER ENGINEER (Physician/BREAKER ENGINEER ) ) Arrival Mode Ambulatory Ambulatory Ambulatory Transfer Assistance None Accompanied by Patient Identification Verified (Name & Yes Yes Yes ) Patient Requires Transmission-Based No Precautions Height and Weight Body Mass Index (BMI) 29.2 29.2 29.2 BMI Classification Overweight Overweight Overweight Vital Signs Temperature (97.8 F-99.1 F) 95.3 F L 97.2 F L 97.4 F L Temperature Source Temporal Temporal Temporal Pulse Rate (60-100) 55 L 54 L 52 L Pulse Location Monitor Monitor Respiratory Rate (12-18) 18 18 18 Respiratory rate source Observation Observation Observation Oxygen Delivery Method Room Air Room Air Blood Pressure (90/60-120/80) 170/44 H 162/63 H 171/75 H Blood Pressure Mean 86 96 107 Source Monitor Monitor Monitor Position Semi-Fowlers Semi-Fowlers Semi-Fowlers Blood Pressure Location Left Arm Left Arm Left Arm History Since Last Visit- (Skip if this is Patient's initial visit) Have you changed medications since your No No No last visit? Any new allergies or adverse reactions No No No Had a fall/change in ADL's that may No No No increase risk of falls Signs or symptoms of abuse and/or No No No neglect since last visit Have you been in the hospital since your No No No last visit? Has dressing in place as prescribed Yes Yes Yes Has compression in place as prescribed Yes Yes Yes Has offloadiing in place as prescribed No No No Experienced any changes in pain level or No No No management Left Footwear Regular Shoe Regular Shoe Right Footwear Regular Shoe Regular Shoe Pain Scale: 0-10 Numeric Is Patient Pain Free? Yes Yes Yes 12/04/23 10:44 WC - Today's Visit Information Type of service Follow-up Visit (Physician/BREAKER ENGINEER ) Arrival Mode Ambulatory Transfer Assistance Accompanied by Patient Identification Verified (Name & Yes ) Patient Requires Transmission-Based Precautions Height and Weight Body Mass Index (BMI) 29.2 BMI Classification Overweight Vital Signs Temperature (97.8 F-99.1 F) 96.9 F L Temperature Source Temporal Pulse Rate (60-100) 55 L Pulse Location Monitor Respiratory Rate (12-18) 18 Respiratory rate source Observation Oxygen Delivery Method Room Air Blood Pressure (90/60-120/80) 170/86 H Blood Pressure Mean 114 Source Monitor Position Sitting Blood Pressure Location Right Arm History Since Last Visit- (Skip if this is Patient's initial visit) Have you changed medications since your No last visit? Any new allergies or adverse reactions No Had a fall/change in ADL's that may No increase risk of falls Signs or symptoms of abuse and/or No neglect since last visit Have you been in the hospital since your No last visit? Has dressing in place as prescribed Yes Has compression in place as prescribed Yes Has offloadiing in place as prescribed No Experienced any changes in pain level or No management Left Footwear Regular Shoe Right Footwear Regular Shoe Pain Scale: 0-10 Numeric Is Patient Pain Free? Yes - Nurse 1 - General Ulcer Measurement Start: 11/06/23 09:51 Freq: Status: Active Protocol: Activity Type Activity Date Activity User E-sign Co-sign Detail Recorded Client Recorded Date Recorded By Document 11/06/23 09:51 KW Desktop 11/06/23 10:03 KW Document 11/13/23 09:46 RB Desktop 11/13/23 09:56 RB Document 11/20/23 10:28 KW Desktop 11/20/23 10:35 KW Document 12/04/23 10:44 KW Desktop 12/04/23 10:59 KW 11/06/23 11/13/23 11/20/23 09:51 09:46 10:28 Wound Center Nurse 1 #6 RT MEDIAL LE -Combined with other wound No -Current Size (cm) - Length 0.9 0.3 0.1 -Current Size (cm) - Width 1.0 1.1 0.1 -Current Size (cm) - Depth 0.1 0.1 0.1 -Total Square Cm 0.90 0.33 0.01 -Tunneling No -Undermining/Tunneling No -Circular Undermining No -Exudate Amt Small Large Small -Exudate Type Serosanguineous Serosanguineous -Wound Margin Distinct, Distinct, Distinct, Outline Outline Outline Attached Attached Attached -Granulation Amt Large (67-100%) Medium (34-66%) Medium (34-66%) -Granulation Quality [place] -Slough/Fibrin Yes -Necrosis Amt Medium (34-66%) -Necrotic Tissue Type Adherent Slough -Structure Exposed N/A -Texture (Zaira-wound Skin Appearance) Assessed Assessed, Assessed Fluctuance -Moisture (Zaira-wound Skin Appearance) Assessed Assessed Assessed -Color (Zaira-wound Skin Appearance) Assessed, Assessed Assessed Erythema -Temperature (Zaira-wound Skin No Abnormality No Abnormality No Abnormality Appearance) (Pt Warm) (Pt Warm) (Pt Warm) -Tenderness on Palpation (Zaira-wound No Skin Appearance) -Ulcer Cleansing Soap and Water Wound Cleanser Soap and Water -Foul Odor after Cleansing No -Anesthetic Used 5% Lidocaine 5% Lidocaine 5% Lidocaine Gel Gel Gel 5. L charles -Combined with other wound No -Current Size (cm) - Length 0.3 0.4 0.1 -Current Size (cm) - Width 0.3 0.3 0.1 -Current Size (cm) - Depth 0.1 0.1 0.1 -Total Square Cm 0.09 0.12 0.01 -Tunneling No -Undermining/Tunneling No -Circular Undermining No -Exudate Amt Small Medium Small -Exudate Type Serous Serosanguineous Serosanguineous -Wound Margin Distinct, Distinct, Distinct, Outline Outline Outline Attached Attached Attached -Granulation Amt Large (67-100%) Medium (34-66%) Medium (34-66%) -Granulation Quality [place] Red -Slough/Fibrin Yes -Necrosis Amt Medium (34-66%) -Necrotic Tissue Type Adherent Slough -Structure Exposed N/A -Texture (Zaira-wound Skin Appearance) Assessed Assessed Assessed -Moisture (Zaira-wound Skin Appearance) Assessed Assessed Assessed -Color (Zaira-wound Skin Appearance) Assessed Assessed, Assessed Erythema -Temperature (Zaira-wound Skin No Abnormality No Abnormality No Abnormality Appearance) (Pt Warm) (Pt Warm) (Pt Warm) -Tenderness on Palpation (Zaira-wound No Skin Appearance) -Ulcer Cleansing Soap and Water Wound Cleanser Soap and Water -Foul Odor after Cleansing No -Anesthetic Used 5% Lidocaine 5% Lidocaine 5% Lidocaine Gel Gel Gel #2 R Post Calf -Combined with other wound No -Current Size (cm) - Length 7.1 2.6 0.1 -Current Size (cm) - Width 4 1.9 0.1 -Current Size (cm) - Depth 0.1 0.1 0.1 -Total Square Cm 28.4 4.94 0.01 -Tunneling No -Undermining/Tunneling No -Circular Undermining No -Exudate Amt Small Medium Small -Exudate Type Serosanguineous Serosanguineous Serosanguineous -Wound Margin Distinct, Distinct, Distinct, Outline Outline Outline Attached Attached Attached -Granulation Amt Large (67-100%) Medium (34-66%) Small (1-33%) -Granulation Quality [place] View -Slough/Fibrin Yes -Necrosis Amt Medium (34-66%) -Necrotic Tissue Type Adherent Slough -Structure Exposed N/A -Texture (Zaira-wound Skin Appearance) Assessed Excoriation Assessed -Moisture (Zaira-wound Skin Appearance) Assessed Assessed Assessed -Color (Zaira-wound Skin Appearance) Assessed Assessed Assessed -Temperature (Zaira-wound Skin No Abnormality No Abnormality No Abnormality Appearance) (Pt Warm) (Pt Warm) (Pt Warm) -Tenderness on Palpation (Zaira-wound No Skin Appearance) -Ulcer Cleansing Soap and Water Wound Cleanser Soap and Water -Foul Odor after Cleansing No -Anesthetic Used 5% Lidocaine 5% Lidocaine 5% Lidocaine Gel Gel Gel Lower Limb Edema Present Yes Right Calf (cm) 38 38 37.5 Right Ankle (cm) 25.5 24.6 26 Left Calf (cm) 34.6 35 34 Left Ankle (cm) 23.5 24.6 23 12/04/23 10:44 Wound Center Nurse 1 #6 RT MEDIAL LE -Combined with other wound -Current Size (cm) - Length -Current Size (cm) - Width -Current Size (cm) - Depth -Total Square Cm -Tunneling -Undermining/Tunneling -Circular Undermining -Exudate Amt -Exudate Type -Wound Margin -Granulation Amt -Granulation Quality -Slough/Fibrin -Necrosis Amt -Necrotic Tissue Type -Structure Exposed -Texture (Zaira-wound Skin Appearance) -Moisture (Zaira-wound Skin Appearance) -Color (Zaira-wound Skin Appearance) -Temperature (Zaira-wound Skin Appearance) -Tenderness on Palpation (Zaira-wound Skin Appearance) -Ulcer Cleansing -Foul Odor after Cleansing -Anesthetic Used 5. L charles -Combined with other wound -Current Size (cm) - Length 1.3 -Current Size (cm) - Width 1.2 -Current Size (cm) - Depth 0.1 -Total Square Cm 1.56 -Tunneling -Undermining/Tunneling -Circular Undermining -Exudate Amt Small -Exudate Type Serosanguineous -Wound Margin Distinct, Outline Attached -Granulation Amt Large (67-100%) -Granulation Quality Red -Slough/Fibrin -Necrosis Amt -Necrotic Tissue Type -Structure Exposed -Texture (Zaira-wound Skin Appearance) Assessed -Moisture (Zaira-wound Skin Appearance) Assessed -Color (Zaira-wound Skin Appearance) Assessed -Temperature (Zaira-wound Skin No Abnormality Appearance) (Pt Warm) -Tenderness on Palpation (Zaira-wound Skin Appearance) -Ulcer Cleansing Rinsed/ Irrigated with Saline -Foul Odor after Cleansing -Anesthetic Used 5% Lidocaine Gel #2 R Post Calf -Combined with other wound -Current Size (cm) - Length 0.8 -Current Size (cm) - Width 0.7 -Current Size (cm) - Depth 0.1 -Total Square Cm 0.56 -Tunneling -Undermining/Tunneling -Circular Undermining -Exudate Amt Small -Exudate Type Serous -Wound Margin Distinct, Outline Attached -Granulation Amt Large (67-100%) -Granulation Quality Red -Slough/Fibrin -Necrosis Amt Small (1-33%) -Necrotic Tissue Type Adherent Slough -Structure Exposed -Texture (Zaira-wound Skin Appearance) Assessed -Moisture (Zaira-wound Skin Appearance) Assessed -Color (Zaira-wound Skin Appearance) Assessed -Temperature (Zaira-wound Skin No Abnormality Appearance) (Pt Warm) -Tenderness on Palpation (Zaira-wound Skin Appearance) -Ulcer Cleansing Rinsed/ Irrigated with Saline -Foul Odor after Cleansing No -Anesthetic Used 5% Lidocaine Gel Lower Limb Edema Present Right Calf (cm) 41 Right Ankle (cm) 24.5 Left Calf (cm) 34 Left Ankle (cm) 23.5 WC - Nurse 2 - General Ulcer CM Notes Start: 11/06/23 09:51 Freq: Status: Active Protocol: Activity Type Activity Date Activity User E-sign Co-sign Detail Recorded Client Recorded Date Recorded By Document 11/06/23 11:26 PL [id number] 11/06/23 11:30 PL Document 11/13/23 10:59 PL [id number] 11/13/23 11:18 PL Document 11/20/23 11:06 PL [id number] 11/20/23 11:07 PL 11/06/23 11/13/23 11/20/23 11:26 10:59 11:06 Wound Center Nurse 2 #6 RT MEDIAL LE -Time 10:16 09:57 -Correct Patient Yes Yes -Correct Side, Site, Position Yes Yes -Correct Procedure Yes Yes -Procedure Performed Yes Yes No -Type of Procedure Debridement Debridement -Clinical Debridement Subcutaneous Subcutaneous -Tissue Removed Subcutaneous Subcutaneous -Post Debridement (cm) - Length 0.9 0.3 -Post Debridement (cm) - Width 1.0 1.1 -Post Debridement (cm) - Depth 0.1 0.1 -Total Square (Post) (cm) 0.90 0.33 -Area of Debridement (cm) - Length 0.9 0.3 -Area of Debridement (cm) - Width 1.0 1.1 -Total Square (Area) (cm) 0.90 0.33 -Tunneling No No -Undermining/Tunneling No No -Circular Undermining No No -Wound/Ulcer Outcome Not Healed Not Healed Healed- Epithelialized -Ulcer Cleansing Rinsed/ Rinsed/ Irrigated with Irrigated with Saline Saline -Foul Odor after Cleansing No No -Bioengineered Tissue No No -Bleeding Controlled with Pressure Pressure -Treatment Response Procedure Procedure Tolerated Well Tolerated Well -Debridement - Subq, 1st 20sq cm No No 5. L charles -Time 10:16 09:57 -Correct Patient Yes Yes -Correct Side, Site, Position Yes Yes -Correct Procedure Yes Yes -Procedure Performed Yes Yes No -Type of Procedure Debridement Debridement -Clinical Debridement Subcutaneous Subcutaneous -Tissue Removed Subcutaneous Subcutaneous -Post Debridement (cm) - Length 0.3 0.4 -Post Debridement (cm) - Width 0.3 0.3 -Post Debridement (cm) - Depth 0.1 0.1 -Total Square (Post) (cm) 0.09 0.12 -Area of Debridement (cm) - Length 0.3 0.4 -Area of Debridement (cm) - Width 0.3 0.3 -Total Square (Area) (cm) 0.09 0.12 -Tunneling No No -Undermining/Tunneling No No -Circular Undermining No No -Wound/Ulcer Outcome Not Healed Not Healed Healed- Epithelialized -Ulcer Cleansing Rinsed/ Rinsed/ Irrigated with Irrigated with Saline Saline -Foul Odor after Cleansing No No -Bioengineered Tissue No No -Bleeding Controlled with Pressure Pressure -Treatment Response Procedure Procedure Tolerated Well Tolerated Well -Debridement - Subq, 1st 20sq cm Yes Yes #2 R Post Calf -Time 10:16 09:57 -Correct Patient Yes Yes -Correct Side, Site, Position Yes Yes -Correct Procedure Yes Yes -Procedure Performed Yes Yes No -Type of Procedure Debridement Debridement -Clinical Debridement Subcutaneous Subcutaneous -Tissue Removed Subcutaneous Subcutaneous -Post Debridement (cm) - Length 7.1 2.6 -Post Debridement (cm) - Width 4.0 1.9 -Post Debridement (cm) - Depth 0.1 0.1 -Total Square (Post) (cm) 28.40 4.94 -Area of Debridement (cm) - Length 7.1 2.6 -Area of Debridement (cm) - Width 4.0 1.9 -Total Square (Area) (cm) 28.40 4.94 -Tunneling No No -Undermining/Tunneling No No -Circular Undermining No No -Wound/Ulcer Outcome Not Healed Not Healed Healed- Epithelialized -Ulcer Cleansing Rinsed/ Rinsed/ Irrigated with Irrigated with Saline Saline -Foul Odor after Cleansing No No -Bioengineered Tissue Yes Yes -Type of Bioengineered Tissue Epifix Epifix -Expiration Date 07/06/28 07/06/28 -Product Lot Number [id number] -Percent Used 100 100 -Bleeding Controlled with Pressure Pressure -Treatment Response Procedure Procedure Tolerated Well Tolerated Well -Debridement - Subq, 1st 20sq cm No No -Apply Skin Sub - 1st 25 sq cm - Legs 1 1 -Epifix (per sq cm) 4 4 Pain Scale: 0-10 Numeric Is Patient Pain Free? Yes Yes Yes - Nurse 3 - General Ulcer D/C NN Start: 11/06/23 09:51 Freq: Status: Active Protocol: Activity Type Activity Date Activity User E-sign Co-sign Detail Recorded Client Recorded Date Recorded By Document 11/06/23 10:02 RB [id number] 11/13/23 10:05 RB Document 11/13/23 10:16 KW Desktop 11/13/23 10:17 KW Document 11/20/23 10:56 MT Desktop 11/20/23 11:00 MT 11/06/23 11/13/23 11/20/23 10:02 10:16 10:56 Wound Care Center Nurse 3 #6 RT MEDIAL LE -Primary Dressing Applied C Hydrogel ($) -Other Dressing hydrogel to open areas as ordered -Primary Dressing Covered/Secured with Dry Gauze,Dry Dry Gauze & Gauze & Roll Roll Gauze, Gauze,Secured Secured with with Tape Tape 5. L charles -Primary Dressing Covered/Secured with Dry Gauze,Dry Dry Gauze & Gauze & Roll Roll Gauze, Gauze,Secured Secured with with Tape Tape #2 R Post Calf -Primary Dressing Applied Mepilex Border -Primary Dressing Covered/Secured with Dry Gauze,Dry Gauze & Roll Gauze,Secured with Tape -Mepilex Border 1 Right -Tubular Bandage Single Layer Single Layer -Size of Tubigrip Used Size D Size D -Size D ($) 1 1 -Other tubigrip bilat Left -Tubular Bandage Single Layer Single Layer -Size of Tubigrip Used Size D Size D -Size D ($) 1 1 -Other tubigrip bilat Treatment Response Procedure Tolerated Well Pain Scale: 0-10 Numeric Is Patient Pain Free? Yes Yes Yes - Visit Discharge Discharge Condition Stable Stable Stable Ambulatory Status Ambulatory Ambulatory Ambulatory Transportation Private Auto Private Auto Private Auto Medication Reconcilliation completed & No No No provided to patient/care provider Clinical Summary of Care Provided Yes Yes Yes Notes: hydrogel to open areas, tubigrip, pt will come back for nurse visit to learn how to put circaids on. circaid measurements. length bilat is 40. Additional Wound Wound debrided: Left pretibial surface Laterality: Left Type of Debridement: Excisional debridement Anesthesia Used: 5% Lidocaine Gel Depth: Down to and including healthy tissue and in the subcutaneous layer Percentage of wound debrided: 100 Instrument Used: 3mm curette Tissue Removed: Bioburden Severity: Fat Layer Exposed Amount of bleeding with debridement: Mild Bleeding Controlled with: Compression and gauze Patient tolerated procedure: Patient tolerated procedure well Assessment/Plan Assessment/Plan (1) Venous stasis ulcer of right calf: CODE(S): I83.012 - Varicose veins of right lower extremity with ulcer of calf; L97.219 - Non-pressure chronic ulcer of right calf with unspecified severity QUALIFIERS: Varicose vein presence: with varicose veins Non-pressure ulcer stage: with fat layer exposed Qualified Code(s): I83.012 - Varicose veins of right lower extremity with ulcer of calf; L97.212 - Non-pressure chronic ulcer of right calf with fat layer exposed (2) Venous stasis ulcer: CODE(S): I83.009 - Varicose veins of unspecified lower extremity with ulcer of unspecified site; L97.909 - Non-pressure chronic ulcer of unspecified part of unspecified lower leg with unspecified severity QUALIFIERS: Venous stasis ulcer site: calf Varicose vein presence: with varicose veins Laterality: right Non-pressure ulcer stage: with fat layer exposed Qualified Code(s): I83.012 - Varicose veins of right lower extremity with ulcer of calf; L97.212 - Non-pressure chronic ulcer of right calf with fat layer exposed (3) Venous stasis ulcer of left calf: CODE(S): I83.022 - Varicose veins of left lower extremity with ulcer of calf; L97.229 - Non-pressure chronic ulcer of left calf with unspecified severity QUALIFIERS: Varicose vein presence: with varicose veins Non-pressure ulcer stage: with fat layer exposed Qualified Code(s): I83.022 - Varicose veins of left lower extremity with ulcer of calf; L97.222 - Non-pressure chronic ulcer of left calf with fat layer exposed (4) Venous stasis dermatitis of both lower extremities: CODE(S): I87.2 - Venous insufficiency (chronic) (peripheral) (5) Dependent edema: CODE(S): R60.9 - Edema, unspecified (6) Inactivity: CODE(S): Z72.3 - Lack of physical exercise (7) Debility: CODE(S): R53.81 - Other malaise (8) Atrial flutter: CODE(S): I48.92 - Unspecified atrial flutter (9) Persistent atrial fibrillation: CODE(S): I48.19 - Other persistent atrial fibrillation (10) Pulmonary HTN: CODE(S): I27.20 - Pulmonary hypertension, unspecified (11) ROSARIO (dyspnea on exertion): CODE(S): R06.09 - Other forms of dyspnea (12) Hypertension: CODE(S): I10 - Essential (primary) hypertension QUALIFIERS: Hypertension type: primary hypertension Qualified Code(s): I10 - Essential (primary) hypertension (13) Afib: CODE(S): I48.91 - Unspecified atrial fibrillation (14) History of prostate cancer: CODE(S): Z85.46 - Personal history of malignant neoplasm of prostate (15) History of umbilical hernia repair: CODE(S): Z98.890 - Other specified postprocedural states; Z87.19 - Personal history of other diseases of the digestive system (16) Chronic anticoagulation: CODE(S): 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 He had multiple ulcerations in his lower extremities. It appears as though the patient's presenting manifestations were due to recently acquired habits, which include prolonged idle sitting and lower extremity dependency. Within the last several months, the patient had taken to sleeping in a recliner. Additionally, he spends long hours each day in an idle sitting position. He ambulates in very limited amounts. As result of these habits, the patient had noted worsening swelling and edema in his lower extremities, and the development of blisters, which resulted in open excoriations and ulcerations. He developed cellulitis in his right lower extremity, which required treatment with courses of antibiotics. We have discussed the conservative treatment measures appropriate to the management of his lower extremity symptoms and manifestations. He has been discouraged from sleeping in a recliner. He has been encouraged to sleep on a flat mattress, with legs elevated to heart level, or higher. If sleeping in a bed proves to be untenable, the alternative would be to sleep in his recliner, but with legs elevated and head down. The patient's legs are to be elevated to heart level, or higher, as much as possible, during both daytime and nighttime hours. Activity has been encouraged, though the patient is not likely to enhance his activity level to any significant degree. Prolonged idle sitting has been discouraged. The patient's weight is relatively optimal. Recent cultures were positive for Pseudomonas aeruginosa and Enterococcus faecalis. Based upon sensitivity results, the patient was prescribed Levaquin 750 mg p.o. daily for a total of 10 days. The course of antibiotics has been completed. Promogran is to be applied topically to the ulceration on the right lateral calf and on the left pretibial surface. The patient and his have been instructed in the appropriate means of application. The patient has received 1 CircAid Velcro garment, and has been instructed in the appropriate means of application by the nursing staff. The second garment is awaited. The patient is to use Tubigrip's until the second CircAid garment is obtained. the patient is to return in 1 week for reassessment. Total time: 26 minutes
== END 2023-12-05 23:59 | disposition home or self-care (01) ==
LOC: WC 10:45
PROVIDERS: PCP Nurse Practitioner Primary Care; Referring Provider Nurse Practitioner Primary Care; Visit Provider Surgery
DX: I83.012 Varicose veins of right lower extremity with ulcer of calf (principal); L97.822 Non-pressure chronic ulcer of other part of left lower leg with fat layer exposed; L97.212 Non-pressure chronic ulcer of right calf with fat layer exposed; I83.228 Varicose veins of left lower extremity with both ulcer of other part of lower extremity and inflammation; I48.92 Unspecified atrial flutter; I48.19 Other persistent atrial fibrillation; I10 Essential (primary) hypertension; Z79.01 Long term (current) use of anticoagulants; Z79.899 Other long term (current) drug therapy; R60.0 Localized edema
CPT/HCPCS: 11042; 15271; 99213; Q4186; G0463

== ENCOUNTER 2023-12-25 10:15 | Outpatient (RCR) | payer MEDICARE, OTHER, SELFPAY ==
[2023-12-06 00:52] VITALS: BP 170/86; PULSE 55; RESP 18; TEMP 36.1; BMI 29.2
[2023-12-11 10:30] VITALS: BP 146/56; PULSE 47; TEMP 36.8; BMI 29.2
--- NOTE | 2023-12-11 11:23 | HP.PCM_ITS ---
History of Present Illness Date of Service: 12/11/23 Chief Complaint: Bilateral lower extremity swelling, edema, and venous stasis dermatitis with ulcerations History of Wound: This is an 83-year-old male who presented with severe swelling and edema in both lower extremities, and dermatitic changes in his lower extremities bilaterally, which had been present for several months. The patient had undergone a change in his daily habits within the last several months. He had become inactive, spending large portions of each day in an idle sitting position. 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 Furthermore, he sleeps in a recliner. Within the last several months, he had noted the development of swelling and edema in both legs, as well as severe skin changes and the development of blisters and ulcerations. He denies a history of thrombophlebitis. He had been treated with antibiotic ointment topically. He had been diagnosed with cellulitis in his right lower extremity, for which he had been prescribed prescriptions for both doxycycline and cephalexin. The patient indicated he is a candidate for pacemaker insertion, but resolution of his lower extremity swelling, edema, ulcerations, and cellulitis are a prerequisite to pacemaker placement. [facility] Medical History Adenocarcinoma of prostate Afib Atrial flutter Chronic anticoagulation Debility Dependent edema History of prostate cancer Hypertension Inactivity Persistent atrial fibrillation Venous stasis dermatitis of both lower extremities Venous stasis ulcer Venous stasis ulcer of left calf Venous stasis ulcer of right calf Home Medications apixaban 5 mg tablet (Eliquis) 5 mg PO BID #60 tabs 03/26/23 [Rx Last Taken Unknown] amlodipine 5 mg tablet 5 mg PO DAILY #90 tabs 10/31/23 [Rx Last Taken Unknown] furosemide 40 mg tablet (Lasix) 40 mg PO DAILY #90 tabs 10/31/23 [Rx Last Taken Unknown] lisinopril 40 mg tablet 40 mg PO DAILY #90 tabs 10/31/23 [Rx Last Taken Unknown] spironolactone 25 mg tablet 25 mg PO DAILY #90 tabs 10/31/23 [Rx Last Taken Unknown] Allergy/AdvReac Type Severity Reaction Status Date / Time No Known Allergies Allergy Verified 10/31/23 14:27 Surgical History History of umbilical hernia repair Hx of umbilical hernia repair Social History Smoking Status: Never smoker alcohol intake: never substance use type: does not use caffeine: Yes Type: coffee Number of servings: 1 Vital Signs Vital Signs Vital Signs: 12/11/23 10:30 Temperature 98.2 F Temperature Source Temporal Pulse Rate 47 L Blood Pressure 146/56 H Blood Pressure Mean 86 Blood Pressure Source Monitor Blood Pressure Position Sitting Blood Pressure Location Right Arm Weight Weight: 198 lb Body Mass Index (BMI) 29.2 Physical Exam Const alert, oriented x3, no apparent distress, average body habitus and well nourished Constitutional Narrative: The patient's BMI is 29.2. General Appearance: cooperative, comfortable and well developed Orientation / Consciousness: awake, oriented to person, oriented to place and oriented to time HEENT normocephalic and head/scalp atraumatic Head and Scalp: normal to inspection, normocephalic and atraumatic External Ear: external ears normal Eyes PERRL and EOMs intact bilaterally General Eye: normal appearance of both eyes Resp normal respiratory effort, normal air movement, no retractions and no use of accessory muscles Effort and Inspection: able to speak in complete sentences and symmetric chest movement Extremity no calf tenderness General Extremity: Negative for clubbing or cyanosis Skin Wound Narrative: Mild bilateral lower extremity swelling and edema are noted. The cutaneous erythema is essentially resolved. A small ulceration is noted on the right lateral calf, and on the left pretibial surface. Dimensions are documented elsewhere. The ulcerations are smaller than noted previously. There is no sign of infection or cellulitis. There is a small amount of bioburden at each site. Neuro oriented x3, CN's II-XII intact bilaterally, moves all extremities and no focal motor deficits Sensorium / Orientation: awake, alert, oriented to person, oriented to place and oriented to time Psych Appearance: grossly normal and appropriate Attitude: calm Activity / Motor Behavior: appropriate eye contact Speech: normal speech Mood & Affect: euthymic mood Thought Process: normal thought process Thought Content: normal thought content Attention / Concentration: attention grossly intact Debridement Note Debridement Note Wound debrided: Right lateral calf Laterality: Right Type of Debridement: Excisional debridement Anesthesia Used: 5% Lidocaine Gel Depth: Down to and including healthy tissue and in the subcutaneous layer Percentage of wound debrided: 100 Instrument Used: 3mm curette Tissue Removed: Bioburden Severity: Fat Layer Exposed Amount of bleeding with debridement: Mild Bleeding Controlled with: Compression and gauze Patient tolerated procedure: Patient tolerated procedure well Post-Debridement Measurements and Additional Note: Post-Debridement Measurements/Treatment - Nurse 1 - General Ulcer Assessment Start: 12/11/23 10:30 Freq: Status: Active Protocol: CHANCE Activity Type Activity Date Activity User E-sign Co-sign Detail Recorded Client Recorded Date Recorded By Document 12/11/23 10:30 ND Preparisop 12/11/23 10:41 ND 12/11/23 10:30 - Today's Visit Information Type of service Follow-up Visit (Physician/[facility] ) Arrival Mode Ambulatory Patient Identification Verified (Name & Yes ) Safety Precautions Fall Prevention Height and Weight Body Mass Index (BMI) 29.2 BMI Classification Overweight Vital Signs Temperature (97.8 F-99.1 F) 98.2 F Temperature Source Temporal Pulse Rate (60-100) 47 L Pulse Location Monitor Respiratory rate source Observation Blood Pressure (90/60-120/80) 146/56 H Blood Pressure Mean 86 Source Monitor Position Sitting Blood Pressure Location Right Arm History Since Last Visit- (Skip if this is Patient's initial visit) Have you been in the hospital since your Yes last visit? Has compression in place as prescribed N/A Has offloadiing in place as prescribed N/A Experienced any changes in pain level or No management Left Footwear Regular Shoe Right Footwear Regular Shoe Pain Scale: 0-10 Numeric Is Patient Pain Free? Yes [facility] Nurse 1 - General Ulcer Measurement Start: 12/11/23 10:30 Freq: Status: Active Protocol: Activity Type Activity Date Activity User E-sign Co-sign Detail Recorded Client Recorded Date Recorded By Document 12/11/23 10:30 ND Preparisop 12/11/23 10:41 ND 12/11/23 10:30 Wound Center Nurse 1 5. L charles -Current Size (cm) - Length 0.9 -Current Size (cm) - Width 1.6 -Current Size (cm) - Depth 0.1 -Total Square Cm 1.44 -Photo Taken No -Undermining/Tunneling No -Exudate Amt Small -Exudate Type Serosanguineous -Wound Margin Flat & Intact -Granulation Amt Large (67-100%) -Granulation Quality Pale,[place] -Necrosis Amt Large (67-100%) -Texture (Zaira-wound Skin Appearance) Assessed -Moisture (Zaira-wound Skin Appearance) Assessed -Color (Zaira-wound Skin Appearance) Assessed -Temperature (Zaira-wound Skin No Abnormality Appearance) (Pt Warm) -Tenderness on Palpation (Zaira-wound No Skin Appearance) -Ulcer Cleansing Rinsed/ Irrigated with Saline -Foul Odor after Cleansing No -Anesthetic Used 5% Lidocaine Gel #2 R Post Calf -Current Size (cm) - Length 0.1 -Current Size (cm) - Width 0.1 -Current Size (cm) - Depth 0.1 -Total Square Cm 0.01 Right Calf (cm) 34.6 Right Ankle (cm) 22.6 Left Calf (cm) 35.3 Left Ankle (cm) 24.9 - Nurse 3 - General Ulcer D/C NN Start: 12/11/23 10:30 Freq: Status: Active Protocol: Activity Type Activity Date Activity User E-sign Co-sign Detail Recorded Client Recorded Date Recorded By Document 12/11/23 11:11 DL Desktop 12/11/23 11:15 DL 12/11/23 11:11 Wound Care Center Nurse 3 5. L charles -Ulcer Cleansing Rinsed/ Irrigated with Saline -Foul Odor after Cleansing No -Primary Dressing Applied Promogran Kee Matter -Primary Dressing Covered/Secured with Dry Gauze & Roll Gauze -Promogran Kee Matter 1 #2 R Post Calf -Ulcer Cleansing Rinsed/ Irrigated with Saline -Foul Odor after Cleansing No -Other Dressing kee -Primary Dressing Covered/Secured with Dry Gauze & Roll Gauze, Secured with Tape Right -Stockings Yes -Other Circ Aid Left -Tubular Bandage Single Layer -Size of Tubigrip Used Size D -Size D ($) 1 Treatment Response Procedure Tolerated Well Pain Scale: 0-10 Numeric Is Patient Pain Free? Yes WC - Visit Discharge Discharge Condition Stable Ambulatory Status Ambulatory Transportation Private Auto Accompanied by Additional Wound Wound debrided: Left pretibial surface Laterality: Left Type of Debridement: Excisional debridement Anesthesia Used: 5% Lidocaine Gel Depth: Down to and including healthy tissue and in the subcutaneous layer Percentage of wound debrided: 100 Instrument Used: 3mm curette Tissue Removed: Bioburden Severity: Fat Layer Exposed Amount of bleeding with debridement: Mild Bleeding Controlled with: Compression and gauze Patient tolerated procedure: Patient tolerated procedure well Assessment/Plan Assessment/Plan (1) Venous stasis ulcer of right calf: CODE(S): I83.012 - Varicose veins of right lower extremity with ulcer of calf; L97.219 - Non-pressure chronic ulcer of right calf with unspecified severity QUALIFIERS: Varicose vein presence: with varicose veins Non- pressure ulcer stage: with fat layer exposed Qualified Code(s): I83.012 - Varicose veins of right lower extremity with ulcer of calf; L97.212 - Non- pressure chronic ulcer of right calf with fat layer exposed (2) Venous stasis ulcer: CODE(S): I83.009 - Varicose veins of unspecified lower extremity with ulcer of unspecified site; L97.909 - Non-pressure chronic ulcer of unspecified part of unspecified lower leg with unspecified severity QUALIFIERS: Venous stasis ulcer site: calf Varicose vein presence: with varicose veins Laterality: right Non-pressure ulcer stage: with fat layer exposed Qualified Code(s): I83.012 - Varicose veins of right lower extremity with ulcer of calf; L97.212 - Non-pressure chronic ulcer of right calf with fat layer exposed (3) Venous stasis ulcer of left calf: CODE(S): I83.022 - Varicose veins of left lower extremity with ulcer of calf; L97.229 - Non-pressure chronic ulcer of left calf with unspecified severity QUALIFIERS: Varicose vein presence: with varicose veins Non- pressure ulcer stage: with fat layer exposed Qualified Code(s): I83.022 - Varicose veins of left lower extremity with ulcer of calf; L97.222 - Non-pressure chronic ulcer of left calf with fat layer exposed (4) Venous stasis dermatitis of both lower extremities: CODE(S): I87.2 - Venous insufficiency (chronic) (peripheral) (5) Dependent edema: CODE(S): R60.9 - Edema, unspecified (6) Inactivity: CODE(S): Z72.3 - Lack of physical exercise (7) Debility: CODE(S): R53.81 - Other malaise (8) Atrial flutter: CODE(S): I48.92 - Unspecified atrial flutter (9) Persistent atrial fibrillation: CODE(S): I48.19 - Other persistent atrial fibrillation (10) Pulmonary HTN: CODE(S): I27.20 - Pulmonary hypertension, unspecified (11) ROSARIO (dyspnea on exertion): CODE(S): R06.09 - Other forms of dyspnea (12) Hypertension: CODE(S): I10 - Essential (primary) hypertension QUALIFIERS: Hypertension type: primary hypertension Qualified Code(s): I10 - Essential (primary) hypertension (13) Afib: CODE(S): I48.91 - Unspecified atrial fibrillation (14) History of prostate cancer: CODE(S): Z85.46 - Personal history of malignant neoplasm of prostate (15) History of umbilical hernia repair: CODE(S): Z98.890 - Other specified postprocedural states; Z87.19 - Pe rsonal history of other diseases of the digestive system (16) Chronic anticoagulation: CODE(S): 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 He had multiple ulcerations in his lower extremities. It appears as though the patient's presenting manifestations were due to recently acquired habits, which include prolonged idle sitting and lower extremity dependency. Within the last several months, the patient had taken to sleeping in a recliner. Additionally, he spends long hours each day in an idle sitting position. He ambulates in very limited amounts. As result of these habits, the patient had noted worsening swelling and edema in his lower extremities, and the development of blisters, which resulted in open excoriations and ulcerations. He developed cellulitis in his right lower extremity, which required treatment with courses of antibiotics. We have discussed the conservative treatment measures appropriate to the management of his lower extremity symptoms and manifestations. He has been discouraged from sleeping in a recliner. He has been encouraged to sleep on a flat mattress, with legs elevated to heart level, or higher. If sleeping in a bed proves to be untenable, the alternative would be to sleep in his recliner, but with legs elevated and head down. The patient's legs are to be elevated to heart level, or higher, as much as possible, during both daytime and nighttime hours. Activity has been encouraged, though the patient is not likely to enhance his activity level to any significant degree. Prolonged idle sitting has been discouraged. The patient's weight is relatively optimal. Recent cultures were positive for Pseudomonas aeruginosa and Enterococcus faecalis. Based upon sensitivity results, the patient was prescribed Levaquin 750 mg p.o. daily for a total of 10 days. The course of antibiotics has been completed. Promogran is to be applied topically to the ulceration on the right lateral calf and on the left pretibial surface. The patient and his have been instructed in the appropriate means of application. The patient has received 1 CircAid Velcro garment, and has been instructed in the appropriate means of application by the nursing staff. The second garment is awaited. The patient is to use Tubigrip's until the second CircAid garment is obtained. The patient is to return in 1 week for reassessment. Total time: 25 minutes
[2023-12-25 10:44] VITALS: BP 161/52; PULSE 52; RESP 18; TEMP 35.8; BMI 29.2
--- NOTE | 2023-12-25 12:26 | PCM.WC.HP ---
History of Present Illness Date of Service: 12/25/23 Chief Complaint: Bilateral lower extremity swelling, edema, and venous stasis dermatitis with ulcerations History of Wound: This is an 83-year-old male who presented with severe swelling and edema in both lower extremities, and dermatitic changes in his lower extremities bilaterally, which had been present for several months. The patient had undergone a change in his daily habits within the last several months. He had become inactive, spending large portions of each day in an idle sitting position. 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 Furthermore, he sleeps in a recliner. Within the last several months, he had noted the development of swelling and edema in both legs, as well as severe skin changes and the development of blisters and ulcerations. He denies a history of thrombophlebitis. He had been treated with antibiotic ointment topically. He had been diagnosed with cellulitis in his right lower extremity, for which he had been prescribed prescriptions for both doxycycline and cephalexin. The patient indicated he is a candidate for pacemaker insertion, but resolution of his lower extremity swelling, edema, ulcerations, and cellulitis are a prerequisite to pacemaker placement. [facility] Medical History Adenocarcinoma of prostate Afib Atrial flutter Chronic anticoagulation Debility Dependent edema History of prostate cancer Hypertension Inactivity Persistent atrial fibrillation Venous stasis dermatitis of both lower extremities Venous stasis ulcer Venous stasis ulcer of left calf Venous stasis ulcer of right calf Home Medications apixaban 5 mg tablet (Eliquis) 5 mg PO BID #60 tabs 03/26/23 [Rx Last Taken Unknown] amlodipine 5 mg tablet 5 mg PO DAILY #90 tabs 10/31/23 [Rx Last Taken Unknown] furosemide 40 mg tablet (Lasix) 40 mg PO DAILY #90 tabs 10/31/23 [Rx Last Taken Unknown] lisinopril 40 mg tablet 40 mg PO DAILY #90 tabs 10/31/23 [Rx Last Taken Unknown] spironolactone 25 mg tablet 25 mg PO DAILY #90 tabs 10/31/23 [Rx Last Taken Unknown] Allergy/AdvReac Type Severity Reaction Status Date / Time No Known Allergies Allergy Verified 10/31/23 14:27 Surgical History History of umbilical hernia repair Hx of umbilical hernia repair Social History Smoking Status: Never smoker alcohol intake: never substance use type: does not use caffeine: Yes Type: coffee Number of servings: 1 Vital Signs Vital Signs Vital Signs: 12/25/23 10:44 Temperature 96.4 F L Temperature Source Temporal Pulse Rate 52 L Respiratory Rate 18 Blood Pressure 161/52 H Blood Pressure Mean 88 Blood Pressure Source Monitor Blood Pressure Position Sitting Blood Pressure Location Left Arm Oxygen Delivery Method Room Air Weight Weight: 198 lb Body Mass Index (BMI) 29.2 Physical Exam Const alert, oriented x3, no apparent distress, average body habitus and well nourished Constitutional Narrative: The patient's BMI is 29.2. General Appearance: cooperative, comfortable and well developed Orientation / Consciousness: awake, oriented to person, oriented to place and oriented to time HEENT normocephalic and head/scalp atraumatic Head and Scalp: normal to inspection, normocephalic and atraumatic External Ear: external ears normal Eyes PERRL and EOMs intact bilaterally General Eye: normal appearance of both eyes Resp normal respiratory effort, normal air movement, no retractions and no use of accessory muscles Effort and Inspection: able to speak in complete sentences and symmetric chest movement Extremity no calf tenderness General Extremity: Negative for clubbing or cyanosis Skin Wound Narrative: Mild bilateral lower extremity swelling and edema are noted. The cutaneous erythema is essentially resolved. A small ulceration is noted on the left pretibial surface. Dimensions are documented elsewhere. There is a small amount of bioburden. The ulceration is smaller than previously noted. The ulceration on the right lateral calf is now completely healed and epithelialized. There is no sign of infection or cellulitis. Neuro oriented x3, CN's II-XII intact bilaterally, moves all extremities and no focal motor deficits Sensorium / Orientation: awake, alert, oriented to person, oriented to place and oriented to time Psych Appearance: grossly normal and appropriate Attitude: calm Activity / Motor Behavior: appropriate eye contact Speech: normal speech Mood & Affect: euthymic mood Thought Process: normal thought process Thought Content: normal thought content Attention / Concentration: attention grossly intact Debridement Note Debridement Note Post-Debridement Measurements and Additional Note: Post-Debridement Measurements/Treatment WC - Nurse 1 - General Ulcer Assessment Start: 12/11/23 10:30 Freq: Status: Active Protocol: CHANCE Activity Type Activity Date Activity User E-sign Co-sign Detail Recorded Client Recorded Date Recorded By Document 12/11/23 10:30 MT Desktop 12/11/23 10:41 MT Document 12/25/23 10:44 KW Desktop 12/25/23 10:50 KW 12/11/23 12/25/23 10:30 10:44 - Today's Visit Information Type of service Follow-up Visit Follow-up Visit (Physician/MANAGER FOOD SAFETY (Physician/MANAGER FOOD SAFETY ) ) Arrival Mode Ambulatory Ambulatory Accompanied by Patient Identification Verified (Name & Yes Yes ) Safety Precautions Fall Prevention Height and Weight Body Mass Index (BMI) 29.2 29.2 BMI Classification Overweight Overweight Vital Signs Temperature (97.8 F-99.1 F) 98.2 F 96.4 F L Temperature Source Temporal Temporal Pulse Rate (60-100) 47 L 52 L Pulse Location Monitor Monitor Respiratory Rate (12-18) 18 Respiratory rate source Observation Observation Oxygen Delivery Method Room Air Blood Pressure (90/60-120/80) 146/56 H 161/52 H Blood Pressure Mean 86 88 Source Monitor Monitor Position Sitting Sitting Blood Pressure Location Right Arm Left Arm History Since Last Visit- (Skip if this is Patient's initial visit) Have you changed medications since your No last visit? Any new allergies or adverse reactions No Had a fall/change in ADL's that may No increase risk of falls Signs or symptoms of abuse and/or No neglect since last visit Have you been in the hospital since your Yes No last visit? Has dressing in place as prescribed Yes Has compression in place as prescribed N/A Yes Has offloadiing in place as prescribed N/A N/A Experienced any changes in pain level or No No management Left Footwear Regular Shoe Regular Shoe Right Footwear Regular Shoe Regular Shoe Pain Scale: 0-10 Numeric Is Patient Pain Free? Yes Yes MILA - Nurse 1 - General Ulcer Measurement Start: 12/11/23 10:30 Freq: Status: Active Protocol: Activity Type Activity Date Activity User E-sign Co-sign Detail Recorded Client Recorded Date Recorded By Document 12/11/23 10:30 MT Desktop 12/11/23 10:41 MT Document 12/25/23 10:44 KW Desktop 12/25/23 10:50 KW 12/11/23 12/25/23 10:30 10:44 Wound Center Nurse 1 #2 R Post Calf -Current Size (cm) - Length 0.1 -Current Size (cm) - Width 0.1 -Current Size (cm) - Depth 0.1 -Total Square Cm 0.01 5. L charles -Current Size (cm) - Length 0.9 1.1 -Current Size (cm) - Width 1.6 0.4 -Current Size (cm) - Depth 0.1 0.1 -Total Square Cm 1.44 0.44 -Photo Taken No -Undermining/Tunneling No -Exudate Amt Small -Exudate Type Serosanguineous -Wound Margin Flat & Intact -Granulation Amt Large (67-100%) -Granulation Quality Pale,[place] -Necrosis Amt Large (67-100%) -Texture (Zaira-wound Skin Appearance) Assessed Assessed -Moisture (Zaira-wound Skin Appearance) Assessed Assessed -Color (Zaira-wound Skin Appearance) Assessed Assessed -Temperature (Zaira-wound Skin No Abnormality No Abnormality Appearance) (Pt Warm) (Pt Warm) -Tenderness on Palpation (Zaira-wound No Skin Appearance) -Ulcer Cleansing Rinsed/ Rinsed/ Irrigated with Irrigated with Saline Saline -Foul Odor after Cleansing No No -Anesthetic Used 5% Lidocaine 5% Lidocaine Gel Gel Right Calf (cm) 34.6 Right Ankle (cm) 22.6 Left Calf (cm) 35.3 34.5 Left Ankle (cm) 24.9 23.5 WC - Nurse 2 - General Ulcer CM Notes Start: 12/11/23 10:30 Freq: Status: Active Protocol: Activity Type Activity Date Activity User E-sign Co-sign Detail Recorded Client Recorded Date Recorded By Document 12/11/23 12:17 PL [id number] 12/11/23 12:18 PL 12/11/23 12:17 Wound Center Nurse 2 #2 R Post Calf -Time 10:55 -Correct Patient Yes -Correct Side, Site, Position Yes -Correct Procedure Yes -Procedure Performed Yes -Type of Procedure Debridement -Clinical Debridement Subcutaneous -Tissue Removed Subcutaneous -Post Debridement (cm) - Length 0.1 -Post Debridement (cm) - Width 0.1 -Post Debridement (cm) - Depth 0.1 -Total Square (Post) (cm) 0.01 -Area of Debridement (cm) - Length 0.1 -Area of Debridement (cm) - Width 0.1 -Total Square (Area) (cm) 0.01 -Tunneling No -Undermining/Tunneling No -Circular Undermining No -Wound/Ulcer Outcome Not Healed -Ulcer Cleansing Rinsed/ Irrigated with Saline -Foul Odor after Cleansing No -Bioengineered Tissue No -Bleeding Controlled with Pressure -Treatment Response Procedure Tolerated Well -Debridement - Subq, 1st 20sq cm Yes 5. L charles -Time 10:55 -Correct Patient Yes -Correct Side, Site, Position Yes -Correct Procedure Yes -Procedure Performed Yes -Type of Procedure Debridement -Clinical Debridement Subcutaneous -Tissue Removed Subcutaneous -Post Debridement (cm) - Length 0.9 -Post Debridement (cm) - Width 1.6 -Post Debridement (cm) - Depth 0.1 -Total Square (Post) (cm) 1.44 -Area of Debridement (cm) - Length 0.9 -Area of Debridement (cm) - Width 1.6 -Total Square (Area) (cm) 1.44 -Tunneling No -Undermining/Tunneling No -Circular Undermining No -Wound/Ulcer Outcome Not Healed -Ulcer Cleansing Rinsed/ Irrigated with Saline -Foul Odor after Cleansing No -Bioengineered Tissue No -Bleeding Controlled with Pressure -Treatment Response Procedure Tolerated Well -Debridement - Subq, 1st 20sq cm No Pain Scale: 0-10 Numeric Is Patient Pain Free? Yes WC - Nurse 3 - General Ulcer D/C NN Start: 12/11/23 10:30 Freq: Status: Active Protocol: Activity Type Activity Date Activity User E-sign Co-sign Detail Recorded Client Recorded Date Recorded By Document 12/11/23 11:11 DL Desktop 12/11/23 11:15 DL Document 12/25/23 11:23 MT Desktop 12/25/23 11:27 MT 12/11/23 12/25/23 11:11 11:23 Wound Care Center Nurse 3 #2 R Post Calf -Ulcer Cleansing Rinsed/ Irrigated with Saline -Foul Odor after Cleansing No -Other Dressing kee -Primary Dressing Covered/Secured with Dry Gauze & Roll Gauze, Secured with Tape 5. L charles -Ulcer Cleansing Rinsed/ Rinsed/ Irrigated with Irrigated with Saline Saline -Foul Odor after Cleansing No -Primary Dressing Applied Promogran Kee Matter -Primary Dressing Covered/Secured with Dry Gauze & Dry Gauze & Roll Gauze Roll Gauze, Secured with Tape -Promogran Kee Matter 1 Right -Stockings Yes -Other Circ Aid Left -Tubular Bandage Single Layer Single Layer -Size of Tubigrip Used Size D Size D -Size D ($) 1 1 Treatment Response Procedure Tolerated Well Pain Scale: 0-10 Numeric Is Patient Pain Free? Yes Yes WC - Visit Discharge Discharge Condition Stable Stable Ambulatory Status Ambulatory Ambulatory Transportation Private Auto Private Auto Accompanied by Medication Reconcilliation completed & No provided to patient/care provider Clinical Summary of Care Provided Yes Notes: pt brings own supplies in. pt concerned why pt circaid for left leg has not arrived . RN spoke to showcase trimmer Wilmer regarding concern. Assessment/Plan Assessment/Plan (1) Venous stasis ulcer of right calf: CODE(S): I83.012 - Varicose veins of right lower extremity with ulcer of calf; L97.219 - Non-pressure chronic ulcer of right calf with unspecified severity QUALIFIERS: Varicose vein presence: with varicose veins Non-pressure ulcer stage: with fat layer exposed Qualified Code(s): I83.012 - Varicose veins of right lower extremity with ulcer of calf; L97.212 - Non-pressure chronic ulcer of right calf with fat layer exposed (2) Venous stasis ulcer: CODE(S): I83.009 - Varicose veins of unspecified lower extremity with ulcer of unspecified site; L97.909 - Non-pressure chronic ulcer of unspecified part of unspecified lower leg with unspecified severity QUALIFIERS: Venous stasis ulcer site: calf Varicose vein presence: with varicose veins Laterality: right Non-pressure ulcer stage: with fat layer exposed Qualified Code(s): I83.012 - Varicose veins of right lower extremity with ulcer of calf; L97.212 - Non-pressure chronic ulcer of right calf with fat layer exposed (3) Venous stasis ulcer of left calf: CODE(S): I83.022 - Varicose veins of left lower extremity with ulcer of calf; L97.229 - Non-pressure chronic ulcer of left calf with unspecified severity QUALIFIERS: Varicose vein presence: with varicose veins Non-pressure ulcer stage: with fat layer exposed Qualified Code(s): I83.022 - Varicose veins of left lower extremity with ulcer of calf; L97.222 - Non-pressure chronic ulcer of left calf with fat layer exposed (4) Venous stasis dermatitis of both lower extremities: CODE(S): I87.2 - Venous insufficiency (chronic) (peripheral) (5) Dependent edema: CODE(S): R60.9 - Edema, unspecified (6) Inactivity: CODE(S): Z72.3 - Lack of physical exercise (7) Debility: CODE(S): R53.81 - Other malaise (8) Atrial flutter: CODE(S): I48.92 - Unspecified atrial flutter (9) Persistent atrial fibrillation: CODE(S): I48.19 - Other persistent atrial fibrillation (10) Pulmonary HTN: CODE(S): I27.20 - Pulmonary hypertension, unspecified (11) ROSARIO (dyspnea on exertion): CODE(S): R06.09 - Other forms of dyspnea (12) Hypertension: CODE(S): I10 - Essential (primary) hypertension QUALIFIERS: Hypertension type: primary hypertension Qualified Code(s): I10 - Essential (primary) hypertension (13) Afib: CODE(S): I48.91 - Unspecified atrial fibrillation (14) History of prostate cancer: CODE(S): Z85.46 - Personal history of malignant neoplasm of prostate (15) History of umbilical hernia repair: CODE(S): Z98.890 - Other specified postprocedural states; Z87.19 - Personal history of other diseases of the digestive system (16) Chronic anticoagulation: CODE(S): Z79.01 - intermediate manager (current) use of anticoagulants PLAN: Plan This is an 83-year-old male who presented with swelling, edema, and recent cellulitis in his right lower extremity. He had multiple ulcerations in his lower extremities. It appears as though the patient's presenting manifestations were due to recently acquired habits, which include prolonged idle sitting and lower extremity dependency. Within the last several months, the patient had taken to sleeping in a recliner. Additionally, he spends long hours each day in an idle sitting position. He ambulates in very limited amounts. As result of these habits, the patient had noted worsening swelling and edema in his lower extremities, and the development of blisters, which resulted in open excoriations and ulcerations. He developed cellulitis in his right lower extremity, which required treatment with courses of antibiotics. We have discussed the conservative treatment measures appropriate to the management of his lower extremity symptoms and manifestations. He has been discouraged from sleeping in a recliner. He has been encouraged to sleep on a flat mattress, with legs elevated to heart level, or higher. If sleeping in a bed proves to be untenable, the alternative would be to sleep in his recliner, but with legs elevated and head down. The patient's legs are to be elevated to heart level, or higher, as much as possible, during both daytime and nighttime hours. Activity has been encouraged, though the patient is not likely to enhance his activity level to any significant degree. Prolonged idle sitting has been discouraged. The patient's weight is relatively optimal. Recent cultures were positive for Pseudomonas aeruginosa and Enterococcus faecalis. Based upon sensitivity results, the patient was prescribed Levaquin 750 mg p.o. daily for a total of 10 days. The course of antibiotics has been completed. Promogran is to be applied topically to the ulceration left pretibial surface, which is the only ulceration which remains. The patient and his have been instructed in the appropriate means of application. The patient has received 1 CircAid Velcro garment, and has been instructed in the appropriate means of application by the nursing staff. The second garment is awaited. The patient is to use Tubigrip's until the second CircAid garment is obtained. The patient is to return in 1 week for reassessment. Total time: 24 minutes
== END 2024-01-03 23:59 | disposition home or self-care (01) ==
LOC: WC 10:15
PROVIDERS: PCP Nurse Practitioner Primary Care; Referring Provider Nurse Practitioner Primary Care; Visit Provider Surgery
DX: I83.012 Varicose veins of right lower extremity with ulcer of calf (principal); L97.212 Non-pressure chronic ulcer of right calf with fat layer exposed; L97.822 Non-pressure chronic ulcer of other part of left lower leg with fat layer exposed; I83.228 Varicose veins of left lower extremity with both ulcer of other part of lower extremity and inflammation; I27.20 Pulmonary hypertension, unspecified; I48.92 Unspecified atrial flutter; I48.19 Other persistent atrial fibrillation; Z95.0 Presence of cardiac pacemaker; L03.115 Cellulitis of right lower limb; R53.81 Other malaise; I10 Essential (primary) hypertension; Z79.01 Long term (current) use of anticoagulants
CPT/HCPCS: 11042

== ENCOUNTER 2024-01-08 09:38 | Outpatient (RCR) | payer MEDICARE, OTHER, SELFPAY ==
[2024-01-04 00:36] VITALS: BP 161/52; PULSE 52; RESP 18; TEMP 35.8; BMI 29.2
[2024-01-08 09:22] VITALS: BP 159/64; PULSE 48; RESP 18; TEMP 36.4; BMI 29.2
--- NOTE | 2024-01-08 10:15 | PN_ITS ---
Subjective Subjective 83-year-old male presents for follow-up of left venous leg ulceration. Patient denies constitutional symptoms. Patient compliant with treatment. Patient typically seen by Dr. Cain. I am temporarily stepping in. Significant improvement noted at this time. No other complaints. Objective Data Objective Data Vital Signs: Vital Signs Temp Pulse Resp BP 97.5 F L 48 L 18 159/64 H 01/08/24 09:22 01/08/24 09:22 01/08/24 09:22 01/08/24 09:22 Weight: 89.811 kg Body Mass Index (BMI) 29.2 Physical Exam Narrative Vascular: DP PT pulses palpable 2 out of 4 to bilateral lower extremity. Atrophic skin changes noted. Varicosities noted to bilateral lower extremity extending from the foot into the lower leg bilaterally. Neurologic: Light touch protective sensation intact bilateral feet. Dermatologic: Left lower extremity ulceration healed at current. Musculoskeletal: No sign DVT. Muscular strength full to bilateral lower extremity compartments. No gross wound forming deformity noted. Const alert and oriented x3 Assessment & Plan Assessment/Plan (1) Venous stasis ulcer of left calf: QUALIFIERS: Varicose vein presence: with varicose veins Non- pressure ulcer stage: with fat layer exposed Qualified Code(s): I83.022 - Varicose veins of left lower extremity with ulcer of calf; L97.222 - Non- pressure chronic ulcer of left calf with fat layer exposed PLAN: Exam performed. Reviewed labs chart, wound history, arterial and venous studies. Left lower extremity wound noted to be healed at this time. Continue compression and elevation exercise for edema management. Patient has CircAid's wrap on the right side. Patient awaiting CircAid wrap on the left side. In the meantime recommend daily wound observation to observe for recurrence with application of Tubigrip to help manage edema until receipt of CircAid wrap. Patient will continue follow-up with Dr. Cain. (2) Dependent edema: (3) Venous stasis dermatitis of both lower extremities:
--- NOTE | 2024-01-08 13:36 | WC ---
Discussed with Antonietta from [facility] letting her know that patient never received her 2nd circaid for his left leg. This is a Dr Cain patient who healed out today discussed with Antonietta who states she will call Honey, the patient's regarding this. Patient may have to pay for the circaids since his ulcer healed out today. They are fine with that but this can be discussed between Antonietta and patient's who is the contact for patient. Left a voicemail with Honey letting her know she will be receiving a call from Antonietta.
== END 2024-02-03 23:59 | disposition home or self-care (01) ==
LOC: WC 09:38
PROVIDERS: PCP Nurse Practitioner Primary Care; Referring Provider Nurse Practitioner Primary Care; Visit Provider Podiatrist
DX: Z09 Encounter for follow-up examination after completed treatment for conditions other than malignant neoplasm (principal); I83.92 Asymptomatic varicose veins of left lower extremity
CPT/HCPCS: 99213; G0463

== ENCOUNTER → 2024-04-22 | Outpatient (CLI) | payer MEDICARE, OTHER, SELFPAY ==
[2024-04-22 14:55] LABS: Absolute Neutrophil Count 4.7 X10^3/uL (2.0-7.7); Basophil# 0.04 X10^3/uL; Basophil% 0.5 % (0-1); Eosinophil# 0.17 X10^3/uL; Eosinophils% 2.3 % (0-5); Hematocrit 46.4 % (40-54); Hemoglobin 14.9 g/dL (13.0-16.5); Lymphocyte % 21.9 % (19-41); Mean Corp Hgb Conc 32.1 g/dL (32-36); Mean Corpuscular Hgb 29.8 pg (27.0-32.0); Mean Corpuscular Volume 92.8 fL (80-94); Mean Platelet Vol. 10.9 fl (6.2-12.0); Monocyte# 0.76 X10^3/uL; Monocyte% 10.4 % (0-10); NRBC Flagged by Analyzer 0 % (0-5); Neutrophil % 64.6 % (47-70); Platelet Count 195 K/mm3 (150-450); RBC Distribution Width CV 13.1 % (11.6-14.6); RBC Distribution Width SD 44.1 fl (35.1-43.9); White Blood Count 7.3 K/mm3 (4.4-11.0)
[2024-04-22 15:40] LABS: BNP,B-Type NATRIURETIC PEPTIDE 207.6 pg/mL (0-100)
[2024-04-22 16:00] LABS: ALB/GLOB Ratio 0.9 RATIO (0.9-2.4); AST(SGOT) 24 U/L (15-37); Alanine Aminotransfer ALT/SGPT 26 U/L (16-61); Albumin, Serum 3.8 g/dL (3.2-5.0); Alkaline Phosphatase 96 U/L (45-117); Anion Gap 8 (5-15); BUN 21 mg/dL (7-18); Calcium,Total 9.8 mg/dL (8.5-10.1); Chloride 106 mmol/L (98-107); Creatinine, Serum 0.96 mg/dL (0.70-1.30); EST Glomerular Filtration Rate 80 mL/min (>60); Est Glom Filt Rate - Afr Amer 97 mL/min (>60); Globulin 4.1 g/dL (2.2-4.2); Glucose 98 mg/dL (74-106); Magnesium 2.4 mg/dL (1.6-2.6); Potassium 3.9 mmol/L (3.5-5.1); Protein, Total 7.9 g/dL (6.4-8.2); Sodium Level 139 mmol/L (136-145); T4 Free Direct 1.11 ng/dL (0.76-1.46); Thyroid Stim Hormone (TSH) 0.24 uIU/mL (0.358-3.74)
== END | disposition home or self-care (01) ==
LOC: LAB 13:43
PROVIDERS: PCP Nurse Practitioner Primary Care; Referring Provider Nurse Practitioner Family; Visit Provider Nurse Practitioner Family
DX: R06.09 Other forms of dyspnea (principal); I48.0 Paroxysmal atrial fibrillation; I10 Essential (primary) hypertension
CPT/HCPCS: 36415; 80053; 83735; 83880; 84439; 84443; 85025

== ENCOUNTER → 2024-04-29 | Outpatient (CLI) | payer MEDICARE, OTHER, SELFPAY | END | disposition home or self-care (01) | LOC: PSN 10:43 | PROVIDERS: PCP Nurse Practitioner Primary Care; Referring Provider Nurse Practitioner Family; Visit Provider Nurse Practitioner Family | DX: I48.0 Paroxysmal atrial fibrillation (principal); I10 Essential (primary) hypertension; R06.09 Other forms of dyspnea | CPT/HCPCS: 93225; 93226 ==

== ENCOUNTER 2024-05-20 11:46 | Observation (INO) | payer MEDICARE, OTHER, SELFPAY ==
--- NOTE | 2024-05-05 14:04 | RAD_ITS ---
STUDY: X-RAY CHEST REASON FOR EXAM: Male, 83 years old. 4 pacemaker implant. TECHNIQUE: Frontal and lateral views of the chest. COMPARISON: None. FINDINGS: Low volume inspiration. Elevation of the right hemidiaphragm. Mild diffuse interstitial prominence most marked in the bases. Cardiomegaly. Aortic tortuosity with calcification. Prominent central pulmonary arteries. Thoracic osteopenia with mild diffuse spondylosis and slight increased kyphosis. No abnormality of the visualized soft tissue structures of the upper abdomen. RAD/Chest PA and Lateral IMPRESSION: Cardiomegaly, mild diffuse interstitial pattern and no acute or active cardiopulmonary disease. Electronically Signed: Luis Rico MD at 14:28 EDT ,
[2024-05-05 14:33] LABS: Bacteria 0 SEEN /hpf (None Seen); Mucous, Urine 0 SEEN /hpf (<or=2+); Red Blood Cells-Urine 0 SEEN /hpf (0-5); Squamous Epithelial Cells - UA 0 SEEN /hpf (0-5); White Blood Cells 0 SEEN /hpf (0-5)
[2024-05-05 15:37] LABS: Hematocrit 44.6 % (40-54); Hemoglobin 14.4 g/dL (13.0-16.5); Mean Corp Hgb Conc 32.3 g/dL (32-36); Mean Corpuscular Hgb 29.9 pg (27.0-32.0); Mean Corpuscular Volume 92.7 fL (80-94); Mean Platelet Vol. 10.8 fl (6.2-12.0); Platelet Count 192 K/mm3 (150-450); RBC Distribution Width CV 12.8 % (11.6-14.6); RBC Distribution Width SD 43.3 fl (35.1-43.9); Red Blood Count 4.81 M/mm3 (4.6-6.2); White Blood Count 7.9 K/mm3 (4.4-11.0)
[2024-05-05 15:53] LABS: International Normalized Ratio 1.3; Prothrombin Time (Protime)PT. 15.9 SECONDS (11.7-14.9)
[2024-05-05 15:59] LABS: Anion Gap 7 (5-15); BUN 18 mg/dL (7-18); BUN/Creat Ratio 15.5 RATIO (10-20); Calcium,Total 9.9 mg/dL (8.5-10.1); Chloride 106 mmol/L (98-107); Creatinine, Serum 1.16 mg/dL (0.70-1.30); EST Glomerular Filtration Rate 64 mL/min (>60); Est Glom Filt Rate - Afr Amer 77 mL/min (>60); Glucose 97 mg/dL (74-106); Sodium Level 142 mmol/L (136-145)
[2024-05-05 16:02] LABS: Color, Urine Straw (Yellow); Glucose, Dipstick Normal (Normal); Ketone-Dipstick Negative (Negative); Leukocyte Esterase-Dipstick Negative /ul (Negative); Nitrite-Dipstick Negative (Negative); Occult Blood-Urine Negative /ul (Negative); Protein-Dipstick Negative (Negative); Urine Bilirubin Dipstick Negative (Negative); Urine Clarity Clear (Clear); Urine Urobilinogen Normal (Normal); Urine pH 6.5 (5.0 - 8.0)
[2024-05-19 08:30] VITALS: BMI 29.8
[2024-05-20] VITALS (10 sets, daily range): BP systolic 153–180; BP diastolic 72–87; PULSE 60–63; RESP 16–18; TEMP 36–37; O2SAT 94–99; BMI 30.7
--- NOTE | 2024-05-20 11:42 | PCM.OP.PRO ---
Procedure Report Date of Procedure: 05/20/24 Date of Procedure: [05/20/2024] Patient with symptomatic bradycardia: Atrial fibrillation with a slow ventricular response rate. Procedure insertion of a VVI pacemaker via the right femoral vein transcatheter pacing system. After informed consent was obtained and procedural antibiotics were given the patient was brought to the cardiac catheterization lab in the right and left femoral areas were prepped and draped in the sterile manner. Intermittent boluses of Versed and fentanyl and 1% subcutaneous lidocaine were used for sedation and analgesia. Femoral vein access was achieved via the Seldinger technique and confirmed by positioning of the guidewire into the superior vena cava under fluoroscopic guidance. Over the wire the Sherry dilator was used to dilate the femoral vein access up to 20 [place]ian. The Sherry dilator was removed. After flushing of the sheath with heparinized saline the 23 [place]ian delivery system was inserted and advanced over the wire under fluoroscopic guidance to the floor of the right atrium. A bolus of 5000 units of intravenous heparin was administered. The delivery catheter and leadless pacemaker were then brought into the field and was flushed thoroughly with heparinized saline use to express all air distally. Saline flush was also used to flush the suture at the proximal end of the delivery sheath handle. Through the delivery sheath the delivery catheter and leadless pacemaker were advanced through the sheath to the floor of the right atrium under fluoroscopic guidance. The delivery catheter and pacemaker were advanced beyond the delivery sheath with appropriate deflection and manipulation: The delivery catheter and pacemaker were advanced under fluoroscopic guidance in the STREET projection and across the tricuspid valve into the right ventricle. In the AURELIO projection the delivery sheath was positioned in from a position with a right ventricular septal wall. Contrast injection confirmed from contact with the right ventricular wall along the septum and excluded on apical and anterior position. The delivery sheath was then flushed with heparinized saline. The leadless pacemaker was then deployed in the delivery sheath was pulled back to an adequate position to complete the tug test. Under magnified view with cine imaging, the tug test was completed and confirmed no less than 2 of the 4 times when excellent contact with the myocardium and there was no dislodgment of the pacemaker. Testing was performed of the device and acceptable sensing, impedance, and capture thresholds were confirmed. The testing of the pacemaker was repeated multiple times and confirmed to be adequate and stable. The delivery sheath was flushed again with heparinized saline one end of the suture was cut and the suture was slowly withdrawn from the delivery sheath. Once the suture was removed the pacemaker was tested again and confirmed appropriate stable electrical parameters. There was no change in position of the device after the suture was removed. The delivery catheter and sheath were then removed from the right femoral vein hemostasis was obtained with surgical pursestring closure and with a use of a three-way stopcock and manual pressure. The patient left the room in stable condition with a pacemaker programmed to appropriate parameters. There were no complications. Device product information electrical data and serial number provided in the chart.
--- NOTE | 2024-05-20 11:50 | CL.IE_ITS ---
Patient: SAMAN MEI Study Date: 05/20/2024 Performing: Eric Avelar MD : [id number] Age: 83 Gender: male PROCEDURES PERFORMED LP20-([id number])LEADLESS PACER, INSERT/REPLACE INDICATIONS Sinoatrial node dysfunction/Sick sinus syndrome PROCEDURE DETAILS The patient was brought to the Catheterization Lab in the postabsorptive nonsedated state. Informed consent was obtained prior to the procedure. Local anesthetic was given subcutaneously to the right groin region with Lidocaine 2%. Access was achieved and a guidewire was advanced into the right femoral vein. The patient tolerated the procedure well. Estimated Blood Loss: 10 ml's IMPLANTED / EX-PLANTED DEVICES DEVICE PARAMETERS VENTRICULAR LEAD PARAMETERS: R wave- 5.1 (mV) threshold- 0.5 (V) DEVICE PARAMETERS: Mode- VVIR Lower rate- 60 Upper rate- 120 CONCLUSIONS / RECOMMENDATIONS Device Conclusions: Successful implantation of a leadless micra pacemaker Device Recommendations: Follow up with Primary Care Physician PROCEDURE MEDICATIONS Versed 1 mg IV Fentanyl 50 mcg IV Versed 1 mg IV Oxygen: 2 L/min via nasal cannula Antibiotic given in appropriate timeframe. Ancef 2 Gm IV @ 05/20/2024 11:16:57 Heparin 5000 unit(s) IV 05/20/2024 11:12:44 Signed By Eric Avelar MD On 05/20/2024 11:49:52 Eric Avelar MD
[2024-05-21 04:00] VITALS: BP 153/82; PULSE 60; RESP 16; TEMP 2.6; TEMP 36.7; O2SAT 97
[2024-05-21 06:05] LABS: Hematocrit 46.4 % (40-54); Hemoglobin 15.1 g/dL (13.0-16.5); Mean Corp Hgb Conc 32.5 g/dL (32-36); Mean Corpuscular Hgb 29.8 pg (27.0-32.0); Mean Corpuscular Volume 91.5 fL (80-94); Mean Platelet Vol. 10.3 fl (6.2-12.0); Platelet Count 185 K/mm3 (150-450); RBC Distribution Width CV 12.8 % (11.6-14.6); RBC Distribution Width SD 42.5 fl (35.1-43.9); Red Blood Count 5.07 M/mm3 (4.6-6.2); White Blood Count 9.8 K/mm3 (4.4-11.0)
[2024-05-21 06:24] LABS: International Normalized Ratio 1.3; Prothrombin Time (Protime)PT. 15.9 SECONDS (11.7-14.9)
[2024-05-21 06:25] LABS: Partial Thromboplast Time 38.9 Seconds (24.1-36.2)
[2024-05-21 06:29] LABS: Anion Gap 6 (5-15); BUN 16 mg/dL (7-18); BUN/Creat Ratio 23.3 RATIO (10-20); Calcium,Total 9.4 mg/dL (8.5-10.1); Chloride 105 mmol/L (98-107); Creatinine, Serum 0.69 mg/dL (0.70-1.30); EST Glomerular Filtration Rate 117 mL/min (>60); Est Glom Filt Rate - Afr Amer 141 mL/min (>60); Estimated Creatinine Clearance 76.95 ml/min; Glucose 99 mg/dL (74-106); Potassium 3.7 mmol/L (3.5-5.1); Sodium Level 136 mmol/L (136-145)
--- NOTE | 2024-05-21 08:33 | PN.CARD_ITS ---
Subjective Subjective Patient seen and evaluated. Doing well. No complaints overnight. Objective Data Vital Signs: Vital Signs Temp Pulse Resp BP Pulse Ox O2 Del Method 36.7 F L 60 16 153/82 H 97 Room Air 05/21/24 04:00 05/21/24 04:00 05/21/24 04:00 05/21/24 04:00 05/21/24 04:00 05/21/24 07:40 Oxygen Delivery Method Room Air Weight: 202 lb 6.4 oz Body Mass Index (BMI) 30.7 Intake & Output: Intake and Output for Last 24 Hours 05/19/24 05/20/24 05/21/24 23:59 23:59 23:59 Intake Total 560 / 680 360 / 360 Output Total 500 / 700 650 / 650 Balance 60 / -20 -290 / -290 Lab / Micro Data 05/21/24 05:38 05/21/24 05:38 Labs: Laboratory Results - last 24 hr 05/21/24 05:38: WBC 9.8, RBC 5.07, Hgb 15.1, Hct 46.4, MCV 91.5, MCH 29.8, MCHC 32.5, RDW Std Deviation 42.5, RDW Coeff of Ben 12.8, Plt Count 185, MPV 10.3, PT 15.9 H, INR 1.3, APTT 38.9 H, Sodium 136, Potassium 3.7, Chloride 105, Carbon Dioxide 25.0, Anion Gap 6, BUN 16, Creatinine 0.69 L, Estim Creat Clear Calc 76.95, Est GFR (MDRD) Af Amer 141, Est GFR (MDRD) Non-Af 117, BUN/Creatinine Ratio 23.3 H, Glucose 99, Calcium 9.4 Cardiology Labs/Tests 05/21/24 05:38: WBC 9.8, RBC 5.07, Hgb 15.1, Hct 46.4, MCV 91.5, MCH 29.8, MCHC 32.5, Plt Count 185, MPV 10.3, PT 15.9 H, INR 1.3, APTT 38.9 H, Sodium 136, Potassium 3.7, Chloride 105, Carbon Dioxide 25.0, Anion Gap 6, BUN 16, C reatinine 0.69 L, Est GFR (MDRD) Af Amer 141, Est GFR (MDRD) Non-Af 117, B UN/Creatinine Ratio 23.3 H, Glucose 99, Calcium 9.4 Rhythm: EKG: ECHO: Stress Test: Cardiac Cath: PCI: CT Surgery: Holter monitor: EPS: PPM: CXR: Chest CT Scan: Physical Exam Const alert, oriented x3 and no apparent distress General Appearance: cooperative HEENT hearing grossly normal bilaterally Head and Scalp: atraumatic Eyes EOMs intact bilaterally Neck General: normal visual inspection Chest inspection of chest normal and palpation of chest normal Resp normal respiratory effort Auscultation: clear to auscultation bilaterally Cardio S1 normal heart sound and S2 normal heart sound Jugular Venous Distention: JVD Rhythm: abnormal rhythm irregularly irregular GI normal to inspection, nondistended, normoactive bowel sounds Extremity normal capillary refill and no pedal edema Peripheral Pulses: Yes pulses 2+ throughout and femoral pulses present Skin no rashes or lesions noted Neuro oriented x3 and CN's II-XII intact bilaterally Psych Appearance: grossly normal and appropriate Assessment & Plan Assessment/Plan (1) Presence of leadless cardiac pacemaker: PLAN: Patient had a leadless permanent pacemaker implanted yesterday without incident. Pacemaker check this morning demonstrates adequate numbers. Patient will be discharged for outpatient follow-up. (2) Persistent atrial fibrillation: PLAN: Persistent atrial fibrillation with a controlled ventricular response now. Will discharge patient for outpatient follow-up. Will restart anticoagulation on the .
--- NOTE | 2024-05-21 08:35 | DCINST_ITS ---
Discharge Instructions Diet Discharge Diet: No restrictions (You may continue your normal diet.) Activity Discharge Activity: Return to Normal Activity Lifting Restrictions: 10 pounds and also avoid any pushing or pulling for 3 days after your test. Additional Activity Instructions:: You must have someone drive you home. Do not drive until instructed by your doctor. You must have someone stay with you all night after your test. Rest in bed or on the couch until the next morning. Limit the number of times you go up and down stairs the day of your test. Apply pressure to the puncture site if you sneeze or cough. Dressing / Incision Call your doctor if your incision/area has: Increased Pain/ Swelling, Increased Redness, Foul Smelling Discharge and Swelling at the incision site Call your doctor if you observe: Fever of 101 or Higher Additional Dressing/Incision Instructions:: Keep the dressing (bandage) on until the next morning. You may then shower, but do not take a tub bath for 5 days after your test. It is normal to have some tenderness and discomfort at the puncture site. Sometimes bruising also occurs. However, if pain, numbness, or coldness occurs below the puncture site (in your leg, toes, arms or fingers) call your doctor at once. You may have a small, marble sized knot at the puncture site. This is normal. Do not rub it. It will go away in 4-6 weeks. Bleeding can occur from the area where the puncture was done. Blood may spurt or drip from the site. If blood spurts, apply pressure right away to stop bleeding and call 911. Although rare, bleeding into the tissue (hematoma) can also occur. If this happens, a large, firm area goose egg under the skin will appear. If any of these occur, lie down as flat as you can and have someone apply firm pressure to the cath site with a gauze pad or a clean washcloth for 10-15 minutes. Call 911 or go to the Emergency Department. Follow Up Care When: Pacer clinic on June 03 at 1 PM Test Results: Test results from this visit will be discussed in further detail at your follow- up appointment, if applicable. Discharge Plan Admission Admit Date/Time: 05/20/24 11:46 Attending Provider: Eric Avelar Primary Care Provider: Denita Westbrook NP Discharge Orders/Prescriptions Prescriptions: Continued spironolactone 25 mg tablet 25 mg PO DAILY Qty: 90 3RF amlodipine 5 mg tablet 5 mg PO DAILY Qty: 90 3RF lisinopril 40 mg tablet 40 mg PO DAILY Qty: 90 3RF furosemide [Lasix] 40 mg tablet 40 mg PO DAILY Qty: 90 3RF Held Eliquis 5 mg tablet 5 mg PO BID Qty: 60 11RF Hold Instructions: Resume on 05/27/24. Resume Eliquis on May Disposition Discharge Orders: Discharge Patient (Routine); Ordered 05/21/24 Ordered By: Dr. Reyes [facility]
[2024-05-21 08:50] VITALS: BP 154/76; PULSE 61; RESP 18; TEMP 36.4; O2SAT 97
[2024-05-21 08:51] VITALS: BP 154/76; PULSE 61; RESP 18; TEMP 36.3; O2SAT 97
[2024-05-21] MEDS: amLODIPine 5 MG Tablet PO (08:59)
[2024-05-21] MEDS: Furosemide 40 MG Tablet PO (08:59)
[2024-05-21] MEDS: Spironolactone 25 MG Tablet PO (08:59)
[2024-05-21] MEDS: Lisinopril 40 MG Tablet PO (08:59)
--- NOTE | 2024-05-21 09:07 | PHA.DC.MR.R ---
Pharmacy [place] Med Reconciliation Pharmacy Service has performed discharge medication reconciliation for this patient. The patient's discharge medication list was reviewed for discrepancies and discrepancies were resolved. Medications at Discharge Home Medications apixaban 5 mg tablet (Eliquis) 5 mg PO BID blood thinner #60 tabs 03/26/23 amlodipine 5 mg tablet 5 mg PO DAILY blood pressure #90 tabs 10/31/23 furosemide 40 mg tablet (Lasix) 40 mg PO DAILY diuretic #90 tabs 10/31/23 lisinopril 40 mg tablet 40 mg PO DAILY blood pressure #90 tabs 10/31/23 spironolactone 25 mg tablet 25 mg PO DAILY blood pressure #90 tabs 10/31/23
--- NOTE | 2024-05-21 09:43 | CASEMGMT ---
Patient has order for discharge. RN CM in to discuss needs at discharge. Patient denies needs or help at discharge. Patient had no further questions or concerns.
== END 2024-05-21 08:38 | disposition home or self-care (01) ==
LOC: PCU 12:00
PROVIDERS: Admitting Provider Internal Medicine Cardiovascular Disease; PCP Nurse Practitioner Primary Care; Referring Provider Internal Medicine Cardiovascular Disease; Visit Provider Internal Medicine Cardiovascular Disease
DX: Z45.018 Encounter for adjustment and management of other part of cardiac pacemaker (principal); I49.5 Sick sinus syndrome; I48.19 Other persistent atrial fibrillation; I10 Essential (primary) hypertension; Z79.01 Long term (current) use of anticoagulants; Z79.899 Other long term (current) drug therapy; R06.09 Other forms of dyspnea
CPT/HCPCS: 33274; 36415; 71046; 80048; 81001; 85027; 85610; 85730; 99152; 99153; 99221; C1894; J7040; Q9967; C1769; G0378